=== PATIENT | female | born 1980 | race American Indian/Alaskan Native ===

== ENCOUNTER 2017-11-07 12:14 | Inpatient (IN) | payer MEDICARE ==
[2017-11-07] MEDS ORDERED: NACL 0.9% 1000 ML 1,000 ML IV ONE ×3 (12:25→14:44)
[2017-11-07] MEDS ORDERED: D50W (25GM) Syringe IV PRN ×2 (12:28→15:58)
--- NOTE | 2017-11-07 12:34 | Emergency Department Report ---
ED Altered Mental Status HPI - General Stated Complaint: UNRESPONSIVE Time Seen by Provider: 11/07/17 12:25 Source: family, EMS - History of Present Illness Initial Comments: Patient is 37 years old female history of insulin-dependent diabetes and previous CVAs, presented via EMS after patient was found unresponsive. Per family report, patient was last time seen normal yesterday afternoon. Unable to obtain more history due to patient condition. On arrival to the ER patient is breathing 20 breath/minutes and her oxygen saturation is 98% on 2 L. Strong smell of acetone in the room. MD Complaint: altered mental status, decreased responsiveness -: unknown Severity: moderate Consistency of Symptoms: constant - Related Data Home Medications Medication Instructions Recorded Confirmed Last Taken Aspirin [Aspirin EC] 81 mg PO DAILY 11/07/17 11/07/17 Unknown AtorvaSTATin [Lipitor] 80 mg PO QHS 11/07/17 11/07/17 Unknown Citalopram [celeXA] 10 mg PO QDAY 11/07/17 11/07/17 Unknown Clopidogrel [Plavix] 75 mg PO QDAY 11/07/17 11/07/17 Unknown Cyclobenzaprine [Flexeril] 10 mg PO TID PRN 11/07/17 11/07/17 Unknown Insulin Aspart Protam & Aspart 0 unit SQ TID 11/07/17 11/07/17 Unknown [NovoLOG Mix 70-30 Flexpen] Insulin Glargine,Hum.rec.anlog 20 units SQ QAM 11/07/17 11/07/17 Unknown [Lantus] Insulin Glargine,Hum.rec.anlog 50 units SQ QPM 11/07/17 11/07/17 Unknown [Lantus] NIFEdipine [Nifedipine ER] 30 mg PO DAILY 11/07/17 11/07/17 Unknown Allergies Allergy/AdvReac Type Severity Reaction Status Date / Time No Known Allergies Allergy Unverified 11/20/14 03:04 ED Review of Systems ROS: Stated complaint: UNRESPONSIVE Other details as noted in HPI Comment: Unobtainable due to pts medical conditions ED Past Medical Hx - Past Medical History Hx Hypertension: Yes Hx CVA: Yes Hx Diabetes: Yes Hx Seizures: Yes - Surgical History Additional Surgical History: Spinal surgery, neck/artery surgery - Social History Smoking Status: Never Smoker Substance Use Type: None - Medications Home Medications: Home Medications Medication Instructions Recorded Confirmed Last Taken Type Aspirin [Aspirin EC] 81 mg PO DAILY 11/07/17 11/07/17 Unknown History AtorvaSTATin [Lipitor] 80 mg PO QHS 11/07/17 11/07/17 Unknown History Citalopram [celeXA] 10 mg PO QDAY 11/07/17 11/07/17 Unknown History Clopidogrel [Plavix] 75 mg PO QDAY 11/07/17 11/07/17 Unknown History Cyclobenzaprine [Flexeril] 10 mg PO TID PRN 11/07/17 11/07/17 Unknown History Insulin Aspart Protam & Aspart 0 unit SQ TID 11/07/17 11/07/17 Unknown History [NovoLOG Mix 70-30 Flexpen] Insulin Glargine,Hum.rec.anlog 20 units SQ QAM 11/07/17 11/07/17 Unknown History [Lantus] Insulin Glargine,Hum.rec.anlog 50 units SQ QPM 11/07/17 11/07/17 Unknown History [Lantus] NIFEdipine [Nifedipine ER] 30 mg PO DAILY 11/07/17 11/07/17 Unknown History ED Physical Exam - General Limitations: Altered Mental Status General appearance: in no apparent distress, obtunded - Head Head exam: Present: atraumatic, normocephalic, normal inspection - Eye Eye exam: Present: normal appearance Pupils: Present: irregular, unequal - ENT ENT exam: Present: normal exam, mucous membranes dry - Neck Neck exam: Present: normal inspection, full ROM. Absent: tenderness, meningismus, lymphadenopathy, thyromegaly - Respiratory Respiratory exam: Present: normal lung sounds bilaterally - Cardiovascular Cardiovascular Exam: Present: regular rate, normal rhythm, normal heart sounds - GI/Abdominal GI/Abdominal exam: Present: soft, normal bowel sounds. Absent: distended, tenderness, guarding, rebound, rigid, organomegaly, mass, bruit, pulsatile mass - Extremities Exam Extremities exam: Present: normal inspection, full ROM, normal capillary refill - Back Exam Back exam: Present: normal inspection, full ROM. Absent: tenderness, CVA tenderness (R), CVA tenderness (L), muscle spasm, paraspinal tenderness, vertebral tenderness - Neurological Exam Neurological exam: Present: altered - Skin Skin exam: Present: warm, dry, intact ED Course Vital Signs 11/07/17 11/07/17 11/07/17 12:18 12:30 12:45 Pulse Rate 94 H 89 Respiratory 19 18 Rate Blood Pressure 115/67 111/67 107/62 O2 Sat by Pulse 100 100 Oximetry 11/07/17 11/07/17 11/07/17 12:49 13:00 13:30 Pulse Rate 91 H 92 H 99 H Respiratory 14 20 19 Rate Blood Pressure 107/62 113/59 100/53 O2 Sat by Pulse 99 100 96 Oximetry 11/07/17 11/07/17 11/07/17 14:00 14:30 15:34 Pulse Rate 90 92 H 92 H Respiratory 22 21 21 Rate Blood Pressure 108/54 108/54 109/62 O2 Sat by Pulse 100 100 100 Oximetry 11/07/17 11/07/17 11/07/17 16:00 16:30 16:41 Pulse Rate 94 H 94 H Respiratory 21 20 Rate Blood Pressure 117/69 104/62 O2 Sat by Pulse 100 100 100 Oximetry 11/07/17 11/07/17 11/07/17 17:00 17:05 17:30 Pulse Rate 92 H 92 H 94 H Respiratory 21 20 22 Rate Blood Pressure 108/60 110/60 104/62 O2 Sat by Pulse 100 100 100 Oximetry 11/07/17 18:00 Pulse Rate 97 H Respiratory 22 Rate Blood Pressure 104/62 O2 Sat by Pulse 96 Oximetry - Reevaluation(s) Reevaluation #1: 11/07/17 13:10 patient still obtunded but started to respond to painful and voice stimuli. She is still maintaining an oxygen saturation of 100% with a respiratory rate between 18-22 breaths/minutes. 11/07/17 14:32 patient's clinically looks better. We'll continue IV fluids and insulin drip and plan to admit to the ICU. 11/07/17 18:56 - Lab Data Result diagrams: 11/07/17 12:26 11/07/17 16:57 Lab Results 11/07/17 11/07/17 11/07/17 Range/Units 12:26 12:26 12:39 WBC 20.1 H (4.5-11.0) K/mm3 RBC 4.10 (3.65-5.03) M/mm3 Hgb 12.4 (10.1-14.3) gm/dl Hct 41.3 (30.3-42.9) % MCV 101 H (79-97) fl MCH 30 (28-32) pg MCHC 30 (30-34) % RDW 13.7 (13.2-15.2) % Plt Count 197 (140-440) K/mm3 Add Manual Diff Complete Total Counted 100 Seg Neutrophils % [employer] Seg Neuts % (Manual) 90.0 H (40.0-70.0) % Band Neutrophils % 4.0 % Lymphocytes % (Manual) 2.0 L (13.4-35.0) % Reactive Lymphs % (Man) 0 % Monocytes % (Manual) 4.0 (0.0-7.3) % Eosinophils % (Manual) 0 (0.0-4.3) % Basophils % (Manual) 0 (0.0-1.8) % Metamyelocytes % 0 % Myelocytes % 0 % Promyelocytes % 0 % Blast Cells % 0 % Nucleated RBC % Not Reportable Seg Neutrophils # Man 18.1 H (1.8-7.7) K/mm3 Band Neutrophils # 0.8 K/mm3 Lymphocytes # (Manual) 0.4 L (1.2-5.4) K/mm3 Abs React Lymphs (Man) 0.0 K/mm3 Monocytes # (Manual) 0.8 (0.0-0.8) K/mm3 Eosinophils # (Manual) 0.0 (0.0-0.4) K/mm3 Basophils # (Manual) 0.0 (0.0-0.1) K/mm3 Metamyelocytes # 0.0 K/mm3 Myelocytes # 0.0 K/mm3 Promyelocytes # 0.0 K/mm3 Blast Cells # 0.0 K/mm3 WBC Morphology Not Reportable Hypersegmented Neuts Not Reportable Hyposegmented Neuts Not Reportable Hypogranular Neuts Not Reportable Smudge Cells Not Reportable Toxic Granulation Not Reportable Toxic Vacuolation Not Reportable Dohle Bodies Not Reportable Pelger-Huet Anomaly Not Reportable Xiomy Rods Not Reportable Platelet Estimate Not Reportable Clumped Platelets Not Reportable Plt Clumps, EDTA Not Reportable Large Platelets Not Reportable Giant Platelets Not Reportable Platelet Satelliting Not Reportable Plt Morphology Comment Not Reportable RBC Morphology Normal Dimorphic RBCs Not Reportable Polychromasia Not Reportable Hypochromasia Not Reportable Poikilocytosis Not Reportable Anisocytosis Not Reportable Microcytosis Not Reportable Macrocytosis Not Reportable Spherocytes Not Reportable Pappenheimer Bodies Not Reportable Sickle Cells Not Reportable Target Cells Not Reportable Tear Drop Cells Not Reportable Ovalocytes Not Reportable Helmet Cells Not Reportable [place] Bodies Not Reportable [place] Rings Not Reportable Danna Cells Not Reportable Bite Cells Not Reportable Crenated Cell Not Reportable Elliptocytes Not Reportable Acanthocytes (Spur) Not Reportable Rouleaux Not Reportable Hemoglobin C Crystals Not Reportable Schistocytes Not Reportable Malaria parasites Not Reportable Mundo Bodies Not Reportable Hem Pathologist Commnt No PT 16.4 H (12.2-14.9) Sec. INR 1.25 H (0.87-1.13) POC ABG pH 6.856 L (7.35-7.45) POC ABG pCO2 12.4 L (35-45) POC ABG pO2 288 H (80-105) POC ABG HCO3 2.2 POC ABG Total CO2 < 5 POC ABG O2 Sat 100 POC ABG Base Excess < -30 FiO2 98 % Sodium Potassium Chloride Carbon Dioxide Anion Gap BUN Creatinine Estimated GFR BUN/Creatinine Ratio Glucose POC Glucose (70-105) Lactic Acid (0.7-2.0) mmol/L Calcium Phosphorus (2.5-4.5) mg/dL Magnesium (1.7-2.3) mg/dL Total Bilirubin (0.1-1.2) mg/dL Direct Bilirubin (0-0.2) mg/dL Indirect Bilirubin mg/dL AST (5-40) units/L ALT (7-56) units/L Alkaline Phosphatase (35-129) units/L Total Protein (6.3-8.2) g/dL Albumin (3.9-5) g/dL Albumin/Globulin Ratio % HCG, Qual (Negative) Urine Color (Yellow) Urine Turbidity (Clear) Urine pH (5.0-7.0) Ur Specific [place] (1.003-1.030) Urine Protein (Negative) mg/dL Urine Glucose (UA) (Negative) mg/dL Urine Ketones (Negative) mg/dL Urine Blood (Negative) Urine Nitrite (Negative) Urine Bilirubin (Negative) Urine Urobilinogen (<2.0) mg/dL Ur Leukocyte Esterase (Negative) Urine WBC (Auto) (0.0-6.0) /HPF Urine RBC (Auto) (0.0-6.0) /HPF U Epithel Cells (Auto) (0-13.0) /HPF Urine Bacteria (Auto) (Negative) /HPF Urine Opiates Screen Urine Methadone Screen Ur Barbiturates Screen Ur Phencyclidine Scrn Ur Amphetamines Screen U Benzodiazepines Scrn Urine Cocaine Screen U Marijuana (THC) Screen Drugs of Abuse Note 11/07/17 11/07/17 11/07/17 Range/Units 13:44 13:44 13:44 WBC (4.5-11.0) K/mm3 RBC (3.65-5.03) M/mm3 Hgb (10.1-14.3) gm/dl Hct (30.3-42.9) % MCV (79-97) fl MCH (28-32) pg MCHC (30-34) % RDW (13.2-15.2) % Plt Count (140-440) K/mm3 Add Manual Diff Total Counted Seg Neutrophils % Seg Neuts % (Manual) (40.0-70.0) % Band Neutrophils % % Lymphocytes % (Manual) (13.4-35.0) % Reactive Lymphs % (Man) % Monocytes % (Manual) (0.0-7.3) % Eosinophils % (Manual) (0.0-4.3) % Basophils % (Manual) (0.0-1.8) % Metamyelocytes % % Myelocytes % % Promyelocytes % % Blast Cells % % Nucleated RBC % Seg Neutrophils # Man (1.8-7.7) K/mm3 Band Neutrophils # K/mm3 Lymphocytes # (Manual) (1.2-5.4) K/mm3 Abs React Lymphs (Man) K/mm3 Monocytes # (Manual) (0.0-0.8) K/mm3 Eosinophils # (Manual) (0.0-0.4) K/mm3 Basophils # (Manual) (0.0-0.1) K/mm3 Metamyelocytes # K/mm3 Myelocytes # K/mm3 Promyelocytes # K/mm3 Blast Cells # K/mm3 WBC Morphology Hypersegmented Neuts Hyposegmented Neuts Hypogranular Neuts Smudge Cells Toxic Granulation Toxic Vacuolation Dohle Bodies Pelger-Huet Anomaly Xiomy Rods Platelet Estimate Clumped Platelets Plt Clumps, EDTA Large Platelets Giant Platelets Platelet Satelliting Plt Morphology Comment RBC Morphology Dimorphic RBCs Polychromasia Hypochromasia Poikilocytosis Anisocytosis Microcytosis Macrocytosis Spherocytes Pappenheimer Bodies Sickle Cells Target Cells Tear Drop Cells Ovalocytes Helmet Cells [place] Bodies [place] Rings [place] Cells Bite Cells Crenated Cell Elliptocytes Acanthocytes (Spur) Rouleaux Hemoglobin C Crystals Schistocytes Malaria parasites Mundo Bodies Hem Pathologist Commnt PT (12.2-14.9) Sec. INR (0.87-1.13) POC ABG pH (7.35-7.45) POC ABG pCO2 (35-45) POC ABG pO2 (80-105) POC ABG HCO3 POC ABG Total CO2 POC ABG O2 Sat POC ABG Base Excess FiO2 % Sodium TNR Potassium TNR Chloride TNR Carbon Dioxide TNR Anion Gap TNR BUN TNR Creatinine TNR Estimated GFR TNR BUN/Creatinine Ratio TNR Glucose TNR POC Glucose (70-105) Lactic Acid (0.7-2.0) mmol/L Calcium TNR Phosphorus 8.10 H (2.5-4.5) mg/dL Magnesium 2.60 H (1.7-2.3) mg/dL Total Bilirubin 0.30 (0.1-1.2) mg/dL Direct Bilirubin 0.2 (0-0.2) mg/dL Indirect Bilirubin 0.1 mg/dL AST 15 (5-40) units/L ALT 11 (7-56) units/L Alkaline Phosphatase 89 (35-129) units/L Total Protein 5.8 L (6.3-8.2) g/dL Albumin 3.0 L (3.9-5) g/dL Albumin/Globulin Ratio 1.1 % HCG, Qual Negative (Negative) Urine Color (Yellow) Urine Turbidity (Clear) Urine pH (5.0-7.0) Ur Specific [place] (1.003-1.030) Urine Protein (Negative) mg/dL Urine Glucose (UA) (Negative) mg/dL Urine Ketones (Negative) mg/dL Urine Blood (Negative) Urine Nitrite (Negative) Urine Bilirubin (Negative) Urine Urobilinogen (<2.0) mg/dL Ur Leukocyte Esterase (Negative) Urine WBC (Auto) (0.0-6.0) /HPF Urine RBC (Auto) (0.0-6.0) /HPF U Epithel Cells (Auto) (0-13.0) /HPF Urine Bacteria (Auto) (Negative) /HPF Urine Opiates Screen Urine Methadone Screen Ur Barbiturates Screen Ur Phencyclidine Scrn Ur Amphetamines Screen U Benzodiazepines Scrn Urine Cocaine Screen U Marijuana (THC) Screen Drugs of Abuse Note 11/07/17 11/07/17 11/07/17 Range/Units 13:44 14:17 14:28 WBC (4.5-11.0) K/mm3 RBC (3.65-5.03) M/mm3 Hgb (10.1-14.3) gm/dl Hct (30.3-42.9) % MCV (79-97) fl MCH (28-32) pg MCHC (30-34) % RDW (13.2-15.2) % Plt Count (140-440) K/mm3 Add Manual Diff Total Counted Seg Neutrophils % Seg Neuts % (Manual) (40.0-70.0) % Band Neutrophils % % Lymphocytes % (Manual) (13.4-35.0) % Reactive Lymphs % (Man) % Monocytes % (Manual) (0.0-7.3) % Eosinophils % (Manual) (0.0-4.3) % Basophils % (Manual) (0.0-1.8) % Metamyelocytes % % Myelocytes % % Promyelocytes % % Blast Cells % % Nucleated RBC % Seg Neutrophils # Man (1.8-7.7) K/mm3 Band Neutrophils # K/mm3 Lymphocytes # (Manual) (1.2-5.4) K/mm3 Abs React Lymphs (Man) K/mm3 Monocytes # (Manual) (0.0-0.8) K/mm3 Eosinophils # (Manual) (0.0-0.4) K/mm3 Basophils # (Manual) (0.0-0.1) K/mm3 Metamyelocytes # K/mm3 Myelocytes # K/mm3 Promyelocytes # K/mm3 Blast Cells # K/mm3 WBC Morphology Hypersegmented Neuts Hyposegmented Neuts Hypogranular Neuts Smudge Cells Toxic Granulation Toxic Vacuolation Dohle Bodies Pelger-Huet Anomaly Xiomy Rods Platelet Estimate Clumped Platelets Plt Clumps, EDTA Large Platelets Giant Platelets Platelet Satelliting Plt Morphology Comment RBC Morphology Dimorphic RBCs Polychromasia Hypochromasia Poikilocytosis Anisocytosis Microcytosis Macrocytosis Spherocytes Pappenheimer Bodies Sickle Cells Target Cells Tear Drop Cells Ovalocytes Helmet Cells [place] Bodies [place] Rings Danna Cells Bite Cells Crenated Cell Elliptocytes Acanthocytes (Spur) Rouleaux Hemoglobin C Crystals Schistocytes Malaria parasites Mundo Bodies Hem Pathologist Commnt PT (12.2-14.9) Sec. INR (0.87-1.13) POC ABG pH (7.35-7.45) POC ABG pCO2 (35-45) POC ABG pO2 (80-105) POC ABG HCO3 POC ABG Total CO2 POC ABG O2 Sat POC ABG Base Excess FiO2 % Sodium 141 141 Potassium 6.5 H* 5.8 H Chloride 94.4 L 99.1 Carbon Dioxide 5 L* 2 L* Anion Gap 48 46 BUN 43 H 38 H Creatinine 1.2 1.3 H Estimated GFR > 60 55 BUN/Creatinine Ratio 36 29 Glucose 629 H* 610 H* POC Glucose (70-105) Lactic Acid (0.7-2.0) mmol/L Calcium 8.3 L 7.7 L Phosphorus (2.5-4.5) mg/dL Magnesium (1.7-2.3) mg/dL Total Bilirubin (0.1-1.2) mg/dL Direct Bilirubin (0-0.2) mg/dL Indirect Bilirubin mg/dL AST (5-40) units/L ALT (7-56) units/L Alkaline Phosphatase (35-129) units/L Total Protein (6.3-8.2) g/dL Albumin (3.9-5) g/dL Albumin/Globulin Ratio % HCG, Qual (Negative) Urine Color Yellow (Yellow) Urine Turbidity Clear (Clear) Urine pH 5.0 (5.0-7.0) Ur Specific [place] 1.016 (1.003-1.030) Urine Protein 100 mg/dl (Negative) mg/dL Urine Glucose (UA) >=500 (Negative) mg/dL Urine Ketones 80 (Negative) mg/dL Urine Blood Mod (Negative) Urine Nitrite Neg (Negative) Urine Bilirubin Neg (Negative) Urine Urobilinogen < 2.0 (<2.0) mg/dL Ur Leukocyte Esterase Neg (Negative) Urine WBC (Auto) 2.0 (0.0-6.0) /HPF Urine RBC (Auto) < 1.0 (0.0-6.0) /HPF U Epithel Cells (Auto) < 1.0 (0-13.0) /HPF Urine Bacteria (Auto) 1+ (Negative) /HPF Urine Opiates Screen Urine Methadone Screen Ur Barbiturates Screen Ur Phencyclidine Scrn Ur Amphetamines Screen U Benzodiazepines Scrn Urine Cocaine Screen U Marijuana (THC) Screen Drugs of Abuse Note 11/07/17 11/07/17 11/07/17 Range/Units 14:28 15:17 15:17 WBC (4.5-11.0) K/mm3 RBC (3.65-5.03) M/mm3 Hgb (10.1-14.3) gm/dl Hct (30.3-42.9) % MCV (79-97) fl MCH (28-32) pg MCHC (30-34) % RDW (13.2-15.2) % Plt Count (140-440) K/mm3 Add Manual Diff Total Counted Seg Neutrophils % Seg Neuts % (Manual) (40.0-70.0) % Band Neutrophils % % Lymphocytes % (Manual) (13.4-35.0) % Reactive Lymphs % (Man) % Monocytes % (Manual) (0.0-7.3) % Eosinophils % (Manual) (0.0-4.3) % Basophils % (Manual) (0.0-1.8) % Metamyelocytes % % Myelocytes % % Promyelocytes % % Blast Cells % % Nucleated RBC % Seg Neutrophils # Man (1.8-7.7) K/mm3 Band Neutrophils # K/mm3 Lymphocytes # (Manual) (1.2-5.4) K/mm3 Abs React Lymphs (Man) K/mm3 Monocytes # (Manual) (0.0-0.8) K/mm3 Eosinophils # (Manual) (0.0-0.4) K/mm3 Basophils # (Manual) (0.0-0.1) K/mm3 Metamyelocytes # K/mm3 Myelocytes # K/mm3 Promyelocytes # K/mm3 Blast Cells # K/mm3 WBC Morphology Hypersegmented Neuts Hyposegmented Neuts Hypogranular Neuts Smudge Cells Toxic Granulation Toxic Vacuolation Dohle Bodies Pelger-Huet Anomaly Xiomy Rods Platelet Estimate Clumped Platelets Plt Clumps, EDTA Large Platelets Giant Platelets Platelet Satelliting Plt Morphology Comment RBC Morphology Dimorphic RBCs Polychromasia Hypochromasia Poikilocytosis Anisocytosis Microcytosis Macrocytosis Spherocytes Pappenheimer Bodies Sickle Cells Target Cells Tear Drop Cells Ovalocytes Helmet Cells [place] Bodies [place] Rings [place] Cells Bite Cells Crenated Cell Elliptocytes Acanthocytes (Spur) Rouleaux Hemoglobin C Crystals Schistocytes Malaria parasites Mundo Bodies Hem Pathologist Commnt PT (12.2-14.9) Sec. INR (0.87-1.13) POC ABG pH (7.35-7.45) POC ABG pCO2 (35-45) POC ABG pO2 (80-105) POC ABG HCO3 POC ABG Total CO2 POC ABG O2 Sat POC ABG Base Excess FiO2 % Sodium 143 Potassium 5.7 H Chloride 100.3 Carbon Dioxide < 2.0 L* Anion Gap 46 BUN 39 H Creatinine 1.3 H Estimated GFR 55 BUN/Creatinine Ratio 30 Glucose 585 H* POC Glucose (70-105) Lactic Acid 2.90 H* (0.7-2.0) mmol/L Calcium 7.9 L Phosphorus (2.5-4.5) mg/dL Magnesium (1.7-2.3) mg/dL Total Bilirubin (0.1-1.2) mg/dL Direct Bilirubin (0-0.2) mg/dL Indirect Bilirubin mg/dL AST (5-40) units/L ALT (7-56) units/L Alkaline Phosphatase (35-129) units/L Total Protein (6.3-8.2) g/dL Albumin (3.9-5) g/dL Albumin/Globulin Ratio % HCG, Qual (Negative) Urine Color (Yellow) Urine Turbidity (Clear) Urine pH (5.0-7.0) Ur Specific [place] (1.003-1.030) Urine Protein (Negative) mg/dL Urine Glucose (UA) (Negative) mg/dL Urine Ketones (Negative) mg/dL Urine Blood (Negative) Urine Nitrite (Negative) Urine Bilirubin (Negative) Urine Urobilinogen (<2.0) mg/dL Ur Leukocyte Esterase (Negative) Urine WBC (Auto) (0.0-6.0) /HPF Urine RBC (Auto) (0.0-6.0) /HPF U Epithel Cells (Auto) (0-13.0) /HPF Urine Bacteria (Auto) (Negative) /HPF Urine Opiates Screen Presumptive negative Urine Methadone Screen Presumptive negative Ur Barbiturates Screen Presumptive negative Ur Phencyclidine Scrn Presumptive negative Ur Amphetamines Screen Presumptive negative U Benzodiazepines Scrn Presumptive negative Urine Cocaine Screen Presumptive negative U Marijuana (THC) Screen Presumptive negative Drugs of Abuse Note Disclamer 11/07/17 Range/Units 15:40 WBC (4.5-11.0) K/mm3 RBC (3.65-5.03) M/mm3 Hgb (10.1-14.3) gm/dl Hct (30.3-42.9) % MCV (79-97) fl MCH (28-32) pg MCHC (30-34) % RDW (13.2-15.2) % Plt Count (140-440) K/mm3 Add Manual Diff Total Counted Seg Neutrophils % Seg Neuts % (Manual) (40.0-70.0) % Band Neutrophils % % Lymphocytes % (Manual) (13.4-35.0) % Reactive Lymphs % (Man) % Monocytes % (Manual) (0.0-7.3) % Eosinophils % (Manual) (0.0-4.3) % Basophils % (Manual) (0.0-1.8) % Metamyelocytes % % Myelocytes % % Promyelocytes % % Blast Cells % % Nucleated RBC % Seg Neutrophils # Man (1.8-7.7) K/mm3 Band Neutrophils # K/mm3 Lymphocytes # (Manual) (1.2-5.4) K/mm3 Abs React Lymphs (Man) K/mm3 Monocytes # (Manual) (0.0-0.8) K/mm3 Eosinophils # (Manual) (0.0-0.4) K/mm3 Basophils # (Manual) (0.0-0.1) K/mm3 Metamyelocytes # K/mm3 Myelocytes # K/mm3 Promyelocytes # K/mm3 Blast Cells # K/mm3 WBC Morphology Hypersegmented Neuts Hyposegmented Neuts Hypogranular Neuts Smudge Cells Toxic Granulation Toxic Vacuolation Dohle Bodies Pelger-Huet Anomaly Xiomy Rods Platelet Estimate Clumped Platelets Plt Clumps, EDTA Large Platelets Giant Platelets Platelet Satelliting Plt Morphology Comment RBC Morphology Dimorphic RBCs Polychromasia Hypochromasia Poikilocytosis Anisocytosis Microcytosis Macrocytosis Spherocytes Pappenheimer Bodies Sickle Cells Target Cells Tear Drop Cells Ovalocytes Helmet Cells [place] Bodies [place] Rings [place] Cells Bite Cells Crenated Cell Elliptocytes Acanthocytes (Spur) Rouleaux Hemoglobin C Crystals Schistocytes Malaria parasites Mundo Bodies Hem Pathologist Commnt PT (12.2-14.9) Sec. INR (0.87-1.13) POC ABG pH (7.35-7.45) POC ABG pCO2 (35-45) POC ABG pO2 (80-105) POC ABG HCO3 POC ABG Total CO2 POC ABG O2 Sat POC ABG Base Excess FiO2 % Sodium Potassium Chloride Carbon Dioxide Anion Gap BUN Creatinine Estimated GFR BUN/Creatinine Ratio Glucose POC Glucose > 500 H (70-105) Lactic Acid (0.7-2.0) mmol/L Calcium Phosphorus (2.5-4.5) mg/dL Magnesium (1.7-2.3) mg/dL Total Bilirubin (0.1-1.2) mg/dL Direct Bilirubin (0-0.2) mg/dL Indirect Bilirubin mg/dL AST (5-40) units/L ALT (7-56) units/L Alkaline Phosphatase (35-129) units/L Total Protein (6.3-8.2) g/dL Albumin (3.9-5) g/dL Albumin/Globulin Ratio % HCG, Qual (Negative) Urine Color (Yellow) Urine Turbidity (Clear) Urine pH (5.0-7.0) Ur Specific [place] (1.003-1.030) Urine Protein (Negative) mg/dL Urine Glucose (UA) (Negative) mg/dL Urine Ketones (Negative) mg/dL Urine Blood (Negative) Urine Nitrite (Negative) Urine Bilirubin (Negative) Urine Urobilinogen (<2.0) mg/dL Ur Leukocyte Esterase (Negative) Urine WBC (Auto) (0.0-6.0) /HPF Urine RBC (Auto) (0.0-6.0) /HPF U Epithel Cells (Auto) (0-13.0) /HPF Urine Bacteria (Auto) (Negative) /HPF Urine Opiates Screen Urine Methadone Screen Ur Barbiturates Screen Ur Phencyclidine Scrn Ur Amphetamines Screen U Benzodiazepines Scrn Urine Cocaine Screen U Marijuana (THC) Screen Drugs of Abuse Note - EKG Data -: EKG Interpreted by Me EKG shows normal: sinus rhythm Rate: normal Interpretation: no acute changes - Radiology Data Radiology results: report reviewed Chest x-ray showed no acute abnormalities. - Medical Decision Making Discussed with Dr. Todd, I presented the patient to him, he agreed to admit the patient to his service. Critical Care Time: Yes Critical care time in (mins) excluding proc time.: 45 Critical care attestation.: If time is entered above; I have spent that time in minutes in the direct care of this critically ill patient, excluding procedure time. ED Disposition Clinical Impression: DKA (diabetic ketoacidoses), Altered mental status Disposition: [id number] OP ADMIT IP TO THIS HOSP Is pt being admited?: Yes Condition: Stable
[2017-11-07] MEDS ORDERED: SODIUM BICARBONATE IV ONE ×2 (12:44→13:00)
--- NOTE | 2017-11-07 13:17 | XRay Report ---
AP CHEST: HISTORY: Diabetic ketoacidosis No comparison. AP view of the chest demonstrates a normal mediastinal and cardiac contour with clear lungs and normal bony and soft tissue structures. IMPRESSION: Unremarkable AP chest.
[2017-11-07 14:06] LABS: BUN/Creatinine Ratio 36; Blood Urea Nitrogen 43 mg/dL (7-17); Calcium 8.3 mg/dL (8.4-10.2); Hemolysis Index 101
[2017-11-07 14:29] LABS: Mean Corpuscular HGB Conc 30 % (30-34); Mean Corpuscular Hemoglobin 30 pg (28-32); Mean Corpuscular Volume 101 fl (79-97); Platelet Count 197 K/mm3 (140-440); Red Cell Distribution Width 13.7 % (13.2-15.2)
[2017-11-07 14:33] LABS: Magnesium 2.6 mg/dL (1.7-2.3)
[2017-11-07 14:35] LABS: Hematocrit 41.3 % (30.3-42.9); Hemoglobin 12.4 gm/dl (10.1-14.3)
[2017-11-07 14:38] LABS: INR 1.25 (0.87-1.13)
[2017-11-07 14:43] LABS: Calcium 7.7 mg/dL (8.4-10.2)
[2017-11-07] MEDS: NovoLIN R 100 UNITS in NACL 0.9% 99 ML IV SCH (14:43)
[2017-11-07 14:50] LABS: Hemolysis Index 102
[2017-11-07 14:52] LABS: Amphetamine Screen,Urine PRESUMPTIVE NEGATIVE; Benzodiazepines Screen,Urine PRESUMPTIVE NEGATIVE; Cannabinoid Screen,Urine PRESUMPTIVE NEGATIVE; Cocaine Screen,Urine PRESUMPTIVE NEGATIVE; Methadone Screen,Urine PRESUMPTIVE NEGATIVE; Opiate Screen,Urine PRESUMPTIVE NEGATIVE
[2017-11-07 14:53] LABS: Bacteria,Urine 1+ /HPF (Negative); Bilirubin,Urine NEG (Negative); Blood,Urine MOD (Negative); Color,Urine Yellow (Yellow); Nitrite,Urine NEG (Negative); RBC,Urine < 1.0 /HPF (0.0-6.0); Urobilinogen,Urine < 2.0 mg/dL (<2.0)
[2017-11-07] MEDS ORDERED: ZOSYN/NS 3.375GM/50ML 3.375 GM/50 ML BAG IV SCH (15:00)
[2017-11-07 15:04] LABS: BUN/Creatinine Ratio TNR; Bilirubin,Direct 0.2 mg/dL (0-0.2); Blood Urea Nitrogen TNR mg/dL (7-17); Calcium TNR mg/dL (8.4-10.2)
[2017-11-07 15:05] LABS: Alanine Aminotransferase 11 units/L (7-56)
--- NOTE | 2017-11-07 15:14 | Cat Scan Report ---
CT HEAD WITHOUT CONTRAST: HISTORY: Altered mental status. TECHNIQUE: Sequential CT images without contrast. FINDINGS: No comparison. Slightly limited examination with motion and poor patient positioning by the technologist. The lateral ventricles appear prominent, right greater than left. Mild ventriculomegaly could be considered. The fourth ventricle is within normal limits. The brain parenchyma demonstrates normal attenuation. There is no evidence for hemorrhage, mass or large or acute ischemia. No extra axial fluid collection. The basal cisterns are clear. The posterior fossa and contents are within normal limits. The calvarium is intact. The visualized sinuses and mastoid air cells are aerated. IMPRESSION: Mild dilatation of the lateral ventricles is suspected. Is there concern for hydrocephalus? Consider further evaluation with MRI. The brain parenchyma is within normal limits.
[2017-11-07 15:32] LABS: Band Neutrophils # (Manual) 0.8 K/mm3; Basophils % (Manual) 0 % (0.0-1.8); Eosinophils % (Manual) 0 % (0.0-4.3); Total Cells Counted 100
[2017-11-07 15:33] LABS: RBC Morphology Normal
[2017-11-07 15:53] LABS: BUN/Creatinine Ratio 30; Blood Urea Nitrogen 39 mg/dL (7-17); Calcium 7.9 mg/dL (8.4-10.2); Hemolysis Index 39
[2017-11-07] MEDS ORDERED: TYLENOL PO PRN (15:53)
[2017-11-07] MEDS ORDERED: ZOFRAN IV PRN (15:53)
[2017-11-07] MEDS ORDERED: DULCOLAX PR PRN (15:53)
[2017-11-07] MEDS ORDERED: MILK OF MAGNESIA PO PRN (15:53)
--- NOTE | 2017-11-07 15:53 | History and Physical Report ---
History of Present Illness Date of examination: 11/07/17 Date of admission: 11/07/17 Chief complaint: CC Unresponsive History of present illness: History of Present Illness Patient is 37 years old female with history of insulin-dependent diabetes and previous CVAs, presented via EMS after patient was found unresponsive. Per family report, patient was last time seen normal yesterday afternoon. Unable to obtain more history due to patient condition. On arrival to the ER patient is breathing 20 breath/minutes and her oxygen saturation is 98% on 2 L. Strong smell of acetone in the room. MD Complaint: altered mental status, decreased responsiveness -: unknown Severity: moderate Consistency of Symptoms: constant Past Medical History Hx Hypertension: Yes Hx CVA: Yes Hx Diabetes: Yes Hx Seizures: Yes Surgical History Additional Surgical History: Spinal surgery, neck/artery surgery -Social History Smoking Status: Never Smoker Substance Use Type: None Medications Home Medications: Home Medications Medication Instructions Recorded Confirmed Last Taken Type Aspirin [Aspirin EC] 81 mg PO DAILY 11/07/17 11/07/17 Unknown History AtorvaSTATin [Lipitor] 80 mg PO QHS 11/07/17 11/07/17 Unknown History Citalopram [celeXA] 10 mg PO QDAY 11/07/17 11/07/17 Unknown History Clopidogrel [Plavix] 75 mg PO QDAY 11/07/17 11/07/17 Unknown History Cyclobenzaprine [Flexeril] 10 mg PO TID PRN 11/07/17 11/07/17 Unknown History Insulin Aspart Protam & Aspart 0 unit SQ TID 11/07/17 11/07/17 Unknown History [NovoLOG Mix 70-30 Flexpen] Insulin Glargine,Hum.rec.anlog 20 units SQ QAM 11/07/17 11/07/17 Unknown History [Lantus] Insulin Glargine,Hum.rec.anlog 50 units SQ QPM 11/07/17 11/07/17 Unknown History [Lantus] NIFEdipine [Nifedipine ER] 30 mg PO DAILY 11/07/17 11/07/17 Unknown History Review of Systems ROS: Stated complaint: UNRESPONSIVE Other details as noted in HPI Comment: Unobtainable due to pts medical conditions Medications and Allergies Allergies Allergy/AdvReac Type Severity Reaction Status Date / Time No Known Allergies Allergy Unverified 11/20/14 03:04 Home Medications Medication Instructions Recorded Confirmed Last Taken Type Aspirin [Aspirin EC] 81 mg PO DAILY 11/07/17 11/07/17 Unknown History AtorvaSTATin [Lipitor] 80 mg PO QHS 11/07/17 11/07/17 Unknown History Citalopram [celeXA] 10 mg PO QDAY 11/07/17 11/07/17 Unknown History Clopidogrel [Plavix] 75 mg PO QDAY 11/07/17 11/07/17 Unknown History Cyclobenzaprine [Flexeril] 10 mg PO TID PRN 11/07/17 11/07/17 Unknown History Insulin Aspart Protam & Aspart 0 unit SQ TID 11/07/17 11/07/17 Unknown History [NovoLOG Mix 70-30 Flexpen] Insulin Glargine,Hum.rec.anlog 20 units SQ QAM 11/07/17 11/07/17 Unknown History [Lantus] Insulin Glargine,Hum.rec.anlog 50 units SQ QPM 11/07/17 11/07/17 Unknown History [Lantus] NIFEdipine [Nifedipine ER] 30 mg PO DAILY 11/07/17 11/07/17 Unknown History Active Meds: Active Medications Dextrose (D50w (25gm) Syringe) 0 ml IV ONCE PRN PRN Reason: Hypoglycemia Insulin Human Regular 100 (units/ Sodium Chloride) 100 mls @ 1 mls/hr IV TITR KYE; 1 UNITS/HR PRN Reason: Protocol Last Admin: 11/07/17 14:43 Dose: 4 units/hr, 4 mls/hr Piperacillin Sod/Tazobactam Sod (Zosyn/Ns 3.375gm/50ml) 3.375 gm in 50 mls @ 100 mls/hr IV Q6HR KYE Sodium Chloride (Nacl 0.9% 1000 Ml) 1,000 mls @ 250 mls/hr IV ONCE ONE Stop: 11/07/17 18:43 Exam - Constitutional Vitals: Temp Pulse Resp BP Pulse Ox 92 H 20 113/59 100 11/07/17 13:00 11/07/17 13:00 11/07/17 13:00 11/07/17 13:00 General appearance: Present: mild distress, well-nourished - EENT Eyes: Present: PERRL ENT: hearing intact, clear oral mucosa - Neck Neck: Present: supple, normal ROM - Respiratory Respiratory effort: normal Respiratory: bilateral: CTA - Cardiovascular Heart rate: 80 Rhythm: regular Heart Sounds: Present: S1 & S2. Absent: rub, click - Extremities Extremities: no ischemia, pulses intact, pulses symmetrical, No edema Peripheral Pulses: within normal limits - Abdominal General gastrointestinal: Present: soft, non-tender, non-distended, normal bowel sounds Female genitourinary: Present: normal - Rectal Rectal Exam: deferred - Integumentary Integumentary: Present: clear, warm, dry - Musculoskeletal Musculoskeletal: generalized weakness - Psychiatric Psychiatric: appropriate mood/affect, intact judgment & insight - Neurologic Neurologic: CNII-XII intact, moves all extremities, other (Decreased responsiveness) - Allied Health Allied health notes reviewed: nursing, case management Results - Labs CBC & Chem 7: 11/07/17 12:26 11/08/17 04:20 Labs: Laboratory Last Values WBC 20.1 K/mm3 (4.5-11.0) H 11/07/17 12: RBC 4.10 M/mm3 (3.65-5.03) 11/07/17 12:26 Hgb 12.4 gm/dl (10.1-14.3) 11/07/17 12:26 Hct 41.3 % (30.3-42.9) 11/07/17 12: MCV 101 fl (79-97) H 11/07/17 12:26 MCH 30 pg (28-32) 11/07/17 12:26 MCHC 30 % (30-34) 11/07/17 12: RDW 13.7 % (13.2-15.2) 11/07/17 12:26 Plt Count 197 K/mm3 (140-440) 11/07/17 12:26 Add Manual Diff Complete 11/07/17 12:26 Total Counted 100 11/07/17 12:26 Seg Neutrophils % Medical Technologist Microbiology 11/07/17 12:26 Seg Neuts % (Manual) 90.0 % (40.0-70.0) H 11/07/17 12:26 Band Neutrophils % 4.0 % 11/07/17 12:26 Lymphocytes % (Manual) 2.0 % (13.4-35.0) L 11/07/17 12:26 Reactive Lymphs % (Man) 0 % 11/07/17 12:26 Monocytes % (Manual) 4.0 % (0.0-7.3) 11/07/17 12:26 Eosinophils % (Manual) 0 % (0.0-4.3) 11/07/17 12:26 Basophils % (Manual) 0 % (0.0-1.8) 11/07/17 12:26 Metamyelocytes % 0 % 11/07/17 12:26 Myelocytes % 0 % 11/07/17 12:26 Promyelocytes % 0 % 11/07/17 12:26 Blast Cells % 0 % 11/07/17 12:26 Nucleated RBC % Not Reportable 11/07/17 12:26 Seg Neutrophils # Man 18.1 K/mm3 (1.8-7.7) H 11/07/17 12:26 Band Neutrophils # 0.8 K/mm3 11/07/17 12:26 Lymphocytes # (Manual) 0.4 K/mm3 (1.2-5.4) L 11/07/17 12:26 Abs React Lymphs (Man) 0.0 K/mm3 11/07/17 12:26 Monocytes # (Manual) 0.8 K/mm3 (0.0-0.8) 11/07/17 12:26 Eosinophils # (Manual) 0.0 K/mm3 (0.0-0.4) 11/07/17 12:26 Basophils # (Manual) 0.0 K/mm3 (0.0-0.1) 11/07/17 12:26 Metamyelocytes # 0.0 K/mm3 11/07/17 12:26 Myelocytes # 0.0 K/mm3 11/07/17 12:26 Promyelocytes # 0.0 K/mm3 11/07/17 12:26 Blast Cells # 0.0 K/mm3 11/07/17 12:26 WBC Morphology Not Reportable 11/07/17 12:26 Hypersegmented Neuts Not Reportable 11/07/17 12:26 Hyposegmented Neuts Not Reportable 11/07/17 12:26 Hypogranular Neuts Not Reportable 11/07/17 12:26 Smudge Cells Not Reportable 11/07/17 12:26 Toxic Granulation Not Reportable 11/07/17 12:26 Toxic Vacuolation Not Reportable 11/07/17 12:26 Dohle Bodies Not Reportable 11/07/17 12:26 Pelger-Huet Anomaly Not Reportable 11/07/17 12:26 Xiomy Rods Not Reportable 11/07/17 12:26 Platelet Estimate Not Reportable 11/07/17 12:26 Clumped Platelets Not Reportable 11/07/17 12:26 Plt Clumps, EDTA Not Reportable 11/07/17 12:26 Large Platelets Not Reportable 11/07/17 12:26 Giant Platelets Not Reportable 11/07/17 12:26 Platelet Satelliting Not Reportable 11/07/17 12:26 Plt Morphology Comment Not Reportable 11/07/17 12:26 RBC Morphology Normal 11/07/17 12:26 Dimorphic RBCs Not Reportable 11/07/17 12:26 Polychromasia Not Reportable 11/07/17 12:26 Hypochromasia Not Reportable 11/07/17 12:26 Poikilocytosis Not Reportable 11/07/17 12:26 Anisocytosis Not Reportable 11/07/17 12:26 Microcytosis Not Reportable 11/07/17 12:26 Macrocytosis Not Reportable 11/07/17 12:26 Spherocytes Not Reportable 11/07/17 12:26 Pappenheimer Bodies Not Reportable 11/07/17 12:26 Sickle Cells Not Reportable 11/07/17 12:26 Target Cells Not Reportable 11/07/17 12:26 Tear Drop Cells Not Reportable 11/07/17 12:26 Ovalocytes Not Reportable 11/07/17 12:26 Helmet Cells Not Reportable 11/07/17 12:26 [place] Bodies Not Reportable 11/07/17 12:[address] Rings Not Reportable 11/07/17 12:26 Danna Cells Not Reportable 11/07/17 12:26 Bite Cells Not Reportable 11/07/17 12:26 Crenated Cell Not Reportable 11/07/17 12:26 Elliptocytes Not Reportable 11/07/17 12:26 Acanthocytes (Spur) Not Reportable 11/07/17 12:26 Rouleaux Not Reportable 11/07/17 12:26 Hemoglobin C Crystals Not Reportable 11/07/17 12:26 Schistocytes Not Reportable 11/07/17 12:26 Malaria parasites Not Reportable 11/07/17 12:26 Mundo Bodies Not Reportable 11/07/17 12:26 Hem Pathologist Commnt No 11/07/17 12:26 PT 16.4 Sec. (12.2-14.9) H 11/07/17 12:26 INR 1.25 (0.87-1.13) H 11/07/17 12:26 POC ABG pH 6.856 (7.35-7.45) L 11/07/17 12:39 POC ABG pCO2 12.4 (35-45) L 11/07/17 12:39 POC ABG pO2 288 (80-105) H 11/07/17 12:39 POC ABG HCO3 2.2 11/07/17 12:39 POC ABG Total CO2 < 5 11/07/17 12:39 POC ABG O2 Sat 100 11/07/17 12:39 POC ABG Base Excess < -30 11/07/17 12:39 FiO2 98 % 11/07/17 12:39 Sodium 141 mmol/L (137-145) 11/07/17 14:17 Potassium 5.8 mmol/L (3.6-5.0) H 11/07/17 14:17 Chloride 99.1 mmol/L (98-107) 11/07/17 14:17 Carbon Dioxide 2 mmol/L (22-30) L* 11/07/17 14:17 Anion Gap 46 mmol/L 11/07/17 14:17 BUN 38 mg/dL (7-17) H 11/07/17 14:17 Creatinine 1.3 mg/dL (0.7-1.2) H 11/07/17 14:17 Estimated GFR 55 ml/min 11/07/17 14:17 BUN/Creatinine Ratio 29 % 11/07/17 14:17 Glucose 610 mg/dL (65-100) H* 11/07/17 14:17 POC Glucose > 500 (70-105) H 11/07/17 15:40 Lactic Acid 2.90 mmol/L (0.7-2.0) H* 11/07/17 15:17 Calcium 7.7 mg/dL (8.4-10.2) L 11/07/17 14:17 Phosphorus 8.10 mg/dL (2.5-4.5) H 11/07/17 13:44 Magnesium 2.60 mg/dL (1.7-2.3) H 11/07/17 13:44 Total Bilirubin 0.30 mg/dL (0.1-1.2) 11/07/17 13:44 Direct Bilirubin 0.2 mg/dL (0-0.2) 11/07/17 13:44 Indirect Bilirubin 0.1 mg/dL 11/07/17 13:44 AST 15 units/L (5-40) 11/07/17 13:44 ALT 11 units/L (7-56) 11/07/17 13:44 Alkaline Phosphatase 89 units/L (35-129) 11/07/17 13:44 Total Protein 5.8 g/dL (6.3-8.2) L 11/07/17 13:44 Albumin 3.0 g/dL (3.9-5) L 11/07/17 13:44 Albumin/Globulin Ratio 1.1 % 11/07/17 13:44 HCG, Qual Negative (Negative) 11/07/17 13:44 Urine Color Yellow (Yellow) 11/07/17 14:28 Urine Turbidity Clear (Clear) 11/07/17 14:28 Urine pH 5.0 (5.0-7.0) 11/07/17 14:28 Ur Specific [place] 1.016 (1.003-1.030) 11/07/17 14:28 Urine Protein 100 mg/dl mg/dL (Negative) 11/07/17 14:28 Urine Glucose (UA) >=500 mg/dL (Negative) 11/07/17 14:28 Urine Ketones 80 mg/dL (Negative) 11/07/17 14:28 Urine Blood Mod (Negative) 11/07/17 14:28 Urine Nitrite Neg (Negative) 11/07/17 14:28 Urine Bilirubin Neg (Negative) 11/07/17 14:28 Urine Urobilinogen < 2.0 mg/dL (<2.0) 11/07/17 14:28 Ur Leukocyte Esterase Neg (Negative) 11/07/17 14:28 Urine WBC (Auto) 2.0 /HPF (0.0-6.0) 11/07/17 14:28 Urine RBC (Auto) < 1.0 /HPF (0.0-6.0) 11/07/17 14:28 U Epithel Cells (Auto) < 1.0 /HPF (0-13.0) 11/07/17 14:28 Urine Bacteria (Auto) 1+ /HPF (Negative) 11/07/17 14:28 Urine Opiates Screen Presumptive negative 11/07/17 14:28 Urine Methadone Screen Presumptive negative 11/07/17 14:28 Ur Barbiturates Screen Presumptive negative 11/07/17 14:28 Ur Phencyclidine Scrn Presumptive negative 11/07/17 14:28 Ur Amphetamines Screen Presumptive negative 11/07/17 14:28 U Benzodiazepines Scrn Presumptive negative 11/07/17 14:28 Urine Cocaine Screen Presumptive negative 11/07/17 14:28 U Marijuana (THC) Screen Presumptive negative 11/07/17 14:28 Drugs of Abuse Note Disclamer 11/07/17 14:28 Short CBC 11/07/17 Range/Units 12: WBC 20.1 H (4.5-11.0) K/mm3 Hgb 12.4 (10.1-14.3) gm/dl Hct 41.3 (30.3-42.9) % Plt Count 197 (140-440) K/mm3 BMP 11/07/17 11/07/17 11/07/17 13:44 13:44 14:17 Sodium TNR 141 141 Potassium TNR 6.5 H* 5.8 H Chloride TNR 94.4 L 99.1 Carbon Dioxide TNR 5 L* 2 L* BUN TNR 43 H 38 H Creatinine TNR 1.2 1.3 H Glucose TNR 629 H* 610 H* Calcium TNR 8.3 L 7.7 L 11/07/17 11/07/17 11/07/17 15:17 16:57 18:52 Sodium 143 145 148 H Potassium 5.7 H 4.9 4.3 Chloride 100.3 101.0 106.3 Carbon Dioxide < 2.0 L* 3 L* < 2.0 L* BUN 39 H 42 H 41 H Creatinine 1.3 H 1.3 H 1.4 H Glucose 585 H* 557 H* 473 H Calcium 7.9 L 8.1 L 7.8 L 11/07/17 11/08/17 11/08/17 23:01 04:20 04:20 Sodium 148 H 151 H 150 H Potassium 4.2 4.2 4.4 Chloride 111.6 H 114.3 H 115.4 H Carbon Dioxide 4 L* 10 L 10 L BUN 43 H 48 H 48 H Creatinine 1.3 H 1.2 1.3 H Glucose 177 H 121 H 118 H Calcium 7.7 L 7.8 L 7.8 L Liver Function 11/07/17 Range/Units 13:44 Total Bilirubin 0.30 (0.1-1.2) mg/dL Direct Bilirubin 0.2 (0-0.2) mg/dL AST 15 (5-40) units/L ALT 11 (7-56) units/L Alkaline Phosphatase 89 (35-129) units/L Albumin 3.0 L (3.9-5) g/dL Urine 11/07/17 Range/Units 14:28 Urine Color Yellow (Yellow) Urine pH 5.0 (5.0-7.0) Ur Specific [place] 1.016 (1.003-1.030) Urine Protein 100 mg/dl (Negative) mg/dL Urine Glucose (UA) >=500 (Negative) mg/dL - Imaging and Cardiology EKG: report reviewed Chest x-ray: report reviewed (NAF) CT Scan - head: report reviewed (NAF) Assessment and Plan Assessment and plan: The high probability of a clinically significant, sudden or life threatening deterioration of the [Pulmonary, cadiac, renal] system(s) required my full and direct attention, intervention and personal management. The aggregate critical care time was [40] minutes. This time is in addition to time spent performing reported procedures but includes the following: [x] Data Review and interpretation [x] Patient assessment and monitoring of vital signs [x] Documentation [x] Medication orders and management Advance Directives: Yes (FC) VTE prophylaxis?: Chemical Plan of care discussed with patient/family: Yes - Patient Problems (1) DKA (diabetic ketoacidoses) Current Visit: Yes Status: Acute Qualifiers: Diabetes mellitus type: type 2 Plan to address problem: DKA protocol initiated Insulin drip initiated (2) Encephalopathy acute Current Visit: Yes Status: Acute Plan to address problem: Sec to DKA.IV Insulin and IV fluids for now (3) Sepsis Current Visit: Yes Status: Acute Qualifiers: Sepsis type: sepsis due to unspecified organism Qualified Code(s): A41.9 - Sepsis, unspecified organism Plan to address problem: High Lactic acid and Leukocytosis IV abx (4) Hyperkalemia Current Visit: Yes Status: Acute Plan to address problem: NaHCO3 given Should correct with IV insulin (5) HTN (hypertension) Current Visit: Yes Status: Chronic Qualifiers: Hypertension type: essential hypertension Qualified Code(s): I10 - Essential (primary) hypertension Plan to address problem: Cont Nifedipine (6) History of CVA with residual deficit Current Visit: Yes Status: Chronic Plan to address problem: Cont Plavix (7) DVT prophylaxis Current Visit: Yes Status: Acute Plan to address problem: on Lovenox
[2017-11-07] MEDS ORDERED: KCL 10MEQ/100ML 10 MEQ/100 ML BAG IV SCH ×2 (16:00)
[2017-11-07] MEDS ORDERED: NovoLIN R 100 UNITS in NACL 0.9% 99 ML IV SCH (17:00)
[2017-11-07 17:52] LABS: Calcium 8.1 mg/dL (8.4-10.2)
[2017-11-07 18:11] LABS: Magnesium 2.7 mg/dL (1.7-2.3)
[2017-11-07] MEDS: HALFPRIN EC PO SCH (18:43)
[2017-11-07] MEDS: celeXA PO SCH (18:43)
[2017-11-07] MEDS: PROCARDIA XL PO SCH (18:44)
[2017-11-07] MEDS: PLAVIX PO SCH (18:44)
[2017-11-07 19:17] LABS: BUN/Creatinine Ratio 29; Blood Urea Nitrogen 41 mg/dL (7-17); Calcium 7.8 mg/dL (8.4-10.2); Hemolysis Index 48
[2017-11-07] MEDS ORDERED: INSULIN ASPART PROTAMINE SQ SCH (22:00)
[2017-11-07] MEDS ORDERED: [UNRECOGNIZED DRUG - OTHER] SQ SCH (22:00)
[2017-11-07] MEDS: ZOSYN/NS 3.375GM/50ML 3.375 GM/50 ML BAG IV SCH (22:32)
[2017-11-07 23:31] LABS: Calcium 7.7 mg/dL (8.4-10.2)
[2017-11-07] MEDS ORDERED: D5W/0.45% NACL/KCL 20 MEQ 20 MEQ/1,000 ML BAG IV SCH (23:45)
[2017-11-08] MEDS: ZOSYN/NS 3.375GM/50ML 3.375 GM/50 ML BAG IV SCH ×4 (00:01→17:47)
[2017-11-08] MEDS ORDERED: D5/0.45NS 1,000 ML IV SCH (01:00)
[2017-11-08 04:52] LABS: Calcium 7.8 mg/dL (8.4-10.2)
[2017-11-08 04:53] LABS: BUN/Creatinine Ratio 40; Blood Urea Nitrogen 48 mg/dL (7-17); Calcium 7.8 mg/dL (8.4-10.2); Hemolysis Index 10
[2017-11-08] MEDS: NovoLIN R 100 UNITS in NACL 0.9% 99 ML IV SCH (08:25)
[2017-11-08 08:53] LABS: Calcium 7.9 mg/dL (8.4-10.2)
--- NOTE | 2017-11-08 09:23 | Progress Note ---
Assessment and Plan Assessment and plan: Patient is 37-year-old woman with a history of insulin-dependent diabetes mellitus, CVA on aspirin and Plavix, hypertension, dyslipidemia and depression who presented with altered mental status and was admitted for DKA. Do not know her baseline mental status, so I called person to notify in the chart, who happens to be her sister, eJssica Kincaid: She was discharged from [facility] about 1.5 months ago and went to [facility]. Then, she went to her home. She lives with daughter Leslye and brother, Sean, who moved in with her for more support. Her baseline mental function: she walks with a walker, she feeds herself, needs help with clothes, left arm weaker than right and speech is usually slurred. "I wanna say she wasn't talking her insulin, because this 3rd stoke did alittle mentally and she more forgettable, that is what I am thinking, for example, she will say, I need to take my insulin but she had just took her insulin." They went to [place], on the way back Saturday night 11pm, she was sleeping off and on, BG was 516 and she took her insulin. Her daughter, Leslye, said next morning she got up morning to go to the bathroom and she fell and then was unresponsive, she was found on the floor in urine by daughter, Leslye. -DKA with acute metabolic acidosis, high anion gap: Treat with IV fluids, insulin drip, serial BMP -Acute metabolic encephalopathy/semiconscious state: treat the above -Recurrent ischemic strokes. ?hydrocephalus on Ct head: consulted Neurology -Leukocytosis with SIRs, non infectious, cxr no acute finding, more likely reactive -Hypernatremia: needs more free water The high probability of a clinically significant, sudden or life threatening deterioration of the [neurologic,cardiac] system(s) required my full and direct attention, intervention and personal management. The aggregate critical care time was [35 ] minutes. This time is in addition to time spent performing reported procedures but includes the following: [x] Data Review and interpretation [x] Patient assessment and monitoring of vital signs [x] Documentation [x] Medication orders and management History Interval history: Patient was seen and examined. Follow-up on current diagnosis/altered mental status. Overnight uneventful. Patient not given any history; therefore, Imaging, nursing note, chart, labs and old chart reviewed. Do not know her baseline mental status Hospitalist Physical - Physical exam Narrative exam: GEN: Thin frail woman chronic a bit debilitating appearing, lethargic, nonverbal HEENT: NCAT, EOMI, PERRL, OP Clear NECK: supple, no adenopathy, no thyromegaly, no JVD CVS/HEART: regular tachycardia NORMAL S1S2, NO JVD, pulses present bilaterally CHEST/LUNGS: CTA B, Symmetrical chest expansion, good air entry bilaterally GI/Abdomen: soft, NTND, good bowel sounds, no guarding or rebound /Bladder: no suprapubic tenderness, no CVA or paraspinal tenderness EXT/Skin: no c/c/e, no obvious rash MSK: Moving both arms with contractures Neuro: CN 2-12 grossly intact except nonverbal, hemiparesis, facial asymmetry, no new focal deficits Psych: calm but confused - Constitutional Vitals: Temp Pulse Resp BP Pulse Ox 111 H 13 118/77 100 11/08/17 07:00 11/08/17 07:00 11/08/17 07:00 11/08/17 07:00 Results - Labs CBC & Chem 7: 11/07/17 12:26 11/08/17 07:49 Labs: Laboratory Last Values WBC 20.1 K/mm3 (4.5-11.0) H 11/07/17 12:26 RBC 4.10 M/mm3 (3.65-5.03) 11/07/17 12:26 Hgb 12.4 gm/dl (10.1-14.3) 11/07/17 12:26 Hct 41.3 % (30.3-42.9) 11/07/17 12:26 MCV 101 fl (79-97) H 11/07/17 12:26 MCH 30 pg (28-32) 11/07/17 12:26 MCHC 30 % (30-34) 11/07/17 12:26 RDW 13.7 % (13.2-15.2) 11/07/17 12:26 Plt Count 197 K/mm3 (140-440) 11/07/17 12:26 Add Manual Diff Complete 11/07/17 12:26 Total Counted 100 11/07/17 12:26 Seg Neutrophils % [employer] Control Systems Integrator 11/07/17 12:26 Seg Neuts % (Manual) 90.0 % (40.0-70.0) H 11/07/17 12:26 Band Neutrophils % 4.0 % 11/07/17 12:26 Lymphocytes % (Manual) 2.0 % (13.4-35.0) L 11/07/17 12:26 Reactive Lymphs % (Man) 0 % 11/07/17 12:26 Monocytes % (Manual) 4.0 % (0.0-7.3) 11/07/17 12:26 Eosinophils % (Manual) 0 % (0.0-4.3) 11/07/17 12:26 Basophils % (Manual) 0 % (0.0-1.8) 11/07/17 12: Metamyelocytes % 0 % 11/07/17 12:26 Myelocytes % 0 % 11/07/17 12: Promyelocytes % 0 % 11/07/17 12: Blast Cells % 0 % 11/07/17 12: Nucleated RBC % Not Reportable 11/07/17 12:26 Seg Neutrophils # Man 18.1 K/mm3 (1.8-7.7) H 11/07/17 12:26 Band Neutrophils # 0.8 K/mm3 11/07/17 12:26 Lymphocytes # (Manual) 0.4 K/mm3 (1.2-5.4) L 11/07/17 12:26 Abs React Lymphs (Man) 0.0 K/mm3 11/07/17 12: Monocytes # (Manual) 0.8 K/mm3 (0.0-0.8) 11/07/17 12:26 Eosinophils # (Manual) 0.0 K/mm3 (0.0-0.4) 11/07/17 12:26 Basophils # (Manual) 0.0 K/mm3 (0.0-0.1) 11/07/17 12:26 Metamyelocytes # 0.0 K/mm3 11/07/17 12:26 Myelocytes # 0.0 K/mm3 11/07/17 12: Promyelocytes # 0.0 K/mm3 11/07/17 12: Blast Cells # 0.0 K/mm3 11/07/17 12:26 WBC Morphology Not Reportable 11/07/17 12:26 Hypersegmented Neuts Not Reportable 11/07/17 12:26 Hyposegmented Neuts Not Reportable 11/07/17 12:26 Hypogranular Neuts Not Reportable 11/07/17 12:26 Smudge Cells Not Reportable 11/07/17 12:26 Toxic Granulation Not Reportable 11/07/17 12:26 Toxic Vacuolation Not Reportable 11/07/17 12:26 Dohle Bodies Not Reportable 11/07/17 12:26 Pelger-Huet Anomaly Not Reportable 11/07/17 12:26 Xiomy Rods Not Reportable 11/07/17 12:26 Platelet Estimate Not Reportable 11/07/17 12:26 Clumped Platelets Not Reportable 11/07/17 12:26 Plt Clumps, EDTA Not Reportable 11/07/17 12:26 Large Platelets Not Reportable 11/07/17 12:26 Giant Platelets Not Reportable 11/07/17 12:26 Platelet Satelliting Not Reportable 11/07/17 12:26 Plt Morphology Comment Not Reportable 11/07/17 12:26 RBC Morphology Normal 11/07/17 12:26 Dimorphic RBCs Not Reportable 11/07/17 12:26 Polychromasia Not Reportable 11/07/17 12:26 Hypochromasia Not Reportable 11/07/17 12:26 Poikilocytosis Not Reportable 11/07/17 12:26 Anisocytosis Not Reportable 11/07/17 12:26 Microcytosis Not Reportable 11/07/17 12:26 Macrocytosis Not Reportable 11/07/17 12:26 Spherocytes Not Reportable 11/07/17 12:26 Pappenheimer Bodies Not Reportable 11/07/17 12:26 Sickle Cells Not Reportable 11/07/17 12:26 Target Cells Not Reportable 11/07/17 12:26 Tear Drop Cells Not Reportable 11/07/17 12:26 Ovalocytes Not Reportable 11/07/17 12:26 Helmet Cells Not Reportable 11/07/17 12:26 French-Edmund Bodies Not Reportable 11/07/17 12:26 [place] Rings Not Reportable 11/07/17 12:26 Danna Cells Not Reportable 11/07/17 12:26 Bite Cells Not Reportable 11/07/17 12:26 Crenated Cell Not Reportable 11/07/17 12:26 Elliptocytes Not Reportable 11/07/17 12:26 Acanthocytes (Spur) Not Reportable 11/07/17 12:26 Rouleaux Not Reportable 11/07/17 12:26 Hemoglobin C Crystals Not Reportable 11/07/17 12:26 Schistocytes Not Reportable 11/07/17 12:26 Malaria parasites Not Reportable 11/07/17 12:26 Mundo Bodies Not Reportable 11/07/17 12:26 Hem Pathologist Commnt No 11/07/17 12:26 PT 16.4 Sec. (12.2-14.9) H 11/07/17 12:26 INR 1.25 (0.87-1.13) H 11/07/17 12:26 POC ABG pH 6.856 (7.35-7.45) L 11/07/17 12:39 POC ABG pCO2 12.4 (35-45) L 11/07/17 12:39 POC ABG pO2 288 (80-105) H 11/07/17 12:39 POC ABG HCO3 2.2 11/07/17 12:39 POC ABG Total CO2 < 5 11/07/17 12:39 POC ABG O2 Sat 100 11/07/17 12:39 POC ABG Base Excess < -30 11/07/17 12:39 FiO2 98 % 11/07/17 12:39 Sodium 151 mmol/L (137-145) H 11/08/17 07:49 Potassium 3.8 mmol/L (3.6-5.0) 11/08/17 07:49 Chloride 116.5 mmol/L (98-107) H 11/08/17 07:49 Carbon Dioxide 13 mmol/L (22-30) L 11/08/17 07:49 Anion Gap 25 mmol/L 11/08/17 07:49 BUN 52 mg/dL (7-17) H 11/08/17 07:49 Creatinine 1.3 mg/dL (0.7-1.2) H 11/08/17 07:49 Estimated GFR 55 ml/min 11/08/17 07:49 BUN/Creatinine Ratio 40 % 11/08/17 07:49 Glucose 213 mg/dL (65-100) H 11/08/17 07:49 POC Glucose 140 (70-105) H 11/08/17 08:22 Hemoglobin A1c 10.0 % (4-6) H 11/07/17 17:02 Lactic Acid 2.90 mmol/L (0.7-2.0) H* 11/07/17 15:17 Calcium 7.9 mg/dL (8.4-10.2) L 11/08/17 07:49 Phosphorus 6.60 mg/dL (2.5-4.5) H 11/07/17 17:02 Magnesium 2.70 mg/dL (1.7-2.3) H 11/07/17 17:02 Total Bilirubin 0.30 mg/dL (0.1-1.2) 11/07/17 13:44 Direct Bilirubin 0.2 mg/dL (0-0.2) 11/07/17 13:44 Indirect Bilirubin 0.1 mg/dL 11/07/17 13:44 AST 15 units/L (5-40) 11/07/17 13:44 ALT 11 units/L (7-56) 11/07/17 13:44 Alkaline Phosphatase 89 units/L (35-129) 11/07/17 13:44 Total Protein 5.8 g/dL (6.3-8.2) L 11/07/17 13:44 Albumin 3.0 g/dL (3.9-5) L 11/07/17 13:44 Albumin/Globulin Ratio 1.1 % 11/07/17 13:44 HCG, Qual Negative (Negative) 11/07/17 13:44 Urine Color Yellow (Yellow) 11/07/17 14:28 Urine Turbidity Clear (Clear) 11/07/17 14:28 Urine pH 5.0 (5.0-7.0) 11/07/17 14:28 Ur Specific [place] 1.016 (1.003-1.030) 11/07/17 14:28 Urine Protein 100 mg/dl mg/dL (Negative) 11/07/17 14:28 Urine Glucose (UA) >=500 mg/dL (Negative) 11/07/17 14:28 Urine Ketones 80 mg/dL (Negative) 11/07/17 14:28 Urine Blood Mod (Negative) 11/07/17 14:28 Urine Nitrite Neg (Negative) 11/07/17 14:28 Urine Bilirubin Neg (Negative) 11/07/17 14:28 Urine Urobilinogen < 2.0 mg/dL (<2.0) 11/07/17 14:28 Ur Leukocyte Esterase Neg (Negative) 11/07/17 14:28 Urine WBC (Auto) 2.0 /HPF (0.0-6.0) 11/07/17 14:28 Urine RBC (Auto) < 1.0 /HPF (0.0-6.0) 11/07/17 14:28 U Epithel Cells (Auto) < 1.0 /HPF (0-13.0) 11/07/17 14:28 Urine Bacteria (Auto) 1+ /HPF (Negative) 11/07/17 14:28 Urine Opiates Screen Presumptive negative 11/07/17 14:28 Urine Methadone Screen Presumptive negative 11/07/17 14:28 Ur Barbiturates Screen Presumptive negative 11/07/17 14:28 Ur Phencyclidine Scrn Presumptive negative 11/07/17 14:28 Ur Amphetamines Screen Presumptive negative 11/07/17 14:28 U Benzodiazepines Scrn Presumptive negative 11/07/17 14:28 Urine Cocaine Screen Presumptive negative 11/07/17 14:28 U Marijuana (THC) Screen Presumptive negative 11/07/17 14:28 Drugs of Abuse Note Disclamer 11/07/17 14:28
[2017-11-08] MEDS: celeXA PO SCH (10:30)
[2017-11-08] MEDS: HALFPRIN EC PO SCH (10:30)
--- NOTE | 2017-11-08 12:56 | Consultation ---
History of Present Illness Consult date: 11/08/17 Requesting physician: VIRGIE OCAMPO Reason for consult: other (DKA; Acute Encephalopathy) History of present illness: PULMONARY/CCM CONSULT NOTE (Full dictation # [id number]) Please see dictated notes for full details Medications and Allergies Allergies Allergy/AdvReac Type Severity Reaction Status Date / Time No Known Allergies Allergy Unverified 11/20/14 03:04 Home Medications Medication Instructions Recorded Confirmed Last Taken Type Aspirin [Aspirin EC] 81 mg PO DAILY 11/07/17 11/07/17 Unknown History AtorvaSTATin [Lipitor] 80 mg PO QHS 11/07/17 11/07/17 Unknown History Citalopram [celeXA] 10 mg PO QDAY 11/07/17 11/07/17 Unknown History Clopidogrel [Plavix] 75 mg PO QDAY 11/07/17 11/07/17 Unknown History Cyclobenzaprine [Flexeril] 10 mg PO TID PRN 11/07/17 11/07/17 Unknown History Insulin Aspart Protam & Aspart 0 unit SQ TID 11/07/17 11/07/17 Unknown History [NovoLOG Mix 70-30 Flexpen] Insulin Glargine,Hum.rec.anlog 20 units SQ QAM 11/07/17 11/07/17 Unknown History [Lantus] Insulin Glargine,Hum.rec.anlog 50 units SQ QPM 11/07/17 11/07/17 Unknown History [Lantus] NIFEdipine [Nifedipine ER] 30 mg PO DAILY 11/07/17 11/07/17 Unknown History Active Meds: Active Medications Acetaminophen (Tylenol) 650 mg PO Q4H PRN PRN Reason: Pain MILD(1-3)/Fever >100.5/MUNOZ Aspirin (Halfprin Ec) 81 mg PO DAILY [facility] Last Admin: 11/07/17 18:43 Dose: Not Given Atorvastatin Calcium (Lipitor) 80 mg PO QHS [facility] Last Admin: 11/07/17 22:01 Dose: Not Given Bisacodyl (Dulcolax) 10 mg [place] QDAY PRN PRN Reason: Constipation unrelieved by MOM Citalopram Hydrobromide (Celexa) 10 mg PO QDAY [facility] Last Admin: 11/07/17 18:43 Dose: Not Given Clopidogrel Bisulfate (Plavix) 75 mg PO QDAY [facility] Last Admin: 11/07/17 18:44 Dose: Not Given Cyclobenzaprine HCl (Flexeril) 10 mg PO TID PRN PRN Reason: Muscle Spasm Dextrose (D50w (25gm) Syringe) 0 ml IV ONCE PRN PRN Reason: Hypoglycemia Last Admin: 11/08/17 03:30 Dose: 20 ml Dextrose (D50w (25gm) Syringe) 0 ml IV PRN PRN PRN Reason: Hypoglycemia Potassium Chloride (Kcl 10meq/100ml) 10 meq in 100 mls @ 100 mls/hr IV Q1H KYE Stop: 11/07/17 19:59 Potassium Chloride (Kcl 10meq/100ml) 10 meq in 100 mls @ 100 mls/hr IV Q1H KYE Stop: 11/07/17 21:59 Insulin Human Regular 100 (units/ Sodium Chloride) 100 mls @ 1 mls/hr IV TITR KYE; 1 UNITS/HR PRN Reason: Protocol Last Titration: 11/08/17 06:39 Dose: 3 units/hr, 3 mls/hr Piperacillin Sod/Tazobactam Sod (Zosyn/Ns 3.375gm/50ml) 3.375 gm in 50 mls @ 100 mls/hr IV Q6HR KYE Last Admin: 11/08/17 06:39 Dose: 100 mls/hr Dextrose/Sodium Chloride (D5/0.45ns) 1,000 mls @ 125 mls/hr IV DIRECT KYE Last Admin: 11/08/17 00:44 Dose: 125 mls/hr Insulin Human Isoph/Insulin Regular (Novolin 70/30) 45 unit SUB-Q BIDDIAB [facility] Last Admin: 11/07/17 18:17 Dose: 45 unit Magnesium Hydroxide (Milk Of Magnesia) 30 ml PO Q4H PRN PRN Reason: Constipation Nifedipine (Procardia Xl) 30 mg PO DAILY [facility] Last Admin: 11/07/17 18:44 Dose: Not Given Ondansetron HCl (Zofran) 4 mg IV Q8H PRN PRN Reason: N/V unrelieved by Reglan Physical Examination Vital signs: Vital Signs BP 115/67 11/07/17 12:18 Results - Laboratory Findings CBC and BMP: 11/07/17 12:26 11/09/17 07:07 ABG POC ABG pH 6.856 (7.35-7.45) L 11/07/17 12:39 POC ABG pCO2 12.4 (35-45) L 11/07/17 12:39 POC ABG pO2 288 (80-105) H 11/07/17 12:39 POC ABG HCO3 2.2 11/07/17 12:39 POC ABG Total CO2 < 5 11/07/17 12:39 POC ABG O2 Sat 100 11/07/17 12:39 PT/INR, D-dimer PT 16.4 Sec. (12.2-14.9) H 11/07/17 12:26 INR 1.25 (0.87-1.13) H 11/07/17 12:26 Abnormal lab findings: Abnormal Labs 11/07/17 11/07/17 11/07/17 12:26 12:26 12:26 WBC 20.1 H MCV 101 H Seg Neuts % (Manual) 90.0 H Lymphocytes % (Manual) 2.0 L Seg Neutrophils # Man 18.1 H Lymphocytes # (Manual) 0.4 L PT 16.4 H INR 1.25 H POC ABG pH POC ABG pCO2 POC ABG pO2 Sodium Potassium Chloride Carbon Dioxide BUN Creatinine Glucose POC Glucose 445 H Hemoglobin A1c Lactic Acid Calcium Phosphorus Magnesium Total Protein Albumin 11/07/17 11/07/17 11/07/17 12:39 13:44 13:44 WBC MCV Seg Neuts % (Manual) Lymphocytes % (Manual) Seg Neutrophils # Man Lymphocytes # (Manual) PT INR POC ABG pH 6.856 L POC ABG pCO2 12.4 L POC ABG pO2 288 H Sodium Potassium Chloride Carbon Dioxide BUN Creatinine Glucose POC Glucose Hemoglobin A1c Lactic Acid Calcium Phosphorus 8.10 H Magnesium 2.60 H Total Protein 5.8 L Albumin 3.0 L 11/07/17 11/07/17 11/07/17 13:44 14:17 15:17 WBC MCV Seg Neuts % (Manual) Lymphocytes % (Manual) Seg Neutrophils # Man Lymphocytes # (Manual) PT INR POC ABG pH POC ABG pCO2 POC ABG pO2 Sodium Potassium 6.5 H* 5.8 H 5.7 H Chloride 94.4 L Carbon Dioxide 5 L* 2 L* < 2.0 L* BUN 43 H 38 H 39 H Creatinine 1.3 H 1.3 H Glucose 629 H* 610 H* 585 H* POC Glucose Hemoglobin A1c Lactic Acid Calcium 8.3 L 7.7 L 7.9 L Phosphorus Magnesium Total Protein Albumin 11/07/17 11/07/17 11/07/17 15:17 15:40 16:57 WBC MCV Seg Neuts % (Manual) Lymphocytes % (Manual) Seg Neutrophils # Man Lymphocytes # (Manual) PT INR POC ABG pH POC ABG pCO2 POC ABG pO2 Sodium Potassium Chloride Carbon Dioxide 3 L* BUN 42 H Creatinine 1.3 H Glucose 557 H* POC Glucose > 500 H Hemoglobin A1c Lactic Acid 2.90 H* Calcium 8.1 L Phosphorus Magnesium Total Protein Albumin 11/07/17 11/07/17 11/07/17 17:02 17:02 18:05 WBC MCV Seg Neuts % (Manual) Lymphocytes % (Manual) Seg Neutrophils # Man Lymphocytes # (Manual) PT INR POC ABG pH POC ABG pCO2 POC ABG pO2 Sodium Potassium Chloride Carbon Dioxide BUN Creatinine Glucose POC Glucose 485 H Hemoglobin A1c 10.0 H Lactic Acid Calcium Phosphorus 6.60 H Magnesium 2.70 H Total Protein Albumin 11/07/17 11/07/17 11/07/17 18:52 20:20 21:23 WBC MCV Seg Neuts % (Manual) Lymphocytes % (Manual) Seg Neutrophils # Man Lymphocytes # (Manual) PT INR POC ABG pH POC ABG pCO2 POC ABG pO2 Sodium 148 H Potassium Chloride Carbon Dioxide < 2.0 L* BUN 41 H Creatinine 1.4 H Glucose 473 H POC Glucose 356 H 322 H Hemoglobin A1c Lactic Acid Calcium 7.8 L Phosphorus Magnesium Total Protein Albumin 11/07/17 11/07/17 11/07/17 22:28 23:01 23:31 WBC MCV Seg Neuts % (Manual) Lymphocytes % (Manual) Seg Neutrophils # Man Lymphocytes # (Manual) PT INR POC ABG pH POC ABG pCO2 POC ABG pO2 Sodium 148 H Potassium Chloride 111.6 H Carbon Dioxide 4 L* BUN 43 H Creatinine 1.3 H Glucose 177 H POC Glucose 242 H 204 H Hemoglobin A1c Lactic Acid Calcium 7.7 L Phosphorus Magnesium Total Protein Albumin 11/08/17 11/08/17 11/08/17 01:20 03:30 04:01 WBC MCV Seg Neuts % (Manual) Lymphocytes % (Manual) Seg Neutrophils # Man Lymphocytes # (Manual) PT INR POC ABG pH POC ABG pCO2 POC ABG pO2 Sodium Potassium Chloride Carbon Dioxide BUN Creatinine Glucose POC Glucose 120 H 59 L 132 H Hemoglobin A1c Lactic Acid Calcium Phosphorus Magnesium Total Protein Albumin 11/08/17 11/08/17 11/08/17 04:20 04:20 05:15 WBC MCV Seg Neuts % (Manual) Lymphocytes % (Manual) Seg Neutrophils # Man Lymphocytes # (Manual) PT INR POC ABG pH POC ABG pCO2 POC ABG pO2 Sodium 151 H 150 H Potassium Chloride 114.3 H 115.4 H Carbon Dioxide 10 L 10 L BUN 48 H 48 H Creatinine 1.3 H Glucose 121 H 118 H POC Glucose 134 H Hemoglobin A1c Lactic Acid Calcium 7.8 L 7.8 L Phosphorus Magnesium Total Protein Albumin 11/08/17 11/08/17 11/08/17 06:41 07:49 08:12 WBC MCV Seg Neuts % (Manual) Lymphocytes % (Manual) Seg Neutrophils # Man Lymphocytes # (Manual) PT INR POC ABG pH POC ABG pCO2 POC ABG pO2 Sodium 151 H Potassium Chloride 116.5 H Carbon Dioxide 13 L BUN 52 H Creatinine 1.3 H Glucose 213 H POC Glucose 172 H 228 H Hemoglobin A1c Lactic Acid Calcium 7.9 L Phosphorus Magnesium Total Protein Albumin 11/08/17 11/08/17 11/08/17 08:22 09:31 11:04 WBC MCV Seg Neuts % (Manual) Lymphocytes % (Manual) Seg Neutrophils # Man Lymphocytes # (Manual) PT INR POC ABG pH POC ABG pCO2 POC ABG pO2 Sodium Potassium Chloride Carbon Dioxide BUN Creatinine Glucose POC Glucose 140 H 140 H 136 H Hemoglobin A1c Lactic Acid Calcium Phosphorus Magnesium Total Protein Albumin 11/08/17 12:11 WBC MCV Seg Neuts % (Manual) Lymphocytes % (Manual) Seg Neutrophils # Man Lymphocytes # (Manual) PT INR POC ABG pH POC ABG pCO2 POC ABG pO2 Sodium Potassium Chloride Carbon Dioxide BUN Creatinine Glucose POC Glucose 111 H Hemoglobin A1c Lactic Acid Calcium Phosphorus Magnesium Total Protein Albumin
[2017-11-08 14:14] LABS: Calcium 8.4 mg/dL (8.4-10.2)
[2017-11-08] MEDS: PLAVIX PO SCH (15:37)
[2017-11-08] MEDS ORDERED: D5W 1,000 ML with KCL 20 MEQ IV SCH (18:00)
[2017-11-08 18:08] LABS: Calcium 8.1 mg/dL (8.4-10.2)
[2017-11-08] MEDS: PROCARDIA XL PO SCH (19:15)
[2017-11-08] MEDS ORDERED: KCL 20 MEQ in D5W 1,000 ML IV SCH (20:00)
[2017-11-09] MEDS: ZOSYN/NS 3.375GM/50ML 3.375 GM/50 ML BAG IV SCH ×5 (00:38→23:20)
[2017-11-09] MEDS ORDERED: NACL 0.9% 1000 ML 1,000 ML IV ONE (00:46)
[2017-11-09] MEDS ORDERED: NORMODYNE IV PRN ×2 (00:56→17:43)
[2017-11-09] MEDS ORDERED: NACL 0.9% 1000 ML 1,000 ML IV SCH (01:00)
[2017-11-09] MEDS: MORPHINE IV PRN (01:50)
[2017-11-09] MEDS ORDERED: D50W (25GM) Syringe IV PRN ×3 (06:56→09:13)
[2017-11-09] MEDS ORDERED: KCL 20MEQ/100ML 20 MEQ/100 ML BAG IV SCH (07:00)
[2017-11-09] MEDS ORDERED: D5W/0.45% NACL/KCL 20 MEQ 20 MEQ/1,000 ML BAG IV SCH ×2 (07:00)
[2017-11-09] MEDS ORDERED: NovoLIN R 100 UNITS in NACL 0.9% 99 ML IV SCH (07:00)
[2017-11-09] MEDS ORDERED: D5/0.45NS 1,000 ML with KCL 20 MEQ IV SCH (07:00)
[2017-11-09] MEDS ORDERED: KCL 10MEQ/100ML 10 MEQ/100 ML BAG IV SCH (07:00)
--- NOTE | 2017-11-09 07:13 | Event Note ---
Date: 11/09/17 Event note: Patient downgraded to medsurg, but Anion gap was 24, corrected 20. I ordered stat bmp. Re-start insulin drip, back to ICU, clean up current orders. D/W ED nursing, D/w Dr. Romero, Director Traffic And Planning who says she did not downgrade patient, D/W 3rd floor nursing, D/W ICU charge nurse.
[2017-11-09 07:49] LABS: BUN/Creatinine Ratio 44; Blood Urea Nitrogen 44 mg/dL (7-17); Calcium 8.4 mg/dL (8.4-10.2); Hemolysis Index 26
[2017-11-09] MEDS ORDERED: K-DUR PO ONE (08:16)
--- NOTE | 2017-11-09 09:20 | Progress Note ---
Assessment and Plan Assessment and plan: Patient is 37-year-old woman with a history of insulin-dependent diabetes mellitus, CVA on aspirin and Plavix, hypertension, dyslipidemia and depression who presented with altered mental status and was admitted for DKA. Do not know her baseline mental status, so I called person to notify in the chart, who happens to be her sister, Jessica Kincaid who reports that patient was discharged from [facility] about 1.5 months ago and went to [facility]. Then, she went to her home. She lives with daughter Leslye and brother, Sean, who moved in with her for more support. Her baseline mental function: she walks with a walker, she feeds herself, needs help with clothes, left arm weaker than right and speech is usually slurred. "I wanna say she wasn' t talking her insulin, because this 3rd stoke did alittle mentally and she more forgettable, that is what I am thinking, for example, she will say, I need to take my insulin but she had just took her insulin." They went to [place], on the way back Saturday night 11pm, she was sleeping off and on, BG was 516 and she took her insulin. Her daughter, Leslye, said next morning she got up morning to go to the bathroom and she fell and then was unresponsive, she was found on the floor in urine by daughter, Leslye. -DKA with acute metabolic acidosis, high anion gap: Treat with IV fluids, insulin drip, serial BMP -Acute metabolic encephalopathy/semiconscious state: treat the above -Recurrent ischemic strokes. ?hydrocephalus on Ct head: consulted Neurology -Leukocytosis with SIRs, non infectious, cxr no acute finding, more likely reactive -Hypernatremia: needs more free water 11/09/17: Insulin drip was stopped because of hypoglycemia and patient was sent from ED to medical/surg floor. Anion gap was still high so I sent ICU to start insulin drip. I also ordered bmp stat. By the time the stat bmp was resulted, patient was in the icu. Anion gap has closed, so i will downgrade back to medical surg floor. Replace her potassium, start diet, if she unable to eat continue D5W due to hypernatremia and not eating. Await neurology assessment because she is not at her mental baseline of slurred speech and ambulation with a walker. Order PT/OT The high probability of a clinically significant, sudden or life threatening deterioration of the [neurologic,cardiac] system(s) required my full and direct attention, intervention and personal management. The aggregate critical care time was [38] minutes. This time is in addition to time spent performing reported procedures but includes the following: [x] Data Review and interpretation [x] Patient assessment and monitoring of vital signs [x] Documentation [x] Medication orders and management History Interval history: Patient was seen and examined. Follow-up on current diagnosis/altered mental status. Overnight uneventful. Patient not given any history; therefore, Imaging, nursing note, chart, labs and old chart reviewed. Responding more. Hospitalist Physical - Physical exam Narrative exam: GEN: Thin frail woman chronic a bit debilitating appearing, lethargic, nonverbal HEENT: NCAT, EOMI, PERRL, OP Clear NECK: supple, no adenopathy, no thyromegaly, no JVD CVS/HEART: regular tachycardia NORMAL S1S2, NO JVD, pulses present bilaterally CHEST/LUNGS: CTA B, Symmetrical chest expansion, good air entry bilaterally GI/Abdomen: soft, NTND, good bowel sounds, no guarding or rebound /Bladder: no suprapubic tenderness, no CVA or paraspinal tenderness EXT/Skin: no c/c/e, no obvious rash MSK: Moving both arms with contractures Neuro: CN 2-12 grossly intact except nonverbal, hemiparesis, facial asymmetry, no new focal deficits Psych: calm but confused - Constitutional Vitals: Temp Pulse Resp BP Pulse Ox 99.3 F 96 H 16 125/78 96 11/09/17 07:32 11/09/17 07:32 11/09/17 07:32 11/09/17 07:32 11/09/17 07:32 General appearance: Present: well-nourished. Absent: mild distress Results - Labs CBC & Chem 7: 11/07/17 12:26 11/09/17 07:07 Labs: Laboratory Last Values WBC 20.1 K/mm3 (4.5-11.0) H 11/07/17 12:26 RBC 4.10 M/mm3 (3.65-5.03) 11/07/17 12:26 Hgb 12.4 gm/dl (10.1-14.3) 11/07/17 12: Hct 41.3 % (30.3-42.9) 11/07/17 12: MCV 101 fl (79-97) H 11/07/17 12: MCH 30 pg (28-32) 11/07/17 12: MCHC 30 % (30-34) 11/07/17 12: RDW 13.7 % (13.2-15.2) 11/07/17 12: Plt Count 197 K/mm3 (140-440) 11/07/17 12:26 Add Manual Diff Complete 11/07/17 12: Total Counted 100 11/07/17 12: Seg Neutrophils % Structural [employer] Worker Helper 11/07/17 12: Seg Neuts % (Manual) 90.0 % (40.0-70.0) H 11/07/17 12: Band Neutrophils % 4.0 % 11/07/17 12: Lymphocytes % (Manual) 2.0 % (13.4-35.0) L 11/07/17 12:26 Reactive Lymphs % (Man) 0 % 11/07/17 12: Monocytes % (Manual) 4.0 % (0.0-7.3) 11/07/17 12:26 Eosinophils % (Manual) 0 % (0.0-4.3) 11/07/17 12: Basophils % (Manual) 0 % (0.0-1.8) 11/07/17 12: Metamyelocytes % 0 % 11/07/17 12: Myelocytes % 0 % 11/07/17 12:26 Promyelocytes % 0 % 11/07/17 12:26 Blast Cells % 0 % 11/07/17 12:26 Nucleated RBC % Not Reportable 11/07/17 12:26 Seg Neutrophils # Man 18.1 K/mm3 (1.8-7.7) H 11/07/17 12:26 Band Neutrophils # 0.8 K/mm3 11/07/17 12:26 Lymphocytes # (Manual) 0.4 K/mm3 (1.2-5.4) L 11/07/17 12:26 Abs React Lymphs (Man) 0.0 K/mm3 11/07/17 12:26 Monocytes # (Manual) 0.8 K/mm3 (0.0-0.8) 11/07/17 12:26 Eosinophils # (Manual) 0.0 K/mm3 (0.0-0.4) 11/07/17 12:26 Basophils # (Manual) 0.0 K/mm3 (0.0-0.1) 11/07/17 12:26 Metamyelocytes # 0.0 K/mm3 11/07/17 12:26 Myelocytes # 0.0 K/mm3 11/07/17 12:26 Promyelocytes # 0.0 K/mm3 11/07/17 12:26 Blast Cells # 0.0 K/mm3 11/07/17 12:26 WBC Morphology Not Reportable 11/07/17 12:26 Hypersegmented Neuts Not Reportable 11/07/17 12:26 Hyposegmented Neuts Not Reportable 11/07/17 12:26 Hypogranular Neuts Not Reportable 11/07/17 12:26 Smudge Cells Not Reportable 11/07/17 12:26 Toxic Granulation Not Reportable 11/07/17 12:26 Toxic Vacuolation Not Reportable 11/07/17 12:26 Dohle Bodies Not Reportable 11/07/17 12:26 Pelger-Huet Anomaly Not Reportable 11/07/17 12:26 Xiomy Rods Not Reportable 11/07/17 12:26 Platelet Estimate Not Reportable 11/07/17 12:26 Clumped Platelets Not Reportable 11/07/17 12:26 Plt Clumps, EDTA Not Reportable 11/07/17 12:26 Large Platelets Not Reportable 11/07/17 12:26 Giant Platelets Not Reportable 11/07/17 12:26 Platelet Satelliting Not Reportable 11/07/17 12:26 Plt Morphology Comment Not Reportable 11/07/17 12:26 RBC Morphology Normal 11/07/17 12:26 Dimorphic RBCs Not Reportable 11/07/17 12:26 Polychromasia Not Reportable 11/07/17 12:26 Hypochromasia Not Reportable 11/07/17 12:26 Poikilocytosis Not Reportable 11/07/17 12:26 Anisocytosis Not Reportable 11/07/17 12:26 Microcytosis Not Reportable 11/07/17 12:26 Macrocytosis Not Reportable 11/07/17 12:26 Spherocytes Not Reportable 11/07/17 12:26 Pappenheimer Bodies Not Reportable 11/07/17 12:26 Sickle Cells Not Reportable 11/07/17 12:26 Target Cells Not Reportable 11/07/17 12:26 Tear Drop Cells Not Reportable 11/07/17 12:26 Ovalocytes Not Reportable 11/07/17 12:26 Helmet Cells Not Reportable 11/07/17 12:26 [place] Bodies Not Reportable 11/07/17 12:26 [place] Rings Not Reportable 11/07/17 12:26 [place] Cells Not Reportable 11/07/17 12:26 Bite Cells Not Reportable 11/07/17 12:26 Crenated Cell Not Reportable 11/07/17 12:26 Elliptocytes Not Reportable 11/07/17 12:26 Acanthocytes (Spur) Not Reportable 11/07/17 12:26 Rouleaux Not Reportable 11/07/17 12:26 Hemoglobin C Crystals Not Reportable 11/07/17 12:26 Schistocytes Not Reportable 11/07/17 12:26 Malaria parasites Not Reportable 11/07/17 12:26 [place]undo Bodies Not Reportable 11/07/17 12:26 Hem Pathologist Commnt No 11/07/17 12:26 PT 16.4 Sec. (12.2-14.9) H 11/07/17 12:26 INR 1.25 (0.87-1.13) H 11/07/17 12:26 POC ABG pH 6.856 (7.35-7.45) L 11/07/17 12:39 POC ABG pCO2 12.4 (35-45) L 11/07/17 12:39 POC ABG pO2 288 (80-105) H 11/07/17 12:39 POC ABG HCO3 2.2 11/07/17 12:39 POC ABG Total CO2 < 5 11/07/17 12:39 POC ABG O2 Sat 100 11/07/17 12:39 POC ABG Base Excess < -30 11/07/17 12:39 FiO2 98 % 11/07/17 12:39 Sodium 152 mmol/L (137-145) H 11/09/17 07:07 Potassium 3.0 mmol/L (3.6-5.0) L D 11/09/17 07:07 Chloride 121.9 mmol/L (98-107) H 11/09/17 07:07 Carbon Dioxide 18 mmol/L (22-30) L 11/09/17 07:07 Anion Gap 15 mmol/L 11/09/17 07:07 BUN 44 mg/dL (7-17) H 11/09/17 07:07 Creatinine 1.0 mg/dL (0.7-1.2) 11/09/17 07:07 Estimated GFR > 60 ml/min 11/09/17 07:07 BUN/Creatinine Ratio 44 % 11/09/17 07:07 Glucose 94 mg/dL (65-100) 11/09/17 07:07 POC Glucose 82 (70-105) 11/09/17 08:35 Hemoglobin A1c 10.0 % (4-6) H 11/07/17 17:02 Lactic Acid 2.90 mmol/L (0.7-2.0) H* 11/07/17 15:17 Calcium 8.4 mg/dL (8.4-10.2) 11/09/17 07:07 Phosphorus 1.50 mg/dL (2.5-4.5) L 11/09/17 07:07 Magnesium 2.00 mg/dL (1.7-2.3) 11/09/17 07:07 Total Bilirubin 0.30 mg/dL (0.1-1.2) 11/07/17 13:44 Direct Bilirubin 0.2 mg/dL (0-0.2) 11/07/17 13:44 Indirect Bilirubin 0.1 mg/dL 11/07/17 13:44 AST 15 units/L (5-40) 11/07/17 13:44 ALT 11 units/L (7-56) 11/07/17 13:44 Alkaline Phosphatase 89 units/L (35-129) 11/07/17 13:44 Total Protein 5.8 g/dL (6.3-8.2) L 11/07/17 13:44 Albumin 3.0 g/dL (3.9-5) L 11/07/17 13:44 Albumin/Globulin Ratio 1.1 % 11/07/17 13:44 HCG, Qual Negative (Negative) 11/07/17 13:44 Urine Color Yellow (Yellow) 11/07/17 14:28 Urine Turbidity Clear (Clear) 11/07/17 14:28 Urine pH 5.0 (5.0-7.0) 11/07/17 14:28 Ur Specific [place] 1.016 (1.003-1.030) 11/07/17 14:28 Urine Protein 100 mg/dl mg/dL (Negative) 11/07/17 14:28 Urine Glucose (UA) >=500 mg/dL (Negative) 11/07/17 14:28 Urine Ketones 80 mg/dL (Negative) 11/07/17 14:28 Urine Blood Mod (Negative) 11/07/17 14:28 Urine Nitrite Neg (Negative) 11/07/17 14:28 Urine Bilirubin Neg (Negative) 11/07/17 14:28 Urine Urobilinogen < 2.0 mg/dL (<2.0) 11/07/17 14:28 Ur Leukocyte Esterase Neg (Negative) 11/07/17 14:28 Urine WBC (Auto) 2.0 /HPF (0.0-6.0) 11/07/17 14:28 Urine RBC (Auto) < 1.0 /HPF (0.0-6.0) 11/07/17 14:28 U Epithel Cells (Auto) < 1.0 /HPF (0-13.0) 11/07/17 14:28 Urine Bacteria (Auto) 1+ /HPF (Negative) 11/07/17 14:28 Urine Opiates Screen Presumptive negative 11/07/17 14:28 Urine Methadone Screen Presumptive negative 11/07/17 14:28 Ur Barbiturates Screen Presumptive negative 11/07/17 14:28 Ur Phencyclidine Scrn Presumptive negative 11/07/17 14:28 Ur Amphetamines Screen Presumptive negative 11/07/17 14:28 U Benzodiazepines Scrn Presumptive negative 11/07/17 14:28 Urine Cocaine Screen Presumptive negative 11/07/17 14:28 U Marijuana (THC) Screen Presumptive negative 11/07/17 14:28 Drugs of Abuse Note Disclamer 11/07/17 14:28
[2017-11-09] MEDS ORDERED: D5W 1,000 ML with KCL 20 MEQ IV SCH (10:00)
[2017-11-09] MEDS: NOVOLOG SUB-Q SCH ×4 (10:04→23:13)
[2017-11-09] MEDS: HALFPRIN EC PO SCH (10:08)
[2017-11-09] MEDS: celeXA PO SCH (10:09)
[2017-11-09] MEDS: PLAVIX PO SCH (10:09)
[2017-11-09] MEDS: PROCARDIA XL PO SCH (10:10)
[2017-11-09] MEDS: LEVEMIR SUB-Q SCH (10:55)
[2017-11-09] MEDS ORDERED: NOVOLOG SUB-Q SCH (11:30)
--- NOTE | 2017-11-09 13:26 | Consultation ---
History of Present Illness Consult date: 11/09/17 History of present illness: I have spoken with the sisters of the patient... she has enlargement of the ventricular system on the CT this does look chronic/ old and in stable pattern but await the MRI plan further w/u for the AMS disorder sisters tend to confirm hx of poor diabetic control I believe she is post hypoglycemia w/u ordered and full note is dictated Medications and Allergies Allergies Allergy/AdvReac Type Severity Reaction Status Date / Time No Known Allergies Allergy Unverified 11/20/14 03:04 Home Medications Medication Instructions Recorded Confirmed Last Taken Type Aspirin [Aspirin EC] 81 mg PO DAILY 11/07/17 11/07/17 Unknown History AtorvaSTATin [Lipitor] 80 mg PO QHS 11/07/17 11/07/17 Unknown History Citalopram [celeXA] 10 mg PO QDAY 11/07/17 11/07/17 Unknown History Clopidogrel [Plavix] 75 mg PO QDAY 11/07/17 11/07/17 Unknown History Cyclobenzaprine [Flexeril] 10 mg PO TID PRN 11/07/17 11/07/17 Unknown History Insulin Aspart Protam & Aspart 0 unit SQ TID 11/07/17 11/07/17 Unknown History [NovoLOG Mix 70-30 Flexpen] Insulin Glargine,Hum.rec.anlog 20 units SQ QAM 11/07/17 11/07/17 Unknown History [Lantus] Insulin Glargine,Hum.rec.anlog 50 units SQ QPM 11/07/17 11/07/17 Unknown History [Lantus] NIFEdipine [Nifedipine ER] 30 mg PO DAILY 11/07/17 11/07/17 Unknown History Active Meds: Active Medications Acetaminophen (Tylenol) 650 mg PO Q4H PRN PRN Reason: Pain MILD(1-3)/Fever >100.5/MUNOZ Aspirin (Halfprin Ec) 81 mg PO DAILY [facility] Last Admin: 11/09/17 10:08 Dose: Not Given Atorvastatin Calcium (Lipitor) 80 mg PO QHS [facility] Last Admin: 11/08/17 22:21 Dose: Not Given Bisacodyl (Dulcolax) 10 mg NC QDAY PRN PRN Reason: Constipation unrelieved by MOM Citalopram Hydrobromide (Celexa) 10 mg PO QDAY [facility] Last Admin: 11/09/17 10:09 Dose: Not Given Clopidogrel Bisulfate (Plavix) 75 mg PO QDAY [facility] Last Admin: 11/09/17 10:09 Dose: Not Given Cyclobenzaprine HCl (Flexeril) 10 mg PO TID PRN PRN Reason: Muscle Spasm Dextrose (D50w (25gm) Syringe) 50 ml IV PRN PRN PRN Reason: Hypoglycemia Piperacillin Sod/Tazobactam Sod (Zosyn/Ns 3.375gm/50ml) 3.375 gm in 50 mls @ 100 mls/hr IV Q6HR [facility] Last Admin: 11/09/17 00:38 Dose: 100 mls/hr Potassium Chloride 20 meq/ (Dextrose) 1,010 mls @ 100 mls/hr IV DIRECT [facility] Last Admin: 11/09/17 10:41 Dose: 100 mls/hr Insulin Aspart (Novolog) 0 units SUB-Q Q4H KYE PRN Reason: Protocol Last Admin: 11/09/17 10:04 Dose: Not Given Insulin Detemir (Levemir) 10 units SUB-Q QAMDIAB [facility] Last Admin: 11/09/17 10:55 Dose: Not Given Magnesium Hydroxide (Milk Of Magnesia) 30 ml PO Q4H PRN PRN Reason: Constipation Morphine Sulfate (Morphine) 2 mg IV Q4H PRN PRN Reason: Pain , Severe (7-10) Last Admin: 11/09/17 01:50 Dose: 2 mg Nifedipine (Procardia Xl) 30 mg PO DAILY [facility] Last Admin: 11/09/17 10:10 Dose: Not Given Ondansetron HCl (Zofran) 4 mg IV Q8H PRN PRN Reason: N/V unrelieved by [facility] Physical Examination - Vital Signs Vital Signs: Vital Signs BP 115/67 11/07/17 12:18 Results - Laboratory Findings CBC and BMP: 11/07/17 12:26 11/09/17 07:07 Abnormal Lab Findings: Abnormal Labs 11/07/17 11/07/17 11/07/17 12:26 12:26 12:26 WBC 20.1 H MCV 101 H Seg Neuts % (Manual) 90.0 H Lymphocytes % (Manual) 2.0 L Seg Neutrophils # Man 18.1 H Lymphocytes # (Manual) 0.4 L PT 16.4 H INR 1.25 H POC ABG pH POC ABG pCO2 POC ABG pO2 Sodium Potassium Chloride Carbon Dioxide BUN Creatinine Glucose POC Glucose 445 H Hemoglobin A1c Lactic Acid Calcium Phosphorus Magnesium Total Protein Albumin 11/07/17 11/07/17 11/07/17 12:39 13:44 13:44 WBC MCV Seg Neuts % (Manual) Lymphocytes % (Manual) Seg Neutrophils # Man Lymphocytes # (Manual) PT INR POC ABG pH 6.856 L POC ABG pCO2 12.4 L POC ABG pO2 288 H Sodium Potassium Chloride Carbon Dioxide BUN Creatinine Glucose POC Glucose Hemoglobin A1c Lactic Acid Calcium Phosphorus 8.10 H Magnesium 2.60 H Total Protein 5.8 L Albumin 3.0 L 11/07/17 11/07/17 11/07/17 13:44 14:17 15:17 WBC MCV Seg Neuts % (Manual) Lymphocytes % (Manual) Seg Neutrophils # Man Lymphocytes # (Manual) PT INR POC ABG pH POC ABG pCO2 POC ABG pO2 Sodium Potassium 6.5 H* 5.8 H 5.7 H Chloride 94.4 L Carbon Dioxide 5 L* 2 L* < 2.0 L* BUN 43 H 38 H 39 H Creatinine 1.3 H 1.3 H Glucose 629 H* 610 H* 585 H* POC Glucose Hemoglobin A1c Lactic Acid Calcium 8.3 L 7.7 L 7.9 L Phosphorus Magnesium Total Protein Albumin 11/07/17 11/07/17 11/07/17 15:17 15:40 16:57 WBC MCV Seg Neuts % (Manual) Lymphocytes % (Manual) Seg Neutrophils # Man Lymphocytes # (Manual) PT INR POC ABG pH POC ABG pCO2 POC ABG pO2 Sodium Potassium Chloride Carbon Dioxide 3 L* BUN 42 H Creatinine 1.3 H Glucose 557 H* POC Glucose > 500 H Hemoglobin A1c Lactic Acid 2.90 H* Calcium 8.1 L Phosphorus Magnesium Total Protein Albumin 11/07/17 11/07/17 11/07/17 17:02 17:02 18:05 WBC MCV Seg Neuts % (Manual) Lymphocytes % (Manual) Seg Neutrophils # Man Lymphocytes # (Manual) PT INR POC ABG pH POC ABG pCO2 POC ABG pO2 Sodium Potassium Chloride Carbon Dioxide BUN Creatinine Glucose POC Glucose 485 H Hemoglobin A1c 10.0 H Lactic Acid Calcium Phosphorus 6.60 H Magnesium 2.70 H Total Protein Albumin 11/07/17 11/07/17 11/07/17 18:52 20:20 21:23 WBC MCV Seg Neuts % (Manual) Lymphocytes % (Manual) Seg Neutrophils # Man Lymphocytes # (Manual) PT INR POC ABG pH POC ABG pCO2 POC ABG pO2 Sodium 148 H Potassium Chloride Carbon Dioxide < 2.0 L* BUN 41 H Creatinine 1.4 H Glucose 473 H POC Glucose 356 H 322 H Hemoglobin A1c Lactic Acid Calcium 7.8 L Phosphorus Magnesium Total Protein Albumin 11/07/17 11/07/17 11/07/17 22:28 23:01 23:31 WBC MCV Seg Neuts % (Manual) Lymphocytes % (Manual) Seg Neutrophils # Man Lymphocytes # (Manual) PT INR POC ABG pH POC ABG pCO2 POC ABG pO2 Sodium 148 H Potassium Chloride 111.6 H Carbon Dioxide 4 L* BUN 43 H Creatinine 1.3 H Glucose 177 H POC Glucose 242 H 204 H Hemoglobin A1c Lactic Acid Calcium 7.7 L Phosphorus Magnesium Total Protein Albumin 11/08/17 11/08/17 11/08/17 01:20 03:30 04:01 WBC MCV Seg Neuts % (Manual) Lymphocytes % (Manual) Seg Neutrophils # Man Lymphocytes # (Manual) PT INR POC ABG pH POC ABG pCO2 POC ABG pO2 Sodium Potassium Chloride Carbon Dioxide BUN Creatinine Glucose POC Glucose 120 H 59 L 132 H Hemoglobin A1c Lactic Acid Calcium Phosphorus Magnesium Total Protein Albumin 11/08/17 11/08/17 11/08/17 04:20 04:20 05:15 WBC MCV Seg Neuts % (Manual) Lymphocytes % (Manual) Seg Neutrophils # Man Lymphocytes # (Manual) PT INR POC ABG pH POC ABG pCO2 POC ABG pO2 Sodium 151 H 150 H Potassium Chloride 114.3 H 115.4 H Carbon Dioxide 10 L 10 L BUN 48 H 48 H Creatinine 1.3 H Glucose 121 H 118 H POC Glucose 134 H Hemoglobin A1c Lactic Acid Calcium 7.8 L 7.8 L Phosphorus Magnesium Total Protein Albumin 11/08/17 11/08/17 11/08/17 06:41 07:49 08:12 WBC MCV Seg Neuts % (Manual) Lymphocytes % (Manual) Seg Neutrophils # Man Lymphocytes # (Manual) PT INR POC ABG pH POC ABG pCO2 POC ABG pO2 Sodium 151 H Potassium Chloride 116.5 H Carbon Dioxide 13 L BUN 52 H Creatinine 1.3 H Glucose 213 H POC Glucose 172 H 228 H Hemoglobin A1c Lactic Acid Calcium 7.9 L Phosphorus Magnesium Total Protein Albumin 11/08/17 11/08/17 11/08/17 08:22 09:31 11:04 WBC MCV Seg Neuts % (Manual) Lymphocytes % (Manual) Seg Neutrophils # Man Lymphocytes # (Manual) PT INR POC ABG pH POC ABG pCO2 POC ABG pO2 Sodium Potassium Chloride Carbon Dioxide BUN Creatinine Glucose POC Glucose 140 H 140 H 136 H Hemoglobin A1c Lactic Acid Calcium Phosphorus Magnesium Total Protein Albumin 11/08/17 11/08/17 11/08/17 12:11 13:40 17:21 WBC MCV Seg Neuts % (Manual) Lymphocytes % (Manual) Seg Neutrophils # Man Lymphocytes # (Manual) PT INR POC ABG pH POC ABG pCO2 POC ABG pO2 Sodium 152 H Potassium Chloride 117.6 H Carbon Dioxide 15 L BUN 50 H Creatinine 1.3 H Glucose 144 H POC Glucose 111 H 182 H Hemoglobin A1c Lactic Acid Calcium Phosphorus Magnesium Total Protein Albumin 11/08/17 11/08/17 11/09/17 17:45 23:06 00:39 WBC MCV Seg Neuts % (Manual) Lymphocytes % (Manual) Seg Neutrophils # Man Lymphocytes # (Manual) PT INR POC ABG pH POC ABG pCO2 POC ABG pO2 Sodium 149 H Potassium Chloride 116.2 H Carbon Dioxide 13 L BUN 48 H Creatinine 1.3 H Glucose 171 H POC Glucose < 40 L 123 H Hemoglobin A1c Lactic Acid Calcium 8.1 L Phosphorus Magnesium Total Protein Albumin 11/09/17 11/09/17 11/09/17 07:07 07:07 11:35 WBC MCV Seg Neuts % (Manual) Lymphocytes % (Manual) Seg Neutrophils # Man Lymphocytes # (Manual) PT INR POC ABG pH POC ABG pCO2 POC ABG pO2 Sodium 152 H Potassium 3.0 L D Chloride 121.9 H Carbon Dioxide 18 L BUN 44 H Creatinine Glucose POC Glucose 118 H Hemoglobin A1c Lactic Acid Calcium Phosphorus 1.50 L Magnesium Total Protein Albumin
[2017-11-09] MEDS ORDERED: VASELINE LIP THERAPY TP PRN (14:20)
--- NOTE | 2017-11-09 20:33 | Progress Note ---
Assessment and Plan Patient sleeping on room air. No acute respiratory distress. O2 saturation 99% on room air. - Patient Problems (1) Sepsis Current Visit: Yes Status: Acute Qualifiers: Sepsis type: sepsis due to unspecified organism Qualified Code(s): A41.9 - Sepsis, unspecified organism Plan to address problem: Patient yvette obregon (2) Altered mental status Current Visit: Yes Status: Acute Plan to address problem: Managment as per primary care. (3) DKA (diabetic ketoacidoses) Current Visit: Yes Status: Acute Qualifiers: Diabetes mellitus type: type 2 Plan to address problem: Improving. Management as per primary care. (4) Encephalopathy acute Current Visit: Yes Status: Acute Plan to address problem: Management as per primary care. (5) HTN (hypertension) Current Visit: Yes Status: Chronic Qualifiers: Hypertension type: essential hypertension Qualified Code(s): I10 - Essential (primary) hypertension Plan to address problem: Management as per primary care. (6) History of CVA with residual deficit Current Visit: Yes Status: Chronic Plan to address problem: Management as per primary care and neurology. Subjective Date of service: 11/09/17 Interval history: Patient sleeping on room air. No acute respiratory distress. O2 saturation 99% on room air. Objective Vital Signs - 12hr 11/09/17 11/09/17 11/09/17 08:41 08:51 09:00 Temperature Pulse Rate 95 H 111 H Respiratory 13 12 Rate Blood Pressure Blood Pressure [Left] O2 Sat by Pulse 100 99 97 Oximetry 11/09/17 11/09/17 11/09/17 09:01 09:11 09:21 Temperature Pulse Rate 90 100 H 97 H Respiratory 13 12 12 Rate Blood Pressure Blood Pressure [Left] O2 Sat by Pulse 100 100 100 Oximetry 11/09/17 11/09/17 11/09/17 09:31 09:41 09:51 Temperature Pulse Rate 92 H 95 H 113 H Respiratory 13 12 13 Rate Blood Pressure 152/66 152/66 Blood Pressure [Left] O2 Sat by Pulse 100 100 99 Oximetry 11/09/17 11/09/17 11/09/17 10:00 11:01 15:26 Temperature 98 F 99.0 F Pulse Rate 110 H 100 H 105 H Respiratory 15 16 Rate Blood Pressure 164/101 175/105 Blood Pressure 140/80 [Left] O2 Sat by Pulse 98 Oximetry 11/09/17 19:59 Temperature 99.1 F Pulse Rate 103 H Respiratory 20 Rate Blood Pressure 174/105 Blood Pressure [Left] O2 Sat by Pulse 80 L Oximetry Constitutional: no acute distress, asleep Eyes: non-icteric Neck: supple, no lymphadenopathy Ascultation: Bilateral: clear Cardiovascular: regular rate and rhythm Gastrointestinal: normoactive bowel sounds, soft, non-tender Integumentary: normal Extremities: no cyanosis, no edema Neurologic: other (Patient sleeping at this time.) Psychiatric: other (Patient sleeping at this time.) CBC and BMP: 11/07/17 12:26 11/09/17 07:07 ABG, PT/INR, D-dimer: ABG POC ABG pH 7.389 (7.35-7.45) 11/09/17 19:49 POC ABG pCO2 28.9 (35-45) L 11/09/17 19:49 POC ABG pO2 98 (80-105) 11/09/17 19:49 POC ABG HCO3 17.4 11/09/17 19:49 POC ABG Total CO2 18 11/09/17 19:49 POC ABG O2 Sat 98 11/09/17 19:49 PT/INR, D-dimer PT 16.4 Sec. (12.2-14.9) H 11/07/17 12:26 INR 1.25 (0.87-1.13) H 11/07/17 12:26 Abnormal lab findings: Abnormal Labs 11/07/17 11/07/17 11/07/17 12:26 12:26 12:26 WBC 20.1 H MCV 101 H Seg Neuts % (Manual) 90.0 H Lymphocytes % (Manual) 2.0 L Seg Neutrophils # Man 18.1 H Lymphocytes # (Manual) 0.4 L PT 16.4 H INR 1.25 H POC ABG pH POC ABG pCO2 POC ABG pO2 Sodium Potassium Chloride Carbon Dioxide BUN Creatinine Glucose POC Glucose 445 H Hemoglobin A1c Lactic Acid Calcium Phosphorus Magnesium Total Protein Albumin 11/07/17 11/07/17 11/07/17 12:39 13:44 13:44 WBC MCV Seg Neuts % (Manual) Lymphocytes % (Manual) Seg Neutrophils # Man Lymphocytes # (Manual) PT INR POC ABG pH 6.856 L POC ABG pCO2 12.4 L POC ABG pO2 288 H Sodium Potassium Chloride Carbon Dioxide BUN Creatinine Glucose POC Glucose Hemoglobin A1c Lactic Acid Calcium Phosphorus 8.10 H Magnesium 2.60 H Total Protein 5.8 L Albumin 3.0 L 11/07/17 11/07/17 11/07/17 13:44 14:17 15:17 WBC MCV Seg Neuts % (Manual) Lymphocytes % (Manual) Seg Neutrophils # Man Lymphocytes # (Manual) PT INR POC ABG pH POC ABG pCO2 POC ABG pO2 Sodium Potassium 6.5 H* 5.8 H 5.7 H Chloride 94.4 L Carbon Dioxide 5 L* 2 L* < 2.0 L* BUN 43 H 38 H 39 H Creatinine 1.3 H 1.3 H Glucose 629 H* 610 H* 585 H* POC Glucose Hemoglobin A1c Lactic Acid Calcium 8.3 L 7.7 L 7.9 L Phosphorus Magnesium Total Protein Albumin 11/07/17 11/07/17 11/07/17 15:17 15:40 16:57 WBC MCV Seg Neuts % (Manual) Lymphocytes % (Manual) Seg Neutrophils # Man Lymphocytes # (Manual) PT INR POC ABG pH POC ABG pCO2 POC ABG pO2 Sodium Potassium Chloride Carbon Dioxide 3 L* BUN 42 H Creatinine 1.3 H Glucose 557 H* POC Glucose > 500 H Hemoglobin A1c Lactic Acid 2.90 H* Calcium 8.1 L Phosphorus Magnesium Total Protein Albumin 11/07/17 11/07/17 11/07/17 17:02 17:02 18:05 WBC MCV Seg Neuts % (Manual) Lymphocytes % (Manual) Seg Neutrophils # Man Lymphocytes # (Manual) PT INR POC ABG pH POC ABG pCO2 POC ABG pO2 Sodium Potassium Chloride Carbon Dioxide BUN Creatinine Glucose POC Glucose 485 H Hemoglobin A1c 10.0 H Lactic Acid Calcium Phosphorus 6.60 H Magnesium 2.70 H Total Protein Albumin 11/07/17 11/07/17 11/07/17 18:52 20:20 21:23 WBC MCV Seg Neuts % (Manual) Lymphocytes % (Manual) Seg Neutrophils # Man Lymphocytes # (Manual) PT INR POC ABG pH POC ABG pCO2 POC ABG pO2 Sodium 148 H Potassium Chloride Carbon Dioxide < 2.0 L* BUN 41 H Creatinine 1.4 H Glucose 473 H POC Glucose 356 H 322 H Hemoglobin A1c Lactic Acid Calcium 7.8 L Phosphorus Magnesium Total Protein Albumin 11/07/17 11/07/17 11/07/17 22:28 23:01 23:31 WBC MCV Seg Neuts % (Manual) Lymphocytes % (Manual) Seg Neutrophils # Man Lymphocytes # (Manual) PT INR POC ABG pH POC ABG pCO2 POC ABG pO2 Sodium 148 H Potassium Chloride 111.6 H Carbon Dioxide 4 L* BUN 43 H Creatinine 1.3 H Glucose 177 H POC Glucose 242 H 204 H Hemoglobin A1c Lactic Acid Calcium 7.7 L Phosphorus Magnesium Total Protein Albumin 11/08/17 11/08/17 11/08/17 01:20 03:30 04:01 WBC MCV Seg Neuts % (Manual) Lymphocytes % (Manual) Seg Neutrophils # Man Lymphocytes # (Manual) PT INR POC ABG pH POC ABG pCO2 POC ABG pO2 Sodium Potassium Chloride Carbon Dioxide BUN Creatinine Glucose POC Glucose 120 H 59 L 132 H Hemoglobin A1c Lactic Acid Calcium Phosphorus Magnesium Total Protein Albumin 11/08/17 11/08/17 11/08/17 04:20 04:20 05:15 WBC MCV Seg Neuts % (Manual) Lymphocytes % (Manual) Seg Neutrophils # Man Lymphocytes # (Manual) PT INR POC ABG pH POC ABG pCO2 POC ABG pO2 Sodium 151 H 150 H Potassium Chloride 114.3 H 115.4 H Carbon Dioxide 10 L 10 L BUN 48 H 48 H Creatinine 1.3 H Glucose 121 H 118 H POC Glucose 134 H Hemoglobin A1c Lactic Acid Calcium 7.8 L 7.8 L Phosphorus Magnesium Total Protein Albumin 11/08/17 11/08/17 11/08/17 06:41 07:49 08:12 WBC MCV Seg Neuts % (Manual) Lymphocytes % (Manual) Seg Neutrophils # Man Lymphocytes # (Manual) PT INR POC ABG pH POC ABG pCO2 POC ABG pO2 Sodium 151 H Potassium Chloride 116.5 H Carbon Dioxide 13 L BUN 52 H Creatinine 1.3 H Glucose 213 H POC Glucose 172 H 228 H Hemoglobin A1c Lactic Acid Calcium 7.9 L Phosphorus Magnesium Total Protein Albumin 11/08/17 11/08/17 11/08/17 08:22 09:31 11:04 WBC MCV Seg Neuts % (Manual) Lymphocytes % (Manual) Seg Neutrophils # Man Lymphocytes # (Manual) PT INR POC ABG pH POC ABG pCO2 POC ABG pO2 Sodium Potassium Chloride Carbon Dioxide BUN Creatinine Glucose POC Glucose 140 H 140 H 136 H Hemoglobin A1c Lactic Acid Calcium Phosphorus Magnesium Total Protein Albumin 11/08/17 11/08/17 11/08/17 12:11 13:40 17:21 WBC MCV Seg Neuts % (Manual) Lymphocytes % (Manual) Seg Neutrophils # Man Lymphocytes # (Manual) PT INR POC ABG pH POC ABG pCO2 POC ABG pO2 Sodium 152 H Potassium Chloride 117.6 H Carbon Dioxide 15 L BUN 50 H Creatinine 1.3 H Glucose 144 H POC Glucose 111 H 182 H Hemoglobin A1c Lactic Acid Calcium Phosphorus Magnesium Total Protein Albumin 11/08/17 11/08/17 11/09/17 17:45 23:06 00:39 WBC MCV Seg Neuts % (Manual) Lymphocytes % (Manual) Seg Neutrophils # Man Lymphocytes # (Manual) PT INR POC ABG pH POC ABG pCO2 POC ABG pO2 Sodium 149 H Potassium Chloride 116.2 H Carbon Dioxide 13 L BUN 48 H Creatinine 1.3 H Glucose 171 H POC Glucose < 40 L 123 H Hemoglobin A1c Lactic Acid Calcium 8.1 L Phosphorus Magnesium Total Protein Albumin 11/09/17 11/09/17 11/09/17 07:07 07:07 11:35 WBC MCV Seg Neuts % (Manual) Lymphocytes % (Manual) Seg Neutrophils # Man Lymphocytes # (Manual) PT INR POC ABG pH POC ABG pCO2 POC ABG pO2 Sodium 152 H Potassium 3.0 L D Chloride 121.9 H Carbon Dioxide 18 L BUN 44 H Creatinine Glucose POC Glucose 118 H Hemoglobin A1c Lactic Acid Calcium Phosphorus 1.50 L Magnesium Total Protein Albumin 11/09/17 11/09/17 16:54 19:49 WBC MCV Seg Neuts % (Manual) Lymphocytes % (Manual) Seg Neutrophils # Man Lymphocytes # (Manual) PT INR POC ABG pH POC ABG pCO2 28.9 L POC ABG pO2 Sodium Potassium Chloride Carbon Dioxide BUN Creatinine Glucose POC Glucose 231 H Hemoglobin A1c Lactic Acid Calcium Phosphorus Magnesium Total Protein Albumin Chest x-ray: report reviewed (Unremarkable AP chest.Appears skin fold on left side.), image reviewed
[2017-11-09] MEDS: KCL 20 MEQ in D5W 1,000 ML IV SCH (23:35)
[2017-11-10] MEDS: NOVOLOG SUB-Q SCH ×6 (03:11→22:42)
[2017-11-10] MEDS: ZOSYN/NS 3.375GM/50ML 3.375 GM/50 ML BAG IV SCH ×3 (08:01→17:48)
[2017-11-10] MEDS: LEVEMIR SUB-Q SCH (10:42)
[2017-11-10] MEDS ORDERED: ATIVAN IV ONE ×2 (11:00)
[2017-11-10] MEDS: PROCARDIA XL PO SCH (11:20)
[2017-11-10] MEDS: PLAVIX PO SCH (11:21)
[2017-11-10] MEDS: celeXA PO SCH (11:21)
[2017-11-10] MEDS: HALFPRIN EC PO SCH (11:21)
--- NOTE | 2017-11-10 11:45 | Consultation ---
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 this my intrep. 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 Medications and Allergies Allergies Allergy/AdvReac Type Severity Reaction Status Date / Time No Known Allergies Allergy Unverified 11/20/14 03:04 Home Medications Medication Instructions Recorded Confirmed Last Taken Type Aspirin [Aspirin EC] 81 mg PO DAILY 11/07/17 11/07/17 Unknown History AtorvaSTATin [Lipitor] 80 mg PO QHS 11/07/17 11/07/17 Unknown History Citalopram [celeXA] 10 mg PO QDAY 11/07/17 11/07/17 Unknown History Clopidogrel [Plavix] 75 mg PO QDAY 11/07/17 11/07/17 Unknown History Cyclobenzaprine [Flexeril] 10 mg PO TID PRN 11/07/17 11/07/17 Unknown History Insulin Aspart Protam & Aspart 0 unit SQ TID 11/07/17 11/07/17 Unknown History [NovoLOG Mix 70-30 Flexpen] Insulin Glargine,Hum.rec.anlog 20 units SQ QAM 11/07/17 11/07/17 Unknown History [Lantus] Insulin Glargine,Hum.rec.anlog 50 units SQ QPM 11/07/17 11/07/17 Unknown History [Lantus] NIFEdipine [Nifedipine ER] 30 mg PO DAILY 11/07/17 11/07/17 Unknown History Active Meds: Active Medications Acetaminophen (Tylenol) 650 mg PO Q4H PRN PRN Reason: Pain MILD(1-3)/Fever >100.5/MUNOZ Aspirin (Halfprin Ec) 81 mg PO DAILY [facility] Last Admin: 11/10/17 11:21 Dose: Not Given Atorvastatin Calcium (Lipitor) 80 mg PO QHS [facility] Last Admin: 11/09/17 23:05 Dose: Not Given Bisacodyl (Dulcolax) 10 mg ME QDAY PRN PRN Reason: Constipation unrelieved by MOM Citalopram Hydrobromide (Celexa) 10 mg PO QDAY [facility] Last Admin: 11/10/17 11:21 Dose: Not Given Clopidogrel Bisulfate (Plavix) 75 mg PO QDAY [facility] Last Admin: 11/10/17 11:21 Dose: Not Given Cyclobenzaprine HCl (Flexeril) 10 mg PO TID PRN PRN Reason: Muscle Spasm Dextrose (D50w (25gm) Syringe) 50 ml IV PRN PRN PRN Reason: Hypoglycemia Famotidine (Pepcid) 20 mg IV QDAY [facility] Hydrophilic Ointment (Vaseline Lip Therapy) 1 applic TP DIRECT PRN PRN Reason: Dry Lips Piperacillin Sod/Tazobactam Sod (Zosyn/Ns 3.375gm/50ml) 3.375 gm in 50 mls @ 100 mls/hr IV Q6HR [facility] Last Admin: 11/10/17 08:01 Dose: 100 mls/hr Potassium Chloride 20 meq/ (Dextrose) 1,010 mls @ 100 mls/hr IV DIRECT [facility] Last Admin: 11/09/17 23:35 Dose: 100 mls/hr Insulin Aspart (Novolog) 0 units SUB-Q Q4H [facility] PRN Reason: Protocol Last Admin: 11/10/17 08:01 Dose: 4 units Insulin Detemir (Levemir) 10 units SUB-Q QAMDIAB [facility] Last Admin: 11/10/17 10:42 Dose: Not Given Labetalol HCl (Normodyne) 10 mg IV Q4H PRN PRN Reason: Blood Pressure Last Admin: 11/10/17 08:29 Dose: 10 mg Magnesium Hydroxide (Milk Of Magnesia) 30 ml PO Q4H PRN PRN Reason: Constipation Morphine Sulfate (Morphine) 2 mg IV Q4H PRN PRN Reason: Pain , Severe (7-10) Last Admin: 11/09/17 01:50 Dose: 2 mg Nifedipine (Procardia Xl) 30 mg PO DAILY [facility] Last Admin: 11/10/17 11:20 Dose: Not Given Ondansetron HCl (Zofran) 4 mg IV Q8H PRN PRN Reason: N/V unrelieved by Reglan Physical Examination - Vital Signs Vital Signs: Vital Signs BP 115/67 11/07/17 12:18 Results - Laboratory Findings CBC and BMP: 11/07/17 12:26 11/09/17 07:07 Abnormal Lab Findings: Abnormal Labs 11/07/17 11/07/17 11/07/17 12:26 12:26 12:26 WBC 20.1 H MCV 101 H Seg Neuts % (Manual) 90.0 H Lymphocytes % (Manual) 2.0 L Seg Neutrophils # Man 18.1 H Lymphocytes # (Manual) 0.4 L PT 16.4 H INR 1.25 H POC ABG pH POC ABG pCO2 POC ABG pO2 Sodium Potassium Chloride Carbon Dioxide BUN Creatinine Glucose POC Glucose 445 H Hemoglobin A1c Lactic Acid Calcium Phosphorus Magnesium C-Reactive Protein Total Protein Albumin 11/07/17 11/07/17 11/07/17 12:39 13:44 13:44 WBC MCV Seg Neuts % (Manual) Lymphocytes % (Manual) Seg Neutrophils # Man Lymphocytes # (Manual) PT INR POC ABG pH 6.856 L POC ABG pCO2 12.4 L POC ABG pO2 288 H Sodium Potassium Chloride Carbon Dioxide BUN Creatinine Glucose POC Glucose Hemoglobin A1c Lactic Acid Calcium Phosphorus 8.10 H Magnesium 2.60 H C-Reactive Protein Total Protein 5.8 L Albumin 3.0 L 11/07/17 11/07/17 11/07/17 13:44 14:17 15:17 WBC MCV Seg Neuts % (Manual) Lymphocytes % (Manual) Seg Neutrophils # Man Lymphocytes # (Manual) PT INR POC ABG pH POC ABG pCO2 POC ABG pO2 Sodium Potassium 6.5 H* 5.8 H 5.7 H Chloride 94.4 L Carbon Dioxide 5 L* 2 L* < 2.0 L* BUN 43 H 38 H 39 H Creatinine 1.3 H 1.3 H Glucose 629 H* 610 H* 585 H* POC Glucose Hemoglobin A1c Lactic Acid Calcium 8.3 L 7.7 L 7.9 L Phosphorus Magnesium C-Reactive Protein Total Protein Albumin 11/07/17 11/07/17 11/07/17 15:17 15:40 16:57 WBC MCV Seg Neuts % (Manual) Lymphocytes % (Manual) Seg Neutrophils # Man Lymphocytes # (Manual) PT INR POC ABG pH POC ABG pCO2 POC ABG pO2 Sodium Potassium Chloride Carbon Dioxide 3 L* BUN 42 H Creatinine 1.3 H Glucose 557 H* POC Glucose > 500 H Hemoglobin A1c Lactic Acid 2.90 H* Calcium 8.1 L Phosphorus Magnesium C-Reactive Protein Total Protein Albumin 11/07/17 11/07/17 11/07/17 17:02 17:02 18:05 WBC MCV Seg Neuts % (Manual) Lymphocytes % (Manual) Seg Neutrophils # Man Lymphocytes # (Manual) PT INR POC ABG pH POC ABG pCO2 POC ABG pO2 Sodium Potassium Chloride Carbon Dioxide BUN Creatinine Glucose POC Glucose 485 H Hemoglobin A1c 10.0 H Lactic Acid Calcium Phosphorus 6.60 H Magnesium 2.70 H C-Reactive Protein Total Protein Albumin 11/07/17 11/07/17 11/07/17 18:52 20:20 21:23 WBC MCV Seg Neuts % (Manual) Lymphocytes % (Manual) Seg Neutrophils # Man Lymphocytes # (Manual) PT INR POC ABG pH POC ABG pCO2 POC ABG pO2 Sodium 148 H Potassium Chloride Carbon Dioxide < 2.0 L* BUN 41 H Creatinine 1.4 H Glucose 473 H POC Glucose 356 H 322 H Hemoglobin A1c Lactic Acid Calcium 7.8 L Phosphorus Magnesium C-Reactive Protein Total Protein Albumin 11/07/17 11/07/17 11/07/17 22:28 23:01 23:31 WBC MCV Seg Neuts % (Manual) Lymphocytes % (Manual) Seg Neutrophils # Man Lymphocytes # (Manual) PT INR POC ABG pH POC ABG pCO2 POC ABG pO2 Sodium 148 H Potassium Chloride 111.6 H Carbon Dioxide 4 L* BUN 43 H Creatinine 1.3 H Glucose 177 H POC Glucose 242 H 204 H Hemoglobin A1c Lactic Acid Calcium 7.7 L Phosphorus Magnesium C-Reactive Protein Total Protein Albumin 11/08/17 11/08/17 11/08/17 01:20 03:30 04:01 WBC MCV Seg Neuts % (Manual) Lymphocytes % (Manual) Seg Neutrophils # Man Lymphocytes # (Manual) PT INR POC ABG pH POC ABG pCO2 POC ABG pO2 Sodium Potassium Chloride Carbon Dioxide BUN Creatinine Glucose POC Glucose 120 H 59 L 132 H Hemoglobin A1c Lactic Acid Calcium Phosphorus Magnesium C-Reactive Protein Total Protein Albumin 11/08/17 11/08/17 11/08/17 04:20 04:20 05:15 WBC MCV Seg Neuts % (Manual) Lymphocytes % (Manual) Seg Neutrophils # Man Lymphocytes # (Manual) PT INR POC ABG pH POC ABG pCO2 POC ABG pO2 Sodium 151 H 150 H Potassium Chloride 114.3 H 115.4 H Carbon Dioxide 10 L 10 L BUN 48 H 48 H Creatinine 1.3 H Glucose 121 H 118 H POC Glucose 134 H Hemoglobin A1c Lactic Acid Calcium 7.8 L 7.8 L Phosphorus Magnesium C-Reactive Protein Total Protein Albumin 11/08/17 11/08/17 11/08/17 06:41 07:49 08:12 WBC MCV Seg Neuts % (Manual) Lymphocytes % (Manual) Seg Neutrophils # Man Lymphocytes # (Manual) PT INR POC ABG pH POC ABG pCO2 POC ABG pO2 Sodium 151 H Potassium Chloride 116.5 H Carbon Dioxide 13 L BUN 52 H Creatinine 1.3 H Glucose 213 H POC Glucose 172 H 228 H Hemoglobin A1c Lactic Acid Calcium 7.9 L Phosphorus Magnesium C-Reactive Protein Total Protein Albumin 11/08/17 11/08/17 11/08/17 08:22 09:31 11:04 WBC MCV Seg Neuts % (Manual) Lymphocytes % (Manual) Seg Neutrophils # Man Lymphocytes # (Manual) PT INR POC ABG pH POC ABG pCO2 POC ABG pO2 Sodium Potassium Chloride Carbon Dioxide BUN Creatinine Glucose POC Glucose 140 H 140 H 136 H Hemoglobin A1c Lactic Acid Calcium Phosphorus Magnesium C-Reactive Protein Total Protein Albumin 11/08/17 11/08/17 11/08/17 12:11 13:40 17:21 WBC MCV Seg Neuts % (Manual) Lymphocytes % (Manual) Seg Neutrophils # Man Lymphocytes # (Manual) PT INR POC ABG pH POC ABG pCO2 POC ABG pO2 Sodium 152 H Potassium Chloride 117.6 H Carbon Dioxide 15 L BUN 50 H Creatinine 1.3 H Glucose 144 H POC Glucose 111 H 182 H Hemoglobin A1c Lactic Acid Calcium Phosphorus Magnesium C-Reactive Protein Total Protein Albumin 11/08/17 11/08/17 11/09/17 17:45 23:06 00:39 WBC MCV Seg Neuts % (Manual) Lymphocytes % (Manual) Seg Neutrophils # Man Lymphocytes # (Manual) PT INR POC ABG pH POC ABG pCO2 POC ABG pO2 Sodium 149 H Potassium Chloride 116.2 H Carbon Dioxide 13 L BUN 48 H Creatinine 1.3 H Glucose 171 H POC Glucose < 40 L 123 H Hemoglobin A1c Lactic Acid Calcium 8.1 L Phosphorus Magnesium C-Reactive Protein Total Protein Albumin 11/09/17 11/09/17 11/09/17 07:07 07:07 11:35 WBC MCV Seg Neuts % (Manual) Lymphocytes % (Manual) Seg Neutrophils # Man Lymphocytes # (Manual) PT INR POC ABG pH POC ABG pCO2 POC ABG pO2 Sodium 152 H Potassium 3.0 L D Chloride 121.9 H Carbon Dioxide 18 L BUN 44 H Creatinine Glucose POC Glucose 118 H Hemoglobin A1c Lactic Acid Calcium Phosphorus 1.50 L Magnesium C-Reactive Protein Total Protein Albumin 11/09/17 11/09/17 11/09/17 16:54 19:44 19:49 WBC MCV Seg Neuts % (Manual) Lymphocytes % (Manual) Seg Neutrophils # Man Lymphocytes # (Manual) PT INR POC ABG pH POC ABG pCO2 28.9 L POC ABG pO2 Sodium Potassium Chloride Carbon Dioxide BUN Creatinine Glucose POC Glucose 231 H Hemoglobin A1c Lactic Acid Calcium Phosphorus Magnesium C-Reactive Protein 4.70 H Total Protein Albumin 11/09/17 11/10/17 21:48 06:25 WBC MCV Seg Neuts % (Manual) Lymphocytes % (Manual) Seg Neutrophils # Man Lymphocytes # (Manual) PT INR POC ABG pH POC ABG pCO2 POC ABG pO2 Sodium Potassium Chloride Carbon Dioxide BUN Creatinine Glucose POC Glucose 176 H 299 H Hemoglobin A1c Lactic Acid Calcium Phosphorus Magnesium C-Reactive Protein Total Protein Albumin
--- NOTE | 2017-11-10 12:21 | Magnetic Resonance Report ---
MRI scan of brain: History: Seizures. Technique: Multisequence images were obtained without contrast injection. Findings: Multiple focal areas of restricted diffusion is identified in the right basal ganglia and in right temporoparietal region. There is dilated adjacent right lateral ventricle body however the anterior horn appears normal. The occipital horn appears dilated. The 3rd ventricle appears normal. No midline shift. Corresponding to areas of restricted diffusion flair imaging reveals areas of increased signal intensity. Additionally periventricular areas of increased signal intensity are noted. No abnormalities are identified on T1-weighted images. No evidence of hemorrhage on gradient images. Brainstem and cerebellum and sinuses and sinuses are normal. Increased signal intensity at right mastoid air cells suggestive of mastoiditis. Impression: Multiple focal areas of restricted diffusion right cerebral hemisphere suggestive acute ischemia. No evidence of hemorrhage. Dilated right lateral ventricle without definite evidence of obstruction. Acute right mastoiditis.
[2017-11-10] MEDS: PEPCID IV SCH (13:17)
--- NOTE | 2017-11-10 17:15 | Progress Note ---
Assessment and Plan Assessment and plan: Patient is 37-year-old woman with a history of insulin-dependent diabetes mellitus, CVA on aspirin and Plavix, hypertension, dyslipidemia and depression who presented with altered mental status and was admitted for DKA. Do not know her baseline mental status, so I called person to notify in the chart, who happens to be her sister, Jessica Kincaid who reports that patient was discharged from [facility] about 1.5 months ago and went to [facility]. Then, she went to her home. She lives with daughter Leslye and brother, Sean, who moved in with her for more support. Her baseline mental function: she walks with a walker, she feeds herself, needs help with clothes, left arm weaker than right and speech is usually slurred. "I wanna say she wasn' t talking her insulin, because this 3rd stoke did alittle mentally and she more forgettable, that is what I am thinking, for example, she will say, I need to take my insulin but she had just took her insulin." They went to [place], on the way back Saturday night 11pm, she was sleeping off and on, BG was 516 and she took her insulin. Her daughter, Leslye, said next morning she got up morning to go to the bathroom and she fell and then was unresponsive, she was found on the floor in urine by daughter, Leslye. -DKA with acute metabolic acidosis, high anion gap: Treat with IV fluids, insulin drip, serial BMP -Acute metabolic encephalopathy/semiconscious state: treat the above -Recurrent ischemic strokes. ?hydrocephalus on Ct head: consulted Neurology -Leukocytosis with SIRs, non infectious, cxr no acute finding, more likely reactive-->Sepsis due to acute right mastoiditis, poa, start iv abx -Hypernatremia: needs more free water, bmp -Moderate malnutrition: cra officer -Acute ischemic stroke, poa: get ECHO, used stroke protocol 11/09/17: Insulin drip was stopped because of hypoglycemia and patient was sent from ED to medical/surg floor. Anion gap was still high so I sent ICU to start insulin drip. I also ordered bmp stat. By the time the stat bmp was resulted, patient was in the icu. Anion gap has closed, so i will downgrade back to medical surg floor. Replace her potassium, start diet, if she unable to eat continue D5W due to hypernatremia and not eating. Await neurology assessment because she is not at her mental baseline of slurred speech and ambulation with a walker. Order PT/OT 11/10/17: I gave pt 0.5mg iv ativan x 1 to complete mri brain that Neurology ordered, MRI brain reported as multiple focal areas of restricted diffusion right cerebral hemisphere suggestive excuse ischemia, no evidence of hemorrhage , dilated right lateral ventricle without definite evidence of obstruction, acute right mastoiditis. I started abx, iv rocephin, used stroke protocol The high probability of a clinically significant, sudden or life threatening deterioration of the [neurologic,cardiac] system(s) required my full and direct attention, intervention and personal management. The aggregate critical care time was [40] minutes. This time is in addition to time spent performing reported procedures but includes the following: [x] Data Review and interpretation [x] Patient assessment and monitoring of vital signs [x] Documentation [x] Medication orders and management History Interval history: Patient was seen and examined. Follow-up on current diagnosis/altered mental status. Overnight uneventful. Patient not given any history; therefore, Imaging, nursing note, chart, labs and old chart reviewed. Responding more. Hospitalist Physical - Physical exam Narrative exam: GEN: Thin frail woman chronic a bit debilitating appearing, lethargic, nonverbal HEENT: NCAT, EOMI, PERRL, OP Clear NECK: supple, no adenopathy, no thyromegaly, no JVD CVS/HEART: regular tachycardia NORMAL S1S2, NO JVD, pulses present bilaterally CHEST/LUNGS: CTA B, Symmetrical chest expansion, good air entry bilaterally GI/Abdomen: soft, NTND, good bowel sounds, no guarding or rebound /Bladder: no suprapubic tenderness, no CVA or paraspinal tenderness EXT/Skin: no c/c/e, no obvious rash MSK: Moving both arms with contractures Neuro: CN 2-12 grossly intact except nonverbal, hemiparesis, facial asymmetry, no new focal deficits Psych: calm but confused - Constitutional Vitals: Temp Pulse Resp BP Pulse Ox 99.9 F H 114 H 18 154/99 98 11/10/17 15:22 11/10/17 15:22 11/10/17 15:22 11/10/17 15:22 11/10/17 15:22 General appearance: Present: well-nourished. Absent: mild distress Results - Labs CBC & Chem 7: 11/07/17 12:26 11/09/17 07:07 Labs: Laboratory Last Values WBC 20.1 K/mm3 (4.5-11.0) H 11/07/17 12:26 RBC 4.10 M/mm3 (3.65-5.03) 11/07/17 12:26 Hgb 12.4 gm/dl (10.1-14.3) 11/07/17 12:26 Hct 41.3 % (30.3-42.9) 11/07/17 12:26 MCV 101 fl (79-97) H 11/07/17 12:26 MCH 30 pg (28-32) 11/07/17 12: MCHC 30 % (30-34) 11/07/17 12: RDW 13.7 % (13.2-15.2) 11/07/17 12: Plt Count 197 K/mm3 (140-440) 11/07/17 12:26 Add Manual Diff Complete 11/07/17 12:26 Total Counted 100 11/07/17 12: Seg Neutrophils % Pharmaceutical Botanist 11/07/17 12:26 Seg Neuts % (Manual) 90.0 % (40.0-70.0) H 11/07/17 12: Band Neutrophils % 4.0 % 11/07/17 12:26 Lymphocytes % (Manual) 2.0 % (13.4-35.0) L 11/07/17 12:26 Reactive Lymphs % (Man) 0 % 11/07/17 12:26 Monocytes % (Manual) 4.0 % (0.0-7.3) 11/07/17 12:26 Eosinophils % (Manual) 0 % (0.0-4.3) 11/07/17 12:26 Basophils % (Manual) 0 % (0.0-1.8) 11/07/17 12:26 Metamyelocytes % 0 % 11/07/17 12:26 Myelocytes % 0 % 11/07/17 12: Promyelocytes % 0 % 11/07/17 12:26 Blast Cells % 0 % 11/07/17 12:26 Nucleated RBC % Not Reportable 11/07/17 12:26 Seg Neutrophils # Man 18.1 K/mm3 (1.8-7.7) H 11/07/17 12:26 Band Neutrophils # 0.8 K/mm3 11/07/17 12:26 Lymphocytes # (Manual) 0.4 K/mm3 (1.2-5.4) L 11/07/17 12:26 Abs React Lymphs (Man) 0.0 K/mm3 11/07/17 12:26 Monocytes # (Manual) 0.8 K/mm3 (0.0-0.8) 11/07/17 12:26 Eosinophils # (Manual) 0.0 K/mm3 (0.0-0.4) 11/07/17 12:26 Basophils # (Manual) 0.0 K/mm3 (0.0-0.1) 11/07/17 12:26 Metamyelocytes # 0.0 K/mm3 11/07/17 12:26 Myelocytes # 0.0 K/mm3 11/07/17 12:26 Promyelocytes # 0.0 K/mm3 11/07/17 12:26 Blast Cells # 0.0 K/mm3 11/07/17 12:26 WBC Morphology Not Reportable 11/07/17 12:26 Hypersegmented Neuts Not Reportable 11/07/17 12:26 Hyposegmented Neuts Not Reportable 11/07/17 12:26 Hypogranular Neuts Not Reportable 11/07/17 12:26 Smudge Cells Not Reportable 11/07/17 12:26 Toxic Granulation Not Reportable 11/07/17 12:26 Toxic Vacuolation Not Reportable 11/07/17 12:26 Dohle Bodies Not Reportable 11/07/17 12:26 Pelger-Huet Anomaly Not Reportable 11/07/17 12:26 Xiomy Rods Not Reportable 11/07/17 12:26 Platelet Estimate Not Reportable 11/07/17 12:26 Clumped Platelets Not Reportable 11/07/17 12:26 Plt Clumps, EDTA Not Reportable 11/07/17 12:26 Large Platelets Not Reportable 11/07/17 12:26 Giant Platelets Not Reportable 11/07/17 12:26 Platelet Satelliting Not Reportable 11/07/17 12:26 Plt Morphology Comment Not Reportable 11/07/17 12:26 RBC Morphology Normal 11/07/17 12:26 Dimorphic RBCs Not Reportable 11/07/17 12:26 Polychromasia Not Reportable 11/07/17 12:26 Hypochromasia Not Reportable 11/07/17 12:26 Poikilocytosis Not Reportable 11/07/17 12:26 Anisocytosis Not Reportable 11/07/17 12:26 Microcytosis Not Reportable 11/07/17 12:26 Macrocytosis Not Reportable 11/07/17 12:26 Spherocytes Not Reportable 11/07/17 12:26 Pappenheimer Bodies Not Reportable 11/07/17 12:26 Sickle Cells Not Reportable 11/07/17 12:26 Target Cells Not Reportable 11/07/17 12:26 Tear Drop Cells Not Reportable 11/07/17 12:26 Ovalocytes Not Reportable 11/07/17 12:26 Helmet Cells Not Reportable 11/07/17 12:26 [place] Bodies Not Reportable 11/07/17 12:26 [place] Rings Not Reportable 11/07/17 12:26 Danna Cells Not Reportable 11/07/17 12:26 Bite Cells Not Reportable 11/07/17 12:26 Crenated Cell Not Reportable 11/07/17 12:26 Elliptocytes Not Reportable 11/07/17 12:26 Acanthocytes (Spur) Not Reportable 11/07/17 12:26 Rouleaux Not Reportable 11/07/17 12:26 Hemoglobin C Crystals Not Reportable 11/07/17 12:26 Schistocytes Not Reportable 11/07/17 12:26 Malaria parasites Not Reportable 11/07/17 12:26 Mundo Bodies Not Reportable 11/07/17 12:26 Hem Pathologist Commnt No 11/07/17 12:26 PT 16.4 Sec. (12.2-14.9) H 11/07/17 12:26 INR 1.25 (0.87-1.13) H 11/07/17 12:26 POC ABG pH 7.389 (7.35-7.45) 11/09/17 19:49 POC ABG pCO2 28.9 (35-45) L 11/09/17 19:49 POC ABG pO2 98 (80-105) 11/09/17 19:49 POC ABG HCO3 17.4 11/09/17 19:49 POC ABG Total CO2 18 11/09/17 19:49 POC ABG O2 Sat 98 11/09/17 19:49 POC ABG Base Excess -8 11/09/17 19:49 FiO2 21 % 11/09/17 19:49 Sodium 152 mmol/L (137-145) H 11/09/17 07:07 Potassium 3.0 mmol/L (3.6-5.0) L D 11/09/17 07:07 Chloride 121.9 mmol/L (98-107) H 11/09/17 07:07 Carbon Dioxide 18 mmol/L (22-30) L 11/09/17 07:07 Anion Gap 15 mmol/L 11/09/17 07:07 BUN 44 mg/dL (7-17) H 11/09/17 07:07 Creatinine 1.0 mg/dL (0.7-1.2) 11/09/17 07:07 Estimated GFR > 60 ml/min 11/09/17 07:07 BUN/Creatinine Ratio 44 % 11/09/17 07:07 Glucose 94 mg/dL (65-100) 11/09/17 07:07 POC Glucose 252 (70-105) H 11/10/17 16:43 Hemoglobin A1c 10.0 % (4-6) H 11/07/17 17:02 Lactic Acid 1.80 mmol/L (0.7-2.0) 11/09/17 19:44 Calcium 8.4 mg/dL (8.4-10.2) 11/09/17 07:07 Phosphorus 1.50 mg/dL (2.5-4.5) L 11/09/17 07:07 Magnesium 2.00 mg/dL (1.7-2.3) 11/09/17 07:07 Total Bilirubin 0.30 mg/dL (0.1-1.2) 11/07/17 13:44 Direct Bilirubin 0.2 mg/dL (0-0.2) 11/07/17 13:44 Indirect Bilirubin 0.1 mg/dL 11/07/17 13:44 AST 15 units/L (5-40) 11/07/17 13:44 ALT 11 units/L (7-56) 11/07/17 13:44 Alkaline Phosphatase 89 units/L (35-129) 11/07/17 13:44 C-Reactive Protein 4.70 mg/dL (0.00-1.30) H 11/09/17 19:44 Total Protein 5.8 g/dL (6.3-8.2) L 11/07/17 13:44 Albumin 3.0 g/dL (3.9-5) L 11/07/17 13:44 Albumin/Globulin Ratio 1.1 % 11/07/17 13:44 HCG, Qual Negative (Negative) 11/09/17 15:05 Urine Color Yellow (Yellow) 11/07/17 14:28 Urine Turbidity Clear (Clear) 11/07/17 14:28 Urine pH 5.0 (5.0-7.0) 11/07/17 14:28 Ur Specific [place] 1.016 (1.003-1.030) 11/07/17 14:28 Urine Protein 100 mg/dl mg/dL (Negative) 11/07/17 14:28 Urine Glucose (UA) >=500 mg/dL (Negative) 11/07/17 14:28 Urine Ketones 80 mg/dL (Negative) 11/07/17 14:28 Urine Blood Mod (Negative) 11/07/17 14:28 Urine Nitrite Neg (Negative) 11/07/17 14:28 Urine Bilirubin Neg (Negative) 11/07/17 14:28 Urine Urobilinogen < 2.0 mg/dL (<2.0) 11/07/17 14:28 Ur Leukocyte Esterase Neg (Negative) 11/07/17 14:28 Urine WBC (Auto) 2.0 /HPF (0.0-6.0) 11/07/17 14:28 Urine RBC (Auto) < 1.0 /HPF (0.0-6.0) 11/07/17 14:28 U Epithel Cells (Auto) < 1.0 /HPF (0-13.0) 11/07/17 14:28 Urine Bacteria (Auto) 1+ /HPF (Negative) 11/07/17 14:28 Urine Opiates Screen Presumptive negative 11/07/17 14:28 Urine Methadone Screen Presumptive negative 11/07/17 14:28 Ur Barbiturates Screen Presumptive negative 11/07/17 14:28 Ur Phencyclidine Scrn Presumptive negative 11/07/17 14:28 Ur Amphetamines Screen Presumptive negative 11/07/17 14:28 U Benzodiazepines Scrn Presumptive negative 11/07/17 14:28 Urine Cocaine Screen Presumptive negative 11/07/17 14:28 U Marijuana (THC) Screen Presumptive negative 11/07/17 14:28 Drugs of Abuse Note Disclamer 11/07/17 14:28
[2017-11-10] MEDS: ASPIRIN PR SCH (17:49)
--- NOTE | 2017-11-10 18:44 | Consultation ---
PULMONARY CRITICAL CARE CONSULT CONSULTING PHYSICIAN: Dr. Carballo. REASON FOR CONSULTATION: Altered mental status, DKA. HISTORY OF PRESENT ILLNESS: The patient is a 37-year-old -[place] female with past medical history, I think significant in this context both for a diagnosis of cerebrovascular accident and seizure disorder, but then on top of diabetes, insulin-dependent, brought into the Emergency Room after being found unresponsive. She had last been seen the day before. The patient was unable to give more history. She was saturating well, not in severe respiratory extremis. Further evaluation and testing revealed that she, I believe, was diagnosed with diabetic ketoacidosis. The ICU consult was for IV insulin therapy, but also for altered mental status. When I stopped by to see her, she was resting in bed, unclear how far she was from her baseline. She will appear to answer some questions well by nodding, like for example question about chest pain and then another time, she is staring into space, certainly with residual encephalopathy. I do not have any history of emesis or overt aspiration. It is unclear if she had been taking her medications at home. This is unfortunately as much of the history of presentation as I have. She is a never smoker. PAST MEDICAL HISTORY: Significant for hypertension, cerebrovascular accident, diabetes, seizure disorder. PAST SURGICAL HISTORY: She has had spinal surgery. She has had neck surgery, nature of this surgery is unknown. MEDICATIONS: She was on at the time I stopped by to see her were reviewed. Pertinent medications included aspirin 81 mg p.o. daily, Lipitor 80 mg p.o. at bedtime, Celexa 10 mg p.o. daily, Plavix 75 mg p.o. daily, p.r.n. Flexeril. She had an insulin drip, I believe it was going at 4 units an hour, nifedipine 30 mg p.o. daily and Zosyn 3.375 g IV q.6 h. ALLERGIES: No known drug allergies. DIET: Well-built lady on the thin side, acute weight loss or gain history is unknown. FAMILY AND SOCIAL HISTORY: Apparently lives in the community, described as a never smoker. Alcohol, illicit drug use or abuse history is unknown. REVIEW OF SYSTEMS: Unobtainable secondary to patient's medical and mental condition. Since she has been in the hospital, no gross hematochezia or melena, no gross hematuria, no hematemesis, no hemoptysis, no witnessed seizures. PHYSICAL EXAMINATION: VITAL SIGNS: At presentation in the Emergency Room, the first vital sign I see is a low-grade fever. Actually, she was afebrile at the time, 98.9. At presentation, her pulse was 94, respiratory rate was 19, blood pressure 115/67, oxygen sats were 100%. Inspired oxygen concentration was not recorded. She was on room air at the time I saw her. GENERAL: She is a well-built, young -[place] female, looks her stated age, normocephalic, atraumatic without overt respiratory distress. HEAD, EYES, EARS, NOSE AND THROAT: She is anicteric. No conjunctival erythema. No gross jugular venous distention, no thyromegaly. Oropharynx appears to be moist. It is difficult to get her to open it up. Grossly, no palpable lymph nodes in the supraclavicular or submandibular lymph node chains. LUNGS: Auscultation of both lung [place] are unremarkable. Lungs are clear bilaterally with good bilateral air movement. HEART: Heart sounds 1 and 2 are heard. They were regular in rate and rhythm at the time of my evaluation. ABDOMEN: Soft, flat. Bowel sounds are positive, nontender. No palpable hepatosplenomegaly. EXTREMITIES: Without overt digital clubbing, cyanosis, or pedal edema. Dorsalis pedis pulses are palpable bilaterally. SKIN: Normal turgor. No cellulitis, no rash. NEUROLOGIC:. The right eye appears to have a cataract. There is some slight corneal emulsification. The left pupil is about 4 mm, reactive to light. Extraocular muscle movements could not be assessed. She has a left-sided hemiparesis as far as I can tell, as she is moving only the right side. LABORATORY DATA: From my review are as follows: Admission white count 20,100 with a hemoglobin of 12.4, hematocrit of 41.3 and a platelet count of 197. INR is 1.25, ABG showed a pH of 6.86 at presentation with a pCO2 of 12, pO2 of 288 and that was on a nonrebreather, it seems like. Serum sodium was 143, potassium 5.7, chloride 100, bicarbonate was less than 2, BUN 39, creatinine 1.3, glucose 585. Lactic acid level 2.9, mag and phos were elevated. Liver function test essentially within normal limits; otherwise, albumin was 3.0. Urinalysis, moderate blood, negative nitrites and leukocyte esterase. Urine drug screen negative. Radiographic studies have been reviewed. A chest x-ray was done. It is an unremarkable chest x-ray except for some mild element of scoliosis. A CT scan of the head was done. I have reviewed the radiologist's report. It mentions mild dilatation of the lateral ventricles, possible hydrocephalus, brain parenchyma itself was within normal limits. Microbiology studies, no growth to date. ASSESSMENT AND PLAN: 1. Acute encephalopathy, likely on chronic. 2. Diabetic ketoacidosis with severe metabolic acidosis and lactic acidosis. 3. Systemic inflammatory response syndrome. 4. History of cerebrovascular accident. 5. Hypertension. 6. History of seizures. PLAN: She is already responding to IV insulin therapy. We will continue the DKA protocol. Mental status is getting closer to baseline. I did run into a patient in the hospital who says that she is her sister and it seems like this patient's mental status is getting close to the baseline. Continue empiric antibiotic therapy, deescalate based on results of microbiologic and clinical data. Continue volume resuscitation. Follow electrolytes, correct as necessary. Neurology evaluation is ongoing. Aspiration precautions should be maintained. I will repeat the arterial blood gas just to ensure that we are indeed headed in the right direction. She will be placed on GI prophylaxis as well as DVT prophylaxis. Flu and pneumonia vaccination will be per protocol. Thank you very much for the consult. If she does get off the IV insulin therapy, she will be transferred to the telemetry floor. If not, we will be glad to accept her into the intensive care unit. We will follow along and make further recommendations as picture progresses/becomes clearer. I should mention she has been started on IV bicarbonate replacement therapy in the short term and we will quickly transition to regular DKA protocol electrolytes. JOB# [id number] SHAUNA/DIEGO
[2017-11-10] MEDS: cefTRIAXone 1 GM in NACL 0.9% 20 ML IV SCH (19:06)
--- NOTE | 2017-11-10 21:33 | Progress Note ---
Assessment and Plan Patient sleeping on room air. No acute respiratory distress. O2 saturation 98% on room air. - Patient Problems (1) Sepsis Current Visit: Yes Status: Acute Qualifiers: Sepsis type: sepsis due to unspecified organism Qualified Code(s): A41.9 - Sepsis, unspecified organism Plan to address problem: Patient is on zosyn (2) Altered mental status Current Visit: Yes Status: Acute Plan to address problem: Managment as per primary care. (3) DKA (diabetic ketoacidoses) Current Visit: Yes Status: Acute Qualifiers: Diabetes mellitus type: type 2 Plan to address problem: Improving. Management as per primary care. (4) Encephalopathy acute Current Visit: Yes Status: Acute Plan to address problem: Management as per primary care. (5) HTN (hypertension) Current Visit: Yes Status: Chronic Qualifiers: Hypertension type: essential hypertension Qualified Code(s): I10 - Essential (primary) hypertension Plan to address problem: Management as per primary care. (6) History of CVA with residual deficit Current Visit: Yes Status: Chronic Plan to address problem: Management as per primary care and neurology. Subjective Date of service: 11/10/17 Interval history: Patient sleeping on room air. No acute respiratory distress. O2 saturation 98% on room air. Objective Vital Signs - 12hr 11/10/17 11/10/17 12:26 15:22 Temperature 99.7 F H 99.9 F H Pulse Rate 94 H 114 H Respiratory 18 18 Rate Blood Pressure 143/84 154/99 O2 Sat by Pulse 99 98 Oximetry Constitutional: no acute distress, asleep Eyes: non-icteric Neck: supple, no lymphadenopathy Ascultation: Bilateral: clear Cardiovascular: regular rate and rhythm Gastrointestinal: normoactive bowel sounds, soft, non-tender Integumentary: normal Extremities: no cyanosis, no edema Neurologic: other (Patient sleeping at this time.) Psychiatric: other (Patient sleeping at this time.) CBC and BMP: 11/11/17 07:27 11/11/17 07:27 ABG, PT/INR, D-dimer: ABG POC ABG pH 7.389 (7.35-7.45) 11/09/17 19:49 POC ABG pCO2 28.9 (35-45) L 11/09/17 19:49 POC ABG pO2 98 (80-105) 11/09/17 19:49 POC ABG HCO3 17.4 11/09/17 19:49 POC ABG Total CO2 18 11/09/17 19:49 POC ABG O2 Sat 98 11/09/17 19:49 PT/INR, D-dimer PT 16.4 Sec. (12.2-14.9) H 11/07/17 12:26 INR 1.25 (0.87-1.13) H 11/07/17 12:26 Abnormal lab findings: Abnormal Labs 11/07/17 11/07/17 11/07/17 12:26 12:26 12:26 WBC 20.1 H MCV 101 H Seg Neuts % (Manual) 90.0 H Lymphocytes % (Manual) 2.0 L Seg Neutrophils # Man 18.1 H Lymphocytes # (Manual) 0.4 L PT 16.4 H INR 1.25 H POC ABG pH POC ABG pCO2 POC ABG pO2 Sodium Potassium Chloride Carbon Dioxide BUN Creatinine Glucose POC Glucose 445 H Hemoglobin A1c Lactic Acid Calcium Phosphorus Magnesium C-Reactive Protein Total Protein Albumin 11/07/17 11/07/17 11/07/17 12:39 13:44 13:44 WBC MCV Seg Neuts % (Manual) Lymphocytes % (Manual) Seg Neutrophils # Man Lymphocytes # (Manual) PT INR POC ABG pH 6.856 L POC ABG pCO2 12.4 L POC ABG pO2 288 H Sodium Potassium Chloride Carbon Dioxide BUN Creatinine Glucose POC Glucose Hemoglobin A1c Lactic Acid Calcium Phosphorus 8.10 H Magnesium 2.60 H C-Reactive Protein Total Protein 5.8 L Albumin 3.0 L 11/07/17 11/07/17 11/07/17 13:44 14:17 15:17 WBC MCV Seg Neuts % (Manual) Lymphocytes % (Manual) Seg Neutrophils # Man Lymphocytes # (Manual) PT INR POC ABG pH POC ABG pCO2 POC ABG pO2 Sodium Potassium 6.5 H* 5.8 H 5.7 H Chloride 94.4 L Carbon Dioxide 5 L* 2 L* < 2.0 L* BUN 43 H 38 H 39 H Creatinine 1.3 H 1.3 H Glucose 629 H* 610 H* 585 H* POC Glucose Hemoglobin A1c Lactic Acid Calcium 8.3 L 7.7 L 7.9 L Phosphorus Magnesium C-Reactive Protein Total Protein Albumin 11/07/17 11/07/17 11/07/17 15:17 15:40 16:57 WBC MCV Seg Neuts % (Manual) Lymphocytes % (Manual) Seg Neutrophils # Man Lymphocytes # (Manual) PT INR POC ABG pH POC ABG pCO2 POC ABG pO2 Sodium Potassium Chloride Carbon Dioxide 3 L* BUN 42 H Creatinine 1.3 H Glucose 557 H* POC Glucose > 500 H Hemoglobin A1c Lactic Acid 2.90 H* Calcium 8.1 L Phosphorus Magnesium C-Reactive Protein Total Protein Albumin 11/07/17 11/07/17 11/07/17 17:02 17:02 18:05 WBC MCV Seg Neuts % (Manual) Lymphocytes % (Manual) Seg Neutrophils # Man Lymphocytes # (Manual) PT INR POC ABG pH POC ABG pCO2 POC ABG pO2 Sodium Potassium Chloride Carbon Dioxide BUN Creatinine Glucose POC Glucose 485 H Hemoglobin A1c 10.0 H Lactic Acid Calcium Phosphorus 6.60 H Magnesium 2.70 H C-Reactive Protein Total Protein Albumin 11/07/17 11/07/17 11/07/17 18:52 20:20 21:23 WBC MCV Seg Neuts % (Manual) Lymphocytes % (Manual) Seg Neutrophils # Man Lymphocytes # (Manual) PT INR POC ABG pH POC ABG pCO2 POC ABG pO2 Sodium 148 H Potassium Chloride Carbon Dioxide < 2.0 L* BUN 41 H Creatinine 1.4 H Glucose 473 H POC Glucose 356 H 322 H Hemoglobin A1c Lactic Acid Calcium 7.8 L Phosphorus Magnesium C-Reactive Protein Total Protein Albumin 11/07/17 11/07/17 11/07/17 22:28 23:01 23:31 WBC MCV Seg Neuts % (Manual) Lymphocytes % (Manual) Seg Neutrophils # Man Lymphocytes # (Manual) PT INR POC ABG pH POC ABG pCO2 POC ABG pO2 Sodium 148 H Potassium Chloride 111.6 H Carbon Dioxide 4 L* BUN 43 H Creatinine 1.3 H Glucose 177 H POC Glucose 242 H 204 H Hemoglobin A1c Lactic Acid Calcium 7.7 L Phosphorus Magnesium C-Reactive Protein Total Protein Albumin 11/08/17 11/08/17 11/08/17 01:20 03:30 04:01 WBC MCV Seg Neuts % (Manual) Lymphocytes % (Manual) Seg Neutrophils # Man Lymphocytes # (Manual) PT INR POC ABG pH POC ABG pCO2 POC ABG pO2 Sodium Potassium Chloride Carbon Dioxide BUN Creatinine Glucose POC Glucose 120 H 59 L 132 H Hemoglobin A1c Lactic Acid Calcium Phosphorus Magnesium C-Reactive Protein Total Protein Albumin 11/08/17 11/08/17 11/08/17 04:20 04:20 05:15 WBC MCV Seg Neuts % (Manual) Lymphocytes % (Manual) Seg Neutrophils # Man Lymphocytes # (Manual) PT INR POC ABG pH POC ABG pCO2 POC ABG pO2 Sodium 151 H 150 H Potassium Chloride 114.3 H 115.4 H Carbon Dioxide 10 L 10 L BUN 48 H 48 H Creatinine 1.3 H Glucose 121 H 118 H POC Glucose 134 H Hemoglobin A1c Lactic Acid Calcium 7.8 L 7.8 L Phosphorus Magnesium C-Reactive Protein Total Protein Albumin 11/08/17 11/08/17 11/08/17 06:41 07:49 08:12 WBC MCV Seg Neuts % (Manual) Lymphocytes % (Manual) Seg Neutrophils # Man Lymphocytes # (Manual) PT INR POC ABG pH POC ABG pCO2 POC ABG pO2 Sodium 151 H Potassium Chloride 116.5 H Carbon Dioxide 13 L BUN 52 H Creatinine 1.3 H Glucose 213 H POC Glucose 172 H 228 H Hemoglobin A1c Lactic Acid Calcium 7.9 L Phosphorus Magnesium C-Reactive Protein Total Protein Albumin 11/08/17 11/08/17 11/08/17 08:22 09:31 11:04 WBC MCV Seg Neuts % (Manual) Lymphocytes % (Manual) Seg Neutrophils # Man Lymphocytes # (Manual) PT INR POC ABG pH POC ABG pCO2 POC ABG pO2 Sodium Potassium Chloride Carbon Dioxide BUN Creatinine Glucose POC Glucose 140 H 140 H 136 H Hemoglobin A1c Lactic Acid Calcium Phosphorus Magnesium C-Reactive Protein Total Protein Albumin 11/08/17 11/08/17 11/08/17 12:11 13:40 17:21 WBC MCV Seg Neuts % (Manual) Lymphocytes % (Manual) Seg Neutrophils # Man Lymphocytes # (Manual) PT INR POC ABG pH POC ABG pCO2 POC ABG pO2 Sodium 152 H Potassium Chloride 117.6 H Carbon Dioxide 15 L BUN 50 H Creatinine 1.3 H Glucose 144 H POC Glucose 111 H 182 H Hemoglobin A1c Lactic Acid Calcium Phosphorus Magnesium C-Reactive Protein Total Protein Albumin 11/08/17 11/08/17 11/09/17 17:45 23:06 00:39 WBC MCV Seg Neuts % (Manual) Lymphocytes % (Manual) Seg Neutrophils # Man Lymphocytes # (Manual) PT INR POC ABG pH POC ABG pCO2 POC ABG pO2 Sodium 149 H Potassium Chloride 116.2 H Carbon Dioxide 13 L BUN 48 H Creatinine 1.3 H Glucose 171 H POC Glucose < 40 L 123 H Hemoglobin A1c Lactic Acid Calcium 8.1 L Phosphorus Magnesium C-Reactive Protein Total Protein Albumin 11/09/17 11/09/17 11/09/17 07:07 07:07 11:35 WBC MCV Seg Neuts % (Manual) Lymphocytes % (Manual) Seg Neutrophils # Man Lymphocytes # (Manual) PT INR POC ABG pH POC ABG pCO2 POC ABG pO2 Sodium 152 H Potassium 3.0 L D Chloride 121.9 H Carbon Dioxide 18 L BUN 44 H Creatinine Glucose POC Glucose 118 H Hemoglobin A1c Lactic Acid Calcium Phosphorus 1.50 L Magnesium C-Reactive Protein Total Protein Albumin 11/09/17 11/09/17 11/09/17 16:54 19:44 19:49 WBC MCV Seg Neuts % (Manual) Lymphocytes % (Manual) Seg Neutrophils # Man Lymphocytes # (Manual) PT INR POC ABG pH POC ABG pCO2 28.9 L POC ABG pO2 Sodium Potassium Chloride Carbon Dioxide BUN Creatinine Glucose POC Glucose 231 H Hemoglobin A1c Lactic Acid Calcium Phosphorus Magnesium C-Reactive Protein 4.70 H Total Protein Albumin 11/09/17 11/10/17 11/10/17 21:48 06:25 12:35 WBC MCV Seg Neuts % (Manual) Lymphocytes % (Manual) Seg Neutrophils # Man Lymphocytes # (Manual) PT INR POC ABG pH POC ABG pCO2 POC ABG pO2 Sodium Potassium Chloride Carbon Dioxide BUN Creatinine Glucose POC Glucose 176 H 299 H 258 H Hemoglobin A1c Lactic Acid Calcium Phosphorus Magnesium C-Reactive Protein Total Protein Albumin 11/10/17 16:43 WBC MCV Seg Neuts % (Manual) Lymphocytes % (Manual) Seg Neutrophils # Man Lymphocytes # (Manual) PT INR POC ABG pH POC ABG pCO2 POC ABG pO2 Sodium Potassium Chloride Carbon Dioxide BUN Creatinine Glucose POC Glucose 252 H Hemoglobin A1c Lactic Acid Calcium Phosphorus Magnesium C-Reactive Protein Total Protein Albumin
[2017-11-11] MEDS: ZOSYN/NS 3.375GM/50ML 3.375 GM/50 ML BAG IV SCH ×4 (01:42→18:30)
[2017-11-11] MEDS: KCL 20 MEQ in D5W 1,000 ML IV SCH (02:39)
[2017-11-11] MEDS: NOVOLOG SUB-Q SCH ×5 (03:01→18:35)
[2017-11-11 08:00] LABS: Mean Corpuscular HGB Conc 34 % (30-34); Mean Corpuscular Hemoglobin 31 pg (28-32); Mean Corpuscular Volume 93 fl (79-97); Platelet Count 225 K/mm3 (140-440); Red Cell Distribution Width 13.2 % (13.2-15.2)
[2017-11-11 08:04] LABS: BUN/Creatinine Ratio 34; Blood Urea Nitrogen 24 mg/dL (7-17); Calcium 8.3 mg/dL (8.4-10.2); Chol/HDL Ratio 1.68 %; HDL Cholesterol 88 mg/dL (40-59); Hemolysis Index 4; LDL Cholesterol,Direct 42 mg/dL (50-130)
[2017-11-11] MEDS: ASPIRIN PR SCH (10:31)
[2017-11-11] MEDS: PLAVIX PO SCH (10:35)
[2017-11-11] MEDS: celeXA PO SCH (11:31)
[2017-11-11] MEDS: PROCARDIA XL PO SCH (11:35)
--- NOTE | 2017-11-11 13:41 | Consultation ---
HISTORY OF PRESENT ILLNESS: This is a 37-year-old female that presents to [facility] and she presents with altered mental status. She is a longstanding diabetic type 1, onset of disorder at age 8. By history from the family, she about a year ago had developed rather sudden onset of blindness. She underwent a workup at that point. She for the last several days has not been acting like herself, not speaking, not organizing her words. There has been no history of fever. Her diabetes is managed by herself, although was clear from her sisters that she is not under really a direct aided observation by a qualified caregiver because the children are young ages 9 and 7. We do not exactly know when she initially stop being less talkative. From my review of the records, she was not responding. She was last normal, the day before. She was breathing about 20 times a minute. Her oxygen saturations were 98%. She had diminished responsiveness and altered mental status on exam. She had been taking a number of medications on admission, although I do not notice that she was taking anything that was a strict sedative or antidepressant. Her dose of Celexa was 10 mg. Her dose of Flexeril was 10 mg 2 or 3 times a day, which would in and of themselves not be expected to produce this disorder. PHYSICAL EXAMINATION: VITAL SIGNS: On my examination, present exam reveals the blood pressure to be 152/66, pulse rate is 113, respirations are 18, O2 saturations are 99%. NEUROLOGIC: The patient's cranial nerves were intact. She has equally reactive pupils. She moves her left side less than the right. She does not open her eyes to voice command. Her sisters are at the bedside and she has not opened her eyes to their verbal stimulation either, but she does have occasionally reposition her right arm only. The patient has a supple neck. No jerking or tremors are present. IMPRESSION: 1. Altered mental state. What is curious is her level of ventricular enlargement. This to me appears to be quite chronic. I do not think there is any acute nature of this in and of itself. I would not expect this to produce this level of diminished responsivity. I would for the time being hold her Celexa and hold her Flexeril. I have reviewed her labs and her creatinine is 1.3. We can exclude that as being a causation of the problem. Her most recent glucoses are 171, but I cannot rule out absolutely that she had hypoglycemia because of noticing on a record that 1 blood sugar check was less than 40 and so what we may be dealing with here is low blood sugar. Her hematocrit is 43. Her white blood count is slightly elevated at 20,000, which may be indicative of underlying infection. I will get an MRI scan of the brain to be certain she does not have any evidence of a more acuteness to this ventricular system enlargement. Getting old records would be helpful. She did at least have some workup done about a year ago when she went blind from the effect of diabetes. I suspect what we are dealing here with is a complication of the diabetes, but if it needs further workup as to the etiology of enlargement of the ventricular system. JOB# [id number] MICHELLE/DIEGO
--- NOTE | 2017-11-11 14:30 | Progress Note ---
Assessment and Plan Assessment and plan: Patient is 37-year-old woman with a history of insulin-dependent diabetes mellitus, CVA on aspirin and Plavix, hypertension, dyslipidemia and depression who presented with altered mental status and was admitted for DKA. Her baseline mental function per sister Jessica: she walks with a walker, she feeds herself, needs help with clothes, left arm weaker than right and speech is usually slurred. Jessica reports that patient was discharged from [facility] about 1.5 months ago and went to [facility]. Then, she went to her home from there. She lives with daughter Leslye and brother, Sean, who moved in with her for more support. per Jessica: "I wanna say she wasn't talking her insulin, because this 3rd stoke did alittle mentally and she more forgettable, that is what I am thinking , for example, she will say, I need to take my insulin but she had just took her insulin." They went to [place], on the way back Saturday night 11pm, she was sleeping off and on, BG was 516 and she took her insulin. Her daughter, Leslye, said next morning she got up morning to go to the bathroom and she fell and then was unresponsive, she was found on the floor in urine by daughter, Leslye. -DKA with acute metabolic acidosis, high anion gap: Treated with IV fluids, insulin drip now resolved -Acute metabolic encephalopathy/semiconscious state: treat the above -Recurrent Acute ischemic strokes. ?hydrocephalus on Ct head: consulted Neurology --->Sepsis due to acute right mastoiditis, poa, start iv abx -Hypernatremia: needs more free water, bmp -Moderate malnutrition: can maker -Acute ischemic stroke, poa: get ECHO, used stroke protocol 11/09/17: Insulin drip was stopped because of hypoglycemia and patient was sent from ED to medical/surg floor. Anion gap was still high so I sent ICU to start insulin drip. I also ordered bmp stat. By the time the stat bmp was resulted, patient was in the icu. Anion gap has closed, so i will downgrade back to medical surg floor. Replace her potassium, start diet, if she unable to eat continue D5W due to hypernatremia and not eating. Await neurology assessment because she is not at her mental baseline of slurred speech and ambulation with a walker. Order PT/OT 11/10/17: I gave pt 0.5mg iv ativan x 1 to complete mri brain that Neurology ordered, MRI brain reported as multiple focal areas of restricted diffusion right cerebral hemisphere suggestive excuse ischemia, no evidence of hemorrhage , dilated right lateral ventricle without definite evidence of obstruction, acute right mastoiditis. I started abx, iv rocephin, used stroke protocol 11/11/2017: WBC went down, Still hypernatremic, more free water, repeat labs in am. ECHO pending. I called Jessica at [phone], no answer ?phone broken message. History Interval history: Patient was seen and examined. Follow-up on current diagnosis/altered mental status. Overnight uneventful. Patient not given any history; therefore, Imaging, nursing note, chart, labs and old chart reviewed. Responding more. Hospitalist Physical - Physical exam Narrative exam: GEN: Thin frail woman chronic a bit debilitating appearing, lethargic, nonverbal HEENT: NCAT, EOMI, PERRL, OP Clear NECK: supple, no adenopathy, no thyromegaly, no JVD CVS/HEART: regular tachycardia NORMAL S1S2, NO JVD, pulses present bilaterally CHEST/LUNGS: CTA B, Symmetrical chest expansion, good air entry bilaterally GI/Abdomen: soft, NTND, good bowel sounds, no guarding or rebound /Bladder: no suprapubic tenderness, no CVA or paraspinal tenderness EXT/Skin: no c/c/e, no obvious rash MSK: Moving both arms with contractures Neuro: CN 2-12 grossly intact except nonverbal, hemiparesis, facial asymmetry, no new focal deficits Psych: calm but confused - Constitutional Vitals: Temp Pulse Resp BP Pulse Ox 97.7 F 98 H 20 169/95 100 11/11/17 11:52 11/11/17 11:52 11/11/17 11:52 11/11/17 11:52 11/11/17 11:52 General appearance: Present: well-nourished. Absent: mild distress Results - Labs CBC & Chem 7: 11/11/17 07:27 11/11/17 07:27 Labs: Laboratory Last Values WBC 18.6 K/mm3 (4.5-11.0) H 11/11/17 07:27 RBC 2.90 M/mm3 (3.65-5.03) L 11/11/17 07:27 Hgb 9.0 gm/dl (10.1-14.3) L 11/11/17 07:27 Hct 27.0 % (30.3-42.9) L 11/11/17 07:27 MCV 93 fl (79-97) 11/11/17 07:27 MCH 31 pg (28-32) 11/11/17 07:27 MCHC 34 % (30-34) 11/11/17 07:27 RDW 13.2 % (13.2-15.2) 11/11/17 07:27 Plt Count 225 K/mm3 (140-440) 11/11/17 07:27 Add Manual Diff Complete 11/07/17 12:26 Total Counted 100 11/07/17 12:26 Seg Neutrophils % Hand Ornament Maker 11/07/17 12:26 Seg Neuts % (Manual) 90.0 % (40.0-70.0) H 11/07/17 12:26 Band Neutrophils % 4.0 % 11/07/17 12:26 Lymphocytes % (Manual) 2.0 % (13.4-35.0) L 11/07/17 12:26 Reactive Lymphs % (Man) 0 % 11/07/17 12:26 Monocytes % (Manual) 4.0 % (0.0-7.3) 11/07/17 12:26 Eosinophils % (Manual) 0 % (0.0-4.3) 11/07/17 12:26 Basophils % (Manual) 0 % (0.0-1.8) 11/07/17 12:26 Metamyelocytes % 0 % 11/07/17 12:26 Myelocytes % 0 % 11/07/17 12:26 Promyelocytes % 0 % 11/07/17 12:26 Blast Cells % 0 % 11/07/17 12:26 Nucleated RBC % Not Reportable 11/07/17 12:26 Seg Neutrophils # Man 18.1 K/mm3 (1.8-7.7) H 11/07/17 12:26 Band Neutrophils # 0.8 K/mm3 11/07/17 12:26 Lymphocytes # (Manual) 0.4 K/mm3 (1.2-5.4) L 11/07/17 12:26 Abs React Lymphs (Man) 0.0 K/mm3 11/07/17 12:26 Monocytes # (Manual) 0.8 K/mm3 (0.0-0.8) 11/07/17 12:26 Eosinophils # (Manual) 0.0 K/mm3 (0.0-0.4) 11/07/17 12:26 Basophils # (Manual) 0.0 K/mm3 (0.0-0.1) 11/07/17 12:26 Metamyelocytes # 0.0 K/mm3 11/07/17 12:26 Myelocytes # 0.0 K/mm3 11/07/17 12:26 Promyelocytes # 0.0 K/mm3 11/07/17 12:26 Blast Cells # 0.0 K/mm3 11/07/17 12:26 WBC Morphology Not Reportable 11/07/17 12:26 Hypersegmented Neuts Not Reportable 11/07/17 12:26 Hyposegmented Neuts Not Reportable 11/07/17 12:26 Hypogranular Neuts Not Reportable 11/07/17 12:26 Smudge Cells Not Reportable 11/07/17 12:26 Toxic Granulation Not Reportable 11/07/17 12:26 Toxic Vacuolation Not Reportable 11/07/17 12:26 Dohle Bodies Not Reportable 11/07/17 12:26 Pelger-Huet Anomaly Not Reportable 11/07/17 12:26 Xiomy Rods Not Reportable 11/07/17 12:26 Platelet Estimate Not Reportable 11/07/17 12:26 Clumped Platelets Not Reportable 11/07/17 12:26 Plt Clumps, EDTA Not Reportable 11/07/17 12:26 Large Platelets Not Reportable 11/07/17 12:26 Giant Platelets Not Reportable 11/07/17 12:26 Platelet Satelliting Not Reportable 11/07/17 12:26 Plt Morphology Comment Not Reportable 11/07/17 12:26 RBC Morphology Normal 11/07/17 12:26 Dimorphic RBCs Not Reportable 11/07/17 12:26 Polychromasia Not Reportable 11/07/17 12:26 Hypochromasia Not Reportable 11/07/17 12:26 Poikilocytosis Not Reportable 11/07/17 12:26 Anisocytosis Not Reportable 11/07/17 12:26 Microcytosis Not Reportable 11/07/17 12:26 Macrocytosis Not Reportable 11/07/17 12:26 Spherocytes Not Reportable 11/07/17 12:26 Pappenheimer Bodies Not Reportable 11/07/17 12:26 Sickle Cells Not Reportable 11/07/17 12:26 Target Cells Not Reportable 11/07/17 12:26 Tear Drop Cells Not Reportable 11/07/17 12:26 Ovalocytes Not Reportable 11/07/17 12:26 Helmet Cells Not Reportable 11/07/17 12:26 [place] Bodies Not Reportable 11/07/17 12:26 Hilliard Rings Not Reportable 11/07/17 12:26 [place] Cells Not Reportable 11/07/17 12:26 Bite Cells Not Reportable 11/07/17 12:26 Crenated Cell Not Reportable 11/07/17 12:26 Elliptocytes Not Reportable 11/07/17 12:26 Acanthocytes (Spur) Not Reportable 11/07/17 12:26 Rouleaux Not Reportable 11/07/17 12:26 Hemoglobin C Crystals Not Reportable 11/07/17 12:26 Schistocytes Not Reportable 11/07/17 12:26 Malaria parasites Not Reportable 11/07/17 12:26 [place]undo Bodies Not Reportable 11/07/17 12:26 Hem Pathologist Commnt No 11/07/17 12:26 PT 16.4 Sec. (12.2-14.9) H 11/07/17 12:26 INR 1.25 (0.87-1.13) H 11/07/17 12:26 POC ABG pH 7.389 (7.35-7.45) 11/09/17 19:49 POC ABG pCO2 28.9 (35-45) L 11/09/17 19:49 POC ABG pO2 98 (80-105) 11/09/17 19:49 POC ABG HCO3 17.4 11/09/17 19:49 POC ABG Total CO2 18 11/09/17 19:49 POC ABG O2 Sat 98 11/09/17 19:49 POC ABG Base Excess -8 11/09/17 19:49 FiO2 21 % 11/09/17 19:49 Sodium 152 mmol/L (137-145) H 11/11/17 07:27 Potassium 3.6 mmol/L (3.6-5.0) 11/11/17 07:27 Chloride 116.2 mmol/L (98-107) H 11/11/17 07:27 Carbon Dioxide 19 mmol/L (22-30) L 11/11/17 07:27 Anion Gap 20 mmol/L 11/11/17 07:27 BUN 24 mg/dL (7-17) H 11/11/17 07:27 Creatinine 0.7 mg/dL (0.7-1.2) 11/11/17 07:27 Estimated GFR > 60 ml/min 11/11/17 07:27 BUN/Creatinine Ratio 34 % 11/11/17 07:27 Glucose 288 mg/dL (65-100) H 11/11/17 07:27 POC Glucose 328 (70-105) H 11/11/17 11:09 Hemoglobin A1c 10.0 % (4-6) H 11/07/17 17:02 Lactic Acid 1.80 mmol/L (0.7-2.0) 11/09/17 19:44 Calcium 8.3 mg/dL (8.4-10.2) L 11/11/17 07:27 Phosphorus 1.50 mg/dL (2.5-4.5) L 11/09/17 07:07 Magnesium 2.00 mg/dL (1.7-2.3) 11/09/17 07:07 Total Bilirubin 0.30 mg/dL (0.1-1.2) 11/07/17 13:44 Direct Bilirubin 0.2 mg/dL (0-0.2) 11/07/17 13:44 Indirect Bilirubin 0.1 mg/dL 11/07/17 13:44 AST 15 units/L (5-40) 11/07/17 13:44 ALT 11 units/L (7-56) 11/07/17 13:44 Alkaline Phosphatase 89 units/L (35-129) 11/07/17 13:44 C-Reactive Protein 4.70 mg/dL (0.00-1.30) H 11/09/17 19:44 Total Protein 5.8 g/dL (6.3-8.2) L 11/07/17 13:44 Albumin 3.0 g/dL (3.9-5) L 11/07/17 13:44 Albumin/Globulin Ratio 1.1 % 11/07/17 13:44 Triglycerides 94 mg/dL (2-149) 11/11/17 07:27 Cholesterol 148 mg/dL (50-199) 11/11/17 07:27 LDL Cholesterol Direct 42 mg/dL (50-130) L 11/11/17 07:27 HDL Cholesterol 88 mg/dL (40-59) H 11/11/17 07:27 Cholesterol/HDL Ratio 1.68 % 11/11/17 07:27 HCG, Qual Negative (Negative) 11/09/17 15:05 Urine Color Yellow (Yellow) 11/07/17 14:28 Urine Turbidity Clear (Clear) 11/07/17 14:28 Urine pH 5.0 (5.0-7.0) 11/07/17 14:28 Ur Specific [place] 1.016 (1.003-1.030) 11/07/17 14:28 Urine Protein 100 mg/dl mg/dL (Negative) 11/07/17 14:28 Urine Glucose (UA) >=500 mg/dL (Negative) 11/07/17 14:28 Urine Ketones 80 mg/dL (Negative) 11/07/17 14:28 Urine Blood Mod (Negative) 11/07/17 14:28 Urine Nitrite Neg (Negative) 11/07/17 14:28 Urine Bilirubin Neg (Negative) 11/07/17 14:28 Urine Urobilinogen < 2.0 mg/dL (<2.0) 11/07/17 14:28 Ur Leukocyte Esterase Neg (Negative) 11/07/17 14:28 Urine WBC (Auto) 2.0 /HPF (0.0-6.0) 11/07/17 14:28 Urine RBC (Auto) < 1.0 /HPF (0.0-6.0) 11/07/17 14:28 U Epithel Cells (Auto) < 1.0 /HPF (0-13.0) 11/07/17 14:28 Urine Bacteria (Auto) 1+ /HPF (Negative) 11/07/17 14:28 Urine Opiates Screen Presumptive negative 11/07/17 14:28 Urine Methadone Screen Presumptive negative 11/07/17 14:28 Ur Barbiturates Screen Presumptive negative 11/07/17 14:28 Ur Phencyclidine Scrn Presumptive negative 11/07/17 14:28 Ur Amphetamines Screen Presumptive negative 11/07/17 14:28 U Benzodiazepines Scrn Presumptive negative 11/07/17 14:28 Urine Cocaine Screen Presumptive negative 11/07/17 14:28 U Marijuana (THC) Screen Presumptive negative 11/07/17 14:28 Drugs of Abuse Note Disclamer 11/07/17 14:28
[2017-11-11] MEDS: PEPCID IV SCH (16:58)
[2017-11-11] MEDS: FLEXERIL PO PRN ×2 (17:36→22:22)
[2017-11-11] MEDS: cefTRIAXone 1 GM in NACL 0.9% 20 ML IV SCH (18:30)
[2017-11-12] MEDS: ZOSYN/NS 3.375GM/50ML 3.375 GM/50 ML BAG IV SCH ×4 (00:58→18:27)
[2017-11-12] MEDS: NOVOLOG SUB-Q SCH ×6 (01:54→18:06)
[2017-11-12 05:28] LABS: Hematocrit 26.2 % (30.3-42.9); Mean Corpuscular HGB Conc 35 % (30-34); Mean Corpuscular Hemoglobin 31 pg (28-32); Mean Corpuscular Volume 91 fl (79-97); Platelet Count 267 K/mm3 (140-440); Red Blood Count 2.88 M/mm3 (3.65-5.03); Red Cell Distribution Width 12.6 % (13.2-15.2)
[2017-11-12 06:07] LABS: BUN/Creatinine Ratio 23; Blood Urea Nitrogen 18 mg/dL (7-17); Calcium 8.3 mg/dL (8.4-10.2); Hemolysis Index 0
[2017-11-12] MEDS: MORPHINE IV PRN ×2 (06:51→15:09)
[2017-11-12] MEDS: celeXA PO SCH (09:39)
[2017-11-12] MEDS: ASPIRIN PR SCH (09:39)
[2017-11-12] MEDS: PEPCID IV SCH (09:40)
[2017-11-12] MEDS: PLAVIX PO SCH (09:40)
[2017-11-12] MEDS: PROCARDIA XL PO SCH (09:40)
--- NOTE | 2017-11-12 11:49 | Progress Note ---
Assessment and Plan Assessment and plan: Patient is 37-year-old woman with a history of insulin-dependent diabetes mellitus, CVA on aspirin and Plavix, hypertension, dyslipidemia and depression who presented with altered mental status and was admitted for DKA. Her baseline mental function per sister Jessica: she walks with a walker, she feeds herself, needs help with clothes, left arm weaker than right and speech is usually slurred. Jessica reports that patient was discharged from [facility] about 1.5 months ago and went to [facility]. Then, she went to her home from there. She lives with daughter Leslye and brother, Sean, who moved in with her for more support. per Jessica: "I wanna say she wasn't talking her insulin, because this 3rd stoke did alittle mentally and she more forgettable, that is what I am thinking , for example, she will say, I need to take my insulin but she had just took her insulin." They went to [place], on the way back Saturday night 11pm, she was sleeping off and on, BG was 516 and she took her insulin. Her daughter, Leslye, said next morning she got up morning to go to the bathroom and she fell and then was unresponsive, she was found on the floor in urine by daughter, Leslye. -DKA with acute metabolic acidosis, high anion gap: Treated with IV fluids, insulin drip now resolved -Acute metabolic encephalopathy/semiconscious state: treat the above -Recurrent Acute ischemic strokes. 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 Anion gap was still high so I sent ICU to start insulin drip. I also ordered bmp stat. By the time the stat bmp was resulted, patient was in the icu. Anion gap has closed, so i will downgrade back to medical surg floor. Replace her potassium, start diet, if she unable to eat continue D5W due to hypernatremia and not eating. Await neurology assessment because she is not at her mental baseline of slurred speech and ambulation with a walker. Order PT/OT 11/10/17: I gave pt 0.5mg iv ativan x 1 to complete mri brain that Neurology ordered, MRI brain reported as multiple focal areas of restricted diffusion right cerebral hemisphere suggestive excuse ischemia, no evidence of hemorrhage , dilated right lateral ventricle without definite evidence of obstruction, acute right mastoiditis. I started abx, iv rocephin, used stroke protocol 11/11/2017: WBC went down, Still hypernatremic, more free water, repeat labs in am. ECHO pending. I called Jessica at [phone], no answer ?phone broken message. 11/12/17: echo pending, replace potassium, hyperglycemia on D5W for the hypernatremia, continue ssi, if she tolerates a diet today, then d/c ivf, change ssi to achs instead of q4hr, urine culture still pending. Hopefully SNF placement in 1-2 days History Interval history: Patient was seen and examined. Follow-up on current diagnosis/altered mental status. Overnight uneventful. Patient not given any history; therefore, Imaging, nursing note, chart, labs and old chart reviewed. Responding more. Hospitalist Physical - Physical exam Narrative exam: GEN: Thin frail woman chronic a bit debilitating appearing, lethargic, nonverbal HEENT: NCAT, EOMI, PERRL, OP Clear NECK: supple, no adenopathy, no thyromegaly, no JVD CVS/HEART: regular tachycardia NORMAL S1S2, NO JVD, pulses present bilaterally CHEST/LUNGS: CTA B, Symmetrical chest expansion, good air entry bilaterally GI/Abdomen: soft, NTND, good bowel sounds, no guarding or rebound /Bladder: no suprapubic tenderness, no CVA or paraspinal tenderness EXT/Skin: no c/c/e, no obvious rash MSK: Moving both arms with contractures Neuro: CN 2-12 grossly intact except nonverbal, hemiparesis, facial asymmetry, no new focal deficits Psych: calm but confused - Constitutional Vitals: Temp Pulse Resp BP Pulse Ox 98.1 F 95 H 18 133/86 100 11/12/17 08:18 11/12/17 08:18 11/12/17 08:18 11/12/17 08:18 11/12/17 08:18 General appearance: Present: well-nourished. Absent: mild distress Results - Labs CBC & Chem 7: 11/12/17 04:40 11/12/17 04:40 Labs: Laboratory Last Values WBC 13.0 K/mm3 (4.5-11.0) H 11/12/17 04:40 RBC 2.88 M/mm3 (3.65-5.03) L 11/12/17 04:40 Hgb 9.0 gm/dl (10.1-14.3) L 11/12/17 04:40 Hct 26.2 % (30.3-42.9) L 11/12/17 04:40 MCV 91 fl (79-97) 11/12/17 04:40 MCH 31 pg (28-32) 11/12/17 04:40 MCHC 35 % (30-34) H 11/12/17 04:40 RDW 12.6 % (13.2-15.2) L 11/12/17 04:40 Plt Count 267 K/mm3 (140-440) 11/12/17 04:40 Add Manual Diff Complete 11/07/17 12:26 Total Counted 100 11/07/17 12:26 Seg Neutrophils % After School Coordinator 11/07/17 12:26 Seg Neuts % (Manual) 90.0 % (40.0-70.0) H 11/07/17 12:26 Band Neutrophils % 4.0 % 11/07/17 12:26 Lymphocytes % (Manual) 2.0 % (13.4-35.0) L 11/07/17 12:26 Reactive Lymphs % (Man) 0 % 11/07/17 12:26 Monocytes % (Manual) 4.0 % (0.0-7.3) 11/07/17 12:26 Eosinophils % (Manual) 0 % (0.0-4.3) 11/07/17 12:26 Basophils % (Manual) 0 % (0.0-1.8) 11/07/17 12:26 Metamyelocytes % 0 % 11/07/17 12:26 Myelocytes % 0 % 11/07/17 12:26 Promyelocytes % 0 % 11/07/17 12:26 Blast Cells % 0 % 11/07/17 12:26 Nucleated RBC % Not Reportable 11/07/17 12:26 Seg Neutrophils # Man 18.1 K/mm3 (1.8-7.7) H 11/07/17 12:26 Band Neutrophils # 0.8 K/mm3 11/07/17 12:26 Lymphocytes # (Manual) 0.4 K/mm3 (1.2-5.4) L 11/07/17 12:26 Abs React Lymphs (Man) 0.0 K/mm3 11/07/17 12:26 Monocytes # (Manual) 0.8 K/mm3 (0.0-0.8) 11/07/17 12:26 Eosinophils # (Manual) 0.0 K/mm3 (0.0-0.4) 11/07/17 12:26 Basophils # (Manual) 0.0 K/mm3 (0.0-0.1) 11/07/17 12:26 Metamyelocytes # 0.0 K/mm3 11/07/17 12:26 Myelocytes # 0.0 K/mm3 11/07/17 12:26 Promyelocytes # 0.0 K/mm3 11/07/17 12:26 Blast Cells # 0.0 K/mm3 11/07/17 12:26 WBC Morphology Not Reportable 11/07/17 12:26 Hypersegmented Neuts Not Reportable 11/07/17 12:26 Hyposegmented Neuts Not Reportable 11/07/17 12:26 Hypogranular Neuts Not Reportable 11/07/17 12:26 Smudge Cells Not Reportable 11/07/17 12:26 Toxic Granulation Not Reportable 11/07/17 12:26 Toxic Vacuolation Not Reportable 11/07/17 12:26 Dohle Bodies Not Reportable 11/07/17 12:26 Pelger-Huet Anomaly Not Reportable 11/07/17 12:26 Xiomy Rods Not Reportable 11/07/17 12:26 Platelet Estimate Not Reportable 11/07/17 12:26 Clumped Platelets Not Reportable 11/07/17 12:26 Plt Clumps, EDTA Not Reportable 11/07/17 12:26 Large Platelets Not Reportable 11/07/17 12:26 Giant Platelets Not Reportable 11/07/17 12:26 Platelet Satelliting Not Reportable 11/07/17 12:26 Plt Morphology Comment Not Reportable 11/07/17 12:26 RBC Morphology Normal 11/07/17 12:26 Dimorphic RBCs Not Reportable 11/07/17 12:26 Polychromasia Not Reportable 11/07/17 12:26 Hypochromasia Not Reportable 11/07/17 12:26 Poikilocytosis Not Reportable 11/07/17 12:26 Anisocytosis Not Reportable 11/07/17 12:26 Microcytosis Not Reportable 11/07/17 12:26 Macrocytosis Not Reportable 11/07/17 12:26 Spherocytes Not Reportable 11/07/17 12:26 Pappenheimer Bodies Not Reportable 11/07/17 12:26 Sickle Cells Not Reportable 11/07/17 12:26 Target Cells Not Reportable 11/07/17 12:26 Tear Drop Cells Not Reportable 11/07/17 12:26 Ovalocytes Not Reportable 11/07/17 12:26 Helmet Cells Not Reportable 11/07/17 12:26 French-Gibbon Bodies Not Reportable 11/07/17 12:26 [place] Rings Not Reportable 11/07/17 12:26 Danna Cells Not Reportable 11/07/17 12:26 Bite Cells Not Reportable 11/07/17 12:26 Crenated Cell Not Reportable 11/07/17 12:26 Elliptocytes Not Reportable 11/07/17 12:26 Acanthocytes (Spur) Not Reportable 11/07/17 12:26 Rouleaux Not Reportable 11/07/17 12:26 Hemoglobin C Crystals Not Reportable 11/07/17 12:26 Schistocytes Not Reportable 11/07/17 12:26 Malaria parasites Not Reportable 11/07/17 12:26 Mundo Bodies Not Reportable 11/07/17 12:26 Hem Pathologist Commnt No 11/07/17 12:26 PT 16.4 Sec. (12.2-14.9) H 11/07/17 12:26 INR 1.25 (0.87-1.13) H 11/07/17 12:26 POC ABG pH 7.389 (7.35-7.45) 11/09/17 19:49 POC ABG pCO2 28.9 (35-45) L 11/09/17 19:49 POC ABG pO2 98 (80-105) 11/09/17 19:49 POC ABG HCO3 17.4 11/09/17 19:49 POC ABG Total CO2 18 11/09/17 19:49 POC ABG O2 Sat 98 11/09/17 19:49 POC ABG Base Excess -8 11/09/17 19:49 FiO2 21 % 11/09/17 19:49 Sodium 148 mmol/L (137-145) H 11/12/17 04:40 Potassium 3.3 mmol/L (3.6-5.0) L 11/12/17 04:40 Chloride 111.8 mmol/L (98-107) H 11/12/17 04:40 Carbon Dioxide 22 mmol/L (22-30) 11/12/17 04:40 Anion Gap 18 mmol/L 11/12/17 04:40 BUN 18 mg/dL (7-17) H 11/12/17 04:40 Creatinine 0.8 mg/dL (0.7-1.2) 11/12/17 04:40 Estimated GFR > 60 ml/min 11/12/17 04:40 BUN/Creatinine Ratio 23 % 11/12/17 04:40 Glucose 212 mg/dL (65-100) H 11/12/17 04:40 POC Glucose 285 (70-105) H 11/12/17 06:30 Hemoglobin A1c 10.0 % (4-6) H 11/07/17 17:02 Lactic Acid 1.80 mmol/L (0.7-2.0) 11/09/17 19:44 Calcium 8.3 mg/dL (8.4-10.2) L 11/12/17 04:40 Phosphorus 1.50 mg/dL (2.5-4.5) L 11/09/17 07:07 Magnesium 1.80 mg/dL (1.7-2.3) 11/12/17 04:40 Total Bilirubin 0.30 mg/dL (0.1-1.2) 11/07/17 13:44 Direct Bilirubin 0.2 mg/dL (0-0.2) 11/07/17 13:44 Indirect Bilirubin 0.1 mg/dL 11/07/17 13:44 AST 15 units/L (5-40) 11/07/17 13:44 ALT 11 units/L (7-56) 11/07/17 13:44 Alkaline Phosphatase 89 units/L (35-129) 11/07/17 13:44 C-Reactive Protein 4.70 mg/dL (0.00-1.30) H 11/09/17 19:44 Total Protein 5.8 g/dL (6.3-8.2) L 11/07/17 13:44 Albumin 3.0 g/dL (3.9-5) L 11/07/17 13:44 Albumin/Globulin Ratio 1.1 % 11/07/17 13:44 Triglycerides 94 mg/dL (2-149) 11/11/17 07:27 Cholesterol 148 mg/dL (50-199) 11/11/17 07:27 LDL Cholesterol Direct 42 mg/dL (50-130) L 11/11/17 07:27 HDL Cholesterol 88 mg/dL (40-59) H 11/11/17 07:27 Cholesterol/HDL Ratio 1.68 % 11/11/17 07:27 HCG, Qual Negative (Negative) 11/09/17 15:05 Urine Color Yellow (Yellow) 11/07/17 14:28 Urine Turbidity Clear (Clear) 11/07/17 14:28 Urine pH 5.0 (5.0-7.0) 11/07/17 14:28 Ur Specific [place] 1.016 (1.003-1.030) 11/07/17 14:28 Urine Protein 100 mg/dl mg/dL (Negative) 11/07/17 14:28 Urine Glucose (UA) >=500 mg/dL (Negative) 11/07/17 14:28 Urine Ketones 80 mg/dL (Negative) 11/07/17 14:28 Urine Blood Mod (Negative) 11/07/17 14:28 Urine Nitrite Neg (Negative) 11/07/17 14:28 Urine Bilirubin Neg (Negative) 11/07/17 14:28 Urine Urobilinogen < 2.0 mg/dL (<2.0) 11/07/17 14:28 Ur Leukocyte Esterase Neg (Negative) 11/07/17 14:28 Urine WBC (Auto) 2.0 /HPF (0.0-6.0) 11/07/17 14:28 Urine RBC (Auto) < 1.0 /HPF (0.0-6.0) 11/07/17 14:28 U Epithel Cells (Auto) < 1.0 /HPF (0-13.0) 11/07/17 14:28 Urine Bacteria (Auto) 1+ /HPF (Negative) 11/07/17 14:28 Urine Opiates Screen Presumptive negative 11/07/17 14:28 Urine Methadone Screen Presumptive negative 11/07/17 14:28 Ur Barbiturates Screen Presumptive negative 11/07/17 14:28 Ur Phencyclidine Scrn Presumptive negative 11/07/17 14:28 Ur Amphetamines Screen Presumptive negative 11/07/17 14:28 U Benzodiazepines Scrn Presumptive negative 11/07/17 14:28 Urine Cocaine Screen Presumptive negative 11/07/17 14:28 U Marijuana (THC) Screen Presumptive negative 11/07/17 14:28 Drugs of Abuse Note Disclamer 11/07/17 14:28
[2017-11-12] MEDS: KCL 10MEQ/100ML 10 MEQ/100 ML BAG IV SCH ×2 (14:54→16:04)
[2017-11-12] MEDS: FLEXERIL PO PRN (18:06)
[2017-11-12] MEDS: cefTRIAXone 1 GM in NACL 0.9% 20 ML IV SCH (18:29)
--- NOTE | 2017-11-12 19:33 | Progress Note ---
Assessment and Plan Patient resting on room air. No acute respiratory distress. O2 saturation 99% on room air. - Patient Problems (1) Sepsis Current Visit: Yes Status: Acute Qualifiers: Sepsis type: sepsis due to unspecified organism Qualified Code(s): A41.9 - Sepsis, unspecified organism Plan to address problem: Patient is on zosyn (2) Altered mental status Current Visit: Yes Status: Acute Plan to address problem: Managment as per primary care. (3) DKA (diabetic ketoacidoses) Current Visit: Yes Status: Acute Qualifiers: Diabetes mellitus type: type 2 Plan to address problem: Improving. Management as per primary care. (4) Encephalopathy acute Current Visit: Yes Status: Acute Plan to address problem: Management as per primary care. (5) HTN (hypertension) Current Visit: Yes Status: Chronic Qualifiers: Hypertension type: essential hypertension Qualified Code(s): I10 - Essential (primary) hypertension Plan to address problem: Management as per primary care. (6) History of CVA with residual deficit Current Visit: Yes Status: Chronic Plan to address problem: Management as per primary care and neurology. Subjective Date of service: 11/12/17 Interval history: Patient resting on room air. No acute respiratory distress. O2 saturation 99% on room air. Objective Vital Signs - 12hr 11/12/17 11/12/17 11/12/17 08:18 15:09 16:10 Temperature 98.1 F 98.3 F Pulse Rate 95 H 91 H Respiratory 18 20 20 Rate Blood Pressure 133/86 147/97 O2 Sat by Pulse 100 99 Oximetry Constitutional: no acute distress, asleep Eyes: non-icteric Neck: supple, no lymphadenopathy Ascultation: Bilateral: clear Cardiovascular: regular rate and rhythm Gastrointestinal: normoactive bowel sounds, soft, non-tender Integumentary: normal Extremities: no cyanosis, no edema Neurologic: other (Patient sleeping at this time.) Psychiatric: other (Patient sleeping at this time.) CBC and BMP: 11/12/17 04:40 11/12/17 04:40 ABG, PT/INR, D-dimer: ABG POC ABG pH 7.389 (7.35-7.45) 11/09/17 19:49 POC ABG pCO2 28.9 (35-45) L 11/09/17 19:49 POC ABG pO2 98 (80-105) 11/09/17 19:49 POC ABG HCO3 17.4 11/09/17 19:49 POC ABG Total CO2 18 11/09/17 19:49 POC ABG O2 Sat 98 11/09/17 19:49 PT/INR, D-dimer PT 16.4 Sec. (12.2-14.9) H 11/07/17 12:26 INR 1.25 (0.87-1.13) H 11/07/17 12:26 Abnormal lab findings: Abnormal Labs 11/07/17 11/07/17 11/07/17 12:26 12:26 12:26 WBC 20.1 H RBC Hgb Hct MCV 101 H MCHC RDW Seg Neuts % (Manual) 90.0 H Lymphocytes % (Manual) 2.0 L Seg Neutrophils # Man 18.1 H Lymphocytes # (Manual) 0.4 L PT 16.4 H INR 1.25 H POC ABG pH POC ABG pCO2 POC ABG pO2 Sodium Potassium Chloride Carbon Dioxide BUN Creatinine Glucose POC Glucose 445 H Hemoglobin A1c Lactic Acid Calcium Phosphorus Magnesium C-Reactive Protein Total Protein Albumin LDL Cholesterol Direct HDL Cholesterol 11/07/17 11/07/17 11/07/17 12:39 13:44 13:44 WBC RBC Hgb Hct MCV MCHC RDW Seg Neuts % (Manual) Lymphocytes % (Manual) Seg Neutrophils # Man Lymphocytes # (Manual) PT INR POC ABG pH 6.856 L POC ABG pCO2 12.4 L POC ABG pO2 288 H Sodium Potassium Chloride Carbon Dioxide BUN Creatinine Glucose POC Glucose Hemoglobin A1c Lactic Acid Calcium Phosphorus 8.10 H Magnesium 2.60 H C-Reactive Protein Total Protein 5.8 L Albumin 3.0 L LDL Cholesterol Direct HDL Cholesterol 11/07/17 11/07/17 11/07/17 13:44 14:17 15:17 WBC RBC Hgb Hct MCV MCHC RDW Seg Neuts % (Manual) Lymphocytes % (Manual) Seg Neutrophils # Man Lymphocytes # (Manual) PT INR POC ABG pH POC ABG pCO2 POC ABG pO2 Sodium Potassium 6.5 H* 5.8 H 5.7 H Chloride 94.4 L Carbon Dioxide 5 L* 2 L* < 2.0 L* BUN 43 H 38 H 39 H Creatinine 1.3 H 1.3 H Glucose 629 H* 610 H* 585 H* POC Glucose Hemoglobin A1c Lactic Acid Calcium 8.3 L 7.7 L 7.9 L Phosphorus Magnesium C-Reactive Protein Total Protein Albumin LDL Cholesterol Direct HDL Cholesterol 11/07/17 11/07/17 11/07/17 15:17 15:40 16:57 WBC RBC Hgb Hct MCV MCHC RDW Seg Neuts % (Manual) Lymphocytes % (Manual) Seg Neutrophils # Man Lymphocytes # (Manual) PT INR POC ABG pH POC ABG pCO2 POC ABG pO2 Sodium Potassium Chloride Carbon Dioxide 3 L* BUN 42 H Creatinine 1.3 H Glucose 557 H* POC Glucose > 500 H Hemoglobin A1c Lactic Acid 2.90 H* Calcium 8.1 L Phosphorus Magnesium C-Reactive Protein Total Protein Albumin LDL Cholesterol Direct HDL Cholesterol 11/07/17 11/07/17 11/07/17 17:02 17:02 18:05 WBC RBC Hgb Hct MCV MCHC RDW Seg Neuts % (Manual) Lymphocytes % (Manual) Seg Neutrophils # Man Lymphocytes # (Manual) PT INR POC ABG pH POC ABG pCO2 POC ABG pO2 Sodium Potassium Chloride Carbon Dioxide BUN Creatinine Glucose POC Glucose 485 H Hemoglobin A1c 10.0 H Lactic Acid Calcium Phosphorus 6.60 H Magnesium 2.70 H C-Reactive Protein Total Protein Albumin LDL Cholesterol Direct HDL Cholesterol 11/07/17 11/07/17 11/07/17 18:52 20:20 21:23 WBC RBC Hgb Hct MCV MCHC RDW Seg Neuts % (Manual) Lymphocytes % (Manual) Seg Neutrophils # Man Lymphocytes # (Manual) PT INR POC ABG pH POC ABG pCO2 POC ABG pO2 Sodium 148 H Potassium Chloride Carbon Dioxide < 2.0 L* BUN 41 H Creatinine 1.4 H Glucose 473 H POC Glucose 356 H 322 H Hemoglobin A1c Lactic Acid Calcium 7.8 L Phosphorus Magnesium C-Reactive Protein Total Protein Albumin LDL Cholesterol Direct HDL Cholesterol 11/07/17 11/07/17 11/07/17 22:28 23:01 23:31 WBC RBC Hgb Hct MCV MCHC RDW Seg Neuts % (Manual) Lymphocytes % (Manual) Seg Neutrophils # Man Lymphocytes # (Manual) PT INR POC ABG pH POC ABG pCO2 POC ABG pO2 Sodium 148 H Potassium Chloride 111.6 H Carbon Dioxide 4 L* BUN 43 H Creatinine 1.3 H Glucose 177 H POC Glucose 242 H 204 H Hemoglobin A1c Lactic Acid Calcium 7.7 L Phosphorus Magnesium C-Reactive Protein Total Protein Albumin LDL Cholesterol Direct HDL Cholesterol 11/08/17 11/08/17 11/08/17 01:20 03:30 04:01 WBC RBC Hgb Hct MCV MCHC RDW Seg Neuts % (Manual) Lymphocytes % (Manual) Seg Neutrophils # Man Lymphocytes # (Manual) PT INR POC ABG pH POC ABG pCO2 POC ABG pO2 Sodium Potassium Chloride Carbon Dioxide BUN Creatinine Glucose POC Glucose 120 H 59 L 132 H Hemoglobin A1c Lactic Acid Calcium Phosphorus Magnesium C-Reactive Protein Total Protein Albumin LDL Cholesterol Direct HDL Cholesterol 11/08/17 11/08/17 11/08/17 04:20 04:20 05:15 WBC RBC Hgb Hct MCV MCHC RDW Seg Neuts % (Manual) Lymphocytes % (Manual) Seg Neutrophils # Man Lymphocytes # (Manual) PT INR POC ABG pH POC ABG pCO2 POC ABG pO2 Sodium 151 H 150 H Potassium Chloride 114.3 H 115.4 H Carbon Dioxide 10 L 10 L BUN 48 H 48 H Creatinine 1.3 H Glucose 121 H 118 H POC Glucose 134 H Hemoglobin A1c Lactic Acid Calcium 7.8 L 7.8 L Phosphorus Magnesium C-Reactive Protein Total Protein Albumin LDL Cholesterol Direct HDL Cholesterol 11/08/17 11/08/17 11/08/17 06:41 07:49 08:12 WBC RBC Hgb Hct MCV MCHC RDW Seg Neuts % (Manual) Lymphocytes % (Manual) Seg Neutrophils # Man Lymphocytes # (Manual) PT INR POC ABG pH POC ABG pCO2 POC ABG pO2 Sodium 151 H Potassium Chloride 116.5 H Carbon Dioxide 13 L BUN 52 H Creatinine 1.3 H Glucose 213 H POC Glucose 172 H 228 H Hemoglobin A1c Lactic Acid Calcium 7.9 L Phosphorus Magnesium C-Reactive Protein Total Protein Albumin LDL Cholesterol Direct HDL Cholesterol 11/08/17 11/08/17 11/08/17 08:22 09:31 11:04 WBC RBC Hgb Hct MCV MCHC RDW Seg Neuts % (Manual) Lymphocytes % (Manual) Seg Neutrophils # Man Lymphocytes # (Manual) PT INR POC ABG pH POC ABG pCO2 POC ABG pO2 Sodium Potassium Chloride Carbon Dioxide BUN Creatinine Glucose POC Glucose 140 H 140 H 136 H Hemoglobin A1c Lactic Acid Calcium Phosphorus Magnesium C-Reactive Protein Total Protein Albumin LDL Cholesterol Direct HDL Cholesterol 11/08/17 11/08/17 11/08/17 12:11 13:40 17:21 WBC RBC Hgb Hct MCV MCHC RDW Seg Neuts % (Manual) Lymphocytes % (Manual) Seg Neutrophils # Man Lymphocytes # (Manual) PT INR POC ABG pH POC ABG pCO2 POC ABG pO2 Sodium 152 H Potassium Chloride 117.6 H Carbon Dioxide 15 L BUN 50 H Creatinine 1.3 H Glucose 144 H POC Glucose 111 H 182 H Hemoglobin A1c Lactic Acid Calcium Phosphorus Magnesium C-Reactive Protein Total Protein Albumin LDL Cholesterol Direct HDL Cholesterol 11/08/17 11/08/17 11/09/17 17:45 23:06 00:39 WBC RBC Hgb Hct MCV MCHC RDW Seg Neuts % (Manual) Lymphocytes % (Manual) Seg Neutrophils # Man Lymphocytes # (Manual) PT INR POC ABG pH POC ABG pCO2 POC ABG pO2 Sodium 149 H Potassium Chloride 116.2 H Carbon Dioxide 13 L BUN 48 H Creatinine 1.3 H Glucose 171 H POC Glucose < 40 L 123 H Hemoglobin A1c Lactic Acid Calcium 8.1 L Phosphorus Magnesium C-Reactive Protein Total Protein Albumin LDL Cholesterol Direct HDL Cholesterol 11/09/17 11/09/17 11/09/17 07:07 07:07 11:35 WBC RBC Hgb Hct MCV MCHC RDW Seg Neuts % (Manual) Lymphocytes % (Manual) Seg Neutrophils # Man Lymphocytes # (Manual) PT INR POC ABG pH POC ABG pCO2 POC ABG pO2 Sodium 152 H Potassium 3.0 L D Chloride 121.9 H Carbon Dioxide 18 L BUN 44 H Creatinine Glucose POC Glucose 118 H Hemoglobin A1c Lactic Acid Calcium Phosphorus 1.50 L Magnesium C-Reactive Protein Total Protein Albumin LDL Cholesterol Direct HDL Cholesterol 11/09/17 11/09/17 11/09/17 16:54 19:44 19:49 WBC RBC Hgb Hct MCV MCHC RDW Seg Neuts % (Manual) Lymphocytes % (Manual) Seg Neutrophils # Man Lymphocytes # (Manual) PT INR POC ABG pH POC ABG pCO2 28.9 L POC ABG pO2 Sodium Potassium Chloride Carbon Dioxide BUN Creatinine Glucose POC Glucose 231 H Hemoglobin A1c Lactic Acid Calcium Phosphorus Magnesium C-Reactive Protein 4.70 H Total Protein Albumin LDL Cholesterol Direct HDL Cholesterol 11/09/17 11/10/17 11/10/17 21:48 06:25 12:35 WBC RBC Hgb Hct MCV MCHC RDW Seg Neuts % (Manual) Lymphocytes % (Manual) Seg Neutrophils # Man Lymphocytes # (Manual) PT INR POC ABG pH POC ABG pCO2 POC ABG pO2 Sodium Potassium Chloride Carbon Dioxide BUN Creatinine Glucose POC Glucose 176 H 299 H 258 H Hemoglobin A1c Lactic Acid Calcium Phosphorus Magnesium C-Reactive Protein Total Protein Albumin LDL Cholesterol Direct HDL Cholesterol 11/10/17 11/10/17 11/11/17 16:43 22:07 02:59 WBC RBC Hgb Hct MCV MCHC RDW Seg Neuts % (Manual) Lymphocytes % (Manual) Seg Neutrophils # Man Lymphocytes # (Manual) PT INR POC ABG pH POC ABG pCO2 POC ABG pO2 Sodium Potassium Chloride Carbon Dioxide BUN Creatinine Glucose POC Glucose 252 H 248 H 193 H Hemoglobin A1c Lactic Acid Calcium Phosphorus Magnesium C-Reactive Protein Total Protein Albumin LDL Cholesterol Direct HDL Cholesterol 11/11/17 11/11/17 11/11/17 06:20 07:27 07:27 WBC 18.6 H RBC 2.90 L Hgb 9.0 L Hct 27.0 L MCV MCHC RDW Seg Neuts % (Manual) Lymphocytes % (Manual) Seg Neutrophils # Man Lymphocytes # (Manual) PT INR POC ABG pH POC ABG pCO2 POC ABG pO2 Sodium 152 H Potassium Chloride 116.2 H Carbon Dioxide 19 L BUN 24 H Creatinine Glucose 288 H POC Glucose 280 H Hemoglobin A1c Lactic Acid Calcium 8.3 L Phosphorus Magnesium C-Reactive Protein Total Protein Albumin LDL Cholesterol Direct 42 L HDL Cholesterol 88 H 11/11/17 11/11/17 11/11/17 11:09 17:12 20:59 WBC RBC Hgb Hct MCV MCHC RDW Seg Neuts % (Manual) Lymphocytes % (Manual) Seg Neutrophils # Man Lymphocytes # (Manual) PT INR POC ABG pH POC ABG pCO2 POC ABG pO2 Sodium Potassium Chloride Carbon Dioxide BUN Creatinine Glucose POC Glucose 328 H 306 H 318 H Hemoglobin A1c Lactic Acid Calcium Phosphorus Magnesium C-Reactive Protein Total Protein Albumin LDL Cholesterol Direct HDL Cholesterol 11/12/17 11/12/17 11/12/17 01:55 04:40 04:40 WBC 13.0 H RBC 2.88 L Hgb 9.0 L Hct 26.2 L MCV MCHC 35 H RDW 12.6 L Seg Neuts % (Manual) Lymphocytes % (Manual) Seg Neutrophils # Man Lymphocytes # (Manual) PT INR POC ABG pH POC ABG pCO2 POC ABG pO2 Sodium 148 H Potassium 3.3 L Chloride 111.8 H Carbon Dioxide BUN 18 H Creatinine Glucose 212 H POC Glucose 274 H Hemoglobin A1c Lactic Acid Calcium 8.3 L Phosphorus Magnesium C-Reactive Protein Total Protein Albumin LDL Cholesterol Direct HDL Cholesterol 11/12/17 11/12/17 11/12/17 06:30 12:14 16:50 WBC RBC Hgb Hct MCV MCHC RDW Seg Neuts % (Manual) Lymphocytes % (Manual) Seg Neutrophils # Man Lymphocytes # (Manual) PT INR POC ABG pH POC ABG pCO2 POC ABG pO2 Sodium Potassium Chloride Carbon Dioxide BUN Creatinine Glucose POC Glucose 285 H 166 H 178 H Hemoglobin A1c Lactic Acid Calcium Phosphorus Magnesium C-Reactive Protein Total Protein Albumin LDL Cholesterol Direct HDL Cholesterol
[2017-11-13] MEDS: ZOSYN/NS 3.375GM/50ML 3.375 GM/50 ML BAG IV SCH ×4 (00:35→17:30)
[2017-11-13] MEDS: NOVOLOG SUB-Q SCH ×6 (05:53→17:14)
[2017-11-13 06:28] LABS: Hematocrit 26.1 % (30.3-42.9); Hemoglobin 8.8 gm/dl (10.1-14.3); Mean Corpuscular HGB Conc 34 % (30-34); Mean Corpuscular Hemoglobin 30 pg (28-32); Mean Corpuscular Volume 89 fl (79-97); Red Blood Count 2.92 M/mm3 (3.65-5.03); Red Cell Distribution Width 12.6 % (13.2-15.2)
[2017-11-13 06:29] LABS: Platelet Count 249 K/mm3 (140-440)
[2017-11-13 06:42] LABS: BUN/Creatinine Ratio 17; Blood Urea Nitrogen 12 mg/dL (7-17); Calcium 8.1 mg/dL (8.4-10.2); Hemolysis Index 38
[2017-11-13] MEDS: PLAVIX PO SCH ×2 (08:46→20:02)
[2017-11-13] MEDS: PEPCID IV SCH (08:46)
[2017-11-13] MEDS: celeXA PO SCH ×2 (08:46→20:01)
[2017-11-13] MEDS: PROCARDIA XL PO SCH ×2 (08:46→20:02)
[2017-11-13] MEDS: ASPIRIN PR SCH (11:49)
--- NOTE | 2017-11-13 12:16 | Progress Note ---
Assessment and Plan Assessment and plan: Patient is 37-year-old woman with a history of insulin-dependent diabetes mellitus, CVA on aspirin and Plavix, hypertension, dyslipidemia and depression who presented with altered mental status and was admitted for DKA. Her baseline mental function per sister Jessica: she walks with a walker, she feeds herself, needs help with clothes, left arm weaker than right and speech is usually slurred. Jessica reports that patient was discharged from [facility] about 1.5 months ago and went to [facility]. Then, she went to her home from there. She lives with daughter Leslye and brother, Sean, who moved in with her for more support. per Jessica: "I wanna say she wasn't talking her insulin, because this 3rd stoke did alittle mentally and she more forgettable, that is what I am thinking , for example, she will say, I need to take my insulin but she had just took her insulin." They went to [place], on the way back Saturday night 11pm, she was sleeping off and on, BG was 516 and she took her insulin. Her daughter, Leslye, said next morning she got up morning to go to the bathroom and she fell and then was unresponsive, she was found on the floor in urine by daughter, Leslye. -DKA with acute metabolic acidosis, high anion gap: Treated with IV fluids, insulin drip now resolved -Acute metabolic encephalopathy/semiconscious state: treat the above -Recurrent Acute ischemic strokes. 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 Anion gap was still high so I sent ICU to start insulin drip. I also ordered bmp stat. By the time the stat bmp was resulted, patient was in the icu. Anion gap has closed, so i will downgrade back to medical surg floor. Replace her potassium, start diet, if she unable to eat continue D5W due to hypernatremia and not eating. Await neurology assessment because she is not at her mental baseline of slurred speech and ambulation with a walker. Order PT/OT 11/10/17: I gave pt 0.5mg iv ativan x 1 to complete mri brain that Neurology ordered, MRI brain reported as multiple focal areas of restricted diffusion right cerebral hemisphere suggestive excuse ischemia, no evidence of hemorrhage , dilated right lateral ventricle without definite evidence of obstruction, acute right mastoiditis. I started abx, iv rocephin, used stroke protocol 11/11/2017: WBC went down, Still hypernatremic, more free water, repeat labs in am. ECHO pending. I called Jessica at [phone], no answer ?phone broken message. 11/12/17: echo pending, replace potassium, hyperglycemia on D5W for the hypernatremia, continue ssi, if she tolerates a diet today, then d/c ivf, change ssi to achs instead of q4hr, urine culture still pending. Hopefully SNF placement in 1-2 days 11/13/17: Echo reviewed, hypernatremia/hypokalemia resolved, stop ivf. Waiting on placement History Interval history: Patient was seen and examined. Follow-up on current diagnosis/altered mental status. Overnight uneventful. Patient not given any history; therefore, Imaging, nursing note, chart, labs and old chart reviewed. Responding more. Hospitalist Physical - Physical exam Narrative exam: GEN: Thin frail woman chronic a bit debilitating appearing, lethargic, nonverbal HEENT: NCAT, EOMI, PERRL, OP Clear NECK: supple, no adenopathy, no thyromegaly, no JVD CVS/HEART: regular tachycardia NORMAL S1S2, NO JVD, pulses present bilaterally CHEST/LUNGS: CTA B, Symmetrical chest expansion, good air entry bilaterally GI/Abdomen: soft, NTND, good bowel sounds, no guarding or rebound /Bladder: no suprapubic tenderness, no CVA or paraspinal tenderness EXT/Skin: no c/c/e, no obvious rash MSK: Moving both arms with contractures Neuro: CN 2-12 grossly intact except nonverbal, hemiparesis, facial asymmetry, no new focal deficits Psych: calm but confused - Constitutional Vitals: Temp Pulse Resp BP Pulse Ox 98.7 F 102 H 18 131/87 99 11/13/17 07:29 11/13/17 07:29 11/13/17 07:29 11/13/17 07:29 11/13/17 07:29 General appearance: Present: well-nourished. Absent: mild distress Results - Labs CBC & Chem 7: 11/13/17 05:55 11/13/17 05:55 Labs: Laboratory Last Values WBC 12.4 K/mm3 (4.5-11.0) H 11/13/17 05:55 RBC 2.92 M/mm3 (3.65-5.03) L 11/13/17 05:55 Hgb 8.8 gm/dl (10.1-14.3) L 11/13/17 05:55 Hct 26.1 % (30.3-42.9) L 11/13/17 05:55 MCV 89 fl (79-97) 11/13/17 05:55 MCH 30 pg (28-32) 11/13/17 05:55 MCHC 34 % (30-34) 11/13/17 05:55 RDW 12.6 % (13.2-15.2) L 11/13/17 05:55 Plt Count 249 K/mm3 (140-440) 11/13/17 05:55 Add Manual Diff Complete 11/07/17 12:26 Total Counted 100 11/07/17 12:26 Seg Neutrophils % Bleaching Machine Operator 11/07/17 12:26 Seg Neuts % (Manual) 90.0 % (40.0-70.0) H 11/07/17 12:26 Band Neutrophils % 4.0 % 11/07/17 12:26 Lymphocytes % (Manual) 2.0 % (13.4-35.0) L 11/07/17 12:26 Reactive Lymphs % (Man) 0 % 11/07/17 12:26 Monocytes % (Manual) 4.0 % (0.0-7.3) 11/07/17 12:26 Eosinophils % (Manual) 0 % (0.0-4.3) 11/07/17 12:26 Basophils % (Manual) 0 % (0.0-1.8) 11/07/17 12:26 Metamyelocytes % 0 % 11/07/17 12:26 Myelocytes % 0 % 11/07/17 12:26 Promyelocytes % 0 % 11/07/17 12:26 Blast Cells % 0 % 11/07/17 12:26 Nucleated RBC % Not Reportable 11/07/17 12:26 Seg Neutrophils # Man 18.1 K/mm3 (1.8-7.7) H 11/07/17 12:26 Band Neutrophils # 0.8 K/mm3 11/07/17 12:26 Lymphocytes # (Manual) 0.4 K/mm3 (1.2-5.4) L 11/07/17 12:26 Abs React Lymphs (Man) 0.0 K/mm3 11/07/17 12:26 Monocytes # (Manual) 0.8 K/mm3 (0.0-0.8) 11/07/17 12:26 Eosinophils # (Manual) 0.0 K/mm3 (0.0-0.4) 11/07/17 12:26 Basophils # (Manual) 0.0 K/mm3 (0.0-0.1) 11/07/17 12:26 Metamyelocytes # 0.0 K/mm3 11/07/17 12:26 Myelocytes # 0.0 K/mm3 11/07/17 12:26 Promyelocytes # 0.0 K/mm3 11/07/17 12:26 Blast Cells # 0.0 K/mm3 11/07/17 12:26 WBC Morphology Not Reportable 11/07/17 12:26 Hypersegmented Neuts Not Reportable 11/07/17 12:26 Hyposegmented Neuts Not Reportable 11/07/17 12:26 Hypogranular Neuts Not Reportable 11/07/17 12:26 Smudge Cells Not Reportable 11/07/17 12:26 Toxic Granulation Not Reportable 11/07/17 12:26 Toxic Vacuolation Not Reportable 11/07/17 12:26 Dohle Bodies Not Reportable 11/07/17 12:26 Pelger-Huet Anomaly Not Reportable 11/07/17 12:26 Xiomy Rods Not Reportable 11/07/17 12:26 Platelet Estimate Not Reportable 11/07/17 12:26 Clumped Platelets Not Reportable 11/07/17 12:26 Plt Clumps, EDTA Not Reportable 11/07/17 12:26 Large Platelets Not Reportable 11/07/17 12:26 Giant Platelets Not Reportable 11/07/17 12:26 Platelet Satelliting Not Reportable 11/07/17 12:26 Plt Morphology Comment Not Reportable 11/07/17 12:26 RBC Morphology Normal 11/07/17 12:26 Dimorphic RBCs Not Reportable 11/07/17 12:26 Polychromasia Not Reportable 11/07/17 12:26 Hypochromasia Not Reportable 11/07/17 12:26 Poikilocytosis Not Reportable 11/07/17 12:26 Anisocytosis Not Reportable 11/07/17 12:26 Microcytosis Not Reportable 11/07/17 12:26 Macrocytosis Not Reportable 11/07/17 12:26 Spherocytes Not Reportable 11/07/17 12:26 Pappenheimer Bodies Not Reportable 11/07/17 12:26 Sickle Cells Not Reportable 11/07/17 12:26 Target Cells Not Reportable 11/07/17 12:26 Tear Drop Cells Not Reportable 11/07/17 12:26 Ovalocytes Not Reportable 11/07/17 12:26 Helmet Cells Not Reportable 11/07/17 12:26 [place] Bodies Not Reportable 11/07/17 12:26 [place] Rings Not Reportable 11/07/17 12:26 Danna Cells Not Reportable 11/07/17 12:26 Bite Cells Not Reportable 11/07/17 12:26 Crenated Cell Not Reportable 11/07/17 12:26 Elliptocytes Not Reportable 11/07/17 12:26 Acanthocytes (Spur) Not Reportable 11/07/17 12:26 Rouleaux Not Reportable 11/07/17 12:26 Hemoglobin C Crystals Not Reportable 11/07/17 12:26 Schistocytes Not Reportable 11/07/17 12:26 Malaria parasites Not Reportable 11/07/17 12:26 Mundo Bodies Not Reportable 11/07/17 12:26 Hem Pathologist Commnt No 11/07/17 12:26 PT 16.4 Sec. (12.2-14.9) H 11/07/17 12:26 INR 1.25 (0.87-1.13) H 11/07/17 12:26 POC ABG pH 7.389 (7.35-7.45) 11/09/17 19:49 POC ABG pCO2 28.9 (35-45) L 11/09/17 19:49 POC ABG pO2 98 (80-105) 11/09/17 19:49 POC ABG HCO3 17.4 11/09/17 19:49 POC ABG Total CO2 18 11/09/17 19:49 POC ABG O2 Sat 98 11/09/17 19:49 POC ABG Base Excess -8 11/09/17 19:49 FiO2 21 % 11/09/17 19:49 Sodium 144 mmol/L (137-145) 11/13/17 05:55 Potassium 4.1 mmol/L (3.6-5.0) D 11/13/17 05:55 Chloride 108.2 mmol/L (98-107) H 11/13/17 05:55 Carbon Dioxide 21 mmol/L (22-30) L 11/13/17 05:55 Anion Gap 19 mmol/L 11/13/17 05:55 BUN 12 mg/dL (7-17) 11/13/17 05:55 Creatinine 0.7 mg/dL (0.7-1.2) 11/13/17 05:55 Estimated GFR > 60 ml/min 11/13/17 05:55 BUN/Creatinine Ratio 17 % 11/13/17 05:55 Glucose 228 mg/dL (65-100) H 11/13/17 05:55 POC Glucose 291 (70-105) H 11/13/17 05:47 Hemoglobin A1c 10.0 % (4-6) H 11/07/17 17:02 Lactic Acid 1.80 mmol/L (0.7-2.0) 11/09/17 19:44 Calcium 8.1 mg/dL (8.4-10.2) L 11/13/17 05:55 Phosphorus 1.50 mg/dL (2.5-4.5) L 11/09/17 07:07 Magnesium 1.80 mg/dL (1.7-2.3) 11/12/17 04:40 Total Bilirubin 0.30 mg/dL (0.1-1.2) 11/07/17 13:44 Direct Bilirubin 0.2 mg/dL (0-0.2) 11/07/17 13:44 Indirect Bilirubin 0.1 mg/dL 11/07/17 13:44 AST 15 units/L (5-40) 11/07/17 13:44 ALT 11 units/L (7-56) 11/07/17 13:44 Alkaline Phosphatase 89 units/L (35-129) 11/07/17 13:44 C-Reactive Protein 4.70 mg/dL (0.00-1.30) H 11/09/17 19:44 Total Protein 5.8 g/dL (6.3-8.2) L 11/07/17 13:44 Albumin 3.0 g/dL (3.9-5) L 11/07/17 13:44 Albumin/Globulin Ratio 1.1 % 11/07/17 13:44 Triglycerides 94 mg/dL (2-149) 11/11/17 07:27 Cholesterol 148 mg/dL (50-199) 11/11/17 07:27 LDL Cholesterol Direct 42 mg/dL (50-130) L 11/11/17 07:27 HDL Cholesterol 88 mg/dL (40-59) H 11/11/17 07:27 Cholesterol/HDL Ratio 1.68 % 11/11/17 07:27 HCG, Qual Negative (Negative) 11/09/17 15:05 Urine Color Yellow (Yellow) 11/07/17 14:28 Urine Turbidity Clear (Clear) 11/07/17 14:28 Urine pH 5.0 (5.0-7.0) 11/07/17 14:28 Ur Specific [place] 1.016 (1.003-1.030) 11/07/17 14:28 Urine Protein 100 mg/dl mg/dL (Negative) 11/07/17 14:28 Urine Glucose (UA) >=500 mg/dL (Negative) 11/07/17 14:28 Urine Ketones 80 mg/dL (Negative) 11/07/17 14:28 Urine Blood Mod (Negative) 11/07/17 14:28 Urine Nitrite Neg (Negative) 11/07/17 14:28 Urine Bilirubin Neg (Negative) 11/07/17 14:28 Urine Urobilinogen < 2.0 mg/dL (<2.0) 11/07/17 14:28 Ur Leukocyte Esterase Neg (Negative) 11/07/17 14:28 Urine WBC (Auto) 2.0 /HPF (0.0-6.0) 11/07/17 14:28 Urine RBC (Auto) < 1.0 /HPF (0.0-6.0) 11/07/17 14:28 U Epithel Cells (Auto) < 1.0 /HPF (0-13.0) 11/07/17 14:28 Urine Bacteria (Auto) 1+ /HPF (Negative) 11/07/17 14:28 Urine Opiates Screen Presumptive negative 11/07/17 14:28 Urine Methadone Screen Presumptive negative 11/07/17 14:28 Ur Barbiturates Screen Presumptive negative 11/07/17 14:28 Ur Phencyclidine Scrn Presumptive negative 11/07/17 14:28 Ur Amphetamines Screen Presumptive negative 11/07/17 14:28 U Benzodiazepines Scrn Presumptive negative 11/07/17 14:28 Urine Cocaine Screen Presumptive negative 11/07/17 14:28 U Marijuana (THC) Screen Presumptive negative 11/07/17 14:28 Drugs of Abuse Note Disclamer 11/07/17 14:28
--- NOTE | 2017-11-13 14:04 | Progress Note ---
Assessment and Plan Acute ischemic stroke Sepsis secondary to acute mastoiditis DKA with acute metabolic acidosis, high anion gap-improving Acute metabolic encephalopathy (improved) Recurrent Acute ischemic strokes Expressive aphasia Hypernatremia Moderate malnutrition Oropharyngeal dysphagia - continue to monitor hemodynamics - Complete antibiotics per ID - Continue with supplemental oxygen for O2 sats >92% - continue aspiration precautions - Speech language pathologist to continue to treat- swallow and speech - Enteric nutrition - Free water flushes - PT/OT/mobility - Secondary stroke prophylaxis - Evaluate for other secondary causes of stroke. - Accuchecks with glycemic control Subjective Date of service: 11/13/17 Principal diagnosis: Acute on Chronic Encephalopathy; SIRS; DKA; Seizures Interval history: Patient is seen today for: Acute on Chronic Encephalopathy; SIRS; DKA; Seizures Seen and examined at bedside; 24hour events reviewed; nursing and respiratory care staff consulted; no adverse overnight events reported to me; resting in bed ; aphasic; No emesis or overt aspiration; on 2L NC Objective Vital Signs - 12hr 11/13/17 07:29 Temperature 98.7 F Pulse Rate 102 H Respiratory 18 Rate Blood Pressure 131/87 O2 Sat by Pulse 99 Oximetry Constitutional: no acute distress, asleep Eyes: non-icteric ENT: oropharynx moist, other (No goiter) Neck: supple, no lymphadenopathy, no JVD Effort: mildly labored Ascultation: Bilateral: diminished breath sounds, rhonchi Percussion: Bilateral: not dull Cardiovascular: regular rate and rhythm, other (No rubs or murmurs) Gastrointestinal: normoactive bowel sounds, soft, non-tender Integumentary: normal Extremities: no cyanosis, no edema, pulses normal, no ischemia or petechiae Neurologic: unable to assess Psychiatric: other (unable to asses) CBC and BMP: 11/13/17 05:55 11/13/17 05:55 ABG, PT/INR, D-dimer: ABG POC ABG pH 7.389 (7.35-7.45) 11/09/17 19:49 POC ABG pCO2 28.9 (35-45) L 11/09/17 19:49 POC ABG pO2 98 (80-105) 11/09/17 19:49 POC ABG HCO3 17.4 11/09/17 19:49 POC ABG Total CO2 18 11/09/17 19:49 POC ABG O2 Sat 98 11/09/17 19:49 PT/INR, D-dimer PT 16.4 Sec. (12.2-14.9) H 11/07/17 12:26 INR 1.25 (0.87-1.13) H 11/07/17 12:26 Abnormal lab findings: Abnormal Labs 11/07/17 11/07/17 11/07/17 12:26 12:26 12:26 WBC 20.1 H RBC Hgb Hct MCV 101 H MCHC RDW Seg Neuts % (Manual) 90.0 H Lymphocytes % (Manual) 2.0 L Seg Neutrophils # Man 18.1 H Lymphocytes # (Manual) 0.4 L PT 16.4 H INR 1.25 H POC ABG pH POC ABG pCO2 POC ABG pO2 Sodium Potassium Chloride Carbon Dioxide BUN Creatinine Glucose POC Glucose 445 H Hemoglobin A1c Lactic Acid Calcium Phosphorus Magnesium C-Reactive Protein Total Protein Albumin LDL Cholesterol Direct HDL Cholesterol 11/07/17 11/07/17 11/07/17 12:39 13:44 13:44 WBC RBC Hgb Hct MCV MCHC RDW Seg Neuts % (Manual) Lymphocytes % (Manual) Seg Neutrophils # Man Lymphocytes # (Manual) PT INR POC ABG pH 6.856 L POC ABG pCO2 12.4 L POC ABG pO2 288 H Sodium Potassium Chloride Carbon Dioxide BUN Creatinine Glucose POC Glucose Hemoglobin A1c Lactic Acid Calcium Phosphorus 8.10 H Magnesium 2.60 H C-Reactive Protein Total Protein 5.8 L Albumin 3.0 L LDL Cholesterol Direct HDL Cholesterol 11/07/17 11/07/17 11/07/17 13:44 14:17 15:17 WBC RBC Hgb Hct MCV MCHC RDW Seg Neuts % (Manual) Lymphocytes % (Manual) Seg Neutrophils # Man Lymphocytes # (Manual) PT INR POC ABG pH POC ABG pCO2 POC ABG pO2 Sodium Potassium 6.5 H* 5.8 H 5.7 H Chloride 94.4 L Carbon Dioxide 5 L* 2 L* < 2.0 L* BUN 43 H 38 H 39 H Creatinine 1.3 H 1.3 H Glucose 629 H* 610 H* 585 H* POC Glucose Hemoglobin A1c Lactic Acid Calcium 8.3 L 7.7 L 7.9 L Phosphorus Magnesium C-Reactive Protein Total Protein Albumin LDL Cholesterol Direct HDL Cholesterol 11/07/17 11/07/17 11/07/17 15:17 15:40 16:57 WBC RBC Hgb Hct MCV MCHC RDW Seg Neuts % (Manual) Lymphocytes % (Manual) Seg Neutrophils # Man Lymphocytes # (Manual) PT INR POC ABG pH POC ABG pCO2 POC ABG pO2 Sodium Potassium Chloride Carbon Dioxide 3 L* BUN 42 H Creatinine 1.3 H Glucose 557 H* POC Glucose > 500 H Hemoglobin A1c Lactic Acid 2.90 H* Calcium 8.1 L Phosphorus Magnesium C-Reactive Protein Total Protein Albumin LDL Cholesterol Direct HDL Cholesterol 11/07/17 11/07/17 11/07/17 17:02 17:02 18:05 WBC RBC Hgb Hct MCV MCHC RDW Seg Neuts % (Manual) Lymphocytes % (Manual) Seg Neutrophils # Man Lymphocytes # (Manual) PT INR POC ABG pH POC ABG pCO2 POC ABG pO2 Sodium Potassium Chloride Carbon Dioxide BUN Creatinine Glucose POC Glucose 485 H Hemoglobin A1c 10.0 H Lactic Acid Calcium Phosphorus 6.60 H Magnesium 2.70 H C-Reactive Protein Total Protein Albumin LDL Cholesterol Direct HDL Cholesterol 11/07/17 11/07/17 11/07/17 18:52 20:20 21:23 WBC RBC Hgb Hct MCV MCHC RDW Seg Neuts % (Manual) Lymphocytes % (Manual) Seg Neutrophils # Man Lymphocytes # (Manual) PT INR POC ABG pH POC ABG pCO2 POC ABG pO2 Sodium 148 H Potassium Chloride Carbon Dioxide < 2.0 L* BUN 41 H Creatinine 1.4 H Glucose 473 H POC Glucose 356 H 322 H Hemoglobin A1c Lactic Acid Calcium 7.8 L Phosphorus Magnesium C-Reactive Protein Total Protein Albumin LDL Cholesterol Direct HDL Cholesterol 11/07/17 11/07/17 11/07/17 22:28 23:01 23:31 WBC RBC Hgb Hct MCV MCHC RDW Seg Neuts % (Manual) Lymphocytes % (Manual) Seg Neutrophils # Man Lymphocytes # (Manual) PT INR POC ABG pH POC ABG pCO2 POC ABG pO2 Sodium 148 H Potassium Chloride 111.6 H Carbon Dioxide 4 L* BUN 43 H Creatinine 1.3 H Glucose 177 H POC Glucose 242 H 204 H Hemoglobin A1c Lactic Acid Calcium 7.7 L Phosphorus Magnesium C-Reactive Protein Total Protein Albumin LDL Cholesterol Direct HDL Cholesterol 11/08/17 11/08/17 11/08/17 01:20 03:30 04:01 WBC RBC Hgb Hct MCV MCHC RDW Seg Neuts % (Manual) Lymphocytes % (Manual) Seg Neutrophils # Man Lymphocytes # (Manual) PT INR POC ABG pH POC ABG pCO2 POC ABG pO2 Sodium Potassium Chloride Carbon Dioxide BUN Creatinine Glucose POC Glucose 120 H 59 L 132 H Hemoglobin A1c Lactic Acid Calcium Phosphorus Magnesium C-Reactive Protein Total Protein Albumin LDL Cholesterol Direct HDL Cholesterol 11/08/17 11/08/17 11/08/17 04:20 04:20 05:15 WBC RBC Hgb Hct MCV MCHC RDW Seg Neuts % (Manual) Lymphocytes % (Manual) Seg Neutrophils # Man Lymphocytes # (Manual) PT INR POC ABG pH POC ABG pCO2 POC ABG pO2 Sodium 151 H 150 H Potassium Chloride 114.3 H 115.4 H Carbon Dioxide 10 L 10 L BUN 48 H 48 H Creatinine 1.3 H Glucose 121 H 118 H POC Glucose 134 H Hemoglobin A1c Lactic Acid Calcium 7.8 L 7.8 L Phosphorus Magnesium C-Reactive Protein Total Protein Albumin LDL Cholesterol Direct HDL Cholesterol 11/08/17 11/08/17 11/08/17 06:41 07:49 08:12 WBC RBC Hgb Hct MCV MCHC RDW Seg Neuts % (Manual) Lymphocytes % (Manual) Seg Neutrophils # Man Lymphocytes # (Manual) PT INR POC ABG pH POC ABG pCO2 POC ABG pO2 Sodium 151 H Potassium Chloride 116.5 H Carbon Dioxide 13 L BUN 52 H Creatinine 1.3 H Glucose 213 H POC Glucose 172 H 228 H Hemoglobin A1c Lactic Acid Calcium 7.9 L Phosphorus Magnesium C-Reactive Protein Total Protein Albumin LDL Cholesterol Direct HDL Cholesterol 11/08/17 11/08/17 11/08/17 08:22 09:31 11:04 WBC RBC Hgb Hct MCV MCHC RDW Seg Neuts % (Manual) Lymphocytes % (Manual) Seg Neutrophils # Man Lymphocytes # (Manual) PT INR POC ABG pH POC ABG pCO2 POC ABG pO2 Sodium Potassium Chloride Carbon Dioxide BUN Creatinine Glucose POC Glucose 140 H 140 H 136 H Hemoglobin A1c Lactic Acid Calcium Phosphorus Magnesium C-Reactive Protein Total Protein Albumin LDL Cholesterol Direct HDL Cholesterol 11/08/17 11/08/17 11/08/17 12:11 13:40 17:21 WBC RBC Hgb Hct MCV MCHC RDW Seg Neuts % (Manual) Lymphocytes % (Manual) Seg Neutrophils # Man Lymphocytes # (Manual) PT INR POC ABG pH POC ABG pCO2 POC ABG pO2 Sodium 152 H Potassium Chloride 117.6 H Carbon Dioxide 15 L BUN 50 H Creatinine 1.3 H Glucose 144 H POC Glucose 111 H 182 H Hemoglobin A1c Lactic Acid Calcium Phosphorus Magnesium C-Reactive Protein Total Protein Albumin LDL Cholesterol Direct HDL Cholesterol 11/08/17 11/08/17 11/09/17 17:45 23:06 00:39 WBC RBC Hgb Hct MCV MCHC RDW Seg Neuts % (Manual) Lymphocytes % (Manual) Seg Neutrophils # Man Lymphocytes # (Manual) PT INR POC ABG pH POC ABG pCO2 POC ABG pO2 Sodium 149 H Potassium Chloride 116.2 H Carbon Dioxide 13 L BUN 48 H Creatinine 1.3 H Glucose 171 H POC Glucose < 40 L 123 H Hemoglobin A1c Lactic Acid Calcium 8.1 L Phosphorus Magnesium C-Reactive Protein Total Protein Albumin LDL Cholesterol Direct HDL Cholesterol 11/09/17 11/09/17 11/09/17 07:07 07:07 11:35 WBC RBC Hgb Hct MCV MCHC RDW Seg Neuts % (Manual) Lymphocytes % (Manual) Seg Neutrophils # Man Lymphocytes # (Manual) PT INR POC ABG pH POC ABG pCO2 POC ABG pO2 Sodium 152 H Potassium 3.0 L D Chloride 121.9 H Carbon Dioxide 18 L BUN 44 H Creatinine Glucose POC Glucose 118 H Hemoglobin A1c Lactic Acid Calcium Phosphorus 1.50 L Magnesium C-Reactive Protein Total Protein Albumin LDL Cholesterol Direct HDL Cholesterol 11/09/17 11/09/17 11/09/17 16:54 19:44 19:49 WBC RBC Hgb Hct MCV MCHC RDW Seg Neuts % (Manual) Lymphocytes % (Manual) Seg Neutrophils # Man Lymphocytes # (Manual) PT INR POC ABG pH POC ABG pCO2 28.9 L POC ABG pO2 Sodium Potassium Chloride Carbon Dioxide BUN Creatinine Glucose POC Glucose 231 H Hemoglobin A1c Lactic Acid Calcium Phosphorus Magnesium C-Reactive Protein 4.70 H Total Protein Albumin LDL Cholesterol Direct HDL Cholesterol 11/09/17 11/10/17 11/10/17 21:48 06:25 12:35 WBC RBC Hgb Hct MCV MCHC RDW Seg Neuts % (Manual) Lymphocytes % (Manual) Seg Neutrophils # Man Lymphocytes # (Manual) PT INR POC ABG pH POC ABG pCO2 POC ABG pO2 Sodium Potassium Chloride Carbon Dioxide BUN Creatinine Glucose POC Glucose 176 H 299 H 258 H Hemoglobin A1c Lactic Acid Calcium Phosphorus Magnesium C-Reactive Protein Total Protein Albumin LDL Cholesterol Direct HDL Cholesterol 11/10/17 11/10/17 11/11/17 16:43 22:07 02:59 WBC RBC Hgb Hct MCV MCHC RDW Seg Neuts % (Manual) Lymphocytes % (Manual) Seg Neutrophils # Man Lymphocytes # (Manual) PT INR POC ABG pH POC ABG pCO2 POC ABG pO2 Sodium Potassium Chloride Carbon Dioxide BUN Creatinine Glucose POC Glucose 252 H 248 H 193 H Hemoglobin A1c Lactic Acid Calcium Phosphorus Magnesium C-Reactive Protein Total Protein Albumin LDL Cholesterol Direct HDL Cholesterol 11/11/17 11/11/17 11/11/17 06:20 07:27 07:27 WBC 18.6 H RBC 2.90 L Hgb 9.0 L Hct 27.0 L MCV MCHC RDW Seg Neuts % (Manual) Lymphocytes % (Manual) Seg Neutrophils # Man Lymphocytes # (Manual) PT INR POC ABG pH POC ABG pCO2 POC ABG pO2 Sodium 152 H Potassium Chloride 116.2 H Carbon Dioxide 19 L BUN 24 H Creatinine Glucose 288 H POC Glucose 280 H Hemoglobin A1c Lactic Acid Calcium 8.3 L Phosphorus Magnesium C-Reactive Protein Total Protein Albumin LDL Cholesterol Direct 42 L HDL Cholesterol 88 H 11/11/17 11/11/17 11/11/17 11:09 17:12 20:59 WBC RBC Hgb Hct MCV MCHC RDW Seg Neuts % (Manual) Lymphocytes % (Manual) Seg Neutrophils # Man Lymphocytes # (Manual) PT INR POC ABG pH POC ABG pCO2 POC ABG pO2 Sodium Potassium Chloride Carbon Dioxide BUN Creatinine Glucose POC Glucose 328 H 306 H 318 H Hemoglobin A1c Lactic Acid Calcium Phosphorus Magnesium C-Reactive Protein Total Protein Albumin LDL Cholesterol Direct HDL Cholesterol 11/12/17 11/12/17 11/12/17 01:55 04:40 04:40 WBC 13.0 H RBC 2.88 L Hgb 9.0 L Hct 26.2 L MCV MCHC 35 H RDW 12.6 L Seg Neuts % (Manual) Lymphocytes % (Manual) Seg Neutrophils # Man Lymphocytes # (Manual) PT INR POC ABG pH POC ABG pCO2 POC ABG pO2 Sodium 148 H Potassium 3.3 L Chloride 111.8 H Carbon Dioxide BUN 18 H Creatinine Glucose 212 H POC Glucose 274 H Hemoglobin A1c Lactic Acid Calcium 8.3 L Phosphorus Magnesium C-Reactive Protein Total Protein Albumin LDL Cholesterol Direct HDL Cholesterol 11/12/17 11/12/1718 06:30 12:14 16:50 WBC RBC Hgb Hct MCV MCHC RDW Seg Neuts % (Manual) Lymphocytes % (Manual) Seg Neutrophils # Man Lymphocytes # (Manual) PT INR POC ABG pH POC ABG pCO2 POC ABG pO2 Sodium Potassium Chloride Carbon Dioxide BUN Creatinine Glucose POC Glucose 285 H 166 H 178 H Hemoglobin A1c Lactic Acid Calcium Phosphorus Magnesium C-Reactive Protein Total Protein Albumin LDL Cholesterol Direct HDL Cholesterol 11/12/17 11/13/17 11/13/17 21:24 05:47 05:55 WBC 12.4 H RBC 2.92 L Hgb 8.8 L Hct 26.1 L MCV MCHC RDW 12.6 L Seg Neuts % (Manual) Lymphocytes % (Manual) Seg Neutrophils # Man Lymphocytes # (Manual) PT INR POC ABG pH POC ABG pCO2 POC ABG pO2 Sodium Potassium Chloride Carbon Dioxide BUN Creatinine Glucose POC Glucose 197 H 291 H Hemoglobin A1c Lactic Acid Calcium Phosphorus Magnesium C-Reactive Protein Total Protein Albumin LDL Cholesterol Direct HDL Cholesterol 11/13/17 11/13/17 05:55 12:24 WBC RBC Hgb Hct MCV MCHC RDW Seg Neuts % (Manual) Lymphocytes % (Manual) Seg Neutrophils # Man Lymphocytes # (Manual) PT INR POC ABG pH POC ABG pCO2 POC ABG pO2 Sodium Potassium Chloride 108.2 H Carbon Dioxide 21 L BUN Creatinine Glucose 228 H POC Glucose 215 H Hemoglobin A1c Lactic Acid Calcium 8.1 L Phosphorus Magnesium C-Reactive Protein Total Protein Albumin LDL Cholesterol Direct HDL Cholesterol
[2017-11-13] MEDS: cefTRIAXone 1 GM in NACL 0.9% 20 ML IV SCH (17:30)
[2017-11-13] MEDS: FLEXERIL PO PRN (22:01)
[2017-11-14] MEDS: NOVOLOG SUB-Q SCH ×8 (00:04→17:56)
[2017-11-14] MEDS: ZOSYN/NS 3.375GM/50ML 3.375 GM/50 ML BAG IV SCH ×4 (00:04→18:00)
[2017-11-14] MEDS: PEPCID PO SCH (11:41)
[2017-11-14] MEDS: celeXA PO SCH (11:41)
[2017-11-14] MEDS: PROCARDIA XL PO SCH (11:42)
[2017-11-14] MEDS: ASPIRIN PR SCH (11:42)
[2017-11-14] MEDS: PLAVIX PO SCH (11:42)
--- NOTE | 2017-11-14 15:46 | Progress Note ---
Assessment and Plan -Sepsis secondary to acute mastoiditis -DKA with acute metabolic acidosis, high anion gap(resolved) -Acute metabolic encephalopathy( improved) -Recurrent Acute ischemic strokes -Expressive aphasia -Hypernatremia -Moderate malnutrition -Oropharyngeal dysphagia Monitor hemodynamics Complete antibiotics per ID Continue with supplemental oxygen for O2 sats >92% Aspiration precautions Speech language pathologist to evaluate and treat- swallow and speech Enteric nutrition Free water flushes PT/OT/mobility Secondary stroke prophylaxis Evaluate for other secondary causes of stroke. Get ELEANOR with reflex Accuchecks with glycemic control Subjective Date of service: 11/14/17 Principal diagnosis: Acute on Chronic Encephalopathy; SIRS; DKA; Seizures Interval history: Patient is seen today for: Acute on Chronic Encephalopathy; SIRS; DKA; Seizures Seen and examined at bedside; 24hour events reviewed; nursing and respiratory care staff consulted; no adverse overnight events reported to me; Objective - Exam Narrative Exam: GEN: Thin frail woman chronic a bit debilitating appearing, lethargic, nonverbal HEENT: NCAT, EOMI, PERRL, OP Clear NECK: supple, no adenopathy, no thyromegaly, no JVD CVS/HEART: regular tachycardia , S1S2, NO JVD, pulses present bilaterally CHEST/LUNGS: CTA B, Symmetrical chest expansion, good air entry bilaterally GI/Abdomen: soft, NTND, good bowel sounds, no guarding or rebound /Bladder: no suprapubic tenderness, no CVA or paraspinal tenderness EXT/Skin: no c/c/e, no obvious rash MSK: Moving right arm, left hand/forearm in a splint/immobilizer Neuro:Expressive aphasia, but mouths words Psych: calm, good affect Vital Signs - 12hr 11/14/17 07:38 Temperature 98.3 F Pulse Rate 93 H Respiratory 18 Rate Blood Pressure 135/85 O2 Sat by Pulse 99 Oximetry Constitutional: no acute distress, asleep Eyes: non-icteric Neck: supple, no lymphadenopathy Ascultation: Bilateral: clear Cardiovascular: regular rate and rhythm Gastrointestinal: normoactive bowel sounds, soft, non-tender Integumentary: normal Extremities: no cyanosis, no edema Neurologic: other (Patient sleeping at this time.) Psychiatric: other (Patient sleeping at this time.) CBC and BMP: 11/13/17 05:55 11/13/17 05:55 ABG, PT/INR, D-dimer: ABG POC ABG pH 7.389 (7.35-7.45) 11/09/17 19:49 POC ABG pCO2 28.9 (35-45) L 11/09/17 19:49 POC ABG pO2 98 (80-105) 11/09/17 19:49 POC ABG HCO3 17.4 11/09/17 19:49 POC ABG Total CO2 18 11/09/17 19:49 POC ABG O2 Sat 98 11/09/17 19:49 PT/INR, D-dimer PT 16.4 Sec. (12.2-14.9) H 11/07/17 12:26 INR 1.25 (0.87-1.13) H 11/07/17 12:26 Abnormal lab findings: Abnormal Labs 11/07/17 11/07/17 11/07/17 12:26 12:26 12:26 WBC 20.1 H RBC Hgb Hct MCV 101 H MCHC RDW Seg Neuts % (Manual) 90.0 H Lymphocytes % (Manual) 2.0 L Seg Neutrophils # Man 18.1 H Lymphocytes # (Manual) 0.4 L PT 16.4 H INR 1.25 H POC ABG pH POC ABG pCO2 POC ABG pO2 Sodium Potassium Chloride Carbon Dioxide BUN Creatinine Glucose POC Glucose 445 H Hemoglobin A1c Lactic Acid Calcium Phosphorus Magnesium C-Reactive Protein Total Protein Albumin LDL Cholesterol Direct HDL Cholesterol 11/07/17 11/07/17 11/07/17 12:39 13:44 13:44 WBC RBC Hgb Hct MCV MCHC RDW Seg Neuts % (Manual) Lymphocytes % (Manual) Seg Neutrophils # Man Lymphocytes # (Manual) PT INR POC ABG pH 6.856 L POC ABG pCO2 12.4 L POC ABG pO2 288 H Sodium Potassium Chloride Carbon Dioxide BUN Creatinine Glucose POC Glucose Hemoglobin A1c Lactic Acid Calcium Phosphorus 8.10 H Magnesium 2.60 H C-Reactive Protein Total Protein 5.8 L Albumin 3.0 L LDL Cholesterol Direct HDL Cholesterol 11/07/17 11/07/17 11/07/17 13:44 14:17 15:17 WBC RBC Hgb Hct MCV MCHC RDW Seg Neuts % (Manual) Lymphocytes % (Manual) Seg Neutrophils # Man Lymphocytes # (Manual) PT INR POC ABG pH POC ABG pCO2 POC ABG pO2 Sodium Potassium 6.5 H* 5.8 H 5.7 H Chloride 94.4 L Carbon Dioxide 5 L* 2 L* < 2.0 L* BUN 43 H 38 H 39 H Creatinine 1.3 H 1.3 H Glucose 629 H* 610 H* 585 H* POC Glucose Hemoglobin A1c Lactic Acid Calcium 8.3 L 7.7 L 7.9 L Phosphorus Magnesium C-Reactive Protein Total Protein Albumin LDL Cholesterol Direct HDL Cholesterol 11/07/17 11/07/17 11/07/17 15:17 15:40 16:57 WBC RBC Hgb Hct MCV MCHC RDW Seg Neuts % (Manual) Lymphocytes % (Manual) Seg Neutrophils # Man Lymphocytes # (Manual) PT INR POC ABG pH POC ABG pCO2 POC ABG pO2 Sodium Potassium Chloride Carbon Dioxide 3 L* BUN 42 H Creatinine 1.3 H Glucose 557 H* POC Glucose > 500 H Hemoglobin A1c Lactic Acid 2.90 H* Calcium 8.1 L Phosphorus Magnesium C-Reactive Protein Total Protein Albumin LDL Cholesterol Direct HDL Cholesterol 11/07/17 11/07/17 11/07/17 17:02 17:02 18:05 WBC RBC Hgb Hct MCV MCHC RDW Seg Neuts % (Manual) Lymphocytes % (Manual) Seg Neutrophils # Man Lymphocytes # (Manual) PT INR POC ABG pH POC ABG pCO2 POC ABG pO2 Sodium Potassium Chloride Carbon Dioxide BUN Creatinine Glucose POC Glucose 485 H Hemoglobin A1c 10.0 H Lactic Acid Calcium Phosphorus 6.60 H Magnesium 2.70 H C-Reactive Protein Total Protein Albumin LDL Cholesterol Direct HDL Cholesterol 11/07/17 11/07/17 11/07/17 18:52 20:20 21:23 WBC RBC Hgb Hct MCV MCHC RDW Seg Neuts % (Manual) Lymphocytes % (Manual) Seg Neutrophils # Man Lymphocytes # (Manual) PT INR POC ABG pH POC ABG pCO2 POC ABG pO2 Sodium 148 H Potassium Chloride Carbon Dioxide < 2.0 L* BUN 41 H Creatinine 1.4 H Glucose 473 H POC Glucose 356 H 322 H Hemoglobin A1c Lactic Acid Calcium 7.8 L Phosphorus Magnesium C-Reactive Protein Total Protein Albumin LDL Cholesterol Direct HDL Cholesterol 11/07/17 11/07/17 11/07/17 22:28 23:01 23:31 WBC RBC Hgb Hct MCV MCHC RDW Seg Neuts % (Manual) Lymphocytes % (Manual) Seg Neutrophils # Man Lymphocytes # (Manual) PT INR POC ABG pH POC ABG pCO2 POC ABG pO2 Sodium 148 H Potassium Chloride 111.6 H Carbon Dioxide 4 L* BUN 43 H Creatinine 1.3 H Glucose 177 H POC Glucose 242 H 204 H Hemoglobin A1c Lactic Acid Calcium 7.7 L Phosphorus Magnesium C-Reactive Protein Total Protein Albumin LDL Cholesterol Direct HDL Cholesterol 11/08/17 11/08/17 11/08/17 01:20 03:30 04:01 WBC RBC Hgb Hct MCV MCHC RDW Seg Neuts % (Manual) Lymphocytes % (Manual) Seg Neutrophils # Man Lymphocytes # (Manual) PT INR POC ABG pH POC ABG pCO2 POC ABG pO2 Sodium Potassium Chloride Carbon Dioxide BUN Creatinine Glucose POC Glucose 120 H 59 L 132 H Hemoglobin A1c Lactic Acid Calcium Phosphorus Magnesium C-Reactive Protein Total Protein Albumin LDL Cholesterol Direct HDL Cholesterol 11/08/17 11/08/17 11/08/17 04:20 04:20 05:15 WBC RBC Hgb Hct MCV MCHC RDW Seg Neuts % (Manual) Lymphocytes % (Manual) Seg Neutrophils # Man Lymphocytes # (Manual) PT INR POC ABG pH POC ABG pCO2 POC ABG pO2 Sodium 151 H 150 H Potassium Chloride 114.3 H 115.4 H Carbon Dioxide 10 L 10 L BUN 48 H 48 H Creatinine 1.3 H Glucose 121 H 118 H POC Glucose 134 H Hemoglobin A1c Lactic Acid Calcium 7.8 L 7.8 L Phosphorus Magnesium C-Reactive Protein Total Protein Albumin LDL Cholesterol Direct HDL Cholesterol 11/08/17 11/08/17 11/08/17 06:41 07:49 08:12 WBC RBC Hgb Hct MCV MCHC RDW Seg Neuts % (Manual) Lymphocytes % (Manual) Seg Neutrophils # Man Lymphocytes # (Manual) PT INR POC ABG pH POC ABG pCO2 POC ABG pO2 Sodium 151 H Potassium Chloride 116.5 H Carbon Dioxide 13 L BUN 52 H Creatinine 1.3 H Glucose 213 H POC Glucose 172 H 228 H Hemoglobin A1c Lactic Acid Calcium 7.9 L Phosphorus Magnesium C-Reactive Protein Total Protein Albumin LDL Cholesterol Direct HDL Cholesterol 11/08/17 11/08/17 11/08/17 08:22 09:31 11:04 WBC RBC Hgb Hct MCV MCHC RDW Seg Neuts % (Manual) Lymphocytes % (Manual) Seg Neutrophils # Man Lymphocytes # (Manual) PT INR POC ABG pH POC ABG pCO2 POC ABG pO2 Sodium Potassium Chloride Carbon Dioxide BUN Creatinine Glucose POC Glucose 140 H 140 H 136 H Hemoglobin A1c Lactic Acid Calcium Phosphorus Magnesium C-Reactive Protein Total Protein Albumin LDL Cholesterol Direct HDL Cholesterol 11/08/17 11/08/17 11/08/17 12:11 13:40 17:21 WBC RBC Hgb Hct MCV MCHC RDW Seg Neuts % (Manual) Lymphocytes % (Manual) Seg Neutrophils # Man Lymphocytes # (Manual) PT INR POC ABG pH POC ABG pCO2 POC ABG pO2 Sodium 152 H Potassium Chloride 117.6 H Carbon Dioxide 15 L BUN 50 H Creatinine 1.3 H Glucose 144 H POC Glucose 111 H 182 H Hemoglobin A1c Lactic Acid Calcium Phosphorus Magnesium C-Reactive Protein Total Protein Albumin LDL Cholesterol Direct HDL Cholesterol 11/08/17 11/08/17 11/09/17 17:45 23:06 00:39 WBC RBC Hgb Hct MCV MCHC RDW Seg Neuts % (Manual) Lymphocytes % (Manual) Seg Neutrophils # Man Lymphocytes # (Manual) PT INR POC ABG pH POC ABG pCO2 POC ABG pO2 Sodium 149 H Potassium Chloride 116.2 H Carbon Dioxide 13 L BUN 48 H Creatinine 1.3 H Glucose 171 H POC Glucose < 40 L 123 H Hemoglobin A1c Lactic Acid Calcium 8.1 L Phosphorus Magnesium C-Reactive Protein Total Protein Albumin LDL Cholesterol Direct HDL Cholesterol 11/09/17 11/09/17 11/09/17 07:07 07:07 11:35 WBC RBC Hgb Hct MCV MCHC RDW Seg Neuts % (Manual) Lymphocytes % (Manual) Seg Neutrophils # Man Lymphocytes # (Manual) PT INR POC ABG pH POC ABG pCO2 POC ABG pO2 Sodium 152 H Potassium 3.0 L D Chloride 121.9 H Carbon Dioxide 18 L BUN 44 H Creatinine Glucose POC Glucose 118 H Hemoglobin A1c Lactic Acid Calcium Phosphorus 1.50 L Magnesium C-Reactive Protein Total Protein Albumin LDL Cholesterol Direct HDL Cholesterol 11/09/17 11/09/17 11/09/17 16:54 19:44 19:49 WBC RBC Hgb Hct MCV MCHC RDW Seg Neuts % (Manual) Lymphocytes % (Manual) Seg Neutrophils # Man Lymphocytes # (Manual) PT INR POC ABG pH POC ABG pCO2 28.9 L POC ABG pO2 Sodium Potassium Chloride Carbon Dioxide BUN Creatinine Glucose POC Glucose 231 H Hemoglobin A1c Lactic Acid Calcium Phosphorus Magnesium C-Reactive Protein 4.70 H Total Protein Albumin LDL Cholesterol Direct HDL Cholesterol 11/09/17 11/10/17 11/10/17 21:48 06:25 12:35 WBC RBC Hgb Hct MCV MCHC RDW Seg Neuts % (Manual) Lymphocytes % (Manual) Seg Neutrophils # Man Lymphocytes # (Manual) PT INR POC ABG pH POC ABG pCO2 POC ABG pO2 Sodium Potassium Chloride Carbon Dioxide BUN Creatinine Glucose POC Glucose 176 H 299 H 258 H Hemoglobin A1c Lactic Acid Calcium Phosphorus Magnesium C-Reactive Protein Total Protein Albumin LDL Cholesterol Direct HDL Cholesterol 11/10/17 11/10/17 11/11/17 16:43 22:07 02:59 WBC RBC Hgb Hct MCV MCHC RDW Seg Neuts % (Manual) Lymphocytes % (Manual) Seg Neutrophils # Man Lymphocytes # (Manual) PT INR POC ABG pH POC ABG pCO2 POC ABG pO2 Sodium Potassium Chloride Carbon Dioxide BUN Creatinine Glucose POC Glucose 252 H 248 H 193 H Hemoglobin A1c Lactic Acid Calcium Phosphorus Magnesium C-Reactive Protein Total Protein Albumin LDL Cholesterol Direct HDL Cholesterol 11/11/17 11/11/17 11/11/17 06:20 07:27 07:27 WBC 18.6 H RBC 2.90 L Hgb 9.0 L Hct 27.0 L MCV MCHC RDW Seg Neuts % (Manual) Lymphocytes % (Manual) Seg Neutrophils # Man Lymphocytes # (Manual) PT INR POC ABG pH POC ABG pCO2 POC ABG pO2 Sodium 152 H Potassium Chloride 116.2 H Carbon Dioxide 19 L BUN 24 H Creatinine Glucose 288 H POC Glucose 280 H Hemoglobin A1c Lactic Acid Calcium 8.3 L Phosphorus Magnesium C-Reactive Protein Total Protein Albumin LDL Cholesterol Direct 42 L HDL Cholesterol 88 H 11/11/17 11/11/17 11/11/17 11:09 17:12 20:59 WBC RBC Hgb Hct MCV MCHC RDW Seg Neuts % (Manual) Lymphocytes % (Manual) Seg Neutrophils # Man Lymphocytes # (Manual) PT INR POC ABG pH POC ABG pCO2 POC ABG pO2 Sodium Potassium Chloride Carbon Dioxide BUN Creatinine Glucose POC Glucose 328 H 306 H 318 H Hemoglobin A1c Lactic Acid Calcium Phosphorus Magnesium C-Reactive Protein Total Protein Albumin LDL Cholesterol Direct HDL Cholesterol 11/12/17 11/12/17 11/12/17 01:55 04:40 04:40 WBC 13.0 H RBC 2.88 L Hgb 9.0 L Hct 26.2 L MCV MCHC 35 H RDW 12.6 L Seg Neuts % (Manual) Lymphocytes % (Manual) Seg Neutrophils # Man Lymphocytes # (Manual) PT INR POC ABG pH POC ABG pCO2 POC ABG pO2 Sodium 148 H Potassium 3.3 L Chloride 111.8 H Carbon Dioxide BUN 18 H Creatinine Glucose 212 H POC Glucose 274 H Hemoglobin A1c Lactic Acid Calcium 8.3 L Phosphorus Magnesium C-Reactive Protein Total Protein Albumin LDL Cholesterol Direct HDL Cholesterol 11/12/17 11/12/17 11/12/17 06:30 12:14 16:50 WBC RBC Hgb Hct MCV MCHC RDW Seg Neuts % (Manual) Lymphocytes % (Manual) Seg Neutrophils # Man Lymphocytes # (Manual) PT INR POC ABG pH POC ABG pCO2 POC ABG pO2 Sodium Potassium Chloride Carbon Dioxide BUN Creatinine Glucose POC Glucose 285 H 166 H 178 H Hemoglobin A1c Lactic Acid Calcium Phosphorus Magnesium C-Reactive Protein Total Protein Albumin LDL Cholesterol Direct HDL Cholesterol 11/12/17 11/13/17 11/13/17 21:24 05:47 05:55 WBC 12.4 H RBC 2.92 L Hgb 8.8 L Hct 26.1 L MCV MCHC RDW 12.6 L Seg Neuts % (Manual) Lymphocytes % (Manual) Seg Neutrophils # Man Lymphocytes # (Manual) PT INR POC ABG pH POC ABG pCO2 POC ABG pO2 Sodium Potassium Chloride Carbon Dioxide BUN Creatinine Glucose POC Glucose 197 H 291 H Hemoglobin A1c Lactic Acid Calcium Phosphorus Magnesium C-Reactive Protein Total Protein Albumin LDL Cholesterol Direct HDL Cholesterol 11/13/17 11/13/17 11/13/17 05:55 12:24 16:33 WBC RBC Hgb Hct MCV MCHC RDW Seg Neuts % (Manual) Lymphocytes % (Manual) Seg Neutrophils # Man Lymphocytes # (Manual) PT INR POC ABG pH POC ABG pCO2 POC ABG pO2 Sodium Potassium Chloride 108.2 H Carbon Dioxide 21 L BUN Creatinine Glucose 228 H POC Glucose 215 H 280 H Hemoglobin A1c Lactic Acid Calcium 8.1 L Phosphorus Magnesium C-Reactive Protein Total Protein Albumin LDL Cholesterol Direct HDL Cholesterol 11/13/17 11/14/17 11/14/17 22:12 05:27 12:47 WBC RBC Hgb Hct MCV MCHC RDW Seg Neuts % (Manual) Lymphocytes % (Manual) Seg Neutrophils # Man Lymphocytes # (Manual) PT INR POC ABG pH POC ABG pCO2 POC ABG pO2 Sodium Potassium Chloride Carbon Dioxide BUN Creatinine Glucose POC Glucose 236 H 186 H 206 H Hemoglobin A1c Lactic Acid Calcium Phosphorus Magnesium C-Reactive Protein Total Protein Albumin LDL Cholesterol Direct HDL Cholesterol
--- NOTE | 2017-11-14 16:04 | Fluoroscopy Report ---
Modified barium swallow: Dysphasia. Examination performed in conjunction with speech therapy. The patient was given several consistencies of opaque material. There was aspiration with high volume thin liquid. Markedly compromised oral transit with thicker materials. Generally had difficulty swallowing all thicknesses. Of note is a cervical plate bridging C3 and C4.
--- NOTE | 2017-11-14 17:15 | Progress Note ---
Assessment and Plan Assessment and plan: Patient is 37-year-old woman with a history of insulin-dependent diabetes mellitus, CVA on aspirin and Plavix, hypertension, dyslipidemia and depression who presented with altered mental status and was admitted for DKA. Her baseline mental function per sister Jessica: she walks with a walker, she feeds herself, needs help with clothes, left arm weaker than right and speech is usually slurred. Jessica reports that patient was discharged from [facility] about 1.5 months ago and went to [facility]. Then, she went to her home from there. She lives with daughter Leslye and brother, Sean, who moved in with her for more support. per Jessica: "I wanna say she wasn't talking her insulin, because this 3rd stoke did alittle mentally and she more forgettable, that is what I am thinking , for example, she will say, I need to take my insulin but she had just took her insulin." They went to [place], on the way back Saturday night 11pm, she was sleeping off and on, BG was 516 and she took her insulin. Her daughter, Leslye, said next morning she got up morning to go to the bathroom and she fell and then was unresponsive, she was found on the floor in urine by daughter, Leslye. -DKA with acute metabolic acidosis, high anion gap: Treated with IV fluids, insulin drip now resolved -Acute metabolic encephalopathy/semiconscious state: treat the above -Recurrent Acute ischemic strokes. 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 Anion gap was still high so I sent ICU to start insulin drip. I also ordered bmp stat. By the time the stat bmp was resulted, patient was in the icu. Anion gap has closed, so i will downgrade back to medical surg floor. Replace her potassium, start diet, if she unable to eat continue D5W due to hypernatremia and not eating. Await neurology assessment because she is not at her mental baseline of slurred speech and ambulation with a walker. Order PT/OT 11/10/17: I gave pt 0.5mg iv ativan x 1 to complete mri brain that Neurology ordered, MRI brain reported as multiple focal areas of restricted diffusion right cerebral hemisphere suggestive excuse ischemia, no evidence of hemorrhage , dilated right lateral ventricle without definite evidence of obstruction, acute right mastoiditis. I started abx, iv rocephin, used stroke protocol 11/11/2017: WBC went down, Still hypernatremic, more free water, repeat labs in am. ECHO pending. I called Jessica at [phone], no answer ?phone broken message. 11/12/17: echo pending, replace potassium, hyperglycemia on D5W for the hypernatremia, continue ssi, if she tolerates a diet today, then d/c ivf, change ssi to achs instead of q4hr, urine culture still pending. Hopefully SNF placement in 1-2 days 11/13/17: Echo reviewed, hypernatremia/hypokalemia resolved, stop ivf. Waiting on placement 11/14/17: [facility] in [place], [place], waiting on insurance pre-auth History Interval history: Patient was seen and examined. Follow-up on current diagnosis/altered mental status. Overnight uneventful. Patient not given any history; therefore, Imaging, nursing note, chart, labs and old chart reviewed. Responding more. Hospitalist Physical - Physical exam Narrative exam: GEN: Thin frail woman chronic a bit debilitating appearing, lethargic, nonverbal HEENT: NCAT, EOMI, PERRL, OP Clear NECK: supple, no adenopathy, no thyromegaly, no JVD CVS/HEART: regular tachycardia NORMAL S1S2, NO JVD, pulses present bilaterally CHEST/LUNGS: CTA B, Symmetrical chest expansion, good air entry bilaterally GI/Abdomen: soft, NTND, good bowel sounds, no guarding or rebound /Bladder: no suprapubic tenderness, no CVA or paraspinal tenderness EXT/Skin: no c/c/e, no obvious rash MSK: Moving both arms with contractures Neuro: CN 2-12 grossly intact except nonverbal, hemiparesis, facial asymmetry, no new focal deficits Psych: calm but confused - Constitutional Vitals: Temp Pulse Resp BP Pulse Ox 98.3 F 93 H 18 135/85 99 11/14/17 07:38 11/14/17 07:38 11/14/17 07:38 11/14/17 07:38 11/14/17 07:38 General appearance: Present: well-nourished. Absent: mild distress Results - Labs CBC & Chem 7: 11/13/17 05:55 11/13/17 05:55 Labs: Laboratory Last Values WBC 12.4 K/mm3 (4.5-11.0) H 11/13/17 05:55 RBC 2.92 M/mm3 (3.65-5.03) L 11/13/17 05:55 Hgb 8.8 gm/dl (10.1-14.3) L 11/13/17 05:55 Hct 26.1 % (30.3-42.9) L 11/13/17 05:55 MCV 89 fl (79-97) 11/13/17 05:55 MCH 30 pg (28-32) 11/13/17 05:55 MCHC 34 % (30-34) 11/13/17 05:55 RDW 12.6 % (13.2-15.2) L 11/13/17 05:55 Plt Count 249 K/mm3 (140-440) 11/13/17 05:55 Add Manual Diff Complete 11/07/17 12:26 Total Counted 100 11/07/17 12:26 Seg Neutrophils % Emergency Services Professional 11/07/17 12:26 Seg Neuts % (Manual) 90.0 % (40.0-70.0) H 11/07/17 12:26 Band Neutrophils % 4.0 % 11/07/17 12:26 Lymphocytes % (Manual) 2.0 % (13.4-35.0) L 11/07/17 12:26 Reactive Lymphs % (Man) 0 % 11/07/17 12:26 Monocytes % (Manual) 4.0 % (0.0-7.3) 11/07/17 12:26 Eosinophils % (Manual) 0 % (0.0-4.3) 11/07/17 12:26 Basophils % (Manual) 0 % (0.0-1.8) 11/07/17 12:26 Metamyelocytes % 0 % 11/07/17 12:26 Myelocytes % 0 % 11/07/17 12:26 Promyelocytes % 0 % 11/07/17 12:26 Blast Cells % 0 % 11/07/17 12:26 Nucleated RBC % Not Reportable 11/07/17 12:26 Seg Neutrophils # Man 18.1 K/mm3 (1.8-7.7) H 11/07/17 12:26 Band Neutrophils # 0.8 K/mm3 11/07/17 12:26 Lymphocytes # (Manual) 0.4 K/mm3 (1.2-5.4) L 11/07/17 12:26 Abs React Lymphs (Man) 0.0 K/mm3 11/07/17 12:26 Monocytes # (Manual) 0.8 K/mm3 (0.0-0.8) 11/07/17 12:26 Eosinophils # (Manual) 0.0 K/mm3 (0.0-0.4) 11/07/17 12:26 Basophils # (Manual) 0.0 K/mm3 (0.0-0.1) 11/07/17 12:26 Metamyelocytes # 0.0 K/mm3 11/07/17 12:26 Myelocytes # 0.0 K/mm3 11/07/17 12:26 Promyelocytes # 0.0 K/mm3 11/07/17 12:26 Blast Cells # 0.0 K/mm3 11/07/17 12:26 WBC Morphology Not Reportable 11/07/17 12:26 Hypersegmented Neuts Not Reportable 11/07/17 12:26 Hyposegmented Neuts Not Reportable 11/07/17 12:26 Hypogranular Neuts Not Reportable 11/07/17 12:26 Smudge Cells Not Reportable 11/07/17 12:26 Toxic Granulation Not Reportable 11/07/17 12:26 Toxic Vacuolation Not Reportable 11/07/17 12:26 Dohle Bodies Not Reportable 11/07/17 12:26 Pelger-Huet Anomaly Not Reportable 11/07/17 12:26 Xiomy Rods Not Reportable 11/07/17 12:26 Platelet Estimate Not Reportable 11/07/17 12:26 Clumped Platelets Not Reportable 11/07/17 12:26 Plt Clumps, EDTA Not Reportable 11/07/17 12:26 Large Platelets Not Reportable 11/07/17 12:26 Giant Platelets Not Reportable 11/07/17 12:26 Platelet Satelliting Not Reportable 11/07/17 12:26 Plt Morphology Comment Not Reportable 11/07/17 12:26 RBC Morphology Normal 11/07/17 12:26 Dimorphic RBCs Not Reportable 11/07/17 12:26 Polychromasia Not Reportable 11/07/17 12:26 Hypochromasia Not Reportable 11/07/17 12:26 Poikilocytosis Not Reportable 11/07/17 12:26 Anisocytosis Not Reportable 11/07/17 12:26 Microcytosis Not Reportable 11/07/17 12:26 Macrocytosis Not Reportable 11/07/17 12:26 Spherocytes Not Reportable 11/07/17 12:26 Pappenheimer Bodies Not Reportable 11/07/17 12:26 Sickle Cells Not Reportable 11/07/17 12:26 Target Cells Not Reportable 11/07/17 12:26 Tear Drop Cells Not Reportable 11/07/17 12:26 Ovalocytes Not Reportable 11/07/17 12:26 Helmet Cells Not Reportable 11/07/17 12:26 [place] Bodies Not Reportable 11/07/17 12:26 [place] Rings Not Reportable 11/07/17 12:26 [place] Cells Not Reportable 11/07/17 12:26 Bite Cells Not Reportable 11/07/17 12:26 Crenated Cell Not Reportable 11/07/17 12:26 Elliptocytes Not Reportable 11/07/17 12:26 Acanthocytes (Spur) Not Reportable 11/07/17 12:26 Rouleaux Not Reportable 11/07/17 12:26 Hemoglobin C Crystals Not Reportable 11/07/17 12:26 Schistocytes Not Reportable 11/07/17 12:26 Malaria parasites Not Reportable 11/07/17 12:26 Mundo Bodies Not Reportable 11/07/17 12:26 Hem Pathologist Commnt No 11/07/17 12:26 PT 16.4 Sec. (12.2-14.9) H 11/07/17 12:26 INR 1.25 (0.87-1.13) H 11/07/17 12:26 POC ABG pH 7.389 (7.35-7.45) 11/09/17 19:49 POC ABG pCO2 28.9 (35-45) L 11/09/17 19:49 POC ABG pO2 98 (80-105) 11/09/17 19:49 POC ABG HCO3 17.4 11/09/17 19:49 POC ABG Total CO2 18 11/09/17 19:49 POC ABG O2 Sat 98 11/09/17 19:49 POC ABG Base Excess -8 11/09/17 19:49 FiO2 21 % 11/09/17 19:49 Sodium 144 mmol/L (137-145) 11/13/17 05:55 Potassium 4.1 mmol/L (3.6-5.0) D 11/13/17 05:55 Chloride 108.2 mmol/L (98-107) H 11/13/17 05:55 Carbon Dioxide 21 mmol/L (22-30) L 11/13/17 05:55 Anion Gap 19 mmol/L 11/13/17 05:55 BUN 12 mg/dL (7-17) 11/13/17 05:55 Creatinine 0.7 mg/dL (0.7-1.2) 11/13/17 05:55 Estimated GFR > 60 ml/min 11/13/17 05:55 BUN/Creatinine Ratio 17 % 11/13/17 05:55 Glucose 228 mg/dL (65-100) H 11/13/17 05:55 POC Glucose 206 (70-105) H 11/14/17 12:47 Hemoglobin A1c 10.0 % (4-6) H 11/07/17 17:02 Lactic Acid 1.80 mmol/L (0.7-2.0) 11/09/17 19:44 Calcium 8.1 mg/dL (8.4-10.2) L 11/13/17 05:55 Phosphorus 1.50 mg/dL (2.5-4.5) L 11/09/17 07:07 Magnesium 1.80 mg/dL (1.7-2.3) 11/12/17 04:40 Total Bilirubin 0.30 mg/dL (0.1-1.2) 11/07/17 13:44 Direct Bilirubin 0.2 mg/dL (0-0.2) 11/07/17 13:44 Indirect Bilirubin 0.1 mg/dL 11/07/17 13:44 AST 15 units/L (5-40) 11/07/17 13:44 ALT 11 units/L (7-56) 11/07/17 13:44 Alkaline Phosphatase 89 units/L (35-129) 11/07/17 13:44 C-Reactive Protein 4.70 mg/dL (0.00-1.30) H 11/09/17 19:44 Total Protein 5.8 g/dL (6.3-8.2) L 11/07/17 13:44 Albumin 3.0 g/dL (3.9-5) L 11/07/17 13:44 Albumin/Globulin Ratio 1.1 % 11/07/17 13:44 Triglycerides 94 mg/dL (2-149) 11/11/17 07:27 Cholesterol 148 mg/dL (50-199) 11/11/17 07:27 LDL Cholesterol Direct 42 mg/dL (50-130) L 11/11/17 07:27 HDL Cholesterol 88 mg/dL (40-59) H 11/11/17 07:27 Cholesterol/HDL Ratio 1.68 % 11/11/17 07:27 HCG, Qual Negative (Negative) 11/09/17 15:05 Urine Color Yellow (Yellow) 11/07/17 14:28 Urine Turbidity Clear (Clear) 11/07/17 14:28 Urine pH 5.0 (5.0-7.0) 11/07/17 14:28 Ur Specific [place] 1.016 (1.003-1.030) 11/07/17 14:28 Urine Protein 100 mg/dl mg/dL (Negative) 11/07/17 14:28 Urine Glucose (UA) >=500 mg/dL (Negative) 11/07/17 14:28 Urine Ketones 80 mg/dL (Negative) 11/07/17 14:28 Urine Blood Mod (Negative) 11/07/17 14:28 Urine Nitrite Neg (Negative) 11/07/17 14:28 Urine Bilirubin Neg (Negative) 11/07/17 14:28 Urine Urobilinogen < 2.0 mg/dL (<2.0) 11/07/17 14:28 Ur Leukocyte Esterase Neg (Negative) 11/07/17 14:28 Urine WBC (Auto) 2.0 /HPF (0.0-6.0) 11/07/17 14:28 Urine RBC (Auto) < 1.0 /HPF (0.0-6.0) 11/07/17 14:28 U Epithel Cells (Auto) < 1.0 /HPF (0-13.0) 11/07/17 14:28 Urine Bacteria (Auto) 1+ /HPF (Negative) 11/07/17 14:28 Urine Opiates Screen Presumptive negative 11/07/17 14:28 Urine Methadone Screen Presumptive negative 11/07/17 14:28 Ur Barbiturates Screen Presumptive negative 11/07/17 14:28 Ur Phencyclidine Scrn Presumptive negative 11/07/17 14:28 Ur Amphetamines Screen Presumptive negative 11/07/17 14:28 U Benzodiazepines Scrn Presumptive negative 11/07/17 14:28 Urine Cocaine Screen Presumptive negative 11/07/17 14:28 U Marijuana (THC) Screen Presumptive negative 11/07/17 14:28 Drugs of Abuse Note Disclamer 11/07/17 14:28
[2017-11-14] MEDS: cefTRIAXone 1 GM in NACL 0.9% 20 ML IV SCH (18:43)
[2017-11-14] MEDS: COMBIGAN 0.2-0.5% OU SCH (21:16)
[2017-11-15] MEDS: ZOSYN/NS 3.375GM/50ML 3.375 GM/50 ML BAG IV SCH ×5 (00:21→23:10)
[2017-11-15] MEDS: NOVOLOG SUB-Q SCH ×4 (00:30→17:21)
[2017-11-15] MEDS: MORPHINE IV PRN ×3 (01:02→23:10)
[2017-11-15 09:14] LABS: INR 0.95 (0.87-1.13)
--- NOTE | 2017-11-15 10:52 | Gastroenterology Consultation ---
<LARON VILLEDA - Last Filed: 11/15/17 11:11> History of Present Illness - Reason for Consult Consult date: 11/15/17 PEG placement Requesting physician: BROOKLYN DAVILA - History of Present Illness Patient is a 37 y/o female with PMH of DM, CVA (on ASA and Plavix), HTN, HLD, and depression who presented to ED with AMS and was admitted for DKA, acute metabolic encephalopathy, and acute ischemic stroke. Patient failed a speech eval with modified barium swallow yesterday. GI has been consulted for a PEG placement. This morning pt was resting in bed w/o acute distress and family at bedside. She is alert but with noted aphasia. History obtained via chart review. No means of nutrition currently. Past History Past Medical History: diabetes, hypertension, hyperlipidemia, stroke, other ( depression) Past Surgical History: Other (spinal surgery, neck/artery surgery) Social history: denies: smoking Medications and Allergies Allergies Allergy/AdvReac Type Severity Reaction Status Date / Time No Known Allergies Allergy Unverified 11/20/14 03:04 Home Medications Medication Instructions Recorded Confirmed Last Taken Type Aspirin [Aspirin EC] 81 mg PO DAILY 11/07/17 11/07/17 Unknown History AtorvaSTATin [Lipitor] 80 mg PO QHS 11/07/17 11/07/17 Unknown History Citalopram [celeXA] 10 mg PO QDAY 11/07/17 11/07/17 Unknown History Clopidogrel [Plavix] 75 mg PO QDAY 11/07/17 11/07/17 Unknown History Cyclobenzaprine [Flexeril] 10 mg PO TID PRN 11/07/17 11/07/17 Unknown History Insulin Aspart Protam & Aspart 0 unit SQ TID 11/07/17 11/07/17 Unknown History [NovoLOG Mix 70-30 Flexpen] Insulin Glargine,Hum.rec.anlog 20 units SQ QAM 11/07/17 11/07/17 Unknown History [Lantus] Insulin Glargine,Hum.rec.anlog 50 units SQ QPM 11/07/17 11/07/17 Unknown History [Lantus] NIFEdipine [Nifedipine ER] 30 mg PO DAILY 11/07/17 11/07/17 Unknown History Active Meds: Active Medications Acetaminophen (Tylenol) 650 mg PO Q4H PRN PRN Reason: Pain MILD(1-3)/Fever >100.5/MUNOZ Aspirin (Aspirin) 300 mg NC QDAY [facility] Last Admin: 11/14/17 11:42 Dose: Not Given Atorvastatin Calcium (Lipitor) 80 mg PO QHS [facility] Last Admin: 11/15/17 04:40 Dose: Not Given Bisacodyl (Dulcolax) 10 mg NC QDAY PRN PRN Reason: Constipation unrelieved by MOM Brimonidine/Timolol (Combigan 0.2-0.5%) 1 drops OU Q12HR [facility] Last Admin: 11/14/17 21:16 Dose: 1 drops Citalopram Hydrobromide (Celexa) 10 mg PO QDAY [facility] Last Admin: 11/14/17 11:41 Dose: 10 mg Clopidogrel Bisulfate (Plavix) 75 mg PO QDAY [facility] Last Admin: 11/14/17 11:42 Dose: 75 mg Cyclobenzaprine HCl (Flexeril) 10 mg PO TID PRN PRN Reason: Muscle Spasm Last Admin: 11/13/17 22:01 Dose: 10 mg Dextrose (D50w (25gm) Syringe) 50 ml IV PRN PRN PRN Reason: Hypoglycemia Famotidine (Pepcid) 20 mg PO DAILY [facility] Last Admin: 11/14/17 11:41 Dose: 20 mg Hydrophilic Ointment (Vaseline Lip Therapy) 1 applic TP DIRECT PRN PRN Reason: Dry Lips Last Admin: 11/12/17 05:35 Dose: 1 applic Piperacillin Sod/Tazobactam Sod (Zosyn/Ns 3.375gm/50ml) 3.375 gm in 50 mls @ 100 mls/hr IV Q6HR [facility] Last Admin: 11/15/17 05:22 Dose: 100 mls/hr Ceftriaxone Sodium 1 gm/ (Sodium Chloride) 20 mls @ 20 mls/10 min IV Q24H [facility] PRN Reason: Protocol Last Admin: 11/14/17 18:43 Dose: 20 mls/10 min Insulin Aspart (Novolog) 0 units SUB-Q ACHS KYE PRN Reason: Protocol Last Admin: 11/15/17 08:51 Dose: Not Given Labetalol HCl (Normodyne) 10 mg IV Q4H PRN PRN Reason: Blood Pressure Last Admin: 11/10/17 08:29 Dose: 10 mg Magnesium Hydroxide (Milk Of Magnesia) 30 ml PO Q4H PRN PRN Reason: Constipation Last Admin: 11/13/17 11:49 Dose: 30 ml Morphine Sulfate (Morphine) 2 mg IV Q4H PRN PRN Reason: Pain , Severe (7-10) Last Admin: 11/15/17 01:02 Dose: 2 mg Nifedipine (Procardia Xl) 30 mg PO DAILY KYE Last Admin: 11/14/17 11:42 Dose: 30 mg Ondansetron HCl (Zofran) 4 mg IV Q8H PRN PRN Reason: N/V unrelieved by Reglan Review of Systems - Review of Systems ROS unobtainable: due to mental status Exam - Constitutional Vital Signs: Temp Pulse Resp BP Pulse Ox 98.4 F 78 19 151/92 99 11/15/17 07:57 11/15/17 07:57 11/15/17 07:57 11/15/17 07:57 11/15/17 07:57 General appearance: no acute distress, other (alert, aphasia) - Respiratory Respiratory: bilateral: CTA - Cardiovascular Rhythm: regular Heart Sounds: Present: S1 & S2 - Gastrointestinal General gastrointestinal: Present: soft, non-distended, normal bowel sounds - Integumentary Integumentary: Present: warm, dry - Labs CBC & Chem 7: 11/13/17 05:55 11/13/17 05:55 Lab Results: Laboratory Results - last 24 hr 11/14/17 11/14/17 11/14/17 12:47 17:27 22:19 PT INR POC Glucose 206 H 213 H 123 H 11/15/17 11/15/17 05:48 08:39 PT 13.2 INR 0.95 POC Glucose 203 H Assessment and Plan 1.PEG placement 2.acute ischemic stroke 3.acute metabolic encephalopathy 4.DKA -failed speech eval with modified barium swallow yesterday -currently no means of nutrition -last dose of Plavix yesterday-hold plavix -will order Dobhoff tube placement and nutrition consult today -will schedule for EGD/PEG placement on Saturday -will follow <PB FUNG - Last Filed: 11/15/17 11:45> Medications and Allergies Active Meds: Active Medications Acetaminophen (Tylenol) 650 mg PO Q4H PRN PRN Reason: Pain MILD(1-3)/Fever >100.5/MUNOZ Lipase/Protease/Amylase ([address] 10,500 Unit) 1 each FEEDTUBE PRN PRN PRN Reason: For Clogged Feeding Tube Lipase/Protease/Amylase ([address] 10,500 Unit) 1 each FEEDTUBE PRN PRN PRN Reason: For Clogged Feeding Tube Aspirin (Aspirin) 300 mg NC QDAY [facility] Last Admin: 11/14/17 11:42 Dose: Not Given Atorvastatin Calcium (Lipitor) 80 mg PO QHS [facility] Last Admin: 11/15/17 04:40 Dose: Not Given Bisacodyl (Dulcolax) 10 mg NC QDAY PRN PRN Reason: Constipation unrelieved by MOM Brimonidine/Timolol (Combigan 0.2-0.5%) 1 drops OU Q12HR [facility] Last Admin: 11/14/17 21:16 Dose: 1 drops Citalopram Hydrobromide (Celexa) 10 mg PO QDAY [facility] Last Admin: 11/14/17 11:41 Dose: 10 mg Cyclobenzaprine HCl (Flexeril) 10 mg PO TID PRN PRN Reason: Muscle Spasm Last Admin: 11/13/17 22:01 Dose: 10 mg Dextrose (D50w (25gm) Syringe) 50 ml IV PRN PRN PRN Reason: Hypoglycemia Famotidine (Pepcid) 20 mg PO DAILY [facility] Last Admin: 11/14/17 11:41 Dose: 20 mg Hydrophilic Ointment (Vaseline Lip Therapy) 1 applic TP DIRECT PRN PRN Reason: Dry Lips Last Admin: 11/12/17 05:35 Dose: 1 applic Piperacillin Sod/Tazobactam Sod (Zosyn/Ns 3.375gm/50ml) 3.375 gm in 50 mls @ 100 mls/hr IV Q6HR [facility] Last Admin: 11/15/17 05:22 Dose: 100 mls/hr Ceftriaxone Sodium 1 gm/ (Sodium Chloride) 20 mls @ 20 mls/10 min IV Q24H [facility] PRN Reason: Protocol Last Admin: 11/14/17 18:43 Dose: 20 mls/10 min Insulin Aspart (Novolog) 0 units SUB-Q ACHS KYE PRN Reason: Protocol Last Admin: 11/15/17 08:51 Dose: Not Given Labetalol HCl (Normodyne) 10 mg IV Q4H PRN PRN Reason: Blood Pressure Last Admin: 11/10/17 08:29 Dose: 10 mg Magnesium Hydroxide (Milk Of Magnesia) 30 ml PO Q4H PRN PRN Reason: Constipation Last Admin: 11/13/17 11:49 Dose: 30 ml Morphine Sulfate (Morphine) 2 mg IV Q4H PRN PRN Reason: Pain , Severe (7-10) Last Admin: 11/15/17 11:12 Dose: 2 mg Nifedipine (Procardia Xl) 30 mg PO DAILY KYE Last Admin: 11/14/17 11:42 Dose: 30 mg Ondansetron HCl (Zofran) 4 mg IV Q8H PRN PRN Reason: N/V unrelieved by Reglan Simple Syrup (Simple Syrup) 15 ml FEEDTUBE PRN PRN PRN Reason: Hypoglycemia Simple Syrup (Simple Syrup) 30 ml FEEDTUBE PRN PRN PRN Reason: Hypoglycemia Simple Syrup (Simple Syrup) 15 ml FEEDTUBE PRN PRN PRN Reason: Hypoglycemia Simple Syrup (Simple Syrup) 30 ml FEEDTUBE PRN PRN PRN Reason: Hypoglycemia Sodium Bicarbonate (Sodium Bicarbonate) 325 mg FEEDTUBE PRN PRN PRN Reason: For Clogged Feeding Tube Sodium Bicarbonate (Sodium Bicarbonate) 325 mg FEEDTUBE PRN PRN PRN Reason: For Clogged Feeding Tube Exam - Constitutional Vital Signs: Temp Pulse Resp BP Pulse Ox 98.4 F 78 19 151/92 99 11/15/17 07:57 11/15/17 07:57 11/15/17 07:57 11/15/17 07:57 11/15/17 07:57 - Labs CBC & Chem 7: 11/13/17 05:55 11/13/17 05:55 Lab Results: Laboratory Results - last 24 hr 11/14/17 11/14/17 11/14/17 12:47 17:27 22:19 PT INR POC Glucose 206 H 213 H 123 H 11/15/17 11/15/17 11/15/17 05:48 08:39 11:20 PT 13.2 INR 0.95 POC Glucose 203 H 223 H Assessment and Plan Pt seen and examined. She nods appropriately. Denies discomfort. Discussed with RN. Pt to get Dobhoff tube feeds now, and do EGD/PEG in near future.
[2017-11-15] MEDS ORDERED: PANCREAZE DR 10,500 UNIT FEEDTUBE PRN ×2 (11:36→11:37)
[2017-11-15] MEDS ORDERED: SODIUM BICARBONATE FEEDTUBE PRN ×2 (11:36→11:37)
[2017-11-15] MEDS ORDERED: SIMPLE SYRUP FEEDTUBE PRN ×4 (11:36→11:37)
--- NOTE | 2017-11-15 13:09 | XRay Report ---
Flatplate of abdomen: History: Dobbhoff placement. Findings: Tip of Dobbhoff feeding tube is noted in fundus of the stomach. No bowel distention. Impression: Tip of Dobbhoff feeding tube is noted in fundus of stomach.
--- NOTE | 2017-11-15 13:41 | Progress Note ---
Assessment and Plan Assessment and plan: Patient is 37-year-old woman with a history of insulin-dependent diabetes mellitus, CVA on aspirin and Plavix, hypertension, dyslipidemia and depression who presented with altered mental status and was admitted for DKA. Her baseline mental function per sister Jessica: she walks with a walker, she feeds herself, needs help with clothes, left arm weaker than right and speech is usually slurred. Jessica reports that patient was discharged from [facility] about 1.5 months ago and went to [facility]. Then, she went to her home from there. She lives with daughter Leslye and brother, Sean, who moved in with her for more support. per Jessica: "I wanna say she wasn't talking her insulin, because this 3rd stoke did alittle mentally and she more forgettable, that is what I am thinking , for example, she will say, I need to take my insulin but she had just took her insulin." They went to [place], on the way back Saturday night 11pm, she was sleeping off and on, BG was 516 and she took her insulin. Her daughter, Leslye, said next morning she got up morning to go to the bathroom and she fell and then was unresponsive, she was found on the floor in urine by daughter, Leslye. -DKA with acute metabolic acidosis, high anion gap: Treated with IV fluids, insulin drip now resolved -Acute metabolic encephalopathy/semiconscious state: treat the above -Recurrent Acute ischemic strokes. ?hydrocephalus on Ct head: consulted Neurology --->Sepsis due to acute right mastoiditis, poa, start iv abx -Hypernatremia: needs more free water, bmp -Moderate malnutrition: outpatient admitting clerk -Acute ischemic stroke, poa: get ECHO, used stroke protocol 11/09/17: Insulin drip was stopped because of hypoglycemia and patient was sent from ED to medical/surg floor. Anion gap was still high so I sent ICU to start insulin drip. I also ordered bmp stat. By the time the stat bmp was resulted, patient was in the icu. Anion gap has closed, so i will downgrade back to medical surg floor. Replace her potassium, start diet, if she unable to eat continue D5W due to hypernatremia and not eating. Await neurology assessment because she is not at her mental baseline of slurred speech and ambulation with a walker. Order PT/OT 11/10/17: I gave pt 0.5mg iv ativan x 1 to complete mri brain that Neurology ordered, MRI brain reported as multiple focal areas of restricted diffusion right cerebral hemisphere suggestive excuse ischemia, no evidence of hemorrhage , dilated right lateral ventricle without definite evidence of obstruction, acute right mastoiditis. I started abx, iv rocephin, used stroke protocol 11/11/2017: WBC went down, Still hypernatremic, more free water, repeat labs in am. ECHO pending. I called Jessica at [phone], no answer ?phone broken message. 11/12/17: echo pending, replace potassium, hyperglycemia on D5W for the hypernatremia, continue ssi, if she tolerates a diet today, then d/c ivf, change ssi to achs instead of q4hr, urine culture still pending. Hopefully SNF placement in 1-2 days 11/13/17: Echo reviewed, hypernatremia/hypokalemia resolved, stop ivf. Waiting on placement 11/14/17: [facility] in [place], [place], waiting on insurance pre-auth 11/15/17: failed swallow, going for peg on saturday because she is on Plavix. Nutrition: Patient refusing NGT but she will consider. she is comminunicating via paper and pencil. History Interval history: Patient was seen and examined. Follow-up on current diagnosis/altered mental status. Overnight uneventful. Patient not given any history; therefore, Imaging, nursing note, chart, labs and old chart reviewed. Responding more. Hospitalist Physical - Physical exam Narrative exam: GEN: Thin frail woman chronic a bit debilitating appearing, lethargic, nonverbal HEENT: NCAT, EOMI, PERRL, OP Clear NECK: supple, no adenopathy, no thyromegaly, no JVD CVS/HEART: regular tachycardia NORMAL S1S2, NO JVD, pulses present bilaterally CHEST/LUNGS: CTA B, Symmetrical chest expansion, good air entry bilaterally GI/Abdomen: soft, NTND, good bowel sounds, no guarding or rebound /Bladder: no suprapubic tenderness, no CVA or paraspinal tenderness EXT/Skin: no c/c/e, no obvious rash MSK: Moving both arms with contractures Neuro: CN 2-12 grossly intact except nonverbal, hemiparesis, facial asymmetry, no new focal deficits Psych: calm but confused - Constitutional Vitals: Temp Pulse Resp BP Pulse Ox 98.4 F 78 19 151/92 99 11/15/17 07:57 11/15/17 07:57 11/15/17 07:57 11/15/17 07:57 11/15/17 07:57 General appearance: Present: well-nourished. Absent: mild distress Results - Labs CBC & Chem 7: 11/13/17 05:55 11/13/17 05:55 Labs: Laboratory Last Values WBC 12.4 K/mm3 (4.5-11.0) H 11/13/17 05:55 RBC 2.92 M/mm3 (3.65-5.03) L 11/13/17 05:55 Hgb 8.8 gm/dl (10.1-14.3) L 11/13/17 05:55 Hct 26.1 % (30.3-42.9) L 11/13/17 05:55 MCV 89 fl (79-97) 11/13/17 05:55 MCH 30 pg (28-32) 11/13/17 05:55 MCHC 34 % (30-34) 11/13/17 05:55 RDW 12.6 % (13.2-15.2) L 11/13/17 05:55 Plt Count 249 K/mm3 (140-440) 11/13/17 05:55 Add Manual Diff Complete 11/07/17 12:26 Total Counted 100 11/07/17 12:26 Seg Neutrophils % Countersinker Balance Screw Hole 11/07/17 12:26 Seg Neuts % (Manual) 90.0 % (40.0-70.0) H 11/07/17 12:26 Band Neutrophils % 4.0 % 11/07/17 12:26 Lymphocytes % (Manual) 2.0 % (13.4-35.0) L 11/07/17 12:26 Reactive Lymphs % (Man) 0 % 11/07/17 12:26 Monocytes % (Manual) 4.0 % (0.0-7.3) 11/07/17 12:26 Eosinophils % (Manual) 0 % (0.0-4.3) 11/07/17 12:26 Basophils % (Manual) 0 % (0.0-1.8) 11/07/17 12:26 Metamyelocytes % 0 % 11/07/17 12: Myelocytes % 0 % 11/07/17 12:26 Promyelocytes % 0 % 11/07/17 12: Blast Cells % 0 % 11/07/17 12:26 Nucleated RBC % Not Reportable 11/07/17 12:26 Seg Neutrophils # Man 18.1 K/mm3 (1.8-7.7) H 11/07/17 12:26 Band Neutrophils # 0.8 K/mm3 11/07/17 12:26 Lymphocytes # (Manual) 0.4 K/mm3 (1.2-5.4) L 11/07/17 12:26 Abs React Lymphs (Man) 0.0 K/mm3 11/07/17 12:26 Monocytes # (Manual) 0.8 K/mm3 (0.0-0.8) 11/07/17 12:26 Eosinophils # (Manual) 0.0 K/mm3 (0.0-0.4) 11/07/17 12:26 Basophils # (Manual) 0.0 K/mm3 (0.0-0.1) 11/07/17 12:26 Metamyelocytes # 0.0 K/mm3 11/07/17 12:26 Myelocytes # 0.0 K/mm3 11/07/17 12: Promyelocytes # 0.0 K/mm3 11/07/17 12:26 Blast Cells # 0.0 K/mm3 11/07/17 12:26 WBC Morphology Not Reportable 11/07/17 12:26 Hypersegmented Neuts Not Reportable 11/07/17 12:26 Hyposegmented Neuts Not Reportable 11/07/17 12:26 Hypogranular Neuts Not Reportable 11/07/17 12:26 Smudge Cells Not Reportable 11/07/17 12:26 Toxic Granulation Not Reportable 11/07/17 12:26 Toxic Vacuolation Not Reportable 11/07/17 12:26 Dohle Bodies Not Reportable 11/07/17 12:26 Pelger-Huet Anomaly Not Reportable 11/07/17 12:26 Xiomy Rods Not Reportable 11/07/17 12:26 Platelet Estimate Not Reportable 11/07/17 12:26 Clumped Platelets Not Reportable 11/07/17 12:26 Plt Clumps, EDTA Not Reportable 11/07/17 12:26 Large Platelets Not Reportable 11/07/17 12:26 Giant Platelets Not Reportable 11/07/17 12:26 Platelet Satelliting Not Reportable 11/07/17 12:26 Plt Morphology Comment Not Reportable 11/07/17 12:26 RBC Morphology Normal 11/07/17 12:26 Dimorphic RBCs Not Reportable 11/07/17 12:26 Polychromasia Not Reportable 11/07/17 12:26 Hypochromasia Not Reportable 11/07/17 12:26 Poikilocytosis Not Reportable 11/07/17 12:26 Anisocytosis Not Reportable 11/07/17 12:26 Microcytosis Not Reportable 11/07/17 12:26 Macrocytosis Not Reportable 11/07/17 12:26 Spherocytes Not Reportable 11/07/17 12:26 Pappenheimer Bodies Not Reportable 11/07/17 12:26 Sickle Cells Not Reportable 11/07/17 12:26 Target Cells Not Reportable 11/07/17 12:26 Tear Drop Cells Not Reportable 11/07/17 12:26 Ovalocytes Not Reportable 11/07/17 12:26 Helmet Cells Not Reportable 11/07/17 12:26 [place] Bodies Not Reportable 11/07/17 12:26 [place] Rings Not Reportable 11/07/17 12:26 Danna Cells Not Reportable 11/07/17 12:26 Bite Cells Not Reportable 11/07/17 12:26 Crenated Cell Not Reportable 11/07/17 12:26 Elliptocytes Not Reportable 11/07/17 12:26 Acanthocytes (Spur) Not Reportable 11/07/17 12:26 Rouleaux Not Reportable 11/07/17 12:26 Hemoglobin C Crystals Not Reportable 11/07/17 12:26 Schistocytes Not Reportable 11/07/17 12:26 Malaria parasites Not Reportable 11/07/17 12:26 Mundo Bodies Not Reportable 11/07/17 12:26 Hem Pathologist Commnt No 11/07/17 12:26 PT 13.2 Sec. (12.2-14.9) 11/15/17 08:39 INR 0.95 (0.87-1.13) 11/15/17 08:39 POC ABG pH 7.389 (7.35-7.45) 11/09/17 19:49 POC ABG pCO2 28.9 (35-45) L 11/09/17 19:49 POC ABG pO2 98 (80-105) 11/09/17 19:49 POC ABG HCO3 17.4 11/09/17 19:49 POC ABG Total CO2 18 11/09/17 19:49 POC ABG O2 Sat 98 11/09/17 19:49 POC ABG Base Excess -8 11/09/17 19:49 FiO2 21 % 11/09/17 19:49 Sodium 144 mmol/L (137-145) 11/13/17 05:55 Potassium 4.1 mmol/L (3.6-5.0) D 11/13/17 05:55 Chloride 108.2 mmol/L (98-107) H 11/13/17 05:55 Carbon Dioxide 21 mmol/L (22-30) L 11/13/17 05:55 Anion Gap 19 mmol/L 11/13/17 05:55 BUN 12 mg/dL (7-17) 11/13/17 05:55 Creatinine 0.7 mg/dL (0.7-1.2) 11/13/17 05:55 Estimated GFR > 60 ml/min 11/13/17 05:55 BUN/Creatinine Ratio 17 % 11/13/17 05:55 Glucose 228 mg/dL (65-100) H 11/13/17 05:55 POC Glucose 223 (70-105) H 11/15/17 11:20 Hemoglobin A1c 10.0 % (4-6) H 11/07/17 17:02 Lactic Acid 1.80 mmol/L (0.7-2.0) 11/09/17 19:44 Calcium 8.1 mg/dL (8.4-10.2) L 11/13/17 05:55 Phosphorus 1.50 mg/dL (2.5-4.5) L 11/09/17 07:07 Magnesium 1.80 mg/dL (1.7-2.3) 11/12/17 04:40 Total Bilirubin 0.30 mg/dL (0.1-1.2) 11/07/17 13:44 Direct Bilirubin 0.2 mg/dL (0-0.2) 11/07/17 13:44 Indirect Bilirubin 0.1 mg/dL 11/07/17 13:44 AST 15 units/L (5-40) 11/07/17 13:44 ALT 11 units/L (7-56) 11/07/17 13:44 Alkaline Phosphatase 89 units/L (35-129) 11/07/17 13:44 C-Reactive Protein 4.70 mg/dL (0.00-1.30) H 11/09/17 19:44 Total Protein 5.8 g/dL (6.3-8.2) L 11/07/17 13:44 Albumin 3.0 g/dL (3.9-5) L 11/07/17 13:44 Albumin/Globulin Ratio 1.1 % 11/07/17 13:44 Triglycerides 94 mg/dL (2-149) 11/11/17 07:27 Cholesterol 148 mg/dL (50-199) 11/11/17 07:27 LDL Cholesterol Direct 42 mg/dL (50-130) L 11/11/17 07:27 HDL Cholesterol 88 mg/dL (40-59) H 11/11/17 07:27 Cholesterol/HDL Ratio 1.68 % 11/11/17 07:27 HCG, Qual Negative (Negative) 11/09/17 15:05 Urine Color Yellow (Yellow) 11/07/17 14:28 Urine Turbidity Clear (Clear) 11/07/17 14:28 Urine pH 5.0 (5.0-7.0) 11/07/17 14:28 Ur Specific [place] 1.016 (1.003-1.030) 11/07/17 14:28 Urine Protein 100 mg/dl mg/dL (Negative) 11/07/17 14:28 Urine Glucose (UA) >=500 mg/dL (Negative) 11/07/17 14:28 Urine Ketones 80 mg/dL (Negative) 11/07/17 14:28 Urine Blood Mod (Negative) 11/07/17 14:28 Urine Nitrite Neg (Negative) 11/07/17 14:28 Urine Bilirubin Neg (Negative) 11/07/17 14:28 Urine Urobilinogen < 2.0 mg/dL (<2.0) 11/07/17 14:28 Ur Leukocyte Esterase Neg (Negative) 11/07/17 14:28 Urine WBC (Auto) 2.0 /HPF (0.0-6.0) 11/07/17 14:28 Urine RBC (Auto) < 1.0 /HPF (0.0-6.0) 11/07/17 14:28 U Epithel Cells (Auto) < 1.0 /HPF (0-13.0) 11/07/17 14:28 Urine Bacteria (Auto) 1+ /HPF (Negative) 11/07/17 14:28 Urine Opiates Screen Presumptive negative 11/07/17 14:28 Urine Methadone Screen Presumptive negative 11/07/17 14:28 Ur Barbiturates Screen Presumptive negative 11/07/17 14:28 Ur Phencyclidine Scrn Presumptive negative 11/07/17 14:28 Ur Amphetamines Screen Presumptive negative 11/07/17 14:28 U Benzodiazepines Scrn Presumptive negative 11/07/17 14:28 Urine Cocaine Screen Presumptive negative 11/07/17 14:28 U Marijuana (THC) Screen Presumptive negative 11/07/17 14:28 Drugs of Abuse Note Disclamer 11/07/17 14:28
[2017-11-15] MEDS: celeXA PO SCH (13:55)
[2017-11-15] MEDS: PEPCID PO SCH (13:55)
[2017-11-15] MEDS: COMBIGAN 0.2-0.5% OU SCH ×2 (13:55→23:09)
[2017-11-15] MEDS: PROCARDIA XL PO SCH (13:56)
[2017-11-15] MEDS: FLEXERIL PO PRN (13:56)
[2017-11-15] MEDS: PLAVIX PO SCH (13:57)
[2017-11-15] MEDS: ASPIRIN PR SCH (14:08)
[2017-11-15] MEDS: cefTRIAXone 1 GM in NACL 0.9% 20 ML IV SCH (17:31)
--- NOTE | 2017-11-15 18:08 | Progress Note ---
Assessment and Plan -Acute ischemic stroke-Sepsis secondary to acute mastoiditis -DKA with acute metabolic acidosis, high anion gap-improving -Acute metabolic encephalopathy( improved) -Recurrent Acute ischemic strokes -Expressive aphasia -Hypernatremia -Moderate malnutrition -Oropharyngeal dysphagia Monitor hemodynamics Complete antibiotics per ID Continue with supplemental oxygen for O2 sats >92% Aspiration precautions Speech language pathologist to evaluate and treat- swallow and speech Enteric nutrition Free water flushes PT/OT/mobility Secondary stroke prophylaxis Evaluate for other secondary causes of stroke. Get ELEANOR with reflex Accuchecks with glycemic control Subjective Date of service: 11/15/17 Principal diagnosis: Acute on Chronic Encephalopathy; SIRS; DKA; Seizures Interval history: Patient is seen today for: Acute on Chronic Encephalopathy; SIRS; DKA; Seizures Seen and examined at bedside; 24hour events reviewed; nursing and respiratory care staff consulted; no adverse overnight events reported to me; She wants to eat. Objective - Exam Narrative Exam: GEN: Thin frail woman chronic a bit debilitating appearing, lethargic, nonverbal HEENT: NCAT, EOMI, PERRL, OP Clear NECK: supple, no adenopathy, no thyromegaly, no JVD CVS/HEART: regular tachycardia NORMAL S1S2, NO JVD, pulses present bilaterally CHEST/LUNGS: CTA B, Symmetrical chest expansion, good air entry bilaterally GI/Abdomen: soft, NTND, good bowel sounds, no guarding or rebound /Bladder: no suprapubic tenderness, no CVA or paraspinal tenderness EXT/Skin: no c/c/e, no obvious rash MSK: Moving right upper extremity. Left hand in a splint Neuro: Expressive aphasia Psych: calm, good affect Vital Signs - 12hr 11/15/17 11/15/17 07:57 16:44 Temperature 98.4 F 97.8 F Pulse Rate 78 93 H Respiratory 19 20 Rate Blood Pressure 151/92 124/75 O2 Sat by Pulse 99 97 Oximetry Constitutional: no acute distress, asleep Eyes: non-icteric Neck: supple, no lymphadenopathy Ascultation: Bilateral: clear Cardiovascular: regular rate and rhythm Gastrointestinal: normoactive bowel sounds, soft, non-tender Integumentary: normal Extremities: no cyanosis, no edema Neurologic: other (Patient sleeping at this time.) Psychiatric: other (Patient sleeping at this time.) CBC and BMP: 11/13/17 05:55 11/13/17 05:55 ABG, PT/INR, D-dimer: ABG POC ABG pH 7.389 (7.35-7.45) 11/09/17 19:49 POC ABG pCO2 28.9 (35-45) L 11/09/17 19:49 POC ABG pO2 98 (80-105) 11/09/17 19:49 POC ABG HCO3 17.4 11/09/17 19:49 POC ABG Total CO2 18 11/09/17 19:49 POC ABG O2 Sat 98 11/09/17 19:49 PT/INR, D-dimer PT 13.2 Sec. (12.2-14.9) 11/15/17 08:39 INR 0.95 (0.87-1.13) 11/15/17 08:39 Abnormal lab findings: Abnormal Labs 11/07/17 11/07/17 11/07/17 12:26 12:26 12:26 WBC 20.1 H RBC Hgb Hct MCV 101 H MCHC RDW Seg Neuts % (Manual) 90.0 H Lymphocytes % (Manual) 2.0 L Seg Neutrophils # Man 18.1 H Lymphocytes # (Manual) 0.4 L PT 16.4 H INR 1.25 H POC ABG pH POC ABG pCO2 POC ABG pO2 Sodium Potassium Chloride Carbon Dioxide BUN Creatinine Glucose POC Glucose 445 H Hemoglobin A1c Lactic Acid Calcium Phosphorus Magnesium C-Reactive Protein Total Protein Albumin LDL Cholesterol Direct HDL Cholesterol 11/07/17 11/07/17 11/07/17 12:39 13:44 13:44 WBC RBC Hgb Hct MCV MCHC RDW Seg Neuts % (Manual) Lymphocytes % (Manual) Seg Neutrophils # Man Lymphocytes # (Manual) PT INR POC ABG pH 6.856 L POC ABG pCO2 12.4 L POC ABG pO2 288 H Sodium Potassium Chloride Carbon Dioxide BUN Creatinine Glucose POC Glucose Hemoglobin A1c Lactic Acid Calcium Phosphorus 8.10 H Magnesium 2.60 H C-Reactive Protein Total Protein 5.8 L Albumin 3.0 L LDL Cholesterol Direct HDL Cholesterol 11/07/17 11/07/17 11/07/17 13:44 14:17 15:17 WBC RBC Hgb Hct MCV MCHC RDW Seg Neuts % (Manual) Lymphocytes % (Manual) Seg Neutrophils # Man Lymphocytes # (Manual) PT INR POC ABG pH POC ABG pCO2 POC ABG pO2 Sodium Potassium 6.5 H* 5.8 H 5.7 H Chloride 94.4 L Carbon Dioxide 5 L* 2 L* < 2.0 L* BUN 43 H 38 H 39 H Creatinine 1.3 H 1.3 H Glucose 629 H* 610 H* 585 H* POC Glucose Hemoglobin A1c Lactic Acid Calcium 8.3 L 7.7 L 7.9 L Phosphorus Magnesium C-Reactive Protein Total Protein Albumin LDL Cholesterol Direct HDL Cholesterol 11/07/17 11/07/17 11/07/17 15:17 15:40 16:57 WBC RBC Hgb Hct MCV MCHC RDW Seg Neuts % (Manual) Lymphocytes % (Manual) Seg Neutrophils # Man Lymphocytes # (Manual) PT INR POC ABG pH POC ABG pCO2 POC ABG pO2 Sodium Potassium Chloride Carbon Dioxide 3 L* BUN 42 H Creatinine 1.3 H Glucose 557 H* POC Glucose > 500 H Hemoglobin A1c Lactic Acid 2.90 H* Calcium 8.1 L Phosphorus Magnesium C-Reactive Protein Total Protein Albumin LDL Cholesterol Direct HDL Cholesterol 11/07/17 11/07/17 11/07/17 17:02 17:02 18:05 WBC RBC Hgb Hct MCV MCHC RDW Seg Neuts % (Manual) Lymphocytes % (Manual) Seg Neutrophils # Man Lymphocytes # (Manual) PT INR POC ABG pH POC ABG pCO2 POC ABG pO2 Sodium Potassium Chloride Carbon Dioxide BUN Creatinine Glucose POC Glucose 485 H Hemoglobin A1c 10.0 H Lactic Acid Calcium Phosphorus 6.60 H Magnesium 2.70 H C-Reactive Protein Total Protein Albumin LDL Cholesterol Direct HDL Cholesterol 11/07/17 11/07/17 11/07/17 18:52 20:20 21:23 WBC RBC Hgb Hct MCV MCHC RDW Seg Neuts % (Manual) Lymphocytes % (Manual) Seg Neutrophils # Man Lymphocytes # (Manual) PT INR POC ABG pH POC ABG pCO2 POC ABG pO2 Sodium 148 H Potassium Chloride Carbon Dioxide < 2.0 L* BUN 41 H Creatinine 1.4 H Glucose 473 H POC Glucose 356 H 322 H Hemoglobin A1c Lactic Acid Calcium 7.8 L Phosphorus Magnesium C-Reactive Protein Total Protein Albumin LDL Cholesterol Direct HDL Cholesterol 11/07/17 11/07/17 11/07/17 22:28 23:01 23:31 WBC RBC Hgb Hct MCV MCHC RDW Seg Neuts % (Manual) Lymphocytes % (Manual) Seg Neutrophils # Man Lymphocytes # (Manual) PT INR POC ABG pH POC ABG pCO2 POC ABG pO2 Sodium 148 H Potassium Chloride 111.6 H Carbon Dioxide 4 L* BUN 43 H Creatinine 1.3 H Glucose 177 H POC Glucose 242 H 204 H Hemoglobin A1c Lactic Acid Calcium 7.7 L Phosphorus Magnesium C-Reactive Protein Total Protein Albumin LDL Cholesterol Direct HDL Cholesterol 11/08/17 11/08/17 11/08/17 01:20 03:30 04:01 WBC RBC Hgb Hct MCV MCHC RDW Seg Neuts % (Manual) Lymphocytes % (Manual) Seg Neutrophils # Man Lymphocytes # (Manual) PT INR POC ABG pH POC ABG pCO2 POC ABG pO2 Sodium Potassium Chloride Carbon Dioxide BUN Creatinine Glucose POC Glucose 120 H 59 L 132 H Hemoglobin A1c Lactic Acid Calcium Phosphorus Magnesium C-Reactive Protein Total Protein Albumin LDL Cholesterol Direct HDL Cholesterol 11/08/17 11/08/17 11/08/17 04:20 04:20 05:15 WBC RBC Hgb Hct MCV MCHC RDW Seg Neuts % (Manual) Lymphocytes % (Manual) Seg Neutrophils # Man Lymphocytes # (Manual) PT INR POC ABG pH POC ABG pCO2 POC ABG pO2 Sodium 151 H 150 H Potassium Chloride 114.3 H 115.4 H Carbon Dioxide 10 L 10 L BUN 48 H 48 H Creatinine 1.3 H Glucose 121 H 118 H POC Glucose 134 H Hemoglobin A1c Lactic Acid Calcium 7.8 L 7.8 L Phosphorus Magnesium C-Reactive Protein Total Protein Albumin LDL Cholesterol Direct HDL Cholesterol 11/08/17 11/08/17 11/08/17 06:41 07:49 08:12 WBC RBC Hgb Hct MCV MCHC RDW Seg Neuts % (Manual) Lymphocytes % (Manual) Seg Neutrophils # Man Lymphocytes # (Manual) PT INR POC ABG pH POC ABG pCO2 POC ABG pO2 Sodium 151 H Potassium Chloride 116.5 H Carbon Dioxide 13 L BUN 52 H Creatinine 1.3 H Glucose 213 H POC Glucose 172 H 228 H Hemoglobin A1c Lactic Acid Calcium 7.9 L Phosphorus Magnesium C-Reactive Protein Total Protein Albumin LDL Cholesterol Direct HDL Cholesterol 11/08/17 11/08/17 11/08/17 08:22 09:31 11:04 WBC RBC Hgb Hct MCV MCHC RDW Seg Neuts % (Manual) Lymphocytes % (Manual) Seg Neutrophils # Man Lymphocytes # (Manual) PT INR POC ABG pH POC ABG pCO2 POC ABG pO2 Sodium Potassium Chloride Carbon Dioxide BUN Creatinine Glucose POC Glucose 140 H 140 H 136 H Hemoglobin A1c Lactic Acid Calcium Phosphorus Magnesium C-Reactive Protein Total Protein Albumin LDL Cholesterol Direct HDL Cholesterol 11/08/17 11/08/17 11/08/17 12:11 13:40 17:21 WBC RBC Hgb Hct MCV MCHC RDW Seg Neuts % (Manual) Lymphocytes % (Manual) Seg Neutrophils # Man Lymphocytes # (Manual) PT INR POC ABG pH POC ABG pCO2 POC ABG pO2 Sodium 152 H Potassium Chloride 117.6 H Carbon Dioxide 15 L BUN 50 H Creatinine 1.3 H Glucose 144 H POC Glucose 111 H 182 H Hemoglobin A1c Lactic Acid Calcium Phosphorus Magnesium C-Reactive Protein Total Protein Albumin LDL Cholesterol Direct HDL Cholesterol 11/08/17 11/08/17 11/09/17 17:45 23:06 00:39 WBC RBC Hgb Hct MCV MCHC RDW Seg Neuts % (Manual) Lymphocytes % (Manual) Seg Neutrophils # Man Lymphocytes # (Manual) PT INR POC ABG pH POC ABG pCO2 POC ABG pO2 Sodium 149 H Potassium Chloride 116.2 H Carbon Dioxide 13 L BUN 48 H Creatinine 1.3 H Glucose 171 H POC Glucose < 40 L 123 H Hemoglobin A1c Lactic Acid Calcium 8.1 L Phosphorus Magnesium C-Reactive Protein Total Protein Albumin LDL Cholesterol Direct HDL Cholesterol 11/09/17 11/09/17 11/09/17 07:07 07:07 11:35 WBC RBC Hgb Hct MCV MCHC RDW Seg Neuts % (Manual) Lymphocytes % (Manual) Seg Neutrophils # Man Lymphocytes # (Manual) PT INR POC ABG pH POC ABG pCO2 POC ABG pO2 Sodium 152 H Potassium 3.0 L D Chloride 121.9 H Carbon Dioxide 18 L BUN 44 H Creatinine Glucose POC Glucose 118 H Hemoglobin A1c Lactic Acid Calcium Phosphorus 1.50 L Magnesium C-Reactive Protein Total Protein Albumin LDL Cholesterol Direct HDL Cholesterol 11/09/17 11/09/17 11/09/17 16:54 19:44 19:49 WBC RBC Hgb Hct MCV MCHC RDW Seg Neuts % (Manual) Lymphocytes % (Manual) Seg Neutrophils # Man Lymphocytes # (Manual) PT INR POC ABG pH POC ABG pCO2 28.9 L POC ABG pO2 Sodium Potassium Chloride Carbon Dioxide BUN Creatinine Glucose POC Glucose 231 H Hemoglobin A1c Lactic Acid Calcium Phosphorus Magnesium C-Reactive Protein 4.70 H Total Protein Albumin LDL Cholesterol Direct HDL Cholesterol 11/09/17 11/10/17 11/10/17 21:48 06:25 12:35 WBC RBC Hgb Hct MCV MCHC RDW Seg Neuts % (Manual) Lymphocytes % (Manual) Seg Neutrophils # Man Lymphocytes # (Manual) PT INR POC ABG pH POC ABG pCO2 POC ABG pO2 Sodium Potassium Chloride Carbon Dioxide BUN Creatinine Glucose POC Glucose 176 H 299 H 258 H Hemoglobin A1c Lactic Acid Calcium Phosphorus Magnesium C-Reactive Protein Total Protein Albumin LDL Cholesterol Direct HDL Cholesterol 11/10/17 11/10/17 11/11/17 16:43 22:07 02:59 WBC RBC Hgb Hct MCV MCHC RDW Seg Neuts % (Manual) Lymphocytes % (Manual) Seg Neutrophils # Man Lymphocytes # (Manual) PT INR POC ABG pH POC ABG pCO2 POC ABG pO2 Sodium Potassium Chloride Carbon Dioxide BUN Creatinine Glucose POC Glucose 252 H 248 H 193 H Hemoglobin A1c Lactic Acid Calcium Phosphorus Magnesium C-Reactive Protein Total Protein Albumin LDL Cholesterol Direct HDL Cholesterol 11/11/17 11/11/17 11/11/17 06:20 07:27 07:27 WBC 18.6 H RBC 2.90 L Hgb 9.0 L Hct 27.0 L MCV MCHC RDW Seg Neuts % (Manual) Lymphocytes % (Manual) Seg Neutrophils # Man Lymphocytes # (Manual) PT INR POC ABG pH POC ABG pCO2 POC ABG pO2 Sodium 152 H Potassium Chloride 116.2 H Carbon Dioxide 19 L BUN 24 H Creatinine Glucose 288 H POC Glucose 280 H Hemoglobin A1c Lactic Acid Calcium 8.3 L Phosphorus Magnesium C-Reactive Protein Total Protein Albumin LDL Cholesterol Direct 42 L HDL Cholesterol 88 H 11/11/17 11/11/17 11/11/17 11:09 17:12 20:59 WBC RBC Hgb Hct MCV MCHC RDW Seg Neuts % (Manual) Lymphocytes % (Manual) Seg Neutrophils # Man Lymphocytes # (Manual) PT INR POC ABG pH POC ABG pCO2 POC ABG pO2 Sodium Potassium Chloride Carbon Dioxide BUN Creatinine Glucose POC Glucose 328 H 306 H 318 H Hemoglobin A1c Lactic Acid Calcium Phosphorus Magnesium C-Reactive Protein Total Protein Albumin LDL Cholesterol Direct HDL Cholesterol 11/12/17 11/12/17 11/12/17 01:55 04:40 04:40 WBC 13.0 H RBC 2.88 L Hgb 9.0 L Hct 26.2 L MCV MCHC 35 H RDW 12.6 L Seg Neuts % (Manual) Lymphocytes % (Manual) Seg Neutrophils # Man Lymphocytes # (Manual) PT INR POC ABG pH POC ABG pCO2 POC ABG pO2 Sodium 148 H Potassium 3.3 L Chloride 111.8 H Carbon Dioxide BUN 18 H Creatinine Glucose 212 H POC Glucose 274 H Hemoglobin A1c Lactic Acid Calcium 8.3 L Phosphorus Magnesium C-Reactive Protein Total Protein Albumin LDL Cholesterol Direct HDL Cholesterol 11/12/17 11/12/17 11/12/17 06:30 12:14 16:50 WBC RBC Hgb Hct MCV MCHC RDW Seg Neuts % (Manual) Lymphocytes % (Manual) Seg Neutrophils # Man Lymphocytes # (Manual) PT INR POC ABG pH POC ABG pCO2 POC ABG pO2 Sodium Potassium Chloride Carbon Dioxide BUN Creatinine Glucose POC Glucose 285 H 166 H 178 H Hemoglobin A1c Lactic Acid Calcium Phosphorus Magnesium C-Reactive Protein Total Protein Albumin LDL Cholesterol Direct HDL Cholesterol 11/12/17 11/13/17 11/13/17 21:24 05:47 05:55 WBC 12.4 H RBC 2.92 L Hgb 8.8 L Hct 26.1 L MCV MCHC RDW 12.6 L Seg Neuts % (Manual) Lymphocytes % (Manual) Seg Neutrophils # Man Lymphocytes # (Manual) PT INR POC ABG pH POC ABG pCO2 POC ABG pO2 Sodium Potassium Chloride Carbon Dioxide BUN Creatinine Glucose POC Glucose 197 H 291 H Hemoglobin A1c Lactic Acid Calcium Phosphorus Magnesium C-Reactive Protein Total Protein Albumin LDL Cholesterol Direct HDL Cholesterol 11/13/17 11/13/17 11/13/17 05:55 12:24 16:33 WBC RBC Hgb Hct MCV MCHC RDW Seg Neuts % (Manual) Lymphocytes % (Manual) Seg Neutrophils # Man Lymphocytes # (Manual) PT INR POC ABG pH POC ABG pCO2 POC ABG pO2 Sodium Potassium Chloride 108.2 H Carbon Dioxide 21 L BUN Creatinine Glucose 228 H POC Glucose 215 H 280 H Hemoglobin A1c Lactic Acid Calcium 8.1 L Phosphorus Magnesium C-Reactive Protein Total Protein Albumin LDL Cholesterol Direct HDL Cholesterol 11/13/17 11/14/17 11/14/17 22:12 05:27 12:47 WBC RBC Hgb Hct MCV MCHC RDW Seg Neuts % (Manual) Lymphocytes % (Manual) Seg Neutrophils # Man Lymphocytes # (Manual) PT INR POC ABG pH POC ABG pCO2 POC ABG pO2 Sodium Potassium Chloride Carbon Dioxide BUN Creatinine Glucose POC Glucose 236 H 186 H 206 H Hemoglobin A1c Lactic Acid Calcium Phosphorus Magnesium C-Reactive Protein Total Protein Albumin LDL Cholesterol Direct HDL Cholesterol 11/14/17 11/14/17 11/15/17 17:27 22:19 05:48 WBC RBC Hgb Hct MCV MCHC RDW Seg Neuts % (Manual) Lymphocytes % (Manual) Seg Neutrophils # Man Lymphocytes # (Manual) PT INR POC ABG pH POC ABG pCO2 POC ABG pO2 Sodium Potassium Chloride Carbon Dioxide BUN Creatinine Glucose POC Glucose 213 H 123 H 203 H Hemoglobin A1c Lactic Acid Calcium Phosphorus Magnesium C-Reactive Protein Total Protein Albumin LDL Cholesterol Direct HDL Cholesterol 11/15/17 11/15/17 11:20 16:53 WBC RBC Hgb Hct MCV MCHC RDW Seg Neuts % (Manual) Lymphocytes % (Manual) Seg Neutrophils # Man Lymphocytes # (Manual) PT INR POC ABG pH POC ABG pCO2 POC ABG pO2 Sodium Potassium Chloride Carbon Dioxide BUN Creatinine Glucose POC Glucose 223 H 264 H Hemoglobin A1c Lactic Acid Calcium Phosphorus Magnesium C-Reactive Protein Total Protein Albumin LDL Cholesterol Direct HDL Cholesterol
[2017-11-16] MEDS: ZOSYN/NS 3.375GM/50ML 3.375 GM/50 ML BAG IV SCH ×3 (05:53→17:30)
[2017-11-16] MEDS: NOVOLOG SUB-Q SCH ×4 (07:32→17:30)
[2017-11-16] MEDS: COMBIGAN 0.2-0.5% OU SCH ×2 (10:32→22:03)
[2017-11-16] MEDS: PROCARDIA XL PO SCH (10:33)
[2017-11-16] MEDS: MORPHINE IV PRN (10:33)
[2017-11-16] MEDS: celeXA PO SCH (10:33)
[2017-11-16] MEDS: PEPCID PO SCH (10:33)
[2017-11-16] MEDS: ASPIRIN PR SCH (10:45)
--- NOTE | 2017-11-16 11:51 | Gastroenterology Progress Note ---
Assessment and Plan - Patient Problems (1) Inability to swallow Current Visit: Yes Status: Acute Plan to address problem: The patient's care was discussed with the speech therapist. She has some swallowing abilities but will not likely tolerate enough to meet her needs. Will plan PEG on Saturday. (2) HTN (hypertension) Current Visit: Yes Status: Chronic Qualifiers: Hypertension type: essential hypertension Qualified Code(s): I10 - Essential (primary) hypertension (3) History of CVA with residual deficit Current Visit: Yes Status: Chronic Subjective Date of service: 11/16/17 Principal diagnosis: inability to swallow Interval history: The patient denies and discomfort. Objective - Constitutional Vitals: Temp Pulse Resp BP Pulse Ox 98.2 F 89 20 125/82 97 11/16/17 08:03 11/16/17 08:03 11/16/17 08:03 11/16/17 08:03 11/16/17 08:03 - EENT ENT: hearing intact, clear oral mucosa, dentition normal - Neck Neck: supple, normal ROM - Respiratory Respiratory effort: normal Respiratory: bilateral: CTA - Breasts Breasts: deferred - Cardiovascular Rhythm: regular - Gastrointestinal General gastrointestinal: Present: soft, non-tender, non-distended, normal bowel sounds Rectal Exam: normal exam-external/orifice - Genitourinary Female Genitourinary: deferred - Integumentary Integumentary: Present: clear, warm, dry - Neurologic Neurological: oriented to person, oriented to place - Psychiatric Psychiatric: appropriate mood/affect - Labs CBC & Chem 7: 11/13/17 05:55 11/13/17 05:55 Labs: Laboratory Results - last 24 hr 11/15/17 11/16/17 11/16/17 16:53 01:08 06:31 POC Glucose 264 H 183 H 238 H 11/16/17 11:15 POC Glucose 344 H
--- NOTE | 2017-11-16 13:06 | Progress Note ---
Assessment and Plan Assessment and plan: Patient is 37-year-old woman with a history of insulin-dependent diabetes mellitus, CVA on aspirin and Plavix, hypertension, dyslipidemia and depression who presented with altered mental status and was admitted for DKA. Her baseline mental function per sister Jessica: she walks with a walker, she feeds herself, needs help with clothes, left arm weaker than right and speech is usually slurred. Jessica reports that patient was discharged from [facility] about 1.5 months ago and went to [facility]. Then, she went to her home from there. She lives with daughter Leslye and brother, Sean, who moved in with her for more support. per Jessica: "I wanna say she wasn't talking her insulin, because this 3rd stoke did alittle mentally and she more forgettable, that is what I am thinking , for example, she will say, I need to take my insulin but she had just took her insulin." They went to [place], on the way back Saturday night 11pm, she was sleeping off and on, BG was 516 and she took her insulin. Her daughter, Leslye, said next morning she got up morning to go to the bathroom and she fell and then was unresponsive, she was found on the floor in urine by daughter, Leslye. -DKA with acute metabolic acidosis, high anion gap: Treated with IV fluids, insulin drip now resolved -Acute metabolic encephalopathy/semiconscious state: treat the above -Recurrent Acute ischemic strokes. 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 Anion gap was still high so I sent ICU to start insulin drip. I also ordered bmp stat. By the time the stat bmp was resulted, patient was in the icu. Anion gap has closed, so i will downgrade back to medical surg floor. Replace her potassium, start diet, if she unable to eat continue D5W due to hypernatremia and not eating. Await neurology assessment because she is not at her mental baseline of slurred speech and ambulation with a walker. Order PT/OT 11/10/17: I gave pt 0.5mg iv ativan x 1 to complete mri brain that Neurology ordered, MRI brain reported as multiple focal areas of restricted diffusion right cerebral hemisphere suggestive excuse ischemia, no evidence of hemorrhage , dilated right lateral ventricle without definite evidence of obstruction, acute right mastoiditis. I started abx, iv rocephin, used stroke protocol 11/11/2017: WBC went down, Still hypernatremic, more free water, repeat labs in am. ECHO pending. I called Jessica at [phone], no answer ?phone broken message. 11/12/17: echo pending, replace potassium, hyperglycemia on D5W for the hypernatremia, continue ssi, if she tolerates a diet today, then d/c ivf, change ssi to achs instead of q4hr, urine culture still pending. Hopefully SNF placement in 1-2 days 11/13/17: Echo reviewed, hypernatremia/hypokalemia resolved, stop ivf. Waiting on placement 11/14/17: [facility] in [place], [place], waiting on insurance pre-auth 11/15/17: failed swallow, going for peg on saturday because she is on Plavix. Nutrition: Patient refusing NGT but she will consider. she is comminunicating via paper and pencil. 11/16/17: continue peg tube. History Interval history: Patient was seen and examined. Follow-up on current diagnosis/altered mental status. Overnight uneventful. Patient not given any history; therefore, Imaging, nursing note, chart, labs and old chart reviewed. Responding more. Hospitalist Physical - Physical exam Narrative exam: GEN: Thin frail woman chronic a bit debilitating appearing, lethargic, nonverbal HEENT: NCAT, EOMI, PERRL, OP Clear NECK: supple, no adenopathy, no thyromegaly, no JVD CVS/HEART: regular tachycardia NORMAL S1S2, NO JVD, pulses present bilaterally CHEST/LUNGS: CTA B, Symmetrical chest expansion, good air entry bilaterally GI/Abdomen: soft, NTND, good bowel sounds, no guarding or rebound /Bladder: no suprapubic tenderness, no CVA or paraspinal tenderness EXT/Skin: no c/c/e, no obvious rash MSK: Moving both arms with contractures Neuro: CN 2-12 grossly intact except nonverbal, hemiparesis, facial asymmetry, no new focal deficits Psych: calm but confused - Constitutional Vitals: Temp Pulse Resp BP Pulse Ox 98.2 F 89 20 125/82 97 11/16/17 08:03 11/16/17 08:03 11/16/17 08:03 11/16/17 08:03 11/16/17 08:03 General appearance: Present: well-nourished. Absent: mild distress Results - Labs CBC & Chem 7: 11/13/17 05:55 11/13/17 05:55 Labs: Laboratory Last Values WBC 12.4 K/mm3 (4.5-11.0) H 11/13/17 05:55 RBC 2.92 M/mm3 (3.65-5.03) L 11/13/17 05:55 Hgb 8.8 gm/dl (10.1-14.3) L 11/13/17 05:55 Hct 26.1 % (30.3-42.9) L 11/13/17 05:55 MCV 89 fl (79-97) 11/13/17 05:55 MCH 30 pg (28-32) 11/13/17 05:55 MCHC 34 % (30-34) 11/13/17 05:55 RDW 12.6 % (13.2-15.2) L 11/13/17 05:55 Plt Count 249 K/mm3 (140-440) 11/13/17 05:55 Add Manual Diff Complete 11/07/17 12:26 Total Counted 100 11/07/17 12:26 Seg Neutrophils % [employer] Super[employer] 11/07/17 12:26 Seg Neuts % (Manual) 90.0 % (40.0-70.0) H 11/07/17 12:26 Band Neutrophils % 4.0 % 11/07/17 12:26 Lymphocytes % (Manual) 2.0 % (13.4-35.0) L 11/07/17 12:26 Reactive Lymphs % (Man) 0 % 11/07/17 12:26 Monocytes % (Manual) 4.0 % (0.0-7.3) 11/07/17 12:26 Eosinophils % (Manual) 0 % (0.0-4.3) 11/07/17 12:26 Basophils % (Manual) 0 % (0.0-1.8) 11/07/17 12:26 Metamyelocytes % 0 % 11/07/17 12:26 Myelocytes % 0 % 11/07/17 12: Promyelocytes % 0 % 11/07/17 12:26 Blast Cells % 0 % 11/07/17 12:26 Nucleated RBC % Not Reportable 11/07/17 12:26 Seg Neutrophils # Man 18.1 K/mm3 (1.8-7.7) H 11/07/17 12:26 Band Neutrophils # 0.8 K/mm3 11/07/17 12:26 Lymphocytes # (Manual) 0.4 K/mm3 (1.2-5.4) L 11/07/17 12:26 Abs React Lymphs (Man) 0.0 K/mm3 11/07/17 12:26 Monocytes # (Manual) 0.8 K/mm3 (0.0-0.8) 11/07/17 12:26 Eosinophils # (Manual) 0.0 K/mm3 (0.0-0.4) 11/07/17 12:26 Basophils # (Manual) 0.0 K/mm3 (0.0-0.1) 11/07/17 12:26 Metamyelocytes # 0.0 K/mm3 11/07/17 12:26 Myelocytes # 0.0 K/mm3 11/07/17 12:26 Promyelocytes # 0.0 K/mm3 11/07/17 12:26 Blast Cells # 0.0 K/mm3 11/07/17 12:26 WBC Morphology Not Reportable 11/07/17 12:26 Hypersegmented Neuts Not Reportable 11/07/17 12:26 Hyposegmented Neuts Not Reportable 11/07/17 12:26 Hypogranular Neuts Not Reportable 11/07/17 12:26 Smudge Cells Not Reportable 11/07/17 12:26 Toxic Granulation Not Reportable 11/07/17 12:26 Toxic Vacuolation Not Reportable 11/07/17 12:26 Dohle Bodies Not Reportable 11/07/17 12:26 Pelger-Huet Anomaly Not Reportable 11/07/17 12:26 Xiomy Rods Not Reportable 11/07/17 12:26 Platelet Estimate Not Reportable 11/07/17 12:26 Clumped Platelets Not Reportable 11/07/17 12:26 Plt Clumps, EDTA Not Reportable 11/07/17 12:26 Large Platelets Not Reportable 11/07/17 12:26 Giant Platelets Not Reportable 11/07/17 12:26 Platelet Satelliting Not Reportable 11/07/17 12:26 Plt Morphology Comment Not Reportable 11/07/17 12:26 RBC Morphology Normal 11/07/17 12:26 Dimorphic RBCs Not Reportable 11/07/17 12:26 Polychromasia Not Reportable 11/07/17 12:26 Hypochromasia Not Reportable 11/07/17 12:26 Poikilocytosis Not Reportable 11/07/17 12:26 Anisocytosis Not Reportable 11/07/17 12:26 Microcytosis Not Reportable 11/07/17 12:26 Macrocytosis Not Reportable 11/07/17 12:26 Spherocytes Not Reportable 11/07/17 12:26 Pappenheimer Bodies Not Reportable 11/07/17 12:26 Sickle Cells Not Reportable 11/07/17 12:26 Target Cells Not Reportable 11/07/17 12:26 Tear Drop Cells Not Reportable 11/07/17 12:26 Ovalocytes Not Reportable 11/07/17 12:26 Helmet Cells Not Reportable 11/07/17 12:26 [place] Bodies Not Reportable 11/07/17 12:26 [place] Rings Not Reportable 11/07/17 12:26 [place] Cells Not Reportable 11/07/17 12:26 Bite Cells Not Reportable 11/07/17 12:26 Crenated Cell Not Reportable 11/07/17 12:26 Elliptocytes Not Reportable 11/07/17 12:26 Acanthocytes (Spur) Not Reportable 11/07/17 12:26 Rouleaux Not Reportable 11/07/17 12:26 Hemoglobin C Crystals Not Reportable 11/07/17 12:26 Schistocytes Not Reportable 11/07/17 12:26 Malaria parasites Not Reportable 11/07/17 12:26 Mundo Bodies Not Reportable 11/07/17 12:26 Hem Pathologist Commnt No 11/07/17 12:26 PT 13.2 Sec. (12.2-14.9) 11/15/17 08:39 INR 0.95 (0.87-1.13) 11/15/17 08:39 POC ABG pH 7.389 (7.35-7.45) 11/09/17 19:49 POC ABG pCO2 28.9 (35-45) L 11/09/17 19:49 POC ABG pO2 98 (80-105) 11/09/17 19:49 POC ABG HCO3 17.4 11/09/17 19:49 POC ABG Total CO2 18 11/09/17 19:49 POC ABG O2 Sat 98 11/09/17 19:49 POC ABG Base Excess -8 11/09/17 19:49 FiO2 21 % 11/09/17 19:49 Sodium 144 mmol/L (137-145) 11/13/17 05:55 Potassium 4.1 mmol/L (3.6-5.0) D 11/13/17 05:55 Chloride 108.2 mmol/L (98-107) H 11/13/17 05:55 Carbon Dioxide 21 mmol/L (22-30) L 11/13/17 05:55 Anion Gap 19 mmol/L 11/13/17 05:55 BUN 12 mg/dL (7-17) 11/13/17 05:55 Creatinine 0.7 mg/dL (0.7-1.2) 11/13/17 05:55 Estimated GFR > 60 ml/min 11/13/17 05:55 BUN/Creatinine Ratio 17 % 11/13/17 05:55 Glucose 228 mg/dL (65-100) H 11/13/17 05:55 POC Glucose 344 (70-105) H 11/16/17 11:15 Hemoglobin A1c 10.0 % (4-6) H 11/07/17 17:02 Lactic Acid 1.80 mmol/L (0.7-2.0) 11/09/17 19:44 Calcium 8.1 mg/dL (8.4-10.2) L 11/13/17 05:55 Phosphorus 1.50 mg/dL (2.5-4.5) L 11/09/17 07:07 Magnesium 1.80 mg/dL (1.7-2.3) 11/12/17 04:40 Total Bilirubin 0.30 mg/dL (0.1-1.2) 11/07/17 13:44 Direct Bilirubin 0.2 mg/dL (0-0.2) 11/07/17 13:44 Indirect Bilirubin 0.1 mg/dL 11/07/17 13:44 AST 15 units/L (5-40) 11/07/17 13:44 ALT 11 units/L (7-56) 11/07/17 13:44 Alkaline Phosphatase 89 units/L (35-129) 11/07/17 13:44 C-Reactive Protein 4.70 mg/dL (0.00-1.30) H 11/09/17 19:44 Total Protein 5.8 g/dL (6.3-8.2) L 11/07/17 13:44 Albumin 3.0 g/dL (3.9-5) L 11/07/17 13:44 Albumin/Globulin Ratio 1.1 % 11/07/17 13:44 Triglycerides 94 mg/dL (2-149) 11/11/17 07:27 Cholesterol 148 mg/dL (50-199) 11/11/17 07:27 LDL Cholesterol Direct 42 mg/dL (50-130) L 11/11/17 07:27 HDL Cholesterol 88 mg/dL (40-59) H 11/11/17 07:27 Cholesterol/HDL Ratio 1.68 % 11/11/17 07:27 HCG, Qual Negative (Negative) 11/09/17 15:05 Urine Color Yellow (Yellow) 11/07/17 14:28 Urine Turbidity Clear (Clear) 11/07/17 14:28 Urine pH 5.0 (5.0-7.0) 11/07/17 14:28 Ur Specific [place] 1.016 (1.003-1.030) 11/07/17 14:28 Urine Protein 100 mg/dl mg/dL (Negative) 11/07/17 14:28 Urine Glucose (UA) >=500 mg/dL (Negative) 11/07/17 14:28 Urine Ketones 80 mg/dL (Negative) 11/07/17 14:28 Urine Blood Mod (Negative) 11/07/17 14:28 Urine Nitrite Neg (Negative) 11/07/17 14:28 Urine Bilirubin Neg (Negative) 11/07/17 14:28 Urine Urobilinogen < 2.0 mg/dL (<2.0) 11/07/17 14:28 Ur Leukocyte Esterase Neg (Negative) 11/07/17 14:28 Urine WBC (Auto) 2.0 /HPF (0.0-6.0) 11/07/17 14:28 Urine RBC (Auto) < 1.0 /HPF (0.0-6.0) 11/07/17 14:28 U Epithel Cells (Auto) < 1.0 /HPF (0-13.0) 11/07/17 14:28 Urine Bacteria (Auto) 1+ /HPF (Negative) 11/07/17 14:28 Urine Opiates Screen Presumptive negative 11/07/17 14:28 Urine Methadone Screen Presumptive negative 11/07/17 14:28 Ur Barbiturates Screen Presumptive negative 11/07/17 14:28 Ur Phencyclidine Scrn Presumptive negative 11/07/17 14:28 Ur Amphetamines Screen Presumptive negative 11/07/17 14:28 U Benzodiazepines Scrn Presumptive negative 11/07/17 14:28 Urine Cocaine Screen Presumptive negative 11/07/17 14:28 U Marijuana (THC) Screen Presumptive negative 11/07/17 14:28 Drugs of Abuse Note Disclamer 11/07/17 14:28
--- NOTE | 2017-11-16 15:03 | Progress Note ---
Assessment and Plan -Acute ischemic stroke-Sepsis secondary to acute mastoiditis -DKA with acute metabolic acidosis, high anion gap-improving -Acute metabolic encephalopathy( improved) -Recurrent Acute ischemic strokes -Expressive aphasia -Hypernatremia -Moderate malnutrition -Oropharyngeal dysphagia Monitor hemodynamics Complete antibiotics per ID Continue with supplemental oxygen for O2 sats >92% Aspiration precautions Speech language pathologist to continue to treat- swallow and speech Enteric nutrition Free water flushes PT/OT/mobility Secondary stroke prophylaxis Evaluate for other secondary causes of stroke. Accuchecks with glycemic control Subjective Date of service: 11/16/17 Principal diagnosis: inability to swallow Interval history: Patient is seen today for: Acute on Chronic Encephalopathy; SIRS; DKA; Seizures Seen and examined at bedside; 24hour events reviewed; nursing and respiratory care staff consulted; no adverse overnight events reported to me; She wants to eat. Objective - Exam Narrative Exam: GEN: Thin frail woman chronic a bit debilitating appearing, lethargic, nonverbal HEENT: NCAT, EOMI, PERRL, OP Clear NECK: supple, no adenopathy, no thyromegaly, no JVD CVS/HEART: regular tachycardia NORMAL S1S2, NO JVD, pulses present bilaterally CHEST/LUNGS: CTA B, Symmetrical chest expansion, good air entry bilaterally GI/Abdomen: soft, NTND, good bowel sounds, no guarding or rebound /Bladder: no suprapubic tenderness, no CVA or paraspinal tenderness EXT/Skin: no c/c/e, no obvious rash MSK: Moving right upper extremity. Left hand in a splint Neuro: Expressive aphasia Psych: calm, good affect Vital Signs - 12hr 11/16/17 08:03 Temperature 98.2 F Pulse Rate 89 Respiratory 20 Rate Blood Pressure 125/82 O2 Sat by Pulse 97 Oximetry Constitutional: no acute distress, asleep Eyes: non-icteric Neck: supple, no lymphadenopathy Ascultation: Bilateral: clear Cardiovascular: regular rate and rhythm Gastrointestinal: normoactive bowel sounds, soft, non-tender Integumentary: normal Extremities: no cyanosis, no edema Neurologic: other (Patient sleeping at this time.) Psychiatric: other (Patient sleeping at this time.) CBC and BMP: 11/13/17 05:55 11/13/17 05:55 ABG, PT/INR, D-dimer: ABG POC ABG pH 7.389 (7.35-7.45) 11/09/17 19:49 POC ABG pCO2 28.9 (35-45) L 11/09/17 19:49 POC ABG pO2 98 (80-105) 11/09/17 19:49 POC ABG HCO3 17.4 11/09/17 19:49 POC ABG Total CO2 18 11/09/17 19:49 POC ABG O2 Sat 98 11/09/17 19:49 PT/INR, D-dimer PT 13.2 Sec. (12.2-14.9) 11/15/17 08:39 INR 0.95 (0.87-1.13) 11/15/17 08:39 Abnormal lab findings: Abnormal Labs 11/07/17 11/07/17 11/07/17 12:26 12:26 12:26 WBC 20.1 H RBC Hgb Hct MCV 101 H MCHC RDW Seg Neuts % (Manual) 90.0 H Lymphocytes % (Manual) 2.0 L Seg Neutrophils # Man 18.1 H Lymphocytes # (Manual) 0.4 L PT 16.4 H INR 1.25 H POC ABG pH POC ABG pCO2 POC ABG pO2 Sodium Potassium Chloride Carbon Dioxide BUN Creatinine Glucose POC Glucose 445 H Hemoglobin A1c Lactic Acid Calcium Phosphorus Magnesium C-Reactive Protein Total Protein Albumin LDL Cholesterol Direct HDL Cholesterol 11/07/17 11/07/17 11/07/17 12:39 13:44 13:44 WBC RBC Hgb Hct MCV MCHC RDW Seg Neuts % (Manual) Lymphocytes % (Manual) Seg Neutrophils # Man Lymphocytes # (Manual) PT INR POC ABG pH 6.856 L POC ABG pCO2 12.4 L POC ABG pO2 288 H Sodium Potassium Chloride Carbon Dioxide BUN Creatinine Glucose POC Glucose Hemoglobin A1c Lactic Acid Calcium Phosphorus 8.10 H Magnesium 2.60 H C-Reactive Protein Total Protein 5.8 L Albumin 3.0 L LDL Cholesterol Direct HDL Cholesterol 11/07/17 11/07/17 11/07/17 13:44 14:17 15:17 WBC RBC Hgb Hct MCV MCHC RDW Seg Neuts % (Manual) Lymphocytes % (Manual) Seg Neutrophils # Man Lymphocytes # (Manual) PT INR POC ABG pH POC ABG pCO2 POC ABG pO2 Sodium Potassium 6.5 H* 5.8 H 5.7 H Chloride 94.4 L Carbon Dioxide 5 L* 2 L* < 2.0 L* BUN 43 H 38 H 39 H Creatinine 1.3 H 1.3 H Glucose 629 H* 610 H* 585 H* POC Glucose Hemoglobin A1c Lactic Acid Calcium 8.3 L 7.7 L 7.9 L Phosphorus Magnesium C-Reactive Protein Total Protein Albumin LDL Cholesterol Direct HDL Cholesterol 11/07/17 11/07/17 11/07/17 15:17 15:40 16:57 WBC RBC Hgb Hct MCV MCHC RDW Seg Neuts % (Manual) Lymphocytes % (Manual) Seg Neutrophils # Man Lymphocytes # (Manual) PT INR POC ABG pH POC ABG pCO2 POC ABG pO2 Sodium Potassium Chloride Carbon Dioxide 3 L* BUN 42 H Creatinine 1.3 H Glucose 557 H* POC Glucose > 500 H Hemoglobin A1c Lactic Acid 2.90 H* Calcium 8.1 L Phosphorus Magnesium C-Reactive Protein Total Protein Albumin LDL Cholesterol Direct HDL Cholesterol 11/07/17 11/07/17 11/07/17 17:02 17:02 18:05 WBC RBC Hgb Hct MCV MCHC RDW Seg Neuts % (Manual) Lymphocytes % (Manual) Seg Neutrophils # Man Lymphocytes # (Manual) PT INR POC ABG pH POC ABG pCO2 POC ABG pO2 Sodium Potassium Chloride Carbon Dioxide BUN Creatinine Glucose POC Glucose 485 H Hemoglobin A1c 10.0 H Lactic Acid Calcium Phosphorus 6.60 H Magnesium 2.70 H C-Reactive Protein Total Protein Albumin LDL Cholesterol Direct HDL Cholesterol 11/07/17 11/07/17 11/07/17 18:52 20:20 21:23 WBC RBC Hgb Hct MCV MCHC RDW Seg Neuts % (Manual) Lymphocytes % (Manual) Seg Neutrophils # Man Lymphocytes # (Manual) PT INR POC ABG pH POC ABG pCO2 POC ABG pO2 Sodium 148 H Potassium Chloride Carbon Dioxide < 2.0 L* BUN 41 H Creatinine 1.4 H Glucose 473 H POC Glucose 356 H 322 H Hemoglobin A1c Lactic Acid Calcium 7.8 L Phosphorus Magnesium C-Reactive Protein Total Protein Albumin LDL Cholesterol Direct HDL Cholesterol 11/07/17 11/07/17 11/07/17 22:28 23:01 23:31 WBC RBC Hgb Hct MCV MCHC RDW Seg Neuts % (Manual) Lymphocytes % (Manual) Seg Neutrophils # Man Lymphocytes # (Manual) PT INR POC ABG pH POC ABG pCO2 POC ABG pO2 Sodium 148 H Potassium Chloride 111.6 H Carbon Dioxide 4 L* BUN 43 H Creatinine 1.3 H Glucose 177 H POC Glucose 242 H 204 H Hemoglobin A1c Lactic Acid Calcium 7.7 L Phosphorus Magnesium C-Reactive Protein Total Protein Albumin LDL Cholesterol Direct HDL Cholesterol 11/08/17 11/08/17 11/08/17 01:20 03:30 04:01 WBC RBC Hgb Hct MCV MCHC RDW Seg Neuts % (Manual) Lymphocytes % (Manual) Seg Neutrophils # Man Lymphocytes # (Manual) PT INR POC ABG pH POC ABG pCO2 POC ABG pO2 Sodium Potassium Chloride Carbon Dioxide BUN Creatinine Glucose POC Glucose 120 H 59 L 132 H Hemoglobin A1c Lactic Acid Calcium Phosphorus Magnesium C-Reactive Protein Total Protein Albumin LDL Cholesterol Direct HDL Cholesterol 11/08/17 11/08/17 11/08/17 04:20 04:20 05:15 WBC RBC Hgb Hct MCV MCHC RDW Seg Neuts % (Manual) Lymphocytes % (Manual) Seg Neutrophils # Man Lymphocytes # (Manual) PT INR POC ABG pH POC ABG pCO2 POC ABG pO2 Sodium 151 H 150 H Potassium Chloride 114.3 H 115.4 H Carbon Dioxide 10 L 10 L BUN 48 H 48 H Creatinine 1.3 H Glucose 121 H 118 H POC Glucose 134 H Hemoglobin A1c Lactic Acid Calcium 7.8 L 7.8 L Phosphorus Magnesium C-Reactive Protein Total Protein Albumin LDL Cholesterol Direct HDL Cholesterol 11/08/17 11/08/17 11/08/17 06:41 07:49 08:12 WBC RBC Hgb Hct MCV MCHC RDW Seg Neuts % (Manual) Lymphocytes % (Manual) Seg Neutrophils # Man Lymphocytes # (Manual) PT INR POC ABG pH POC ABG pCO2 POC ABG pO2 Sodium 151 H Potassium Chloride 116.5 H Carbon Dioxide 13 L BUN 52 H Creatinine 1.3 H Glucose 213 H POC Glucose 172 H 228 H Hemoglobin A1c Lactic Acid Calcium 7.9 L Phosphorus Magnesium C-Reactive Protein Total Protein Albumin LDL Cholesterol Direct HDL Cholesterol 11/08/17 11/08/17 11/08/17 08:22 09:31 11:04 WBC RBC Hgb Hct MCV MCHC RDW Seg Neuts % (Manual) Lymphocytes % (Manual) Seg Neutrophils # Man Lymphocytes # (Manual) PT INR POC ABG pH POC ABG pCO2 POC ABG pO2 Sodium Potassium Chloride Carbon Dioxide BUN Creatinine Glucose POC Glucose 140 H 140 H 136 H Hemoglobin A1c Lactic Acid Calcium Phosphorus Magnesium C-Reactive Protein Total Protein Albumin LDL Cholesterol Direct HDL Cholesterol 11/08/17 11/08/17 11/08/17 12:11 13:40 17:21 WBC RBC Hgb Hct MCV MCHC RDW Seg Neuts % (Manual) Lymphocytes % (Manual) Seg Neutrophils # Man Lymphocytes # (Manual) PT INR POC ABG pH POC ABG pCO2 POC ABG pO2 Sodium 152 H Potassium Chloride 117.6 H Carbon Dioxide 15 L BUN 50 H Creatinine 1.3 H Glucose 144 H POC Glucose 111 H 182 H Hemoglobin A1c Lactic Acid Calcium Phosphorus Magnesium C-Reactive Protein Total Protein Albumin LDL Cholesterol Direct HDL Cholesterol 11/08/17 11/08/17 11/09/17 17:45 23:06 00:39 WBC RBC Hgb Hct MCV MCHC RDW Seg Neuts % (Manual) Lymphocytes % (Manual) Seg Neutrophils # Man Lymphocytes # (Manual) PT INR POC ABG pH POC ABG pCO2 POC ABG pO2 Sodium 149 H Potassium Chloride 116.2 H Carbon Dioxide 13 L BUN 48 H Creatinine 1.3 H Glucose 171 H POC Glucose < 40 L 123 H Hemoglobin A1c Lactic Acid Calcium 8.1 L Phosphorus Magnesium C-Reactive Protein Total Protein Albumin LDL Cholesterol Direct HDL Cholesterol 11/09/17 11/09/17 11/09/17 07:07 07:07 11:35 WBC RBC Hgb Hct MCV MCHC RDW Seg Neuts % (Manual) Lymphocytes % (Manual) Seg Neutrophils # Man Lymphocytes # (Manual) PT INR POC ABG pH POC ABG pCO2 POC ABG pO2 Sodium 152 H Potassium 3.0 L D Chloride 121.9 H Carbon Dioxide 18 L BUN 44 H Creatinine Glucose POC Glucose 118 H Hemoglobin A1c Lactic Acid Calcium Phosphorus 1.50 L Magnesium C-Reactive Protein Total Protein Albumin LDL Cholesterol Direct HDL Cholesterol 11/09/17 11/09/17 11/09/17 16:54 19:44 19:49 WBC RBC Hgb Hct MCV MCHC RDW Seg Neuts % (Manual) Lymphocytes % (Manual) Seg Neutrophils # Man Lymphocytes # (Manual) PT INR POC ABG pH POC ABG pCO2 28.9 L POC ABG pO2 Sodium Potassium Chloride Carbon Dioxide BUN Creatinine Glucose POC Glucose 231 H Hemoglobin A1c Lactic Acid Calcium Phosphorus Magnesium C-Reactive Protein 4.70 H Total Protein Albumin LDL Cholesterol Direct HDL Cholesterol 11/09/17 11/10/17 11/10/17 21:48 06:25 12:35 WBC RBC Hgb Hct MCV MCHC RDW Seg Neuts % (Manual) Lymphocytes % (Manual) Seg Neutrophils # Man Lymphocytes # (Manual) PT INR POC ABG pH POC ABG pCO2 POC ABG pO2 Sodium Potassium Chloride Carbon Dioxide BUN Creatinine Glucose POC Glucose 176 H 299 H 258 H Hemoglobin A1c Lactic Acid Calcium Phosphorus Magnesium C-Reactive Protein Total Protein Albumin LDL Cholesterol Direct HDL Cholesterol 11/10/17 11/10/17 11/11/17 16:43 22:07 02:59 WBC RBC Hgb Hct MCV MCHC RDW Seg Neuts % (Manual) Lymphocytes % (Manual) Seg Neutrophils # Man Lymphocytes # (Manual) PT INR POC ABG pH POC ABG pCO2 POC ABG pO2 Sodium Potassium Chloride Carbon Dioxide BUN Creatinine Glucose POC Glucose 252 H 248 H 193 H Hemoglobin A1c Lactic Acid Calcium Phosphorus Magnesium C-Reactive Protein Total Protein Albumin LDL Cholesterol Direct HDL Cholesterol 11/11/17 11/11/17 11/11/17 06:20 07:27 07:27 WBC 18.6 H RBC 2.90 L Hgb 9.0 L Hct 27.0 L MCV MCHC RDW Seg Neuts % (Manual) Lymphocytes % (Manual) Seg Neutrophils # Man Lymphocytes # (Manual) PT INR POC ABG pH POC ABG pCO2 POC ABG pO2 Sodium 152 H Potassium Chloride 116.2 H Carbon Dioxide 19 L BUN 24 H Creatinine Glucose 288 H POC Glucose 280 H Hemoglobin A1c Lactic Acid Calcium 8.3 L Phosphorus Magnesium C-Reactive Protein Total Protein Albumin LDL Cholesterol Direct 42 L HDL Cholesterol 88 H 11/11/17 11/11/17 11/11/17 11:09 17:12 20:59 WBC RBC Hgb Hct MCV MCHC RDW Seg Neuts % (Manual) Lymphocytes % (Manual) Seg Neutrophils # Man Lymphocytes # (Manual) PT INR POC ABG pH POC ABG pCO2 POC ABG pO2 Sodium Potassium Chloride Carbon Dioxide BUN Creatinine Glucose POC Glucose 328 H 306 H 318 H Hemoglobin A1c Lactic Acid Calcium Phosphorus Magnesium C-Reactive Protein Total Protein Albumin LDL Cholesterol Direct HDL Cholesterol 11/12/17 11/12/17 11/12/17 01:55 04:40 04:40 WBC 13.0 H RBC 2.88 L Hgb 9.0 L Hct 26.2 L MCV MCHC 35 H RDW 12.6 L Seg Neuts % (Manual) Lymphocytes % (Manual) Seg Neutrophils # Man Lymphocytes # (Manual) PT INR POC ABG pH POC ABG pCO2 POC ABG pO2 Sodium 148 H Potassium 3.3 L Chloride 111.8 H Carbon Dioxide BUN 18 H Creatinine Glucose 212 H POC Glucose 274 H Hemoglobin A1c Lactic Acid Calcium 8.3 L Phosphorus Magnesium C-Reactive Protein Total Protein Albumin LDL Cholesterol Direct HDL Cholesterol 11/12/17 11/12/17 11/12/17 06:30 12:14 16:50 WBC RBC Hgb Hct MCV MCHC RDW Seg Neuts % (Manual) Lymphocytes % (Manual) Seg Neutrophils # Man Lymphocytes # (Manual) PT INR POC ABG pH POC ABG pCO2 POC ABG pO2 Sodium Potassium Chloride Carbon Dioxide BUN Creatinine Glucose POC Glucose 285 H 166 H 178 H Hemoglobin A1c Lactic Acid Calcium Phosphorus Magnesium C-Reactive Protein Total Protein Albumin LDL Cholesterol Direct HDL Cholesterol 11/12/17 11/13/17 11/13/17 21:24 05:47 05:55 WBC 12.4 H RBC 2.92 L Hgb 8.8 L Hct 26.1 L MCV MCHC RDW 12.6 L Seg Neuts % (Manual) Lymphocytes % (Manual) Seg Neutrophils # Man Lymphocytes # (Manual) PT INR POC ABG pH POC ABG pCO2 POC ABG pO2 Sodium Potassium Chloride Carbon Dioxide BUN Creatinine Glucose POC Glucose 197 H 291 H Hemoglobin A1c Lactic Acid Calcium Phosphorus Magnesium C-Reactive Protein Total Protein Albumin LDL Cholesterol Direct HDL Cholesterol 11/13/17 11/13/17 11/13/17 05:55 12:24 16:33 WBC RBC Hgb Hct MCV MCHC RDW Seg Neuts % (Manual) Lymphocytes % (Manual) Seg Neutrophils # Man Lymphocytes # (Manual) PT INR POC ABG pH POC ABG pCO2 POC ABG pO2 Sodium Potassium Chloride 108.2 H Carbon Dioxide 21 L BUN Creatinine Glucose 228 H POC Glucose 215 H 280 H Hemoglobin A1c Lactic Acid Calcium 8.1 L Phosphorus Magnesium C-Reactive Protein Total Protein Albumin LDL Cholesterol Direct HDL Cholesterol 11/13/17 11/14/17 11/14/17 22:12 05:27 12:47 WBC RBC Hgb Hct MCV MCHC RDW Seg Neuts % (Manual) Lymphocytes % (Manual) Seg Neutrophils # Man Lymphocytes # (Manual) PT INR POC ABG pH POC ABG pCO2 POC ABG pO2 Sodium Potassium Chloride Carbon Dioxide BUN Creatinine Glucose POC Glucose 236 H 186 H 206 H Hemoglobin A1c Lactic Acid Calcium Phosphorus Magnesium C-Reactive Protein Total Protein Albumin LDL Cholesterol Direct HDL Cholesterol 11/14/17 11/14/17 11/15/17 17:27 22:19 05:48 WBC RBC Hgb Hct MCV MCHC RDW Seg Neuts % (Manual) Lymphocytes % (Manual) Seg Neutrophils # Man Lymphocytes # (Manual) PT INR POC ABG pH POC ABG pCO2 POC ABG pO2 Sodium Potassium Chloride Carbon Dioxide BUN Creatinine Glucose POC Glucose 213 H 123 H 203 H Hemoglobin A1c Lactic Acid Calcium Phosphorus Magnesium C-Reactive Protein Total Protein Albumin LDL Cholesterol Direct HDL Cholesterol 11/15/17 11/15/17 11/16/17 11:20 16:53 01:08 WBC RBC Hgb Hct MCV MCHC RDW Seg Neuts % (Manual) Lymphocytes % (Manual) Seg Neutrophils # Man Lymphocytes # (Manual) PT INR POC ABG pH POC ABG pCO2 POC ABG pO2 Sodium Potassium Chloride Carbon Dioxide BUN Creatinine Glucose POC Glucose 223 H 264 H 183 H Hemoglobin A1c Lactic Acid Calcium Phosphorus Magnesium C-Reactive Protein Total Protein Albumin LDL Cholesterol Direct HDL Cholesterol 11/16/17 11/16/17 06:31 11:15 WBC RBC Hgb Hct MCV MCHC RDW Seg Neuts % (Manual) Lymphocytes % (Manual) Seg Neutrophils # Man Lymphocytes # (Manual) PT INR POC ABG pH POC ABG pCO2 POC ABG pO2 Sodium Potassium Chloride Carbon Dioxide BUN Creatinine Glucose POC Glucose 238 H 344 H Hemoglobin A1c Lactic Acid Calcium Phosphorus Magnesium C-Reactive Protein Total Protein Albumin LDL Cholesterol Direct HDL Cholesterol Allied health notes reviewed: nursing
[2017-11-16] MEDS: cefTRIAXone 1 GM in NACL 0.9% 20 ML IV SCH (17:31)
[2017-11-16] MEDS: FLEXERIL PO PRN (22:03)
[2017-11-17] MEDS: NOVOLOG SUB-Q SCH ×4 (00:01→18:16)
[2017-11-17] MEDS: ZOSYN/NS 3.375GM/50ML 3.375 GM/50 ML BAG IV SCH ×4 (00:01→18:15)
[2017-11-17] MEDS: MORPHINE IV PRN (06:02)
[2017-11-17] MEDS: PROCARDIA XL PO SCH (11:15)
[2017-11-17] MEDS: celeXA PO SCH (11:15)
[2017-11-17] MEDS: PEPCID PO SCH (11:16)
[2017-11-17] MEDS: ASPIRIN PR SCH (11:16)
[2017-11-17] MEDS: COMBIGAN 0.2-0.5% OU SCH ×2 (11:16→21:17)
--- NOTE | 2017-11-17 11:24 | Progress Note ---
Assessment and Plan Assessment and plan: Patient is 37-year-old woman with a history of insulin-dependent diabetes mellitus, CVA on aspirin and Plavix, hypertension, dyslipidemia and depression who presented with altered mental status and was admitted for DKA. Her baseline mental function per sister Jessica: she walks with a walker, she feeds herself, needs help with clothes, left arm weaker than right and speech is usually slurred. Jessica reports that patient was discharged from [facility] about 1.5 months ago and went to [facility]. Then, she went to her home from there. She lives with daughter Leslye and brother, Sean, who moved in with her for more support. per Jessica: "I wanna say she wasn't talking her insulin, because this 3rd stoke did alittle mentally and she more forgettable, that is what I am thinking , for example, she will say, I need to take my insulin but she had just took her insulin." They went to [place], on the way back Saturday night 11pm, she was sleeping off and on, BG was 516 and she took her insulin. Her daughter, Leslye, said next morning she got up morning to go to the bathroom and she fell and then was unresponsive, she was found on the floor in urine by daughter, Leslye. -DKA with acute metabolic acidosis, high anion gap: Treated with IV fluids, insulin drip now resolved -Acute metabolic encephalopathy/semiconscious state: treat the above -Recurrent Acute ischemic strokes. ?hydrocephalus on Ct head: consulted Neurology --->Sepsis due to acute right mastoiditis, poa, start iv abx -Hypernatremia: needs more free water, bmp -Moderate malnutrition: test clerk -Acute ischemic stroke, poa: get ECHO, used stroke protocol 11/09/17: Insulin drip was stopped because of hypoglycemia and patient was sent from ED to medical/surg floor. Anion gap was still high so I sent ICU to start insulin drip. I also ordered bmp stat. By the time the stat bmp was resulted, patient was in the icu. Anion gap has closed, so i will downgrade back to medical surg floor. Replace her potassium, start diet, if she unable to eat continue D5W due to hypernatremia and not eating. Await neurology assessment because she is not at her mental baseline of slurred speech and ambulation with a walker. Order PT/OT 11/10/17: I gave pt 0.5mg iv ativan x 1 to complete mri brain that Neurology ordered, MRI brain reported as multiple focal areas of restricted diffusion right cerebral hemisphere suggestive excuse ischemia, no evidence of hemorrhage , dilated right lateral ventricle without definite evidence of obstruction, acute right mastoiditis. I started abx, iv rocephin, used stroke protocol 11/11/2017: WBC went down, Still hypernatremic, more free water, repeat labs in am. ECHO pending. I called Jessica at [phone], no answer ?phone broken message. 11/12/17: echo pending, replace potassium, hyperglycemia on D5W for the hypernatremia, continue ssi, if she tolerates a diet today, then d/c ivf, change ssi to achs instead of q4hr, urine culture still pending. Hopefully SNF placement in 1-2 days 11/13/17: Echo reviewed, hypernatremia/hypokalemia resolved, stop ivf. Waiting on placement 11/14/17: [facility] in [place], [place], waiting on insurance pre-auth 11/15/17: failed swallow, going for peg on saturday because she is on Plavix. Nutrition: Patient refusing NGT but she will re-consider; she is comminunicating via paper and pencil. She agreed to NGT 11/16/17: continue ngt tube. 11/17/17: abd xray, check ngt placement. peg tube tomorrow then placement History Interval history: Patient was seen and examined. Follow-up on current diagnosis/altered mental status. Overnight uneventful. Patient not given any history; therefore, Imaging, nursing note, chart, labs and old chart reviewed. Responding more. Hospitalist Physical - Physical exam Narrative exam: GEN: Thin frail woman chronic a bit debilitating appearing, lethargic, nonverbal HEENT: NCAT, EOMI, PERRL, OP Clear NECK: supple, no adenopathy, no thyromegaly, no JVD CVS/HEART: regular tachycardia NORMAL S1S2, NO JVD, pulses present bilaterally CHEST/LUNGS: CTA B, Symmetrical chest expansion, good air entry bilaterally GI/Abdomen: soft, NTND, good bowel sounds, no guarding or rebound /Bladder: no suprapubic tenderness, no CVA or paraspinal tenderness EXT/Skin: no c/c/e, no obvious rash MSK: Moving both arms with contractures Neuro: CN 2-12 grossly intact except nonverbal, hemiparesis, facial asymmetry, no new focal deficits Psych: calm but confused - Constitutional Vitals: Temp Pulse Resp BP Pulse Ox 98.4 F 85 19 145/80 97 11/17/17 08:05 11/17/17 08:05 11/17/17 08:05 11/17/17 08:05 11/17/17 08:05 General appearance: Present: well-nourished. Absent: mild distress Results - Labs CBC & Chem 7: 11/13/17 05:55 11/13/17 05:55 Labs: Laboratory Last Values WBC 12.4 K/mm3 (4.5-11.0) H 11/13/17 05:55 RBC 2.92 M/mm3 (3.65-5.03) L 11/13/17 05:55 Hgb 8.8 gm/dl (10.1-14.3) L 11/13/17 05:55 Hct 26.1 % (30.3-42.9) L 11/13/17 05:55 MCV 89 fl (79-97) 11/13/17 05:55 MCH 30 pg (28-32) 11/13/17 05:55 MCHC 34 % (30-34) 11/13/17 05:55 RDW 12.6 % (13.2-15.2) L 11/13/17 05:55 Plt Count 249 K/mm3 (140-440) 11/13/17 05:55 Add Manual Diff Complete 11/07/17 12:26 Total Counted 100 11/07/17 12:26 Seg Neutrophils % Cigarette Seller 11/07/17 12:26 Seg Neuts % (Manual) 90.0 % (40.0-70.0) H 11/07/17 12:26 Band Neutrophils % 4.0 % 11/07/17 12:26 Lymphocytes % (Manual) 2.0 % (13.4-35.0) L 11/07/17 12:26 Reactive Lymphs % (Man) 0 % 11/07/17 12:26 Monocytes % (Manual) 4.0 % (0.0-7.3) 11/07/17 12:26 Eosinophils % (Manual) 0 % (0.0-4.3) 11/07/17 12:26 Basophils % (Manual) 0 % (0.0-1.8) 11/07/17 12: Metamyelocytes % 0 % 11/07/17 12:26 Myelocytes % 0 % 11/07/17 12:26 Promyelocytes % 0 % 11/07/17 12:26 Blast Cells % 0 % 11/07/17 12:26 Nucleated RBC % Not Reportable 11/07/17 12:26 Seg Neutrophils # Man 18.1 K/mm3 (1.8-7.7) H 11/07/17 12:26 Band Neutrophils # 0.8 K/mm3 11/07/17 12:26 Lymphocytes # (Manual) 0.4 K/mm3 (1.2-5.4) L 11/07/17 12:26 Abs React Lymphs (Man) 0.0 K/mm3 11/07/17 12:26 Monocytes # (Manual) 0.8 K/mm3 (0.0-0.8) 11/07/17 12:26 Eosinophils # (Manual) 0.0 K/mm3 (0.0-0.4) 11/07/17 12:26 Basophils # (Manual) 0.0 K/mm3 (0.0-0.1) 11/07/17 12:26 Metamyelocytes # 0.0 K/mm3 11/07/17 12:26 Myelocytes # 0.0 K/mm3 11/07/17 12:26 Promyelocytes # 0.0 K/mm3 11/07/17 12:26 Blast Cells # 0.0 K/mm3 11/07/17 12:26 WBC Morphology Not Reportable 11/07/17 12:26 Hypersegmented Neuts Not Reportable 11/07/17 12:26 Hyposegmented Neuts Not Reportable 11/07/17 12:26 Hypogranular Neuts Not Reportable 11/07/17 12:26 Smudge Cells Not Reportable 11/07/17 12:26 Toxic Granulation Not Reportable 11/07/17 12:26 Toxic Vacuolation Not Reportable 11/07/17 12:26 Dohle Bodies Not Reportable 11/07/17 12:26 Pelger-Huet Anomaly Not Reportable 11/07/17 12:26 Xiomy Rods Not Reportable 11/07/17 12:26 Platelet Estimate Not Reportable 11/07/17 12:26 Clumped Platelets Not Reportable 11/07/17 12:26 Plt Clumps, EDTA Not Reportable 11/07/17 12:26 Large Platelets Not Reportable 11/07/17 12:26 Giant Platelets Not Reportable 11/07/17 12:26 Platelet Satelliting Not Reportable 11/07/17 12:26 Plt Morphology Comment Not Reportable 11/07/17 12:26 RBC Morphology Normal 11/07/17 12:26 Dimorphic RBCs Not Reportable 11/07/17 12:26 Polychromasia Not Reportable 11/07/17 12:26 Hypochromasia Not Reportable 11/07/17 12:26 Poikilocytosis Not Reportable 11/07/17 12:26 Anisocytosis Not Reportable 11/07/17 12:26 Microcytosis Not Reportable 11/07/17 12:26 Macrocytosis Not Reportable 11/07/17 12:26 Spherocytes Not Reportable 11/07/17 12:26 Pappenheimer Bodies Not Reportable 11/07/17 12:26 Sickle Cells Not Reportable 11/07/17 12:26 Target Cells Not Reportable 11/07/17 12:26 Tear Drop Cells Not Reportable 11/07/17 12:26 Ovalocytes Not Reportable 11/07/17 12:26 Helmet Cells Not Reportable 11/07/17 12:26 [place] Bodies Not Reportable 11/07/17 12:26 [place] Rings Not Reportable 11/07/17 12:26 [place] Cells Not Reportable 11/07/17 12:26 Bite Cells Not Reportable 11/07/17 12:26 Crenated Cell Not Reportable 11/07/17 12:26 Elliptocytes Not Reportable 11/07/17 12:26 Acanthocytes (Spur) Not Reportable 11/07/17 12:26 Rouleaux Not Reportable 11/07/17 12:26 Hemoglobin C Crystals Not Reportable 11/07/17 12:26 Schistocytes Not Reportable 11/07/17 12:26 Malaria parasites Not Reportable 11/07/17 12:26 [place] Bodies Not Reportable 11/07/17 12:26 Hem Pathologist Commnt No 11/07/17 12:26 PT 13.2 Sec. (12.2-14.9) 11/15/17 08:39 INR 0.95 (0.87-1.13) 11/15/17 08:39 POC ABG pH 7.389 (7.35-7.45) 11/09/17 19:49 POC ABG pCO2 28.9 (35-45) L 11/09/17 19:49 POC ABG pO2 98 (80-105) 11/09/17 19:49 POC ABG HCO3 17.4 11/09/17 19:49 POC ABG Total CO2 18 11/09/17 19:49 POC ABG O2 Sat 98 11/09/17 19:49 POC ABG Base Excess -8 11/09/17 19:49 FiO2 21 % 11/09/17 19:49 Sodium 144 mmol/L (137-145) 11/13/17 05:55 Potassium 4.1 mmol/L (3.6-5.0) D 11/13/17 05:55 Chloride 108.2 mmol/L (98-107) H 11/13/17 05:55 Carbon Dioxide 21 mmol/L (22-30) L 11/13/17 05:55 Anion Gap 19 mmol/L 11/13/17 05:55 BUN 12 mg/dL (7-17) 11/13/17 05:55 Creatinine 0.7 mg/dL (0.7-1.2) 11/13/17 05:55 Estimated GFR > 60 ml/min 11/13/17 05:55 BUN/Creatinine Ratio 17 % 11/13/17 05:55 Glucose 228 mg/dL (65-100) H 11/13/17 05:55 POC Glucose 275 (70-105) H 11/17/17 06:14 Hemoglobin A1c 10.0 % (4-6) H 11/07/17 17:02 Lactic Acid 1.80 mmol/L (0.7-2.0) 11/09/17 19:44 Calcium 8.1 mg/dL (8.4-10.2) L 11/13/17 05:55 Phosphorus 1.50 mg/dL (2.5-4.5) L 11/09/17 07:07 Magnesium 1.80 mg/dL (1.7-2.3) 11/12/17 04:40 Total Bilirubin 0.30 mg/dL (0.1-1.2) 11/07/17 13:44 Direct Bilirubin 0.2 mg/dL (0-0.2) 11/07/17 13:44 Indirect Bilirubin 0.1 mg/dL 11/07/17 13:44 AST 15 units/L (5-40) 11/07/17 13:44 ALT 11 units/L (7-56) 11/07/17 13:44 Alkaline Phosphatase 89 units/L (35-129) 11/07/17 13:44 C-Reactive Protein 4.70 mg/dL (0.00-1.30) H 11/09/17 19:44 Total Protein 5.8 g/dL (6.3-8.2) L 11/07/17 13:44 Albumin 3.0 g/dL (3.9-5) L 11/07/17 13:44 Albumin/Globulin Ratio 1.1 % 11/07/17 13:44 Triglycerides 94 mg/dL (2-149) 11/11/17 07:27 Cholesterol 148 mg/dL (50-199) 11/11/17 07:27 LDL Cholesterol Direct 42 mg/dL (50-130) L 11/11/17 07:27 HDL Cholesterol 88 mg/dL (40-59) H 11/11/17 07:27 Cholesterol/HDL Ratio 1.68 % 11/11/17 07:27 HCG, Qual Negative (Negative) 11/09/17 15:05 Urine Color Yellow (Yellow) 11/07/17 14:28 Urine Turbidity Clear (Clear) 11/07/17 14:28 Urine pH 5.0 (5.0-7.0) 11/07/17 14:28 Ur Specific [place] 1.016 (1.003-1.030) 11/07/17 14:28 Urine Protein 100 mg/dl mg/dL (Negative) 11/07/17 14:28 Urine Glucose (UA) >=500 mg/dL (Negative) 11/07/17 14:28 Urine Ketones 80 mg/dL (Negative) 11/07/17 14:28 Urine Blood Mod (Negative) 11/07/17 14:28 Urine Nitrite Neg (Negative) 11/07/17 14:28 Urine Bilirubin Neg (Negative) 11/07/17 14:28 Urine Urobilinogen < 2.0 mg/dL (<2.0) 11/07/17 14:28 Ur Leukocyte Esterase Neg (Negative) 11/07/17 14:28 Urine WBC (Auto) 2.0 /HPF (0.0-6.0) 11/07/17 14:28 Urine RBC (Auto) < 1.0 /HPF (0.0-6.0) 11/07/17 14:28 U Epithel Cells (Auto) < 1.0 /HPF (0-13.0) 11/07/17 14:28 Urine Bacteria (Auto) 1+ /HPF (Negative) 11/07/17 14:28 Urine Opiates Screen Presumptive negative 11/07/17 14:28 Urine Methadone Screen Presumptive negative 11/07/17 14:28 Ur Barbiturates Screen Presumptive negative 11/07/17 14:28 Ur Phencyclidine Scrn Presumptive negative 11/07/17 14:28 Ur Amphetamines Screen Presumptive negative 11/07/17 14:28 U Benzodiazepines Scrn Presumptive negative 11/07/17 14:28 Urine Cocaine Screen Presumptive negative 11/07/17 14:28 U Marijuana (THC) Screen Presumptive negative 11/07/17 14:28 Drugs of Abuse Note Disclamer 11/07/17 14:28
--- NOTE | 2017-11-17 12:00 | Gastroenterology Progress Note ---
Assessment and Plan - Patient Problems (1) Inability to swallow Current Visit: Yes Status: Acute Plan to address problem: PEG scheduled for tomorrow. Off plavix since 11/14 (2) HTN (hypertension) Current Visit: Yes Status: Chronic Qualifiers: Hypertension type: essential hypertension Qualified Code(s): I10 - Essential (primary) hypertension (3) History of CVA with residual deficit Current Visit: Yes Status: Chronic Subjective Date of service: 11/17/17 Principal diagnosis: inability to swallow Interval history: Feels OK. No complaints. Objective - Constitutional Vitals: Temp Pulse Resp BP Pulse Ox 98.4 F 85 19 145/80 97 11/17/17 08:05 11/17/17 08:05 11/17/17 08:05 11/17/17 08:05 11/17/17 08:05 General appearance: no acute distress - EENT ENT: hearing intact, clear oral mucosa - Neck Neck: supple, normal ROM - Respiratory Respiratory effort: normal Respiratory: bilateral: CTA - Cardiovascular Rhythm: regular - Gastrointestinal General gastrointestinal: Present: soft, non-tender, non-distended, normal bowel sounds - Neurologic Neurological: other (alert and cooperative. No speech.) - Psychiatric Psychiatric: appropriate mood/affect - Labs CBC & Chem 7: 11/13/17 05:55 11/13/17 05:55 Labs: Laboratory Results - last 24 hr 11/16/17 11/16/17 11/17/17 16:55 21:38 06:14 POC Glucose 302 H 259 H 275 H 11/17/17 11:35 POC Glucose 291 H
--- NOTE | 2017-11-17 12:06 | XRay Report ---
Flatplate of abdomen: Compared to 11/15/17. History: NG tip. Findings: Tip of Dobbhoff feeding tube is noted in the fundus of the stomach. A single distended loop of small bowel in lower mid abdomen. Stool in the colon with contrast in colon. Impression: No significant interval change.
--- NOTE | 2017-11-17 13:31 | Progress Note ---
Assessment and Plan -Sepsis secondary to acute mastoiditis -Acute ischemic stroke -DKA with acute metabolic acidosis, high anion gap-improving -Acute metabolic encephalopathy( improved) -Recurrent Acute ischemic strokes -Expressive aphasia -Hypernatremia -Moderate malnutrition -Oropharyngeal dysphagia Monitor hemodynamics Complete antibiotics per ID Continue with supplemental oxygen for O2 sats >92% Aspiration precautions Speech language pathologist to continue to treat- swallow and speech Enteric nutrition Free water flushes PT/OT/mobility Secondary stroke prophylaxis Evaluate for other secondary causes of stroke. Accuchecks with glycemic control Subjective Date of service: 11/17/17 Principal diagnosis: inability to swallow Interval history: Patient is seen today for: Acute on Chronic Encephalopathy; SIRS; DKA; Seizures Seen and examined at bedside; 24hour events reviewed; nursing and respiratory care staff consulted; no adverse overnight events reported to me; She wants to eat. Objective Vital Signs - 12hr 11/17/17 08:05 Temperature 98.4 F Pulse Rate 85 Respiratory 19 Rate Blood Pressure 145/80 O2 Sat by Pulse 97 Oximetry Constitutional: no acute distress, asleep Eyes: non-icteric Neck: supple, no lymphadenopathy Ascultation: Bilateral: clear Cardiovascular: regular rate and rhythm Gastrointestinal: normoactive bowel sounds, soft, non-tender Integumentary: normal Extremities: no cyanosis, no edema Neurologic: other (Patient sleeping at this time.) Psychiatric: other (Patient sleeping at this time.) CBC and BMP: 11/13/17 05:55 11/13/17 05:55 ABG, PT/INR, D-dimer: ABG POC ABG pH 7.389 (7.35-7.45) 11/09/17 19:49 POC ABG pCO2 28.9 (35-45) L 11/09/17 19:49 POC ABG pO2 98 (80-105) 11/09/17 19:49 POC ABG HCO3 17.4 11/09/17 19:49 POC ABG Total CO2 18 11/09/17 19:49 POC ABG O2 Sat 98 11/09/17 19:49 PT/INR, D-dimer PT 13.2 Sec. (12.2-14.9) 11/15/17 08:39 INR 0.95 (0.87-1.13) 11/15/17 08:39 Abnormal lab findings: Abnormal Labs 1211/07/17 11/07/17 12:26 12:26 12:26 WBC 20.1 H RBC Hgb Hct MCV 101 H MCHC RDW Seg Neuts % (Manual) 90.0 H Lymphocytes % (Manual) 2.0 L Seg Neutrophils # Man 18.1 H Lymphocytes # (Manual) 0.4 L PT 16.4 H INR 1.25 H POC ABG pH POC ABG pCO2 POC ABG pO2 Sodium Potassium Chloride Carbon Dioxide BUN Creatinine Glucose POC Glucose 445 H Hemoglobin A1c Lactic Acid Calcium Phosphorus Magnesium C-Reactive Protein Total Protein Albumin LDL Cholesterol Direct HDL Cholesterol 11/07/17 11/07/17 11/07/17 12:39 13:44 13:44 WBC RBC Hgb Hct MCV MCHC RDW Seg Neuts % (Manual) Lymphocytes % (Manual) Seg Neutrophils # Man Lymphocytes # (Manual) PT INR POC ABG pH 6.856 L POC ABG pCO2 12.4 L POC ABG pO2 288 H Sodium Potassium Chloride Carbon Dioxide BUN Creatinine Glucose POC Glucose Hemoglobin A1c Lactic Acid Calcium Phosphorus 8.10 H Magnesium 2.60 H C-Reactive Protein Total Protein 5.8 L Albumin 3.0 L LDL Cholesterol Direct HDL Cholesterol 11/07/17 11/07/17 11/07/17 13:44 14:17 15:17 WBC RBC Hgb Hct MCV MCHC RDW Seg Neuts % (Manual) Lymphocytes % (Manual) Seg Neutrophils # Man Lymphocytes # (Manual) PT INR POC ABG pH POC ABG pCO2 POC ABG pO2 Sodium Potassium 6.5 H* 5.8 H 5.7 H Chloride 94.4 L Carbon Dioxide 5 L* 2 L* < 2.0 L* BUN 43 H 38 H 39 H Creatinine 1.3 H 1.3 H Glucose 629 H* 610 H* 585 H* POC Glucose Hemoglobin A1c Lactic Acid Calcium 8.3 L 7.7 L 7.9 L Phosphorus Magnesium C-Reactive Protein Total Protein Albumin LDL Cholesterol Direct HDL Cholesterol 11/07/17 11/07/17 11/07/17 15:17 15:40 16:57 WBC RBC Hgb Hct MCV MCHC RDW Seg Neuts % (Manual) Lymphocytes % (Manual) Seg Neutrophils # Man Lymphocytes # (Manual) PT INR POC ABG pH POC ABG pCO2 POC ABG pO2 Sodium Potassium Chloride Carbon Dioxide 3 L* BUN 42 H Creatinine 1.3 H Glucose 557 H* POC Glucose > 500 H Hemoglobin A1c Lactic Acid 2.90 H* Calcium 8.1 L Phosphorus Magnesium C-Reactive Protein Total Protein Albumin LDL Cholesterol Direct HDL Cholesterol 11/07/17 11/07/17 11/07/17 17:02 17:02 18:05 WBC RBC Hgb Hct MCV MCHC RDW Seg Neuts % (Manual) Lymphocytes % (Manual) Seg Neutrophils # Man Lymphocytes # (Manual) PT INR POC ABG pH POC ABG pCO2 POC ABG pO2 Sodium Potassium Chloride Carbon Dioxide BUN Creatinine Glucose POC Glucose 485 H Hemoglobin A1c 10.0 H Lactic Acid Calcium Phosphorus 6.60 H Magnesium 2.70 H C-Reactive Protein Total Protein Albumin LDL Cholesterol Direct HDL Cholesterol 11/07/17 11/07/17 11/07/17 18:52 20:20 21:23 WBC RBC Hgb Hct MCV MCHC RDW Seg Neuts % (Manual) Lymphocytes % (Manual) Seg Neutrophils # Man Lymphocytes # (Manual) PT INR POC ABG pH POC ABG pCO2 POC ABG pO2 Sodium 148 H Potassium Chloride Carbon Dioxide < 2.0 L* BUN 41 H Creatinine 1.4 H Glucose 473 H POC Glucose 356 H 322 H Hemoglobin A1c Lactic Acid Calcium 7.8 L Phosphorus Magnesium C-Reactive Protein Total Protein Albumin LDL Cholesterol Direct HDL Cholesterol 11/07/17 11/07/17 11/07/17 22:28 23:01 23:31 WBC RBC Hgb Hct MCV MCHC RDW Seg Neuts % (Manual) Lymphocytes % (Manual) Seg Neutrophils # Man Lymphocytes # (Manual) PT INR POC ABG pH POC ABG pCO2 POC ABG pO2 Sodium 148 H Potassium Chloride 111.6 H Carbon Dioxide 4 L* BUN 43 H Creatinine 1.3 H Glucose 177 H POC Glucose 242 H 204 H Hemoglobin A1c Lactic Acid Calcium 7.7 L Phosphorus Magnesium C-Reactive Protein Total Protein Albumin LDL Cholesterol Direct HDL Cholesterol 11/08/17 11/08/17 11/08/17 01:20 03:30 04:01 WBC RBC Hgb Hct MCV MCHC RDW Seg Neuts % (Manual) Lymphocytes % (Manual) Seg Neutrophils # Man Lymphocytes # (Manual) PT INR POC ABG pH POC ABG pCO2 POC ABG pO2 Sodium Potassium Chloride Carbon Dioxide BUN Creatinine Glucose POC Glucose 120 H 59 L 132 H Hemoglobin A1c Lactic Acid Calcium Phosphorus Magnesium C-Reactive Protein Total Protein Albumin LDL Cholesterol Direct HDL Cholesterol 11/08/17 11/08/17 11/08/17 04:20 04:20 05:15 WBC RBC Hgb Hct MCV MCHC RDW Seg Neuts % (Manual) Lymphocytes % (Manual) Seg Neutrophils # Man Lymphocytes # (Manual) PT INR POC ABG pH POC ABG pCO2 POC ABG pO2 Sodium 151 H 150 H Potassium Chloride 114.3 H 115.4 H Carbon Dioxide 10 L 10 L BUN 48 H 48 H Creatinine 1.3 H Glucose 121 H 118 H POC Glucose 134 H Hemoglobin A1c Lactic Acid Calcium 7.8 L 7.8 L Phosphorus Magnesium C-Reactive Protein Total Protein Albumin LDL Cholesterol Direct HDL Cholesterol 11/08/17 11/08/17 11/08/17 06:41 07:49 08:12 WBC RBC Hgb Hct MCV MCHC RDW Seg Neuts % (Manual) Lymphocytes % (Manual) Seg Neutrophils # Man Lymphocytes # (Manual) PT INR POC ABG pH POC ABG pCO2 POC ABG pO2 Sodium 151 H Potassium Chloride 116.5 H Carbon Dioxide 13 L BUN 52 H Creatinine 1.3 H Glucose 213 H POC Glucose 172 H 228 H Hemoglobin A1c Lactic Acid Calcium 7.9 L Phosphorus Magnesium C-Reactive Protein Total Protein Albumin LDL Cholesterol Direct HDL Cholesterol 11/08/17 11/08/17 11/08/17 08:22 09:31 11:04 WBC RBC Hgb Hct MCV MCHC RDW Seg Neuts % (Manual) Lymphocytes % (Manual) Seg Neutrophils # Man Lymphocytes # (Manual) PT INR POC ABG pH POC ABG pCO2 POC ABG pO2 Sodium Potassium Chloride Carbon Dioxide BUN Creatinine Glucose POC Glucose 140 H 140 H 136 H Hemoglobin A1c Lactic Acid Calcium Phosphorus Magnesium C-Reactive Protein Total Protein Albumin LDL Cholesterol Direct HDL Cholesterol 11/08/17 11/08/17 11/08/17 12:11 13:40 17:21 WBC RBC Hgb Hct MCV MCHC RDW Seg Neuts % (Manual) Lymphocytes % (Manual) Seg Neutrophils # Man Lymphocytes # (Manual) PT INR POC ABG pH POC ABG pCO2 POC ABG pO2 Sodium 152 H Potassium Chloride 117.6 H Carbon Dioxide 15 L BUN 50 H Creatinine 1.3 H Glucose 144 H POC Glucose 111 H 182 H Hemoglobin A1c Lactic Acid Calcium Phosphorus Magnesium C-Reactive Protein Total Protein Albumin LDL Cholesterol Direct HDL Cholesterol 11/08/17 11/08/17 11/09/17 17:45 23:06 00:39 WBC RBC Hgb Hct MCV MCHC RDW Seg Neuts % (Manual) Lymphocytes % (Manual) Seg Neutrophils # Man Lymphocytes # (Manual) PT INR POC ABG pH POC ABG pCO2 POC ABG pO2 Sodium 149 H Potassium Chloride 116.2 H Carbon Dioxide 13 L BUN 48 H Creatinine 1.3 H Glucose 171 H POC Glucose < 40 L 123 H Hemoglobin A1c Lactic Acid Calcium 8.1 L Phosphorus Magnesium C-Reactive Protein Total Protein Albumin LDL Cholesterol Direct HDL Cholesterol 11/09/17 11/09/17 11/09/17 07:07 07:07 11:35 WBC RBC Hgb Hct MCV MCHC RDW Seg Neuts % (Manual) Lymphocytes % (Manual) Seg Neutrophils # Man Lymphocytes # (Manual) PT INR POC ABG pH POC ABG pCO2 POC ABG pO2 Sodium 152 H Potassium 3.0 L D Chloride 121.9 H Carbon Dioxide 18 L BUN 44 H Creatinine Glucose POC Glucose 118 H Hemoglobin A1c Lactic Acid Calcium Phosphorus 1.50 L Magnesium C-Reactive Protein Total Protein Albumin LDL Cholesterol Direct HDL Cholesterol 11/09/17 11/09/17 11/09/17 16:54 19:44 19:49 WBC RBC Hgb Hct MCV MCHC RDW Seg Neuts % (Manual) Lymphocytes % (Manual) Seg Neutrophils # Man Lymphocytes # (Manual) PT INR POC ABG pH POC ABG pCO2 28.9 L POC ABG pO2 Sodium Potassium Chloride Carbon Dioxide BUN Creatinine Glucose POC Glucose 231 H Hemoglobin A1c Lactic Acid Calcium Phosphorus Magnesium C-Reactive Protein 4.70 H Total Protein Albumin LDL Cholesterol Direct HDL Cholesterol 11/09/17 11/10/17 11/10/17 21:48 06:25 12:35 WBC RBC Hgb Hct MCV MCHC RDW Seg Neuts % (Manual) Lymphocytes % (Manual) Seg Neutrophils # Man Lymphocytes # (Manual) PT INR POC ABG pH POC ABG pCO2 POC ABG pO2 Sodium Potassium Chloride Carbon Dioxide BUN Creatinine Glucose POC Glucose 176 H 299 H 258 H Hemoglobin A1c Lactic Acid Calcium Phosphorus Magnesium C-Reactive Protein Total Protein Albumin LDL Cholesterol Direct HDL Cholesterol 11/10/17 11/10/17 11/11/17 16:43 22:07 02:59 WBC RBC Hgb Hct MCV MCHC RDW Seg Neuts % (Manual) Lymphocytes % (Manual) Seg Neutrophils # Man Lymphocytes # (Manual) PT INR POC ABG pH POC ABG pCO2 POC ABG pO2 Sodium Potassium Chloride Carbon Dioxide BUN Creatinine Glucose POC Glucose 252 H 248 H 193 H Hemoglobin A1c Lactic Acid Calcium Phosphorus Magnesium C-Reactive Protein Total Protein Albumin LDL Cholesterol Direct HDL Cholesterol 11/11/17 11/11/17 11/11/17 06:20 07:27 07:27 WBC 18.6 H RBC 2.90 L Hgb 9.0 L Hct 27.0 L MCV MCHC RDW Seg Neuts % (Manual) Lymphocytes % (Manual) Seg Neutrophils # Man Lymphocytes # (Manual) PT INR POC ABG pH POC ABG pCO2 POC ABG pO2 Sodium 152 H Potassium Chloride 116.2 H Carbon Dioxide 19 L BUN 24 H Creatinine Glucose 288 H POC Glucose 280 H Hemoglobin A1c Lactic Acid Calcium 8.3 L Phosphorus Magnesium C-Reactive Protein Total Protein Albumin LDL Cholesterol Direct 42 L HDL Cholesterol 88 H 11/11/17 11/11/17 11/11/17 11:09 17:12 20:59 WBC RBC Hgb Hct MCV MCHC RDW Seg Neuts % (Manual) Lymphocytes % (Manual) Seg Neutrophils # Man Lymphocytes # (Manual) PT INR POC ABG pH POC ABG pCO2 POC ABG pO2 Sodium Potassium Chloride Carbon Dioxide BUN Creatinine Glucose POC Glucose 328 H 306 H 318 H Hemoglobin A1c Lactic Acid Calcium Phosphorus Magnesium C-Reactive Protein Total Protein Albumin LDL Cholesterol Direct HDL Cholesterol 11/12/17 11/12/17 11/12/17 01:55 04:40 04:40 WBC 13.0 H RBC 2.88 L Hgb 9.0 L Hct 26.2 L MCV MCHC 35 H RDW 12.6 L Seg Neuts % (Manual) Lymphocytes % (Manual) Seg Neutrophils # Man Lymphocytes # (Manual) PT INR POC ABG pH POC ABG pCO2 POC ABG pO2 Sodium 148 H Potassium 3.3 L Chloride 111.8 H Carbon Dioxide BUN 18 H Creatinine Glucose 212 H POC Glucose 274 H Hemoglobin A1c Lactic Acid Calcium 8.3 L Phosphorus Magnesium C-Reactive Protein Total Protein Albumin LDL Cholesterol Direct HDL Cholesterol 11/12/17 11/12/17 11/12/17 06:30 12:14 16:50 WBC RBC Hgb Hct MCV MCHC RDW Seg Neuts % (Manual) Lymphocytes % (Manual) Seg Neutrophils # Man Lymphocytes # (Manual) PT INR POC ABG pH POC ABG pCO2 POC ABG pO2 Sodium Potassium Chloride Carbon Dioxide BUN Creatinine Glucose POC Glucose 285 H 166 H 178 H Hemoglobin A1c Lactic Acid Calcium Phosphorus Magnesium C-Reactive Protein Total Protein Albumin LDL Cholesterol Direct HDL Cholesterol 11/12/17 11/13/17 11/13/17 21:24 05:47 05:55 WBC 12.4 H RBC 2.92 L Hgb 8.8 L Hct 26.1 L MCV MCHC RDW 12.6 L Seg Neuts % (Manual) Lymphocytes % (Manual) Seg Neutrophils # Man Lymphocytes # (Manual) PT INR POC ABG pH POC ABG pCO2 POC ABG pO2 Sodium Potassium Chloride Carbon Dioxide BUN Creatinine Glucose POC Glucose 197 H 291 H Hemoglobin A1c Lactic Acid Calcium Phosphorus Magnesium C-Reactive Protein Total Protein Albumin LDL Cholesterol Direct HDL Cholesterol 11/13/17 11/13/17 11/13/17 05:55 12:24 16:33 WBC RBC Hgb Hct MCV MCHC RDW Seg Neuts % (Manual) Lymphocytes % (Manual) Seg Neutrophils # Man Lymphocytes # (Manual) PT INR POC ABG pH POC ABG pCO2 POC ABG pO2 Sodium Potassium Chloride 108.2 H Carbon Dioxide 21 L BUN Creatinine Glucose 228 H POC Glucose 215 H 280 H Hemoglobin A1c Lactic Acid Calcium 8.1 L Phosphorus Magnesium C-Reactive Protein Total Protein Albumin LDL Cholesterol Direct HDL Cholesterol 11/13/17 11/14/17 11/14/17 22:12 05:27 12:47 WBC RBC Hgb Hct MCV MCHC RDW Seg Neuts % (Manual) Lymphocytes % (Manual) Seg Neutrophils # Man Lymphocytes # (Manual) PT INR POC ABG pH POC ABG pCO2 POC ABG pO2 Sodium Potassium Chloride Carbon Dioxide BUN Creatinine Glucose POC Glucose 236 H 186 H 206 H Hemoglobin A1c Lactic Acid Calcium Phosphorus Magnesium C-Reactive Protein Total Protein Albumin LDL Cholesterol Direct HDL Cholesterol 11/14/17 11/14/17 11/15/17 17:27 22:19 05:48 WBC RBC Hgb Hct MCV MCHC RDW Seg Neuts % (Manual) Lymphocytes % (Manual) Seg Neutrophils # Man Lymphocytes # (Manual) PT INR POC ABG pH POC ABG pCO2 POC ABG pO2 Sodium Potassium Chloride Carbon Dioxide BUN Creatinine Glucose POC Glucose 213 H 123 H 203 H Hemoglobin A1c Lactic Acid Calcium Phosphorus Magnesium C-Reactive Protein Total Protein Albumin LDL Cholesterol Direct HDL Cholesterol 11/15/17 11/15/17 11/16/17 11:20 16:53 01:08 WBC RBC Hgb Hct MCV MCHC RDW Seg Neuts % (Manual) Lymphocytes % (Manual) Seg Neutrophils # Man Lymphocytes # (Manual) PT INR POC ABG pH POC ABG pCO2 POC ABG pO2 Sodium Potassium Chloride Carbon Dioxide BUN Creatinine Glucose POC Glucose 223 H 264 H 183 H Hemoglobin A1c Lactic Acid Calcium Phosphorus Magnesium C-Reactive Protein Total Protein Albumin LDL Cholesterol Direct HDL Cholesterol 11/16/17 11/16/17 11/16/17 06:31 11:15 16:55 WBC RBC Hgb Hct MCV MCHC RDW Seg Neuts % (Manual) Lymphocytes % (Manual) Seg Neutrophils # Man Lymphocytes # (Manual) PT INR POC ABG pH POC ABG pCO2 POC ABG pO2 Sodium Potassium Chloride Carbon Dioxide BUN Creatinine Glucose POC Glucose 238 H 344 H 302 H Hemoglobin A1c Lactic Acid Calcium Phosphorus Magnesium C-Reactive Protein Total Protein Albumin LDL Cholesterol Direct HDL Cholesterol 11/16/17 11/17/17 11/17/17 21:38 06:14 11:35 WBC RBC Hgb Hct MCV MCHC RDW Seg Neuts % (Manual) Lymphocytes % (Manual) Seg Neutrophils # Man Lymphocytes # (Manual) PT INR POC ABG pH POC ABG pCO2 POC ABG pO2 Sodium Potassium Chloride Carbon Dioxide BUN Creatinine Glucose POC Glucose 259 H 275 H 291 H Hemoglobin A1c Lactic Acid Calcium Phosphorus Magnesium C-Reactive Protein Total Protein Albumin LDL Cholesterol Direct HDL Cholesterol Allied health notes reviewed: nursing
[2017-11-17] MEDS: cefTRIAXone 1 GM in NACL 0.9% 20 ML IV SCH (18:15)
[2017-11-18] MEDS: MORPHINE IV PRN (00:04)
[2017-11-18] MEDS: NOVOLOG SUB-Q SCH ×6 (00:05→17:02)
[2017-11-18] MEDS ORDERED: NACL 0.9% 1000 ML 1,000 ML IV SCH (09:00)
--- NOTE | 2017-11-18 10:24 | Progress Note ---
Assessment and Plan Assessment and plan: Patient is 37-year-old woman with a history of insulin-dependent diabetes mellitus, CVA on aspirin and Plavix, hypertension, dyslipidemia and depression who presented with altered mental status and was admitted for DKA. Her baseline mental function per sister Jessica: she walks with a walker, she feeds herself, needs help with clothes, left arm weaker than right and speech is usually slurred. Jessica reports that patient was discharged from [facility] about 1.5 months ago and went to [facility]. Then, she went to her home from there. She lives with daughter Leslye and brother, Sean, who moved in with her for more support. per Jessica: "I wanna say she wasn't talking her insulin, because this 3rd stoke did alittle mentally and she more forgettable, that is what I am thinking , for example, she will say, I need to take my insulin but she had just took her insulin." They went to [place], on the way back Saturday night 11pm, she was sleeping off and on, BG was 516 and she took her insulin. Her daughter, Leslye, said next morning she got up morning to go to the bathroom and she fell and then was unresponsive, she was found on the floor in urine by daughter, Leslye. -DKA with acute metabolic acidosis, high anion gap: Treated with IV fluids, insulin drip now resolved -Acute metabolic encephalopathy/semiconscious state: treat the above -Recurrent Acute ischemic strokes. ?hydrocephalus on Ct head: consulted Neurology --->Sepsis due to acute right mastoiditis, poa, start iv abx -Hypernatremia: needs more free water, bmp -Moderate malnutrition: production expert -Acute ischemic stroke, poa: get ECHO, used stroke protocol 11/09/17: Insulin drip was stopped because of hypoglycemia and patient was sent from ED to medical/surg floor. Anion gap was still high so I sent ICU to start insulin drip. I also ordered bmp stat. By the time the stat bmp was resulted, patient was in the icu. Anion gap has closed, so i will downgrade back to medical surg floor. Replace her potassium, start diet, if she unable to eat continue D5W due to hypernatremia and not eating. Await neurology assessment because she is not at her mental baseline of slurred speech and ambulation with a walker. Order PT/OT 11/10/17: I gave pt 0.5mg iv ativan x 1 to complete mri brain that Neurology ordered, MRI brain reported as multiple focal areas of restricted diffusion right cerebral hemisphere suggestive excuse ischemia, no evidence of hemorrhage , dilated right lateral ventricle without definite evidence of obstruction, acute right mastoiditis. I started abx, iv rocephin, used stroke protocol 11/11/2017: WBC went down, Still hypernatremic, more free water, repeat labs in am. ECHO pending. I called Jessica at [phone], no answer ?phone broken message. 11/12/17: echo pending, replace potassium, hyperglycemia on D5W for the hypernatremia, continue ssi, if she tolerates a diet today, then d/c ivf, change ssi to achs instead of q4hr, urine culture still pending. Hopefully SNF placement in 1-2 days 11/13/17: Echo reviewed, hypernatremia/hypokalemia resolved, stop ivf. Waiting on placement 11/14/17: [facility] in [place], [place], waiting on insurance pre-auth 11/15/17: failed swallow, going for peg on saturday because she is on Plavix. Nutrition: Patient refusing NGT but she will re-consider; she is comminunicating via paper and pencil. She agreed to NGT 11/16/17: continue ngt tube. 11/17/17: abd xray, check ngt placement. peg tube tomorrow then placement 11/18/17: peg today, restart antiplatelet soon after History Interval history: Patient was seen and examined. Follow-up on current diagnosis/altered mental status. Overnight uneventful. Patient not given any history; therefore, Imaging, nursing note, chart, labs and old chart reviewed. Responding more. Hospitalist Physical - Physical exam Narrative exam: GEN: Thin frail woman chronic a bit debilitating appearing, lethargic, nonverbal HEENT: NCAT, EOMI, PERRL, OP Clear NECK: supple, no adenopathy, no thyromegaly, no JVD CVS/HEART: regular tachycardia NORMAL S1S2, NO JVD, pulses present bilaterally CHEST/LUNGS: CTA B, Symmetrical chest expansion, good air entry bilaterally GI/Abdomen: soft, NTND, good bowel sounds, no guarding or rebound /Bladder: no suprapubic tenderness, no CVA or paraspinal tenderness EXT/Skin: no c/c/e, no obvious rash MSK: Moving both arms with contractures Neuro: CN 2-12 grossly intact except nonverbal, hemiparesis, facial asymmetry, no new focal deficits Psych: calm but confused - Constitutional Vitals: Temp Pulse Resp BP Pulse Ox 99.1 F 86 18 157/90 97 11/18/17 07:48 11/18/17 07:48 11/18/17 07:48 11/18/17 07:48 11/18/17 07:48 General appearance: Present: well-nourished. Absent: mild distress Results - Labs CBC & Chem 7: 11/13/17 05:55 11/13/17 05:55 Labs: Laboratory Last Values WBC 12.4 K/mm3 (4.5-11.0) H 11/13/17 05:55 RBC 2.92 M/mm3 (3.65-5.03) L 11/13/17 05:55 Hgb 8.8 gm/dl (10.1-14.3) L 11/13/17 05:55 Hct 26.1 % (30.3-42.9) L 11/13/17 05:55 MCV 89 fl (79-97) 11/13/17 05:55 MCH 30 pg (28-32) 11/13/17 05:55 MCHC 34 % (30-34) 11/13/17 05:55 RDW 12.6 % (13.2-15.2) L 11/13/17 05:55 Plt Count 249 K/mm3 (140-440) 11/13/17 05:55 Add Manual Diff Complete 11/07/17 12:26 Total Counted 100 11/07/17 12:26 Seg Neutrophils % [employer] 11/07/17 12:26 Seg Neuts % (Manual) 90.0 % (40.0-70.0) H 11/07/17 12:26 Band Neutrophils % 4.0 % 11/07/17 12:26 Lymphocytes % (Manual) 2.0 % (13.4-35.0) L 11/07/17 12:26 Reactive Lymphs % (Man) 0 % 11/07/17 12:26 Monocytes % (Manual) 4.0 % (0.0-7.3) 11/07/17 12:26 Eosinophils % (Manual) 0 % (0.0-4.3) 11/07/17 12:26 Basophils % (Manual) 0 % (0.0-1.8) 11/07/17 12:26 Metamyelocytes % 0 % 11/07/17 12:26 Myelocytes % 0 % 11/07/17 12:26 Promyelocytes % 0 % 11/07/17 12:26 Blast Cells % 0 % 11/07/17 12: Nucleated RBC % Not Reportable 11/07/17 12:26 Seg Neutrophils # Man 18.1 K/mm3 (1.8-7.7) H 11/07/17 12:26 Band Neutrophils # 0.8 K/mm3 11/07/17 12:26 Lymphocytes # (Manual) 0.4 K/mm3 (1.2-5.4) L 11/07/17 12:26 Abs React Lymphs (Man) 0.0 K/mm3 11/07/17 12:26 Monocytes # (Manual) 0.8 K/mm3 (0.0-0.8) 11/07/17 12:26 Eosinophils # (Manual) 0.0 K/mm3 (0.0-0.4) 11/07/17 12:26 Basophils # (Manual) 0.0 K/mm3 (0.0-0.1) 11/07/17 12:26 Metamyelocytes # 0.0 K/mm3 11/07/17 12:26 Myelocytes # 0.0 K/mm3 11/07/17 12:26 Promyelocytes # 0.0 K/mm3 11/07/17 12:26 Blast Cells # 0.0 K/mm3 11/07/17 12:26 WBC Morphology Not Reportable 11/07/17 12:26 Hypersegmented Neuts Not Reportable 11/07/17 12:26 Hyposegmented Neuts Not Reportable 11/07/17 12:26 Hypogranular Neuts Not Reportable 11/07/17 12:26 Smudge Cells Not Reportable 11/07/17 12:26 Toxic Granulation Not Reportable 11/07/17 12:26 Toxic Vacuolation Not Reportable 11/07/17 12:26 Dohle Bodies Not Reportable 11/07/17 12:26 Pelger-Huet Anomaly Not Reportable 11/07/17 12:26 Xiomy Rods Not Reportable 11/07/17 12:26 Platelet Estimate Not Reportable 11/07/17 12:26 Clumped Platelets Not Reportable 11/07/17 12:26 Plt Clumps, EDTA Not Reportable 11/07/17 12:26 Large Platelets Not Reportable 11/07/17 12:26 Giant Platelets Not Reportable 11/07/17 12:26 Platelet Satelliting Not Reportable 11/07/17 12:26 Plt Morphology Comment Not Reportable 11/07/17 12:26 RBC Morphology Normal 11/07/17 12:26 Dimorphic RBCs Not Reportable 11/07/17 12:26 Polychromasia Not Reportable 11/07/17 12:26 Hypochromasia Not Reportable 11/07/17 12:26 Poikilocytosis Not Reportable 11/07/17 12:26 Anisocytosis Not Reportable 11/07/17 12:26 Microcytosis Not Reportable 11/07/17 12:26 Macrocytosis Not Reportable 11/07/17 12:26 Spherocytes Not Reportable 11/07/17 12:26 Pappenheimer Bodies Not Reportable 11/07/17 12:26 Sickle Cells Not Reportable 11/07/17 12:26 Target Cells Not Reportable 11/07/17 12:26 Tear Drop Cells Not Reportable 11/07/17 12:26 Ovalocytes Not Reportable 11/07/17 12:26 Helmet Cells Not Reportable 11/07/17 12:26 [place] Bodies Not Reportable 11/07/17 12:26 [place] Rings Not Reportable 11/07/17 12:26 [place] Cells Not Reportable 11/07/17 12:26 Bite Cells Not Reportable 11/07/17 12:26 Crenated Cell Not Reportable 11/07/17 12:26 Elliptocytes Not Reportable 11/07/17 12:26 Acanthocytes (Spur) Not Reportable 11/07/17 12:26 Rouleaux Not Reportable 11/07/17 12:26 Hemoglobin C Crystals Not Reportable 11/07/17 12:26 Schistocytes Not Reportable 11/07/17 12:26 Malaria parasites Not Reportable 11/07/17 12:26 [place] Bodies Not Reportable 11/07/17 12:26 Hem Pathologist Commnt No 11/07/17 12:26 PT 13.2 Sec. (12.2-14.9) 11/15/17 08:39 INR 0.95 (0.87-1.13) 11/15/17 08:39 POC ABG pH 7.389 (7.35-7.45) 11/09/17 19:49 POC ABG pCO2 28.9 (35-45) L 11/09/17 19:49 POC ABG pO2 98 (80-105) 11/09/17 19:49 POC ABG HCO3 17.4 11/09/17 19:49 POC ABG Total CO2 18 11/09/17 19:49 POC ABG O2 Sat 98 11/09/17 19:49 POC ABG Base Excess -8 11/09/17 19:49 FiO2 21 % 11/09/17 19:49 Sodium 144 mmol/L (137-145) 11/13/17 05:55 Potassium 4.1 mmol/L (3.6-5.0) D 11/13/17 05:55 Chloride 108.2 mmol/L (98-107) H 11/13/17 05:55 Carbon Dioxide 21 mmol/L (22-30) L 11/13/17 05:55 Anion Gap 19 mmol/L 11/13/17 05:55 BUN 12 mg/dL (7-17) 11/13/17 05:55 Creatinine 0.7 mg/dL (0.7-1.2) 11/13/17 05:55 Estimated GFR > 60 ml/min 11/13/17 05:55 BUN/Creatinine Ratio 17 % 11/13/17 05:55 Glucose 228 mg/dL (65-100) H 11/13/17 05:55 POC Glucose 328 (70-105) H 11/18/17 06:28 Hemoglobin A1c 10.0 % (4-6) H 11/07/17 17:02 Lactic Acid 1.80 mmol/L (0.7-2.0) 11/09/17 19:44 Calcium 8.1 mg/dL (8.4-10.2) L 11/13/17 05:55 Phosphorus 1.50 mg/dL (2.5-4.5) L 11/09/17 07:07 Magnesium 1.80 mg/dL (1.7-2.3) 11/12/17 04:40 Total Bilirubin 0.30 mg/dL (0.1-1.2) 11/07/17 13:44 Direct Bilirubin 0.2 mg/dL (0-0.2) 11/07/17 13:44 Indirect Bilirubin 0.1 mg/dL 11/07/17 13:44 AST 15 units/L (5-40) 11/07/17 13:44 ALT 11 units/L (7-56) 11/07/17 13:44 Alkaline Phosphatase 89 units/L (35-129) 11/07/17 13:44 C-Reactive Protein 4.70 mg/dL (0.00-1.30) H 11/09/17 19:44 Total Protein 5.8 g/dL (6.3-8.2) L 11/07/17 13:44 Albumin 3.0 g/dL (3.9-5) L 11/07/17 13:44 Albumin/Globulin Ratio 1.1 % 11/07/17 13:44 Triglycerides 94 mg/dL (2-149) 11/11/17 07:27 Cholesterol 148 mg/dL (50-199) 11/11/17 07:27 LDL Cholesterol Direct 42 mg/dL (50-130) L 11/11/17 07:27 HDL Cholesterol 88 mg/dL (40-59) H 11/11/17 07:27 Cholesterol/HDL Ratio 1.68 % 11/11/17 07:27 HCG, Qual Negative (Negative) 11/09/17 15:05 Urine Color Yellow (Yellow) 11/07/17 14:28 Urine Turbidity Clear (Clear) 11/07/17 14:28 Urine pH 5.0 (5.0-7.0) 11/07/17 14:28 Ur Specific [place] 1.016 (1.003-1.030) 11/07/17 14:28 Urine Protein 100 mg/dl mg/dL (Negative) 11/07/17 14:28 Urine Glucose (UA) >=500 mg/dL (Negative) 11/07/17 14:28 Urine Ketones 80 mg/dL (Negative) 11/07/17 14:28 Urine Blood Mod (Negative) 11/07/17 14:28 Urine Nitrite Neg (Negative) 11/07/17 14:28 Urine Bilirubin Neg (Negative) 11/07/17 14:28 Urine Urobilinogen < 2.0 mg/dL (<2.0) 11/07/17 14:28 Ur Leukocyte Esterase Neg (Negative) 11/07/17 14:28 Urine WBC (Auto) 2.0 /HPF (0.0-6.0) 11/07/17 14:28 Urine RBC (Auto) < 1.0 /HPF (0.0-6.0) 11/07/17 14:28 U Epithel Cells (Auto) < 1.0 /HPF (0-13.0) 11/07/17 14:28 Urine Bacteria (Auto) 1+ /HPF (Negative) 11/07/17 14:28 Urine Opiates Screen Presumptive negative 11/07/17 14:28 Urine Methadone Screen Presumptive negative 11/07/17 14:28 Ur Barbiturates Screen Presumptive negative 11/07/17 14:28 Ur Phencyclidine Scrn Presumptive negative 11/07/17 14:28 Ur Amphetamines Screen Presumptive negative 11/07/17 14:28 U Benzodiazepines Scrn Presumptive negative 11/07/17 14:28 Urine Cocaine Screen Presumptive negative 11/07/17 14:28 U Marijuana (THC) Screen Presumptive negative 11/07/17 14:28 Drugs of Abuse Note Disclamer 11/07/17 14:28
[2017-11-18] MEDS: PROCARDIA XL PO SCH (10:28)
[2017-11-18] MEDS: celeXA PO SCH (10:28)
[2017-11-18] MEDS: PEPCID PO SCH (10:28)
--- NOTE | 2017-11-18 11:17 | Progress Note ---
Subjective Date of service: 11/18/17 Principal diagnosis: Acute on Chronic Encephalopathy; SIRS; DKA; Seizures Interval history: Patient is seen today for: Acute on Chronic Encephalopathy; SIRS; DKA; Seizures Seen and examined at bedside; 24hour events reviewed; nursing and respiratory care staff consulted; no adverse overnight events reported to me; Objective Vital Signs - 12hr 11/18/17 07:48 Temperature 99.1 F Pulse Rate 86 Respiratory 18 Rate Blood Pressure 157/90 O2 Sat by Pulse 97 Oximetry Constitutional: no acute distress, asleep Eyes: non-icteric Neck: supple, no lymphadenopathy Ascultation: Bilateral: clear Cardiovascular: regular rate and rhythm Gastrointestinal: normoactive bowel sounds, soft, non-tender Integumentary: normal Extremities: no cyanosis, no edema Neurologic: other (Patient sleeping at this time.) Psychiatric: other (Patient sleeping at this time.) CBC and BMP: 11/13/17 05:55 11/13/17 05:55 ABG, PT/INR, D-dimer: ABG POC ABG pH 7.389 (7.35-7.45) 11/09/17 19:49 POC ABG pCO2 28.9 (35-45) L 11/09/17 19:49 POC ABG pO2 98 (80-105) 11/09/17 19:49 POC ABG HCO3 17.4 11/09/17 19:49 POC ABG Total CO2 18 11/09/17 19:49 POC ABG O2 Sat 98 11/09/17 19:49 PT/INR, D-dimer PT 13.2 Sec. (12.2-14.9) 11/15/17 08:39 INR 0.95 (0.87-1.13) 11/15/17 08:39 Abnormal lab findings: Abnormal Labs 11/07/17 11/07/17 11/07/17 12:26 12:26 12:26 WBC 20.1 H RBC Hgb Hct MCV 101 H MCHC RDW Seg Neuts % (Manual) 90.0 H Lymphocytes % (Manual) 2.0 L Seg Neutrophils # Man 18.1 H Lymphocytes # (Manual) 0.4 L PT 16.4 H INR 1.25 H POC ABG pH POC ABG pCO2 POC ABG pO2 Sodium Potassium Chloride Carbon Dioxide BUN Creatinine Glucose POC Glucose 445 H Hemoglobin A1c Lactic Acid Calcium Phosphorus Magnesium C-Reactive Protein Total Protein Albumin LDL Cholesterol Direct HDL Cholesterol 11/07/17 11/07/17 11/07/17 12:39 13:44 13:44 WBC RBC Hgb Hct MCV MCHC RDW Seg Neuts % (Manual) Lymphocytes % (Manual) Seg Neutrophils # Man Lymphocytes # (Manual) PT INR POC ABG pH 6.856 L POC ABG pCO2 12.4 L POC ABG pO2 288 H Sodium Potassium Chloride Carbon Dioxide BUN Creatinine Glucose POC Glucose Hemoglobin A1c Lactic Acid Calcium Phosphorus 8.10 H Magnesium 2.60 H C-Reactive Protein Total Protein 5.8 L Albumin 3.0 L LDL Cholesterol Direct HDL Cholesterol 11/07/17 11/07/17 11/07/17 13:44 14:17 15:17 WBC RBC Hgb Hct MCV MCHC RDW Seg Neuts % (Manual) Lymphocytes % (Manual) Seg Neutrophils # Man Lymphocytes # (Manual) PT INR POC ABG pH POC ABG pCO2 POC ABG pO2 Sodium Potassium 6.5 H* 5.8 H 5.7 H Chloride 94.4 L Carbon Dioxide 5 L* 2 L* < 2.0 L* BUN 43 H 38 H 39 H Creatinine 1.3 H 1.3 H Glucose 629 H* 610 H* 585 H* POC Glucose Hemoglobin A1c Lactic Acid Calcium 8.3 L 7.7 L 7.9 L Phosphorus Magnesium C-Reactive Protein Total Protein Albumin LDL Cholesterol Direct HDL Cholesterol 11/07/17 11/07/17 11/07/17 15:17 15:40 16:57 WBC RBC Hgb Hct MCV MCHC RDW Seg Neuts % (Manual) Lymphocytes % (Manual) Seg Neutrophils # Man Lymphocytes # (Manual) PT INR POC ABG pH POC ABG pCO2 POC ABG pO2 Sodium Potassium Chloride Carbon Dioxide 3 L* BUN 42 H Creatinine 1.3 H Glucose 557 H* POC Glucose > 500 H Hemoglobin A1c Lactic Acid 2.90 H* Calcium 8.1 L Phosphorus Magnesium C-Reactive Protein Total Protein Albumin LDL Cholesterol Direct HDL Cholesterol 11/07/17 11/07/17 11/07/17 17:02 17:02 18:05 WBC RBC Hgb Hct MCV MCHC RDW Seg Neuts % (Manual) Lymphocytes % (Manual) Seg Neutrophils # Man Lymphocytes # (Manual) PT INR POC ABG pH POC ABG pCO2 POC ABG pO2 Sodium Potassium Chloride Carbon Dioxide BUN Creatinine Glucose POC Glucose 485 H Hemoglobin A1c 10.0 H Lactic Acid Calcium Phosphorus 6.60 H Magnesium 2.70 H C-Reactive Protein Total Protein Albumin LDL Cholesterol Direct HDL Cholesterol 11/07/17 11/07/17 11/07/17 18:52 20:20 21:23 WBC RBC Hgb Hct MCV MCHC RDW Seg Neuts % (Manual) Lymphocytes % (Manual) Seg Neutrophils # Man Lymphocytes # (Manual) PT INR POC ABG pH POC ABG pCO2 POC ABG pO2 Sodium 148 H Potassium Chloride Carbon Dioxide < 2.0 L* BUN 41 H Creatinine 1.4 H Glucose 473 H POC Glucose 356 H 322 H Hemoglobin A1c Lactic Acid Calcium 7.8 L Phosphorus Magnesium C-Reactive Protein Total Protein Albumin LDL Cholesterol Direct HDL Cholesterol 11/07/17 11/07/17 11/07/17 22:28 23:01 23:31 WBC RBC Hgb Hct MCV MCHC RDW Seg Neuts % (Manual) Lymphocytes % (Manual) Seg Neutrophils # Man Lymphocytes # (Manual) PT INR POC ABG pH POC ABG pCO2 POC ABG pO2 Sodium 148 H Potassium Chloride 111.6 H Carbon Dioxide 4 L* BUN 43 H Creatinine 1.3 H Glucose 177 H POC Glucose 242 H 204 H Hemoglobin A1c Lactic Acid Calcium 7.7 L Phosphorus Magnesium C-Reactive Protein Total Protein Albumin LDL Cholesterol Direct HDL Cholesterol 11/08/17 11/08/17 11/08/17 01:20 03:30 04:01 WBC RBC Hgb Hct MCV MCHC RDW Seg Neuts % (Manual) Lymphocytes % (Manual) Seg Neutrophils # Man Lymphocytes # (Manual) PT INR POC ABG pH POC ABG pCO2 POC ABG pO2 Sodium Potassium Chloride Carbon Dioxide BUN Creatinine Glucose POC Glucose 120 H 59 L 132 H Hemoglobin A1c Lactic Acid Calcium Phosphorus Magnesium C-Reactive Protein Total Protein Albumin LDL Cholesterol Direct HDL Cholesterol 11/08/17 11/08/17 11/08/17 04:20 04:20 05:15 WBC RBC Hgb Hct MCV MCHC RDW Seg Neuts % (Manual) Lymphocytes % (Manual) Seg Neutrophils # Man Lymphocytes # (Manual) PT INR POC ABG pH POC ABG pCO2 POC ABG pO2 Sodium 151 H 150 H Potassium Chloride 114.3 H 115.4 H Carbon Dioxide 10 L 10 L BUN 48 H 48 H Creatinine 1.3 H Glucose 121 H 118 H POC Glucose 134 H Hemoglobin A1c Lactic Acid Calcium 7.8 L 7.8 L Phosphorus Magnesium C-Reactive Protein Total Protein Albumin LDL Cholesterol Direct HDL Cholesterol 11/08/17 11/08/17 11/08/17 06:41 07:49 08:12 WBC RBC Hgb Hct MCV MCHC RDW Seg Neuts % (Manual) Lymphocytes % (Manual) Seg Neutrophils # Man Lymphocytes # (Manual) PT INR POC ABG pH POC ABG pCO2 POC ABG pO2 Sodium 151 H Potassium Chloride 116.5 H Carbon Dioxide 13 L BUN 52 H Creatinine 1.3 H Glucose 213 H POC Glucose 172 H 228 H Hemoglobin A1c Lactic Acid Calcium 7.9 L Phosphorus Magnesium C-Reactive Protein Total Protein Albumin LDL Cholesterol Direct HDL Cholesterol 11/08/17 11/08/17 11/08/17 08:22 09:31 11:04 WBC RBC Hgb Hct MCV MCHC RDW Seg Neuts % (Manual) Lymphocytes % (Manual) Seg Neutrophils # Man Lymphocytes # (Manual) PT INR POC ABG pH POC ABG pCO2 POC ABG pO2 Sodium Potassium Chloride Carbon Dioxide BUN Creatinine Glucose POC Glucose 140 H 140 H 136 H Hemoglobin A1c Lactic Acid Calcium Phosphorus Magnesium C-Reactive Protein Total Protein Albumin LDL Cholesterol Direct HDL Cholesterol 11/08/17 11/08/17 11/08/17 12:11 13:40 17:21 WBC RBC Hgb Hct MCV MCHC RDW Seg Neuts % (Manual) Lymphocytes % (Manual) Seg Neutrophils # Man Lymphocytes # (Manual) PT INR POC ABG pH POC ABG pCO2 POC ABG pO2 Sodium 152 H Potassium Chloride 117.6 H Carbon Dioxide 15 L BUN 50 H Creatinine 1.3 H Glucose 144 H POC Glucose 111 H 182 H Hemoglobin A1c Lactic Acid Calcium Phosphorus Magnesium C-Reactive Protein Total Protein Albumin LDL Cholesterol Direct HDL Cholesterol 11/08/17 11/08/17 11/09/17 17:45 23:06 00:39 WBC RBC Hgb Hct MCV MCHC RDW Seg Neuts % (Manual) Lymphocytes % (Manual) Seg Neutrophils # Man Lymphocytes # (Manual) PT INR POC ABG pH POC ABG pCO2 POC ABG pO2 Sodium 149 H Potassium Chloride 116.2 H Carbon Dioxide 13 L BUN 48 H Creatinine 1.3 H Glucose 171 H POC Glucose < 40 L 123 H Hemoglobin A1c Lactic Acid Calcium 8.1 L Phosphorus Magnesium C-Reactive Protein Total Protein Albumin LDL Cholesterol Direct HDL Cholesterol 11/09/17 11/09/17 11/09/17 07:07 07:07 11:35 WBC RBC Hgb Hct MCV MCHC RDW Seg Neuts % (Manual) Lymphocytes % (Manual) Seg Neutrophils # Man Lymphocytes # (Manual) PT INR POC ABG pH POC ABG pCO2 POC ABG pO2 Sodium 152 H Potassium 3.0 L D Chloride 121.9 H Carbon Dioxide 18 L BUN 44 H Creatinine Glucose POC Glucose 118 H Hemoglobin A1c Lactic Acid Calcium Phosphorus 1.50 L Magnesium C-Reactive Protein Total Protein Albumin LDL Cholesterol Direct HDL Cholesterol 11/09/17 11/09/17 11/09/17 16:54 19:44 19:49 WBC RBC Hgb Hct MCV MCHC RDW Seg Neuts % (Manual) Lymphocytes % (Manual) Seg Neutrophils # Man Lymphocytes # (Manual) PT INR POC ABG pH POC ABG pCO2 28.9 L POC ABG pO2 Sodium Potassium Chloride Carbon Dioxide BUN Creatinine Glucose POC Glucose 231 H Hemoglobin A1c Lactic Acid Calcium Phosphorus Magnesium C-Reactive Protein 4.70 H Total Protein Albumin LDL Cholesterol Direct HDL Cholesterol 11/09/17 11/10/17 11/10/17 21:48 06:25 12:35 WBC RBC Hgb Hct MCV MCHC RDW Seg Neuts % (Manual) Lymphocytes % (Manual) Seg Neutrophils # Man Lymphocytes # (Manual) PT INR POC ABG pH POC ABG pCO2 POC ABG pO2 Sodium Potassium Chloride Carbon Dioxide BUN Creatinine Glucose POC Glucose 176 H 299 H 258 H Hemoglobin A1c Lactic Acid Calcium Phosphorus Magnesium C-Reactive Protein Total Protein Albumin LDL Cholesterol Direct HDL Cholesterol 11/10/17 11/10/17 11/11/17 16:43 22:07 02:59 WBC RBC Hgb Hct MCV MCHC RDW Seg Neuts % (Manual) Lymphocytes % (Manual) Seg Neutrophils # Man Lymphocytes # (Manual) PT INR POC ABG pH POC ABG pCO2 POC ABG pO2 Sodium Potassium Chloride Carbon Dioxide BUN Creatinine Glucose POC Glucose 252 H 248 H 193 H Hemoglobin A1c Lactic Acid Calcium Phosphorus Magnesium C-Reactive Protein Total Protein Albumin LDL Cholesterol Direct HDL Cholesterol 11/11/17 11/11/17 11/11/17 06:20 07:27 07:27 WBC 18.6 H RBC 2.90 L Hgb 9.0 L Hct 27.0 L MCV MCHC RDW Seg Neuts % (Manual) Lymphocytes % (Manual) Seg Neutrophils # Man Lymphocytes # (Manual) PT INR POC ABG pH POC ABG pCO2 POC ABG pO2 Sodium 152 H Potassium Chloride 116.2 H Carbon Dioxide 19 L BUN 24 H Creatinine Glucose 288 H POC Glucose 280 H Hemoglobin A1c Lactic Acid Calcium 8.3 L Phosphorus Magnesium C-Reactive Protein Total Protein Albumin LDL Cholesterol Direct 42 L HDL Cholesterol 88 H 11/11/17 11/11/17 11/11/17 11:09 17:12 20:59 WBC RBC Hgb Hct MCV MCHC RDW Seg Neuts % (Manual) Lymphocytes % (Manual) Seg Neutrophils # Man Lymphocytes # (Manual) PT INR POC ABG pH POC ABG pCO2 POC ABG pO2 Sodium Potassium Chloride Carbon Dioxide BUN Creatinine Glucose POC Glucose 328 H 306 H 318 H Hemoglobin A1c Lactic Acid Calcium Phosphorus Magnesium C-Reactive Protein Total Protein Albumin LDL Cholesterol Direct HDL Cholesterol 11/12/17 11/12/17 11/12/17 01:55 04:40 04:40 WBC 13.0 H RBC 2.88 L Hgb 9.0 L Hct 26.2 L MCV MCHC 35 H RDW 12.6 L Seg Neuts % (Manual) Lymphocytes % (Manual) Seg Neutrophils # Man Lymphocytes # (Manual) PT INR POC ABG pH POC ABG pCO2 POC ABG pO2 Sodium 148 H Potassium 3.3 L Chloride 111.8 H Carbon Dioxide BUN 18 H Creatinine Glucose 212 H POC Glucose 274 H Hemoglobin A1c Lactic Acid Calcium 8.3 L Phosphorus Magnesium C-Reactive Protein Total Protein Albumin LDL Cholesterol Direct HDL Cholesterol 11/12/17 11/12/17 11/12/17 06:30 12:14 16:50 WBC RBC Hgb Hct MCV MCHC RDW Seg Neuts % (Manual) Lymphocytes % (Manual) Seg Neutrophils # Man Lymphocytes # (Manual) PT INR POC ABG pH POC ABG pCO2 POC ABG pO2 Sodium Potassium Chloride Carbon Dioxide BUN Creatinine Glucose POC Glucose 285 H 166 H 178 H Hemoglobin A1c Lactic Acid Calcium Phosphorus Magnesium C-Reactive Protein Total Protein Albumin LDL Cholesterol Direct HDL Cholesterol 11/12/17 11/13/17 11/13/17 21:24 05:47 05:55 WBC 12.4 H RBC 2.92 L Hgb 8.8 L Hct 26.1 L MCV MCHC RDW 12.6 L Seg Neuts % (Manual) Lymphocytes % (Manual) Seg Neutrophils # Man Lymphocytes # (Manual) PT INR POC ABG pH POC ABG pCO2 POC ABG pO2 Sodium Potassium Chloride Carbon Dioxide BUN Creatinine Glucose POC Glucose 197 H 291 H Hemoglobin A1c Lactic Acid Calcium Phosphorus Magnesium C-Reactive Protein Total Protein Albumin LDL Cholesterol Direct HDL Cholesterol 11/13/17 11/13/17 11/13/17 05:55 12:24 16:33 WBC RBC Hgb Hct MCV MCHC RDW Seg Neuts % (Manual) Lymphocytes % (Manual) Seg Neutrophils # Man Lymphocytes # (Manual) PT INR POC ABG pH POC ABG pCO2 POC ABG pO2 Sodium Potassium Chloride 108.2 H Carbon Dioxide 21 L BUN Creatinine Glucose 228 H POC Glucose 215 H 280 H Hemoglobin A1c Lactic Acid Calcium 8.1 L Phosphorus Magnesium C-Reactive Protein Total Protein Albumin LDL Cholesterol Direct HDL Cholesterol 11/13/17 11/14/17 11/14/17 22:12 05:27 12:47 WBC RBC Hgb Hct MCV MCHC RDW Seg Neuts % (Manual) Lymphocytes % (Manual) Seg Neutrophils # Man Lymphocytes # (Manual) PT INR POC ABG pH POC ABG pCO2 POC ABG pO2 Sodium Potassium Chloride Carbon Dioxide BUN Creatinine Glucose POC Glucose 236 H 186 H 206 H Hemoglobin A1c Lactic Acid Calcium Phosphorus Magnesium C-Reactive Protein Total Protein Albumin LDL Cholesterol Direct HDL Cholesterol 11/14/17 11/14/17 11/15/17 17:27 22:19 05:48 WBC RBC Hgb Hct MCV MCHC RDW Seg Neuts % (Manual) Lymphocytes % (Manual) Seg Neutrophils # Man Lymphocytes # (Manual) PT INR POC ABG pH POC ABG pCO2 POC ABG pO2 Sodium Potassium Chloride Carbon Dioxide BUN Creatinine Glucose POC Glucose 213 H 123 H 203 H Hemoglobin A1c Lactic Acid Calcium Phosphorus Magnesium C-Reactive Protein Total Protein Albumin LDL Cholesterol Direct HDL Cholesterol 11/15/17 11/15/17 11/16/17 11:20 16:53 01:08 WBC RBC Hgb Hct MCV MCHC RDW Seg Neuts % (Manual) Lymphocytes % (Manual) Seg Neutrophils # Man Lymphocytes # (Manual) PT INR POC ABG pH POC ABG pCO2 POC ABG pO2 Sodium Potassium Chloride Carbon Dioxide BUN Creatinine Glucose POC Glucose 223 H 264 H 183 H Hemoglobin A1c Lactic Acid Calcium Phosphorus Magnesium C-Reactive Protein Total Protein Albumin LDL Cholesterol Direct HDL Cholesterol 11/16/17 11/16/17 11/16/17 06:31 11:15 16:55 WBC RBC Hgb Hct MCV MCHC RDW Seg Neuts % (Manual) Lymphocytes % (Manual) Seg Neutrophils # Man Lymphocytes # (Manual) PT INR POC ABG pH POC ABG pCO2 POC ABG pO2 Sodium Potassium Chloride Carbon Dioxide BUN Creatinine Glucose POC Glucose 238 H 344 H 302 H Hemoglobin A1c Lactic Acid Calcium Phosphorus Magnesium C-Reactive Protein Total Protein Albumin LDL Cholesterol Direct HDL Cholesterol 11/16/17 11/17/17 11/17/17 21:38 06:14 11:35 WBC RBC Hgb Hct MCV MCHC RDW Seg Neuts % (Manual) Lymphocytes % (Manual) Seg Neutrophils # Man Lymphocytes # (Manual) PT INR POC ABG pH POC ABG pCO2 POC ABG pO2 Sodium Potassium Chloride Carbon Dioxide BUN Creatinine Glucose POC Glucose 259 H 275 H 291 H Hemoglobin A1c Lactic Acid Calcium Phosphorus Magnesium C-Reactive Protein Total Protein Albumin LDL Cholesterol Direct HDL Cholesterol 11/17/17 11/17/17 11/18/17 15:52 22:37 06:28 WBC RBC Hgb Hct MCV MCHC RDW Seg Neuts % (Manual) Lymphocytes % (Manual) Seg Neutrophils # Man Lymphocytes # (Manual) PT INR POC ABG pH POC ABG pCO2 POC ABG pO2 Sodium Potassium Chloride Carbon Dioxide BUN Creatinine Glucose POC Glucose 253 H 197 H 328 H Hemoglobin A1c Lactic Acid Calcium Phosphorus Magnesium C-Reactive Protein Total Protein Albumin LDL Cholesterol Direct HDL Cholesterol Allied health notes reviewed: nursing
[2017-11-18] MEDS ORDERED: WATER FOR IRRIG STERILE IR ONE (11:18)
[2017-11-18] MEDS ORDERED: XYLOCAINE MPF 2% ONE (12:00)
[2017-11-18] MEDS ORDERED: NACL 0.9% 1000 ML 1,000 ML ONE (12:09)
[2017-11-18] MEDS: COMBIGAN 0.2-0.5% OU SCH (12:40)
[2017-11-18] MEDS ORDERED: ANCEF/STERILE WATER 2 GM/20 ML 2 GM/20 ML SYRINGE IV ONE (12:51)
[2017-11-18] MEDS ORDERED: ANCEF/STERILE WATER 2 GM/20 ML 2 GM/20 ML SYRINGE IV NR (13:00)
--- NOTE | 2017-11-18 13:06 | Anesthesia Consultation ---
Anesthesia Consult and Med Hx Date of service: 11/18/17 - Airway Anesthetic Teeth Evaluation: Poor (missing teeth) ROM Head & Neck: Adequate Mental/Hyoid Distance: Adequate Mallampati Class: Class III Intubation Access Assessment: Probably Good - Pulmonary Exam CTA: Yes - Cardiac Exam Cardiac Exam: RRR - Pre-Operative Health Status ASA Pre-Surgery Classification: ASA3 Proposed Anesthetic Plan: MAC - Pulmonary Hx Smoking: No - Cardiovascular System Hx Hypertension: Yes (ECHO 10/27 EF 50-55%) Hx Heart Attack/AMI: No - Central Nervous System Hx Seizures: Yes CVA: Yes (WALK W WALKER) Hx Psychiatric Problems: Yes (DEPRESSION) - Endocrine Hx Insulin Dependent Diabetes: Yes (DKA )
--- NOTE | 2017-11-18 13:06 | Anesthesia Day of Surgery ---
Anesthesia Day of Surgery - Day of Surgery Patient Examined: Yes Patient H&P Reviewed: Yes Patient is NPO: Yes
[2017-11-18] MEDS ORDERED: DIPRIVAN 10 MG/ML IV ONE ×2 (14:42)
[2017-11-18] MEDS ORDERED: SUBLIMAZE ONE (14:43)
--- NOTE | 2017-11-18 15:02 | Post Operative Note ---
Pre-op diagnosis: Neurogenic Dysphagia Post-op diagnosis: other (Same, s/p PEG) Findings: 1. Normal appearing stomach 2. PEG placed 2 cm below L mid clav line body of stomach - External bumper at 5cm Procedure: EGD with PEG insertion Anesthesia: MAC Surgeon: ADI MORRISSEY Estimated blood loss: minimal Pathology: none Specimen disposition: other (N/A) Condition: stable Disposition: floor (Recs: 1. May use PEG in 4 hours for feeds/flush/meds. 2. Will loosen bumper tomorrow. 3. Will resume Plavix/ASA in AM.)
--- NOTE | 2017-11-18 15:55 | Post Anesthesia Evaluation ---
- Post Anesthesia Evaluation Patient Participated: Yes Airway Patent: Yes Stable Respiratory Function: Yes Nausea/Vomiting: No Temp > 96.8F: Yes Pain Manageable: Yes Adequeate Hydration: Yes Anesthesia Complications: No
[2017-11-18] MEDS: ASPIRIN PR SCH (16:51)
[2017-11-18] MEDS: cefTRIAXone 1 GM in NACL 0.9% 20 ML IV SCH (17:02)
--- NOTE | 2017-11-18 19:40 | Operative Report ---
PROCEDURE PERFORMED: Esophagogastroduodenoscopy with percutaneous gastrostomy tube insertion. PREOPERATIVE DIAGNOSIS: Neurogenic dysphagia from a stroke. POSTOPERATIVE DIAGNOSIS: Neurogenic dysphagia from a stroke, status post gastrostomy tube. ENDOSCOPIST: Dio Winslow MD. INSTRUMENT: [email or web address] video endoscope. MEDICATIONS: MAC anesthesia by [facility] as well as Ancef 2 grams given preoperatively. COMPLICATIONS: No apparent complications. ESTIMATED BLOOD LOSS: Minimal. SPECIMENS: None. IMPLANTS: A 20-Irish pull type gastrostomy tube in the body of the stomach. ASSISTANTS: None. CONDITION AT COMPLETION: Stable. TECHNIQUE: The patient and her family were apprised of the risks and benefits of the procedure. The patient gave consent to proceed. After consent was obtained, the patient was placed in the supine position. The above sedative medications were given. Her vital signs remained stable throughout the procedure. The instrument was advanced from the mouth to the second portion of the duodenum under direct visualization. At that point, the bowel was insufflated and the endoscope was slowly withdrawn into the body of the stomach. There was a good red light reflex and indentation seen in an area 2 cm below the left midclavicular line in the abdomen. The area was sterilely draped and prepped and a 20-Irish pull type gastrostomy tube was placed over a guidewire in the usual manner. The external bumper was fixed at 5 cm and the procedure was then terminated. FINDINGS: 1. Normal appearing upper GI tract. 2. Successful percutaneous gastrostomy tube placement, 20-Irish/pull type, placed 2 cm below the left midclavicular line in the abdomen, in the body of the stomach. A. The external bumper was fixed at 5 cm. RECOMMENDATIONS: 1. May use the gastrostomy tube in 4 hours for feeds, flushing and medications. 2. We will loosen the bumper tomorrow. 3. We will resume Plavix and aspirin in the morning. JOB# [id number] IAM/DIEGO
--- NOTE | 2017-11-18 19:53 | Progress Note ---
Assessment and Plan Acute ischemic stroke Sepsis secondary to acute mastoiditis DKA with acute metabolic acidosis, high anion gap-improving Acute metabolic encephalopathy (improved) Recurrent Acute ischemic strokes Expressive aphasia Hypernatremia Moderate malnutrition Oropharyngeal dysphagia Sore Throat - s/p PEG - will give prn chloraseptic for sore throat - Complete antibiotics per ID - Continue with supplemental oxygen for O2 sats >92% - continue aspiration precautions - Enteric nutrition as tolerated - Free water flushes - PT/OT/mobility - Secondary stroke prophylaxis - Evaluate for other secondary causes of stroke. - Accuchecks with glycemic control ....re-evaluate in am & prn Subjective Date of service: 11/18/17 Principal diagnosis: Acute on Chronic Encephalopathy; SIRS; DKA; Seizures Interval history: Patient is seen today for: Acute on Chronic Encephalopathy; SIRS; DKA; Seizures Seen and examined at bedside; 24hour events reviewed; nursing and respiratory care staff consulted; no adverse overnight events reported to me; resting in bed ; looks and feels so much better; friend visiting; states that she has a sore throat; No N/V/F/C Objective Vital Signs - 12hr 11/18/17 11/18/17 11/18/17 12:09 12:12 15:08 Temperature 98.7 F 98.7 F 98.4 F Pulse Rate 82 82 97 H Respiratory 18 18 16 Rate Blood Pressure 159/88 159/88 138/86 O2 Sat by Pulse 98 98 96 Oximetry 11/18/17 11/18/17 15:23 15:38 Temperature Pulse Rate 87 85 Respiratory 11 L 10 L Rate Blood Pressure 145/87 145/92 O2 Sat by Pulse 100 100 Oximetry Constitutional: no acute distress, alert Eyes: non-icteric ENT: oropharynx moist, other (No goiter) Neck: supple, no lymphadenopathy, no JVD Effort: normal Ascultation: Bilateral: clear Percussion: Bilateral: not dull Cardiovascular: regular rate and rhythm, other (No rubs or murmurs) Gastrointestinal: normoactive bowel sounds, soft, non-tender, non-distended, other (No HSM) Integumentary: normal Extremities: no cyanosis, no edema, pulses normal, no ischemia or petechiae Neurologic: pupils equal and round, other (left hemiparesis) Psychiatric: mood appropriate, affect normal CBC and BMP: 11/13/17 05:55 01/03/18 05:55 ABG, PT/INR, D-dimer: ABG POC ABG pH 7.389 (7.35-7.45) 11/09/17 19:49 POC ABG pCO2 28.9 (35-45) L 11/09/17 19:49 POC ABG pO2 98 (80-105) 11/09/17 19:49 POC ABG HCO3 17.4 11/09/17 19:49 POC ABG Total CO2 18 11/09/17 19:49 POC ABG O2 Sat 98 11/09/17 19:49 PT/INR, D-dimer PT 13.2 Sec. (12.2-14.9) 11/15/17 08:39 INR 0.95 (0.87-1.13) 11/15/17 08:39 Abnormal lab findings: Abnormal Labs 11/07/17 11/07/17 11/07/17 12:26 12:26 12:26 WBC 20.1 H RBC Hgb Hct MCV 101 H MCHC RDW Seg Neuts % (Manual) 90.0 H Lymphocytes % (Manual) 2.0 L Seg Neutrophils # Man 18.1 H Lymphocytes # (Manual) 0.4 L PT 16.4 H INR 1.25 H POC ABG pH POC ABG pCO2 POC ABG pO2 Sodium Potassium Chloride Carbon Dioxide BUN Creatinine Glucose POC Glucose 445 H Hemoglobin A1c Lactic Acid Calcium Phosphorus Magnesium C-Reactive Protein Total Protein Albumin LDL Cholesterol Direct HDL Cholesterol 11/07/17 11/07/17 11/07/17 12:39 13:44 13:44 WBC RBC Hgb Hct MCV MCHC RDW Seg Neuts % (Manual) Lymphocytes % (Manual) Seg Neutrophils # Man Lymphocytes # (Manual) PT INR POC ABG pH 6.856 L POC ABG pCO2 12.4 L POC ABG pO2 288 H Sodium Potassium Chloride Carbon Dioxide BUN Creatinine Glucose POC Glucose Hemoglobin A1c Lactic Acid Calcium Phosphorus 8.10 H Magnesium 2.60 H C-Reactive Protein Total Protein 5.8 L Albumin 3.0 L LDL Cholesterol Direct HDL Cholesterol 11/07/17 11/07/17 11/07/17 13:44 14:17 15:17 WBC RBC Hgb Hct MCV MCHC RDW Seg Neuts % (Manual) Lymphocytes % (Manual) Seg Neutrophils # Man Lymphocytes # (Manual) PT INR POC ABG pH POC ABG pCO2 POC ABG pO2 Sodium Potassium 6.5 H* 5.8 H 5.7 H Chloride 94.4 L Carbon Dioxide 5 L* 2 L* < 2.0 L* BUN 43 H 38 H 39 H Creatinine 1.3 H 1.3 H Glucose 629 H* 610 H* 585 H* POC Glucose Hemoglobin A1c Lactic Acid Calcium 8.3 L 7.7 L 7.9 L Phosphorus Magnesium C-Reactive Protein Total Protein Albumin LDL Cholesterol Direct HDL Cholesterol 11/07/17 11/07/17 11/07/17 15:17 15:40 16:57 WBC RBC Hgb Hct MCV MCHC RDW Seg Neuts % (Manual) Lymphocytes % (Manual) Seg Neutrophils # Man Lymphocytes # (Manual) PT INR POC ABG pH POC ABG pCO2 POC ABG pO2 Sodium Potassium Chloride Carbon Dioxide 3 L* BUN 42 H Creatinine 1.3 H Glucose 557 H* POC Glucose > 500 H Hemoglobin A1c Lactic Acid 2.90 H* Calcium 8.1 L Phosphorus Magnesium C-Reactive Protein Total Protein Albumin LDL Cholesterol Direct HDL Cholesterol 11/07/17 11/07/17 11/07/17 17:02 17:02 18:05 WBC RBC Hgb Hct MCV MCHC RDW Seg Neuts % (Manual) Lymphocytes % (Manual) Seg Neutrophils # Man Lymphocytes # (Manual) PT INR POC ABG pH POC ABG pCO2 POC ABG pO2 Sodium Potassium Chloride Carbon Dioxide BUN Creatinine Glucose POC Glucose 485 H Hemoglobin A1c 10.0 H Lactic Acid Calcium Phosphorus 6.60 H Magnesium 2.70 H C-Reactive Protein Total Protein Albumin LDL Cholesterol Direct HDL Cholesterol 11/07/17 11/07/17 11/07/17 18:52 20:20 21:23 WBC RBC Hgb Hct MCV MCHC RDW Seg Neuts % (Manual) Lymphocytes % (Manual) Seg Neutrophils # Man Lymphocytes # (Manual) PT INR POC ABG pH POC ABG pCO2 POC ABG pO2 Sodium 148 H Potassium Chloride Carbon Dioxide < 2.0 L* BUN 41 H Creatinine 1.4 H Glucose 473 H POC Glucose 356 H 322 H Hemoglobin A1c Lactic Acid Calcium 7.8 L Phosphorus Magnesium C-Reactive Protein Total Protein Albumin LDL Cholesterol Direct HDL Cholesterol 11/07/17 11/07/17 11/07/17 22:28 23:01 23:31 WBC RBC Hgb Hct MCV MCHC RDW Seg Neuts % (Manual) Lymphocytes % (Manual) Seg Neutrophils # Man Lymphocytes # (Manual) PT INR POC ABG pH POC ABG pCO2 POC ABG pO2 Sodium 148 H Potassium Chloride 111.6 H Carbon Dioxide 4 L* BUN 43 H Creatinine 1.3 H Glucose 177 H POC Glucose 242 H 204 H Hemoglobin A1c Lactic Acid Calcium 7.7 L Phosphorus Magnesium C-Reactive Protein Total Protein Albumin LDL Cholesterol Direct HDL Cholesterol 11/08/17 11/08/17 11/08/17 01:20 03:30 04:01 WBC RBC Hgb Hct MCV MCHC RDW Seg Neuts % (Manual) Lymphocytes % (Manual) Seg Neutrophils # Man Lymphocytes # (Manual) PT INR POC ABG pH POC ABG pCO2 POC ABG pO2 Sodium Potassium Chloride Carbon Dioxide BUN Creatinine Glucose POC Glucose 120 H 59 L 132 H Hemoglobin A1c Lactic Acid Calcium Phosphorus Magnesium C-Reactive Protein Total Protein Albumin LDL Cholesterol Direct HDL Cholesterol 11/08/17 11/08/17 11/08/17 04:20 04:20 05:15 WBC RBC Hgb Hct MCV MCHC RDW Seg Neuts % (Manual) Lymphocytes % (Manual) Seg Neutrophils # Man Lymphocytes # (Manual) PT INR POC ABG pH POC ABG pCO2 POC ABG pO2 Sodium 151 H 150 H Potassium Chloride 114.3 H 115.4 H Carbon Dioxide 10 L 10 L BUN 48 H 48 H Creatinine 1.3 H Glucose 121 H 118 H POC Glucose 134 H Hemoglobin A1c Lactic Acid Calcium 7.8 L 7.8 L Phosphorus Magnesium C-Reactive Protein Total Protein Albumin LDL Cholesterol Direct HDL Cholesterol 11/08/17 11/08/17 11/08/17 06:41 07:49 08:12 WBC RBC Hgb Hct MCV MCHC RDW Seg Neuts % (Manual) Lymphocytes % (Manual) Seg Neutrophils # Man Lymphocytes # (Manual) PT INR POC ABG pH POC ABG pCO2 POC ABG pO2 Sodium 151 H Potassium Chloride 116.5 H Carbon Dioxide 13 L BUN 52 H Creatinine 1.3 H Glucose 213 H POC Glucose 172 H 228 H Hemoglobin A1c Lactic Acid Calcium 7.9 L Phosphorus Magnesium C-Reactive Protein Total Protein Albumin LDL Cholesterol Direct HDL Cholesterol 11/08/17 11/08/17 11/08/17 08:22 09:31 11:04 WBC RBC Hgb Hct MCV MCHC RDW Seg Neuts % (Manual) Lymphocytes % (Manual) Seg Neutrophils # Man Lymphocytes # (Manual) PT INR POC ABG pH POC ABG pCO2 POC ABG pO2 Sodium Potassium Chloride Carbon Dioxide BUN Creatinine Glucose POC Glucose 140 H 140 H 136 H Hemoglobin A1c Lactic Acid Calcium Phosphorus Magnesium C-Reactive Protein Total Protein Albumin LDL Cholesterol Direct HDL Cholesterol 11/08/17 11/08/17 11/08/17 12:11 13:40 17:21 WBC RBC Hgb Hct MCV MCHC RDW Seg Neuts % (Manual) Lymphocytes % (Manual) Seg Neutrophils # Man Lymphocytes # (Manual) PT INR POC ABG pH POC ABG pCO2 POC ABG pO2 Sodium 152 H Potassium Chloride 117.6 H Carbon Dioxide 15 L BUN 50 H Creatinine 1.3 H Glucose 144 H POC Glucose 111 H 182 H Hemoglobin A1c Lactic Acid Calcium Phosphorus Magnesium C-Reactive Protein Total Protein Albumin LDL Cholesterol Direct HDL Cholesterol 11/08/17 11/08/17 11/09/17 17:45 23:06 00:39 WBC RBC Hgb Hct MCV MCHC RDW Seg Neuts % (Manual) Lymphocytes % (Manual) Seg Neutrophils # Man Lymphocytes # (Manual) PT INR POC ABG pH POC ABG pCO2 POC ABG pO2 Sodium 149 H Potassium Chloride 116.2 H Carbon Dioxide 13 L BUN 48 H Creatinine 1.3 H Glucose 171 H POC Glucose < 40 L 123 H Hemoglobin A1c Lactic Acid Calcium 8.1 L Phosphorus Magnesium C-Reactive Protein Total Protein Albumin LDL Cholesterol Direct HDL Cholesterol 11/09/17 11/09/17 11/09/17 07:07 07:07 11:35 WBC RBC Hgb Hct MCV MCHC RDW Seg Neuts % (Manual) Lymphocytes % (Manual) Seg Neutrophils # Man Lymphocytes # (Manual) PT INR POC ABG pH POC ABG pCO2 POC ABG pO2 Sodium 152 H Potassium 3.0 L D Chloride 121.9 H Carbon Dioxide 18 L BUN 44 H Creatinine Glucose POC Glucose 118 H Hemoglobin A1c Lactic Acid Calcium Phosphorus 1.50 L Magnesium C-Reactive Protein Total Protein Albumin LDL Cholesterol Direct HDL Cholesterol 11/09/17 11/09/17 11/09/17 16:54 19:44 19:49 WBC RBC Hgb Hct MCV MCHC RDW Seg Neuts % (Manual) Lymphocytes % (Manual) Seg Neutrophils # Man Lymphocytes # (Manual) PT INR POC ABG pH POC ABG pCO2 28.9 L POC ABG pO2 Sodium Potassium Chloride Carbon Dioxide BUN Creatinine Glucose POC Glucose 231 H Hemoglobin A1c Lactic Acid Calcium Phosphorus Magnesium C-Reactive Protein 4.70 H Total Protein Albumin LDL Cholesterol Direct HDL Cholesterol 11/09/17 11/10/17 11/10/17 21:48 06:25 12:35 WBC RBC Hgb Hct MCV MCHC RDW Seg Neuts % (Manual) Lymphocytes % (Manual) Seg Neutrophils # Man Lymphocytes # (Manual) PT INR POC ABG pH POC ABG pCO2 POC ABG pO2 Sodium Potassium Chloride Carbon Dioxide BUN Creatinine Glucose POC Glucose 176 H 299 H 258 H Hemoglobin A1c Lactic Acid Calcium Phosphorus Magnesium C-Reactive Protein Total Protein Albumin LDL Cholesterol Direct HDL Cholesterol 11/10/17 11/10/17 11/11/17 16:43 22:07 02:59 WBC RBC Hgb Hct MCV MCHC RDW Seg Neuts % (Manual) Lymphocytes % (Manual) Seg Neutrophils # Man Lymphocytes # (Manual) PT INR POC ABG pH POC ABG pCO2 POC ABG pO2 Sodium Potassium Chloride Carbon Dioxide BUN Creatinine Glucose POC Glucose 252 H 248 H 193 H Hemoglobin A1c Lactic Acid Calcium Phosphorus Magnesium C-Reactive Protein Total Protein Albumin LDL Cholesterol Direct HDL Cholesterol 11/11/17 11/11/17 11/11/17 06:20 07:27 07:27 WBC 18.6 H RBC 2.90 L Hgb 9.0 L Hct 27.0 L MCV MCHC RDW Seg Neuts % (Manual) Lymphocytes % (Manual) Seg Neutrophils # Man Lymphocytes # (Manual) PT INR POC ABG pH POC ABG pCO2 POC ABG pO2 Sodium 152 H Potassium Chloride 116.2 H Carbon Dioxide 19 L BUN 24 H Creatinine Glucose 288 H POC Glucose 280 H Hemoglobin A1c Lactic Acid Calcium 8.3 L Phosphorus Magnesium C-Reactive Protein Total Protein Albumin LDL Cholesterol Direct 42 L HDL Cholesterol 88 H 11/11/17 11/11/17 11/11/17 11:09 17:12 20:59 WBC RBC Hgb Hct MCV MCHC RDW Seg Neuts % (Manual) Lymphocytes % (Manual) Seg Neutrophils # Man Lymphocytes # (Manual) PT INR POC ABG pH POC ABG pCO2 POC ABG pO2 Sodium Potassium Chloride Carbon Dioxide BUN Creatinine Glucose POC Glucose 328 H 306 H 318 H Hemoglobin A1c Lactic Acid Calcium Phosphorus Magnesium C-Reactive Protein Total Protein Albumin LDL Cholesterol Direct HDL Cholesterol 11/12/17 11/12/17 11/12/17 01:55 04:40 04:40 WBC 13.0 H RBC 2.88 L Hgb 9.0 L Hct 26.2 L MCV MCHC 35 H RDW 12.6 L Seg Neuts % (Manual) Lymphocytes % (Manual) Seg Neutrophils # Man Lymphocytes # (Manual) PT INR POC ABG pH POC ABG pCO2 POC ABG pO2 Sodium 148 H Potassium 3.3 L Chloride 111.8 H Carbon Dioxide BUN 18 H Creatinine Glucose 212 H POC Glucose 274 H Hemoglobin A1c Lactic Acid Calcium 8.3 L Phosphorus Magnesium C-Reactive Protein Total Protein Albumin LDL Cholesterol Direct HDL Cholesterol 11/12/17 11/12/17 11/12/17 06:30 12:14 16:50 WBC RBC Hgb Hct MCV MCHC RDW Seg Neuts % (Manual) Lymphocytes % (Manual) Seg Neutrophils # Man Lymphocytes # (Manual) PT INR POC ABG pH POC ABG pCO2 POC ABG pO2 Sodium Potassium Chloride Carbon Dioxide BUN Creatinine Glucose POC Glucose 285 H 166 H 178 H Hemoglobin A1c Lactic Acid Calcium Phosphorus Magnesium C-Reactive Protein Total Protein Albumin LDL Cholesterol Direct HDL Cholesterol 11/12/17 11/13/17 11/13/17 21:24 05:47 05:55 WBC 12.4 H RBC 2.92 L Hgb 8.8 L Hct 26.1 L MCV MCHC RDW 12.6 L Seg Neuts % (Manual) Lymphocytes % (Manual) Seg Neutrophils # Man Lymphocytes # (Manual) PT INR POC ABG pH POC ABG pCO2 POC ABG pO2 Sodium Potassium Chloride Carbon Dioxide BUN Creatinine Glucose POC Glucose 197 H 291 H Hemoglobin A1c Lactic Acid Calcium Phosphorus Magnesium C-Reactive Protein Total Protein Albumin LDL Cholesterol Direct HDL Cholesterol 11/13/17 11/13/17 11/13/17 05:55 12:24 16:33 WBC RBC Hgb Hct MCV MCHC RDW Seg Neuts % (Manual) Lymphocytes % (Manual) Seg Neutrophils # Man Lymphocytes # (Manual) PT INR POC ABG pH POC ABG pCO2 POC ABG pO2 Sodium Potassium Chloride 108.2 H Carbon Dioxide 21 L BUN Creatinine Glucose 228 H POC Glucose 215 H 280 H Hemoglobin A1c Lactic Acid Calcium 8.1 L Phosphorus Magnesium C-Reactive Protein Total Protein Albumin LDL Cholesterol Direct HDL Cholesterol 11/13/17 11/14/17 11/14/17 22:12 05:27 12:47 WBC RBC Hgb Hct MCV MCHC RDW Seg Neuts % (Manual) Lymphocytes % (Manual) Seg Neutrophils # Man Lymphocytes # (Manual) PT INR POC ABG pH POC ABG pCO2 POC ABG pO2 Sodium Potassium Chloride Carbon Dioxide BUN Creatinine Glucose POC Glucose 236 H 186 H 206 H Hemoglobin A1c Lactic Acid Calcium Phosphorus Magnesium C-Reactive Protein Total Protein Albumin LDL Cholesterol Direct HDL Cholesterol 11/14/17 11/14/17 11/15/17 17:27 22:19 05:48 WBC RBC Hgb Hct MCV MCHC RDW Seg Neuts % (Manual) Lymphocytes % (Manual) Seg Neutrophils # Man Lymphocytes # (Manual) PT INR POC ABG pH POC ABG pCO2 POC ABG pO2 Sodium Potassium Chloride Carbon Dioxide BUN Creatinine Glucose POC Glucose 213 H 123 H 203 H Hemoglobin A1c Lactic Acid Calcium Phosphorus Magnesium C-Reactive Protein Total Protein Albumin LDL Cholesterol Direct HDL Cholesterol 11/15/17 11/15/17 11/16/17 11:20 16:53 01:08 WBC RBC Hgb Hct MCV MCHC RDW Seg Neuts % (Manual) Lymphocytes % (Manual) Seg Neutrophils # Man Lymphocytes # (Manual) PT INR POC ABG pH POC ABG pCO2 POC ABG pO2 Sodium Potassium Chloride Carbon Dioxide BUN Creatinine Glucose POC Glucose 223 H 264 H 183 H Hemoglobin A1c Lactic Acid Calcium Phosphorus Magnesium C-Reactive Protein Total Protein Albumin LDL Cholesterol Direct HDL Cholesterol 11/16/17 11/16/17 11/16/17 06:31 11:15 16:55 WBC RBC Hgb Hct MCV MCHC RDW Seg Neuts % (Manual) Lymphocytes % (Manual) Seg Neutrophils # Man Lymphocytes # (Manual) PT INR POC ABG pH POC ABG pCO2 POC ABG pO2 Sodium Potassium Chloride Carbon Dioxide BUN Creatinine Glucose POC Glucose 238 H 344 H 302 H Hemoglobin A1c Lactic Acid Calcium Phosphorus Magnesium C-Reactive Protein Total Protein Albumin LDL Cholesterol Direct HDL Cholesterol 11/16/17 11/17/17 11/17/17 21:38 06:14 11:35 WBC RBC Hgb Hct MCV MCHC RDW Seg Neuts % (Manual) Lymphocytes % (Manual) Seg Neutrophils # Man Lymphocytes # (Manual) PT INR POC ABG pH POC ABG pCO2 POC ABG pO2 Sodium Potassium Chloride Carbon Dioxide BUN Creatinine Glucose POC Glucose 259 H 275 H 291 H Hemoglobin A1c Lactic Acid Calcium Phosphorus Magnesium C-Reactive Protein Total Protein Albumin LDL Cholesterol Direct HDL Cholesterol 11/17/17 11/17/17 11/18/17 15:52 22:37 06:28 WBC RBC Hgb Hct MCV MCHC RDW Seg Neuts % (Manual) Lymphocytes % (Manual) Seg Neutrophils # Man Lymphocytes # (Manual) PT INR POC ABG pH POC ABG pCO2 POC ABG pO2 Sodium Potassium Chloride Carbon Dioxide BUN Creatinine Glucose POC Glucose 253 H 197 H 328 H Hemoglobin A1c Lactic Acid Calcium Phosphorus Magnesium C-Reactive Protein Total Protein Albumin LDL Cholesterol Direct HDL Cholesterol 11/18/17 11/18/17 11:38 16:18 WBC RBC Hgb Hct MCV MCHC RDW Seg Neuts % (Manual) Lymphocytes % (Manual) Seg Neutrophils # Man Lymphocytes # (Manual) PT INR POC ABG pH POC ABG pCO2 POC ABG pO2 Sodium Potassium Chloride Carbon Dioxide BUN Creatinine Glucose POC Glucose 176 H 244 H Hemoglobin A1c Lactic Acid Calcium Phosphorus Magnesium C-Reactive Protein Total Protein Albumin LDL Cholesterol Direct HDL Cholesterol Allied health notes reviewed: nursing
[2017-11-19] MEDS: NOVOLOG SUB-Q SCH ×3 (03:53→12:31)
[2017-11-19] MEDS: MORPHINE IV PRN (04:06)
--- NOTE | 2017-11-19 09:43 | Gastroenterology Progress Note ---
Assessment and Plan 1.PEG placement 2.acute ischemic stroke 3.acute metabolic encephalopathy 4.DKA -failed speech eval with modified barium swallow -s/p EGD with PEG placement yesterday -PEG site WNL w/o signs of infection -bumper off loaded to prevent skin breakdown -tolerating tube feeding -split gauze dressing PRN -okay to resume plavix and ASA -continue supportive care -no further GI recommendations at this time, will sign off Subjective Date of service: 11/19/17 Principal diagnosis: PEG placement Interval history: Patient resting in bed. No acute distress. Alert and able to nod head to questions. Shakes head no when asked if she is having any abd pain or N/V. PEG site is w/o redness, swelling, odor, bleeding, or drainage. Tolerating tube feedings. Objective - Constitutional Vitals: Temp Pulse Resp BP Pulse Ox 99.1 F 104 H 18 152/93 95 11/19/17 07:52 11/19/17 07:52 11/19/17 07:52 11/19/17 07:52 11/19/17 07:52 General appearance: no acute distress, other (alert, non-verbal) - Respiratory Respiratory: bilateral: CTA - Cardiovascular Rhythm: regular Heart Sounds: Present: S1 & S2 - Gastrointestinal General gastrointestinal: Present: soft, non-tender, non-distended, normal bowel sounds, other (+PEG) - Labs CBC & Chem 7: 11/13/17 05:55 11/13/17 05:55 Labs: Laboratory Results - last 24 hr 11/18/17 11/18/17 11/18/17 11:38 16:18 22:39 POC Glucose 176 H 244 H 208 H 11/19/17 06:58 POC Glucose 297 H
[2017-11-19] MEDS ORDERED: PLAVIX PO SCH (10:00)
[2017-11-19] MEDS ORDERED: PROTONIX FEEDTUBE SCH (10:00)
[2017-11-19] MEDS: celeXA PO SCH (11:45)
[2017-11-19] MEDS: COMBIGAN 0.2-0.5% OU SCH ×2 (11:47→11:48)
[2017-11-19] MEDS ORDERED: NORVASC PO SCH (12:00)
--- NOTE | 2017-11-19 13:05 | Vascular Lab Report ---
CAROTID DUPLEX STUDY: RIGHT PSVEDV CCA [id number] CCA [id number] ICA PROX:[id number] ICA MID:[id number] ICA DIST:[id number] ECA: 137 VERT: 65 28 LEFT PSVEDV CCA [id number] CCA DIST:[id number] ICA PROX:[id number] ICA [id number] ICA [id number] ECA: 124 VERT: 46 20 REASON FOR EXAM: Stroke. COMMENTS ON THE RIGHT: Doppler frequency analysis is consistent with 16 to 49 percent diameter reduction of the internal carotid artery. Minimal amount of plaque is seen. The common carotid artery is patent. The external carotid artery is patent. The vertebral artery has antegrade flow. COMMENTS ON THE LEFT: Doppler frequency analysis is consistent with 16 to 49 percent diameter reduction of the internal carotid artery. Minimal amount of plaque is seen. The common carotid artery is patent. The external carotid artery is patent. The vertebral artery has antegrade flow. IMPRESSION: Less than 50% diameter reduction in the internal carotid arteries bilaterally.
--- NOTE | 2017-11-19 14:07 | Discharge Summary ---
Providers - Providers Date of Admission: 11/07/17 15:53 Date of discharge: 11/19/17 Attending physician: BROOKLYN DAVILA 11/14/17 17:39 Consult to Physician [CONS] Routine Consulting Provider: DINAH LERMA Reason For Exam: peg placement Place consult to:: DR LERMA Notified:: Phone number called:: [phone] Was contact made?: Yes If yes, spoke with:: ARTI Time called:: 17:41 11/15/17 11:16 Consult to Dietitian/Nutrition [CONS] Routine Physician Instructions: Reason For Exam: Reason for Consult: Write/Manage Tube Feeding 11/07/17 19:09 Consult to Physician [CONS] Stat Consulting Provider: BRYAN DAVIS Reason For Exam: ICU admission Place consult to:: Dr. aDvis Notified:: Answering Service Phone number called:: [phone] Was contact made?: Yes If yes, spoke with:: Dr. Davis Time called:: 19:00 11/08/17 09:31 Consult to Physician [CONS] Routine Consulting Provider: CARLEY CABRERA Reason For Exam: ?hydrocephalus Place consult to:: Dr. Cabrera Notified:: Answering Service Phone number called:: [phone] Was contact made?: Yes If yes, spoke with:: Dr. 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:: ss Consult to Dietitian/Nutrition [CONS] Routine Physician Instructions: Reason For Exam: Reason for Consult: Nutrition Recommendations Reason for Consult: Malnutrition Occupational Therapy Evaluate and Treat [CONS] Routine Comment: Reason For Exam: Neuro deficits Physical Therapy Evaluation and Treat [CONS] Routine Comment: Reason For Exam: Neuro deficits 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 Her baseline mental function per sister Jessica: she walks with a walker, she feeds herself, needs help with clothes, left arm weaker than right and speech is usually slurred. Jessica reports that patient was discharged from [facility] about 1.5 months ago and went to [facility]. Then, she went to her home from there. She lives with daughter Leslye and brother, Sean, who moved in with her for more support. per Jessica: "I wanna say she wasn't talking her insulin, because this 3rd stoke did alittle mentally and she more forgettable, that is what I am thinking , for example, she will say, I need to take my insulin but she had just took her insulin." They went to [place], on the way back Saturday night 11pm, she was sleeping off and on, BG was 516 and she took her insulin. Her daughter, Leslye, said next morning she got up morning to go to the bathroom and she fell and then was unresponsive, she was found on the floor in urine by daughter, Leslye. -DKA with acute metabolic acidosis, high anion gap: Treated with IV fluids, insulin drip now resolved -Acute metabolic encephalopathy/semiconscious state: treat the above -Recurrent Acute ischemic strokes. 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 Anion gap was still high so I sent ICU to start insulin drip. I also ordered bmp stat. By the time the stat bmp was resulted, patient was in the icu. Anion gap has closed, so i will downgrade back to medical surg floor. Replace her potassium, start diet, if she unable to eat continue D5W due to hypernatremia and not eating. Await neurology assessment because she is not at her mental baseline of slurred speech and ambulation with a walker. Order PT/OT 11/10/17: I gave pt 0.5mg iv ativan x 1 to complete mri brain that Neurology ordered, MRI brain reported as multiple focal areas of restricted diffusion right cerebral hemisphere suggestive excuse ischemia, no evidence of hemorrhage , dilated right lateral ventricle without definite evidence of obstruction, acute right mastoiditis. I started abx, iv rocephin, used stroke protocol 11/11/2017: WBC went down, Still hypernatremic, more free water, repeat labs in am. ECHO pending. I called Jessica at [phone], no answer ?phone broken message. 11/12/17: echo pending, replace potassium, hyperglycemia on D5W for the hypernatremia, continue ssi, if she tolerates a diet today, then d/c ivf, change ssi to achs instead of q4hr, urine culture still pending. Hopefully SNF placement in 1-2 days 11/13/17: Echo reviewed, hypernatremia/hypokalemia resolved, stop ivf. Waiting on placement 11/14/17: [facility] in [place], [place], waiting on insurance pre-auth 11/15/17: failed swallow, going for peg on saturday because she is on Plavix. Nutrition: Patient refusing NGT but she will re-consider; she is comminunicating via paper and pencil. She agreed to NGT 11/16/17: continue ngt tube. 11/17/17: abd xray, check ngt placement. peg tube tomorrow then placement 11/18/17: peg today, restart antiplatelet soon after 11/19/17: tolerated tube feedings, going to [facility], sister Rachid at bedside (who i discharge last week, she looks great). Disposition: [id number] SNF W [facility] CERT Time spent for discharge: 35 minutes Core Measure Documentation - Palliative Care Palliative Care/ Comfort Measures: Not Applicable - Core Measures Any of the following diagnoses?: stroke - VTE Discharge Requirements Deep Vein Thrombosis/Pulmonary Embolism Present on Admission: No Has pt received <5 days of overlap therapy or INR<2.0: No Anticoagulant overlap therapy prescribed at discharge: No Contraindication No Overlap Therapy order at DC: Not Indicated - Stroke Discharge Requirements Statin for LDL = or >70 mg/dl on DC: Yes Anticoag for atrial fib/atrial flutter: Not Applicable Antithrombotic for ischemic stroke: Yes Exam - Physical Exam Narrative exam: GEN: Thin frail woman chronic a bit debilitating appearing, lethargic, nonverbal HEENT: NCAT, EOMI, PERRL, OP Clear NECK: supple, no adenopathy, no thyromegaly, no JVD CVS/HEART: regular tachycardia NORMAL S1S2, NO JVD, pulses present bilaterally CHEST/LUNGS: CTA B, Symmetrical chest expansion, good air entry bilaterally GI/Abdomen: soft, NTND, good bowel sounds, no guarding or rebound /Bladder: no suprapubic tenderness, no CVA or paraspinal tenderness EXT/Skin: no c/c/e, no obvious rash MSK: Moving both arms with contractures Neuro: CN 2-12 grossly intact except nonverbal, hemiparesis, facial asymmetry, no new focal deficits Psych: calm but confused - Constitutional Vitals: Temp Pulse Resp BP Pulse Ox 99.1 F 104 H 18 150/78 95 11/19/17 07:52 11/19/17 07:52 11/19/17 07:52 11/19/17 11:46 11/19/17 07:52 Plan Activity: up only with assistance, fall precautions, other (no strenous activity until cleared by pcp) Diet: per dietitian instruction ([employer] goal tube feedings 55 mL per hour) Special Instructions: record daily BP diary, record blood sugar diary Follow up with: PRIMARY CARE, [Primary Care Provider] - 3-5 Days
[2017-11-19 14:49] VITALS: BP 131/86
== END 2017-11-19 15:10 | DRG 871 ==
LOC: ED 12:14 → CC1 15:53 → 3A 11-09 01:06
PROVIDERS: ADMIT Internal Medicine; ATTEND Internal Medicine
PROC: 4A033R1 Measurement of Arterial Saturation, Peripheral, Percutaneous Approach (ICD-10-PCS; 2017-11-07)
PROC: 0DH63UZ Insertion of Feeding Device into Stomach, Percutaneous Approach (ICD-10-PCS; principal; 2017-11-18)
PROC: 3E0G76Z Introduction of Nutritional Substance into Upper GI, Via Natural or Artificial Opening (ICD-10-PCS; 2017-11-18)
DX: A41.9 Sepsis, unspecified organism (principal); G93.41 Metabolic encephalopathy; E11.10 Type 2 diabetes mellitus with ketoacidosis without coma; I63.9 Cerebral infarction, unspecified; H70.001 Acute mastoiditis without complications, right ear; E87.0 Hyperosmolality and hypernatremia; E44.0 Moderate protein-calorie malnutrition; Z68.1 Body mass index [BMI] 19.9 or less, adult; R47.01 Aphasia; E87.5 Hyperkalemia; I10 Essential (primary) hypertension; F32.9 Major depressive disorder, single episode, unspecified; G40.909 Epilepsy, unspecified, not intractable, without status epilepticus; R13.12 Dysphagia, oropharyngeal phase; Z79.4 Long term (current) use of insulin; Z79.82 Long term (current) use of aspirin; Z79.899 Other long term (current) drug therapy
CPT/HCPCS: 36415; 36600; 70450; 70551; 71010; 74018; 74230; 80048; 80061; 80074; 80307; 81001; 82140; 82803; 82962; 83036; 83735; 84100; 84703; 85007; 85025; 85027; 85610; 86140; 87040; 93005; 93010; 93306; 93880; 95819; 96361; 96374; 96375; A9270-GY; G8978-GP; G8979-GP; G8987-GO; G8988-GO; G8996-GN; G8997-GN; J0690; J0696; J1815; J1818; J2060; J2270; J2405; J2543; J2704; J3010; J3480; J7030; J7070

== ENCOUNTER 2019-10-03 17:51 | Inpatient (IN) | payer MEDICARE ==
--- NOTE | 2019-10-03 18:04 | Emergency Department Report ---
ED General Adult HPI - General Chief complaint: Dyspnea/Respdistress Stated complaint: KRISTY Time Seen by Provider: 10/03/19 18:01 Source: patient, EMS (verbal report received from emergency medical services. EMS documentation not available at time of chart dictation ), RN notes reviewed, old records reviewed Mode of arrival: Stretcher Limitations: Physical Limitation - History of Present Illness Initial comments: This is a 39-year-old female. The patient has a history of stroke, left-sided hemiparesis, hypertension, seizure, diabetes The patient is brought to the hospital by emergency medical services for acute respiratory distress. Upon arrival, patient on BiPAP, saturating 88% on BiPAP therapy, in moderate to severe respiratory distress. Emergency medical services gave steroids, albuterol, and Lasix prior to arrival. Upon initial evaluation, patient is awake, protecting airway, in moderate to severe respiratory distress, with cool clammy skin, diaphoresis, and market hypertension, systolic blood pressure in the 220s. Patient continued on BiPAP therapy, given nitroglycerin IV push by myself, 600 g, 400 g, 1 g. Patient then started on nitroglycerin drip. This is continued with her BiPAP. This markedly improved her symptoms. The patient indicated that she had a primary care doctor but cannot recall their name. Patient not able to describe exacerbating or relieving factors. -: Sudden (per ems) Radiation: other Quality: other Consistency: other Improves with: other Worsens with: other Associated Symptoms: shortness of breath - Related Data Home Medications Medication Instructions Recorded Confirmed Last Taken NIFEdipine [Nifedipine ER] 10 mg PO TID 11/21/17 11/21/17 1 Day Ago ~11/20/17 Previous Rx's Medication Instructions Recorded Last Taken Type Acetaminophen [Acetaminophen TAB] 325 mg PO Q4H PRN #30 tablet 11/19/17 Unknown Rx Aspirin [Aspirin EC] 81 mg PO DAILY #30 11/19/17 1 Day Ago Rx ~11/20/17 AtorvaSTATin [Lipitor] 80 mg PO QHS #30 day 11/19/17 1 Day Ago Rx ~11/20/17 Bisacodyl [Dulcolax suppos] 10 mg AR QDAY PRN #7 supp.rect 11/19/17 Unknown Rx Brimonidine/Timolol 0.2-0.5% 1 drops OU Q12HR #1 bottle 11/19/17 1 Day Ago Rx [Combigan 0.2-0.5%] ~11/20/17 Citalopram [celeXA] 10 mg PO QDAY #30 11/19/17 1 Day Ago Rx ~11/20/17 Clopidogrel [Plavix] 75 mg PO QDAY #30 11/19/17 1 Day Ago Rx ~11/20/17 Cyclobenzaprine [Flexeril 10 MG 10 mg PO TID PRN #30 day 11/19/17 Unknown Rx TAB] Lipase/Protease/Amylase [Pancreaze 1 each FEEDTUBE PRN PRN #30 capsule 11/19/[address],500 Unit] Magnesium Hydroxide [Milk of 30 ml PO Q4H PRN #30 oral.liqd 11/19/17 Unknown Rx Magnesia] Petrolatum,White [Vaseline Lip 1 applic TP DIRECT PRN #30 tube 11/19/17 Unknown Rx Therapy] Simple Syrup 15 ml FEEDTUBE PRN PRN #30 11/19/17 Unknown Rx oral.liqd Simple Syrup 30 ml FEEDTUBE PRN PRN #30 11/19/17 Unknown Rx oral.liqd Sodium Bicarbonate 325 mg FEEDTUBE PRN PRN #30 tablet 11/19/17 Unknown Rx amLODIPine 5 mg PO QDAY #30 tablet 11/19/17 1 Day Ago Rx ~11/20/17 Detemir (Nf) [Levemir (Nf)] 10 units SUB-Q QHS units 11/28/17 Unknown Rx Allergies Allergy/AdvReac Type Severity Reaction Status Date / Time No Known Allergies Allergy Unverified 11/20/14 03:04 ED Review of Systems ROS: Stated complaint: KRISTY Other details as noted in HPI Comment: Unobtainable due to pts medical conditions ED Past Medical Hx - Past Medical History Hx Hypertension: Yes (ECHO 10/27 EF 50-55%) Hx CVA: Yes (left side) Hx Heart Attack/AMI: No Hx Congestive Heart Failure: No Hx Diabetes: Yes Hx Seizures: Yes Hx Asthma: No Hx COPD: No - Surgical History Additional Surgical History: Spinal surgery, neck/artery surgery - Social History Smoking Status: Never Smoker - Medications Home Medications: Home Medications Medication Instructions Recorded Confirmed Last Taken Type Acetaminophen [Acetaminophen TAB] 325 mg PO Q4H PRN #30 tablet 11/19/17 11/21/17 Unknown Rx Aspirin [Aspirin EC] 81 mg PO DAILY #30 11/19/17 11/21/17 1 Day Ago Rx ~11/20/17 AtorvaSTATin [Lipitor] 80 mg PO QHS #30 day 11/19/17 11/21/17 1 Day Ago Rx ~11/20/17 Bisacodyl [Dulcolax suppos] 10 mg AR QDAY PRN #7 supp.rect 11/19/17 11/21/17 Unknown Rx Brimonidine/Timolol 0.2-0.5% 1 drops OU Q12HR #1 bottle 11/19/17 11/21/17 1 Day Ago Rx [Combigan 0.2-0.5%] ~11/20/17 Citalopram [celeXA] 10 mg PO QDAY #30 11/19/17 11/21/17 1 Day Ago Rx ~11/20/17 Clopidogrel [Plavix] 75 mg PO QDAY #30 11/19/17 11/21/17 1 Day Ago Rx ~11/20/17 Cyclobenzaprine [Flexeril 10 MG 10 mg PO TID PRN #30 day 11/19/17 11/21/17 Unk nown Rx TAB] Lipase/Protease/Amylase [Pancreaze 1 each FEEDTUBE PRN PRN #30 capsule 11/19/17 11/21/[address] 10,500 Unit] Magnesium Hydroxide [Milk of 30 ml PO Q4H PRN #30 oral.liqd 11/19/17 11/21/17 Unknown Rx Magnesia] Petrolatum,White [Vaseline Lip 1 applic TP DIRECT PRN #30 tube 11/19/17 11/21/17 Unknown Rx Therapy] Simple Syrup 15 ml FEEDTUBE PRN PRN #30 11/19/17 11/21/17 Unknown Rx oral.liqd Simple Syrup 30 ml FEEDTUBE PRN PRN #30 11/19/17 11/21/17 Unknown Rx oral.liqd Sodium Bicarbonate 325 mg FEEDTUBE PRN PRN #30 tablet 11/19/17 11/21/17 Unknown Rx amLODIPine 5 mg PO QDAY #30 tablet 11/19/17 11/21/17 1 Day Ago Rx ~11/20/17 NIFEdipine [Nifedipine ER] 10 mg PO TID 11/21/17 11/21/17 1 Day Ago History ~11/20/17 Detemir (Nf) [Levemir (Nf)] 10 units SUB-Q QHS units 11/28/17 Unknown Rx ED Physical Exam - General Limitations: Physical Limitation General appearance: anxious, in distress, obese - Head Head exam: Present: atraumatic, normocephalic - Eye Eye exam: Present: normal appearance - ENT ENT exam: Present: normal orophraynx, mucous membranes moist, normal external ear exam - Neck Neck exam: Present: normal inspection, full ROM. Absent: tenderness, meningismus - Respiratory Respiratory exam: Present: respiratory distress, rales, accessory muscle use - Cardiovascular Cardiovascular Exam: Present: normal rhythm, tachycardia, normal heart sounds. Absent: systolic murmur, diastolic murmur, rubs, gallop - GI/Abdominal GI/Abdominal exam: Present: soft, normal bowel sounds. Absent: distended, tenderness, guarding, rebound, rigid, pulsatile mass - Extremities Exam Extremities exam: Present: normal inspection (muscular compartments are soft.), pedal edema, other (2+ pulses noted in the bilateral upper, lower extremities. There is left upper extremity left lower extremity chronic hemiparesis. There is no palpable cord. There is a negative Homans sign.). Absent: calf tenderness - Back Exam Back exam: Present: normal inspection. Absent: tenderness, CVA tenderness (R), CVA tenderness (L), paraspinal tenderness, vertebral tenderness - Neurological Exam Neurological exam: Present: alert, motor sensory deficit (there is left leg weakness, left arm weakness. This is chronic. Moving right arm, right leg spontaneously) - Psychiatric Psychiatric exam: Present: anxious - Skin Skin exam: Present: warm, dry, intact, normal color. Absent: rash ED Course Vital Signs 10/03/19 10/03/19 10/03/19 17:57 18:02 18:04 Temperature Pulse Rate 117 H 102 H 104 H Respiratory 25 H 20 Rate Blood Pressure 210/131 Blood Pressure 221/135 [Right] O2 Sat by Pulse 100 100 Oximetry 10/03/19 10/03/19 10/03/19 18:20 19:10 19:15 Temperature 97.1 F L Pulse Rate 97 H 102 H Respiratory 25 H 19 21 Rate Blood Pressure Blood Pressure [Right] O2 Sat by Pulse 96 92 Oximetry 10/03/19 10/03/19 10/03/19 19:31 19:35 19:45 Temperature 97.2 F L Pulse Rate 94 H 99 H 99 H Respiratory 20 23 16 Rate Blood Pressure 206/109 207/109 Blood Pressure 206/109 [Right] O2 Sat by Pulse 99 97 96 Oximetry 10/03/19 10/03/19 10/03/19 20:00 20:30 20:45 Temperature Pulse Rate 94 H 99 H 95 H Respiratory 20 18 19 Rate Blood Pressure 180/97 197/106 202/108 Blood Pressure [Right] O2 Sat by Pulse 97 99 99 Oximetry 10/03/19 10/03/19 10/03/19 20:56 21:00 21:15 Temperature Pulse Rate 93 H 93 H 90 Respiratory 15 14 Rate Blood Pressure 195/105 173/97 151/85 Blood Pressure [Right] O2 Sat by Pulse 98 98 Oximetry ED Medical Decision Making - Lab Data Result diagrams: 10/03/19 18:40 10/03/19 18:40 Vital Signs 10/03/19 10/03/19 10/03/19 17:57 18:02 18:04 Temperature Pulse Rate 117 H 102 H 104 H Respiratory 25 H 20 Rate Blood Pressure 210/131 Blood Pressure 221/135 [Right] O2 Sat by Pulse 100 100 Oximetry 10/03/19 10/03/19 10/03/19 18:20 19:10 19:15 Temperature 97.1 F L Pulse Rate 97 H 102 H Respiratory 25 H 19 21 Rate Blood Pressure Blood Pressure [Right] O2 Sat by Pulse 96 92 Oximetry 10/03/19 10/03/19 10/03/19 19:31 19:35 19:45 Temperature Pulse Rate 94 H 99 H 99 H Respiratory 20 23 16 Rate Blood Pressure 206/109 207/109 Blood Pressure 206/109 [Right] O2 Sat by Pulse 99 97 96 Oximetry Lab Results 10/03/19 10/03/19 10/03/19 Range/Units 18:34 18:40 18:40 WBC 13.8 H (4.5-11.0) K/mm3 RBC 2.67 L (3.65-5.03) M/mm3 Hgb 8.0 L (10.1-14.3) gm/dl Hct 24.5 L (30.3-42.9) % MCV 92 (79-97) fl MCH 30 (28-32) pg MCHC 33 (30-34) % RDW 13.2 (13.2-15.2) % Plt Count 264 (140-440) K/mm3 Add Manual Diff Complete Total Counted 100 Seg Neutrophils % Computer Forensics Investigator Seg Neuts % (Manual) 93.0 H (40.0-70.0) % Band Neutrophils % 0 % Lymphocytes % (Manual) 4.0 L (13.4-35.0) % Reactive Lymphs % (Man) 0 % Monocytes % (Manual) 2.0 (0.0-7.3) % Eosinophils % (Manual) 1.0 (0.0-4.3) % Basophils % (Manual) 0 (0.0-1.8) % Metamyelocytes % 0 % Myelocytes % 0 % Promyelocytes % 0 % Blast Cells % 0 % Nucleated RBC % Not Reportable Seg Neutrophils # Man 12.8 H (1.8-7.7) K/mm3 Band Neutrophils # 0.0 K/mm3 Lymphocytes # (Manual) 0.6 L (1.2-5.4) K/mm3 Abs React Lymphs (Man) 0.0 K/mm3 Monocytes # (Manual) 0.3 (0.0-0.8) K/mm3 Eosinophils # (Manual) 0.1 (0.0-0.4) K/mm3 Basophils # (Manual) 0.0 (0.0-0.1) K/mm3 Metamyelocytes # 0.0 K/mm3 Myelocytes # 0.0 K/mm3 Promyelocytes # 0.0 K/mm3 Blast Cells # 0.0 K/mm3 WBC Morphology Not Reportable Hypersegmented Neuts Not Reportable Hyposegmented Neuts Not Reportable Hypogranular Neuts Not Reportable Smudge Cells Not Reportable Toxic Granulation Not Reportable Toxic Vacuolation Not Reportable Dohle Bodies Not Reportable Pelger-Huet Anomaly Not Reportable Xiomy Rods Not Reportable Platelet Estimate Consistent w auto Clumped Platelets Not Reportable Plt Clumps, EDTA Not Reportable Large Platelets 1+ Giant Platelets Not Reportable Platelet Satelliting Not Reportable Plt Morphology Comment Not Reportable RBC Morphology Normal Dimorphic RBCs Not Reportable Polychromasia Not Reportable Hypochromasia Not Reportable Poikilocytosis Not Reportable Anisocytosis Not Reportable Microcytosis Not Reportable Macrocytosis Not Reportable Spherocytes Not Reportable Pappenheimer Bodies Not Reportable Sickle Cells Not Reportable Target Cells Not Reportable Tear Drop Cells Not Reportable Ovalocytes Not Reportable Helmet Cells Not Reportable [place] Bodies Not Reportable [place] Rings Not Reportable [place] Cells Not Reportable Bite Cells Not Reportable Crenated Cell Not Reportable Elliptocytes Not Reportable Acanthocytes (Spur) Not Reportable Rouleaux Not Reportable Hemoglobin C Crystals Not Reportable Schistocytes Not Reportable Malaria parasites Not Reportable Mundo Bodies Not Reportable Hem Pathologist Commnt No PT 14.2 (12.2-14.9) Sec. INR 1.11 (0.87-1.13) APTT 29.0 (24.2-36.6) Sec. POC ABG pH 7.336 L (7.35-7.45) ABG pH (7.350-7.450) pH Units POC ABG pCO2 44.2 (35-45) ABG pCO2 mm Hg POC ABG pO2 147 H (80-105) ABG pO2 (80.0-90.0) mm Hg POC ABG HCO3 23.6 (22-26 mml/L) ABG HCO3 (20.0-26.0) mmol/L POC ABG Total CO2 25 (23-27mmol/L) POC ABG O2 Sat 99 ABG O2 Saturation (95.0-99.0) % ABG O2 Content (0.0-44) POC ABG Base Excess -2 ((-2) - (+3)mmol/L) ABG Base Excess (-2.0-3.0) mmol/L ABG Hemoglobin (12.0-16.0) gm/dl ABG Carboxyhemoglobin (0.0-5.0) % ABG Methemoglobin (0.0-1.5) % VBG pH (7.320-7.420) Oxyhemoglobin (95.0-99.0) % FiO2 50 % Sodium (137-145) mmol/L Potassium (3.6-5.0) mmol/L Chloride (98-107) mmol/L Carbon Dioxide (22-30) mmol/L Anion Gap mmol/L BUN (7-17) mg/dL Creatinine (0.7-1.2) mg/dL Estimated GFR ml/min BUN/Creatinine Ratio % Glucose (65-100) mg/dL POC Glucose (70-105) Calcium (8.4-10.2) mg/dL Magnesium (1.7-2.3) mg/dL Total Bilirubin (0.1-1.2) mg/dL AST (5-40) units/L ALT (7-56) units/L Alkaline Phosphatase (35-129) units/L Total Creatine Kinase (30-135) units/L Troponin T (0.00-0.029) ng/mL NT-Pro-B Natriuret Pep (0-450) pg/mL Total Protein (6.3-8.2) g/dL Albumin (3.9-5) g/dL Albumin/Globulin Ratio % Triglycerides (2-149) mg/dL Cholesterol (50-199) mg/dL LDL Cholesterol Direct (50-130) mg/dL HDL Cholesterol (40-59) mg/dL Cholesterol/HDL Ratio % Urine Color (Yellow) Urine Turbidity (Clear) Urine pH (5.0-7.0) Ur Specific [place] (1.003-1.030) Urine Protein (Negative) mg/dL Urine Glucose (UA) (Negative) mg/dL Urine Ketones (Negative) mg/dL Urine Blood (Negative) Urine Nitrite (Negative) Urine Bilirubin (Negative) Urine Urobilinogen (<2.0) mg/dL Ur Leukocyte Esterase (Negative) Urine WBC (Auto) (0.0-6.0) /HPF Urine RBC (Auto) (0.0-6.0) /HPF U Epithel Cells (Auto) (0-13.0) /HPF Urine Bacteria (Auto) (Negative) /HPF Hyaline Casts /LPF Urine Yeast (Budding) /HPF 10/03/19 10/03/19 10/03/19 Range/Units 18:40 18:40 18:40 WBC (4.5-11.0) K/mm3 RBC (3.65-5.03) M/mm3 Hgb (10.1-14.3) gm/dl Hct (30.3-42.9) % MCV (79-97) fl MCH (28-32) pg MCHC (30-34) % RDW (13.2-15.2) % Plt Count (140-440) K/mm3 Add Manual Diff Total Counted Seg Neutrophils % Seg Neuts % (Manual) (40.0-70.0) % Band Neutrophils % % Lymphocytes % (Manual) (13.4-35.0) % Reactive Lymphs % (Man) % Monocytes % (Manual) (0.0-7.3) % Eosinophils % (Manual) (0.0-4.3) % Basophils % (Manual) (0.0-1.8) % Metamyelocytes % % Myelocytes % % Promyelocytes % % Blast Cells % % Nucleated RBC % Seg Neutrophils # Man (1.8-7.7) K/mm3 Band Neutrophils # K/mm3 Lymphocytes # (Manual) (1.2-5.4) K/mm3 Abs React Lymphs (Man) K/mm3 Monocytes # (Manual) (0.0-0.8) K/mm3 Eosinophils # (Manual) (0.0-0.4) K/mm3 Basophils # (Manual) (0.0-0.1) K/mm3 Metamyelocytes # K/mm3 Myelocytes # K/mm3 Promyelocytes # K/mm3 Blast Cells # K/mm3 WBC Morphology Hypersegmented Neuts Hyposegmented Neuts Hypogranular Neuts Smudge Cells Toxic Granulation Toxic Vacuolation Dohle Bodies Pelger-Huet Anomaly Xiomy Rods Platelet Estimate Clumped Platelets Plt Clumps, EDTA Large Platelets Giant Platelets Platelet Satelliting Plt Morphology Comment RBC Morphology Dimorphic RBCs Polychromasia Hypochromasia Poikilocytosis Anisocytosis Microcytosis Macrocytosis Spherocytes Pappenheimer Bodies Sickle Cells Target Cells Tear Drop Cells Ovalocytes Helmet Cells [place] Bodies [place] Rings Danna Cells Bite Cells Crenated Cell Elliptocytes Acanthocytes (Spur) Rouleaux Hemoglobin C Crystals Schistocytes Malaria parasites Mundo Bodies Hem Pathologist Commnt PT (12.2-14.9) Sec. INR (0.87-1.13) APTT (24.2-36.6) Sec. POC ABG pH (7.35-7.45) ABG pH 7.378 (7.350-7.450) pH Units POC ABG pCO2 (35-45) ABG pCO2 37.7 mm Hg POC ABG pO2 (80-105) ABG pO2 82.9 (80.0-90.0) mm Hg POC ABG HCO3 (22-26 mml/L) ABG HCO3 21.7 (20.0-26.0) mmol/L POC ABG Total CO2 (23-27mmol/L) POC ABG O2 Sat ABG O2 Saturation 96.8 (95.0-99.0) % ABG O2 Content 12.0 (0.0-44) POC ABG Base Excess ((-2) - (+3)mmol/L) ABG Base Excess -3.1 L (-2.0-3.0) mmol/L ABG Hemoglobin 9.2 L (12.0-16.0) gm/dl ABG Carboxyhemoglobin 4.4 (0.0-5.0) % ABG Methemoglobin 0.3 (0.0-1.5) % VBG pH 7.378 (7.320-7.420) Oxyhemoglobin 92.2 L (95.0-99.0) % FiO2 21 % Sodium 137 (137-145) mmol/L Potassium 4.3 (3.6-5.0) mmol/L Chloride 103.1 (98-107) mmol/L Carbon Dioxide 19 L (22-30) mmol/L Anion Gap 19 mmol/L BUN 30 H (7-17) mg/dL Creatinine 2.5 H (0.7-1.2) mg/dL Estimated GFR 26 ml/min BUN/Creatinine Ratio 12 % Glucose 474 H (65-100) mg/dL POC Glucose (70-105) Calcium 8.1 L (8.4-10.2) mg/dL Magnesium 2.00 (1.7-2.3) mg/dL Total Bilirubin 0.20 (0.1-1.2) mg/dL AST 19 (5-40) units/L ALT 16 (7-56) units/L Alkaline Phosphatase 109 (35-129) units/L Total Creatine Kinase 64 (30-135) units/L Troponin T 0.034 H (0.00-0.029) ng/mL NT-Pro-B Natriuret Pep 65024 H (0-450) pg/mL Total Protein 6.6 (6.3-8.2) g/dL Albumin 2.8 L (3.9-5) g/dL Albumin/Globulin Ratio 0.7 % Triglycerides 149 (2-149) mg/dL Cholesterol 268 H (50-199) mg/dL LDL Cholesterol Direct 176 H (50-130) mg/dL HDL Cholesterol 74 H (40-59) mg/dL Cholesterol/HDL Ratio 3.62 % Urine Color (Yellow) Urine Turbidity (Clear) Urine pH (5.0-7.0) Ur Specific [place] (1.003-1.030) Urine Protein (Negative) mg/dL Urine Glucose (UA) (Negative) mg/dL Urine Ketones (Negative) mg/dL Urine Blood (Negative) Urine Nitrite (Negative) Urine Bilirubin (Negative) Urine Urobilinogen (<2.0) mg/dL Ur Leukocyte Esterase (Negative) Urine WBC (Auto) (0.0-6.0) /HPF Urine RBC (Auto) (0.0-6.0) /HPF U Epithel Cells (Auto) (0-13.0) /HPF Urine Bacteria (Auto) (Negative) /HPF Hyaline Casts /LPF Urine Yeast (Budding) /HPF 10/03/19 10/03/19 Range/Units 18:46 19:50 WBC (4.5-11.0) K/mm3 RBC (3.65-5.03) M/mm3 Hgb (10.1-14.3) gm/dl Hct (30.3-42.9) % MCV (79-97) fl MCH (28-32) pg MCHC (30-34) % RDW (13.2-15.2) % Plt Count (140-440) K/mm3 Add Manual Diff Total Counted Seg Neutrophils % Seg Neuts % (Manual) (40.0-70.0) % Band Neutrophils % % Lymphocytes % (Manual) (13.4-35.0) % Reactive Lymphs % (Man) % Monocytes % (Manual) (0.0-7.3) % Eosinophils % (Manual) (0.0-4.3) % Basophils % (Manual) (0.0-1.8) % Metamyelocytes % % Myelocytes % % Promyelocytes % % Blast Cells % % Nucleated RBC % Seg Neutrophils # Man (1.8-7.7) K/mm3 Band Neutrophils # K/mm3 Lymphocytes # (Manual) (1.2-5.4) K/mm3 Abs React Lymphs (Man) K/mm3 Monocytes # (Manual) (0.0-0.8) K/mm3 Eosinophils # (Manual) (0.0-0.4) K/mm3 Basophils # (Manual) (0.0-0.1) K/mm3 Metamyelocytes # K/mm3 Myelocytes # K/mm3 Promyelocytes # K/mm3 Blast Cells # K/mm3 WBC Morphology Hypersegmented Neuts Hyposegmented Neuts Hypogranular Neuts Smudge Cells Toxic Granulation Toxic Vacuolation Dohle Bodies Pelger-Huet Anomaly Xiomy Rods Platelet Estimate Clumped Platelets Plt Clumps, EDTA Large Platelets Giant Platelets Platelet Satelliting Plt Morphology Comment RBC Morphology Dimorphic RBCs Polychromasia Hypochromasia Poikilocytosis Anisocytosis Microcytosis Macrocytosis Spherocytes Pappenheimer Bodies Sickle Cells Target Cells Tear Drop Cells Ovalocytes Helmet Cells [place] Bodies [place] Rings Danna Cells Bite Cells Crenated Cell Elliptocytes Acanthocytes (Spur) Rouleaux Hemoglobin C Crystals Schistocytes Malaria parasites Mundo Bodies Hem Pathologist Commnt PT (12.2-14.9) Sec. INR (0.87-1.13) APTT (24.2-36.6) Sec. POC ABG pH (7.35-7.45) ABG pH (7.350-7.450) pH Units POC ABG pCO2 (35-45) ABG pCO2 mm Hg POC ABG pO2 (80-105) ABG pO2 (80.0-90.0) mm Hg POC ABG HCO3 (22-26 mml/L) ABG HCO3 (20.0-26.0) mmol/L POC ABG Total CO2 (23-27mmol/L) POC ABG O2 Sat ABG O2 Saturation (95.0-99.0) % ABG O2 Content (0.0-44) POC ABG Base Excess ((-2) - (+3)mmol/L) ABG Base Excess (-2.0-3.0) mmol/L ABG Hemoglobin (12.0-16.0) gm/dl ABG Carboxyhemoglobin (0.0-5.0) % ABG Methemoglobin (0.0-1.5) % VBG pH (7.320-7.420) Oxyhemoglobin (95.0-99.0) % FiO2 % Sodium (137-145) mmol/L Potassium (3.6-5.0) mmol/L Chloride (98-107) mmol/L Carbon Dioxide (22-30) mmol/L Anion Gap mmol/L BUN (7-17) mg/dL Creatinine (0.7-1.2) mg/dL Estimated GFR ml/min BUN/Creatinine Ratio % Glucose (65-100) mg/dL POC Glucose 473 H (70-105) Calcium (8.4-10.2) mg/dL Magnesium (1.7-2.3) mg/dL Total Bilirubin (0.1-1.2) mg/dL AST (5-40) units/L ALT (7-56) units/L Alkaline Phosphatase (35-129) units/L Total Creatine Kinase (30-135) units/L Troponin T (0.00-0.029) ng/mL NT-Pro-B Natriuret Pep (0-450) pg/mL Total Protein (6.3-8.2) g/dL Albumin (3.9-5) g/dL Albumin/Globulin Ratio % Triglycerides (2-149) mg/dL Cholesterol (50-199) mg/dL LDL Cholesterol Direct (50-130) mg/dL HDL Cholesterol (40-59) mg/dL Cholesterol/HDL Ratio % Urine Color Straw (Yellow) Urine Turbidity Clear (Clear) Urine pH 7.0 (5.0-7.0) Ur Specific [place] 1.013 (1.003-1.030) Urine Protein >500 (Negative) mg/dL Urine Glucose (UA) >=500 (Negative) mg/dL Urine Ketones Neg (Negative) mg/dL Urine Blood Sm (Negative) Urine Nitrite Neg (Negative) Urine Bilirubin Neg (Negative) Urine Urobilinogen < 2.0 (<2.0) mg/dL Ur Leukocyte Esterase Mod (Negative) Urine WBC (Auto) 20.0 H (0.0-6.0) /HPF Urine RBC (Auto) 28.0 (0.0-6.0) /HPF U Epithel Cells (Auto) 2.0 (0-13.0) /HPF Urine Bacteria (Auto) 1+ (Negative) /HPF Hyaline Casts 2 /LPF Urine Yeast (Budding) Few /HPF - EKG Data -: EKG Interpreted by Mt EKG shows normal: sinus rhythm Rate: tachycardia - EKG Data 10/03/19 20:26 The EKG today shows a sinus rhythm, 98 beats for minute, normal axis, the QTC is prolonged, there is low voltage, there is no endorsement of chest pain, the EKG is not consistent with a STEMI. It appears to be grossly unchanged from prior EKG from November 2017 - Radiology Data Radiology results: report reviewed, image reviewed Print Report Referring Physician: JOHN VALENZUELA Patient Name: WES WING Date of : 1980 Sex: Female Report Date: 2019-10-03 Report Status: Finalized Findings [facility] [address] [id number] XRay Report Signed Patient: WES WING MR#: [id number] : 1980 Acct:[id number] Age/Sex: 39 / F ADM Date: 10/03/19 Loc: ED Attending Dr: Ordering Physician: JOHN VALENZUELA MD Date of Service: 10/03/19 Procedure(s): XR chest 1V ap Accession Number(s): [id number] cc: JOHN VALENZUELA MD Fluoro Time In Minutes: CHEST 1 VIEW 10/03/2019 6:02 PM INDICATION / CLINICAL INFORMATION: Dyspnea. COMPARISON: One view of the chest from 11/20/2017. FINDINGS: SUPPORT DEVICES: None. HEART / MEDIASTINUM: No significant abnormality. LUNGS / PLEURA: There are small bilateral pleural effusions with bilateral atelectasis/edema. No pneumothorax is seen. ADDITIONAL FINDINGS: No significant additional findings. IMPRESSION: Small pleural effusions with bilateral atelectasis/edema. Signer Name: Brad Parker MD Signed: 10/03/2019 6:31 PM Workstation Name: [id number] Transcribed By: MN Dictated By: Brad Parker MD Electronically Authenticated By: Brad Parker MD Signed Date/Time: 10/03/19 0123 - Medical Decision Making Differential diagnosis, including not limited to: Malignant hypertensive emergency, flash pulmonary edema, cardiorenal syndrome, pneumonia, urinary tract infection, hyperglycemia Assessment and plan: 39-year-old female with emergent presentation of flash pulmonary edema, requiring initiation of positive pressure ventilation and vasoactive medications. She is much improved at this time. Laboratory studies suggest renal insufficiency, we appreciate her physical exam, however we will give her a trial bolus of gentle IV fluids, and reassess. She was given diuretics prior to my evaluation by emergency medical services. Elevated troponin is reviewed and appreciated, this is likely a type II troponin leak. Hyperglycemia not consistent with diabetic ketoacidosis, insulin is ordered. Urinalysis is reviewed and appreciated, suggestive of possible urinary tract infection. Case was presented to the Hospital physician, Dr. Peterson who has accepted the patient to his service. Patient continues to appear clinically improved on multiple repeat examinations. Critical Care Time: Yes Critical care time in (mins) excluding proc time.: 60 Critical care attestation.: If time is entered above; I have spent that time in minutes in the direct care of this critically ill patient, excluding procedure time. ED Disposition Clinical Impression: Flash pulmonary edema, ABHISHEK (acute kidney injury), Malignant hypertensive urgency, Hyperglycemia Disposition: [id number] OP ADMIT IP TO THIS HOSP Is pt being admited?: Yes Does the pt Need Aspirin: Yes Condition: Critical
--- NOTE | 2019-10-03 18:36 | XRay Report ---
CHEST 1 VIEW 10/03/2019 6:02 PM INDICATION / CLINICAL INFORMATION: Dyspnea. COMPARISON: One view of the chest from 11/20/2017. FINDINGS: SUPPORT DEVICES: None. HEART / MEDIASTINUM: No significant abnormality. LUNGS / PLEURA: There are small bilateral pleural effusions with bilateral atelectasis/edema. No pneu mothorax is seen. ADDITIONAL FINDINGS: No significant additional findings. IMPRESSION: Small pleural effusions with bilateral atelectasis/edema. Signer Name: Brad Parker MD Signed: 10/03/2019 6:31 PM Workstation Name: [id number]
[2019-10-03] MEDS ORDERED: NITROGLYCERIN DRIP 50 MG/250 ML BOTTLE IV SCH (19:00)
[2019-10-03 19:06] LABS: ABG Base Excess -3.1 mmol/L (-2.0-3.0); ABG HCO3 21.7 mmol/L (20.0-26.0); ABG Methemoglobin 0.3 % (0.0-1.5); ABG Oxygen Saturation 96.8 % (95.0-99.0); ABG PCO2 37.7 mm Hg; ABG PH 7.378 pH Units (7.350-7.450); ABG PO2 82.9 mm Hg (80.0-90.0); VEN PH 7.378 (7.320-7.420)
[2019-10-03 19:08] LABS: Albumin 2.8 g/dL (3.9-5); Calcium 8.1 mg/dL (8.4-10.2)
[2019-10-03 19:10] LABS: Bacteria,Urine 1+ /HPF (Negative); Bilirubin,Urine NEG (Negative); Blood,Urine SM (Negative); Color,Urine Straw (Yellow); Hyaline Casts,Urine 2 /LPF; Urobilinogen,Urine < 2.0 mg/dL (<2.0)
[2019-10-03 19:15] LABS: Hematocrit 24.5 % (30.3-42.9); Mean Corpuscular HGB Conc 33 % (30-34); Mean Corpuscular Volume 92 fl (79-97); Platelet Count 264 K/mm3 (140-440); Red Blood Count 2.67 M/mm3 (3.65-5.03); Red Cell Distribution Width 13.2 % (13.2-15.2)
[2019-10-03] MEDS ORDERED: SODIUM CHLORIDE 0.9% 500 ML 500 ML IV ONE (19:18)
[2019-10-03] MEDS ORDERED: INSULIN REGULAR, HUMAN 100 UNITS/1 ML IV ONE (19:18)
[2019-10-03 19:19] LABS: Protein,Urine >500 mg/dL (Negative)
[2019-10-03 19:21] LABS: Chol/HDL Ratio 3.62 %
[2019-10-03 19:22] LABS: INR 1.11 (0.87-1.13)
[2019-10-03] MEDS ORDERED: ASPIRIN 300 MG RECT SUPP PR ONE (20:00)
[2019-10-03 20:04] LABS: Total Cells Counted 100
[2019-10-03 20:05] LABS: Basophils % (Manual) 0 % (0.0-1.8); Large Platelets 1+; Platelet Estimate Consistent w Auto; RBC Morphology Normal
[2019-10-03] MEDS ORDERED: cefTRIAXone/NS 1 GM/50 ML 1 GM/50 ML BAG IV ONE (20:23)
[2019-10-03] MEDS ORDERED: hydrALAZINE 20 MG/1 ML INJ IV ONE (20:52)
[2019-10-03] MEDS ORDERED: hydrALAZINE 20 MG/1 ML INJ ONE (20:54)
[2019-10-03] MEDS ORDERED: SIMPLE SYRUP 15 ML FEEDTUBE PRN ×2 (23:00)
[2019-10-03] MEDS ORDERED: MAGNESIUM HYDROXIDE (MOM) ORAL LIQD UDC PO PRN (23:00)
[2019-10-03] MEDS ORDERED: SODIUM BICARBONATE 325 MG TAB FEEDTUBE PRN (23:00)
[2019-10-03] MEDS ORDERED: LIPASE 10,500/PROTEASE 25,000/AMYLASE 43,750 (UNITS) DR CAP FEEDTUBE PRN (23:00)
[2019-10-03] MEDS ORDERED: IPRATROPIUM/ALBUTEROL SULFATE 3 ML AMPUL.NEB IH PRN (23:03)
[2019-10-03] MEDS ORDERED: NIFEdipine XL 90 MG TAB PO SCH (23:30)
[2019-10-03] MEDS: VALSARTAN 160MG TAB PO SCH (23:45)
[2019-10-03] MEDS: methylPREDNISolone Sod Succinate 125 MG/2 ML INJ IV SCH (23:45)
[2019-10-03] MEDS ORDERED: niCARdipine 50 MG in SODIUM CHLORIDE 0.9% 250ML 230 ML IV SCH (23:45)
[2019-10-04] MEDS ORDERED: ALBUTEROL 2.5 MG/3 ML NEBU IH PRN (00:26)
[2019-10-04] MEDS: methylPREDNISolone Sod Succinate 125 MG/2 ML INJ IV SCH (05:52)
--- NOTE | 2019-10-04 07:59 | History and Physical Report ---
History of Present Illness Date of examination: 10/03/19 Date of admission: 10/03/19 20:29 Chief complaint: Acute onset of SOB for few hours History of present illness: 39-year-old female with history of stroke, left-sided hemiparesis, hypertension, seizure, diabetes brought to the hospital by emergency medical services for acute respiratory distress. Upon arrival, patient on BiPAP, saturating 88% on BiPAP therapy, in moderate to severe respiratory distress. [facility] services gave steroids, albuterol, and Lasix prior to arrival. Upon initial evaluation, patient is awake, protecting airway, in moderate to severe respiratory distress, with cool clammy skin, diaphoresis, and markedly high BP--- systolic blood pressure in the 220s. Patient continued on BiPAP therapy and was started on NTG drip. Patient not able to describe exacerbating or relieving factors. Patient has a PEG tube sec to Dysphagia caused by CVA Past Medical History Hypertension: Yes (ECHO 10/27 EF 50-55%) CVA: Yes (left side) Diabetes: Yes Seizures: Yes Surgical History Additional Surgical History: Spinal surgery, neck/artery surgery Social History Smoking Status: Never Smoker Family History Htn - Medications Home Medications: Home Medications Medication Instructions Recorded Confirmed Last Taken Type Acetaminophen [Acetaminophen TAB] 325 mg PO Q4H PRN #30 tablet 11/19/17 11/21/17 Unknown Rx Aspirin [Aspirin EC] 81 mg PO DAILY #30 11/19/17 11/21/17 1 Day Ago Rx ~11/20/17 AtorvaSTATin [Lipitor] 80 mg PO QHS #30 day 11/19/17 11/21/17 1 Day Ago Rx ~11/20/17 Bisacodyl [Dulcolax suppos] 10 mg GA QDAY PRN #7 supp.rect 11/19/17 11/21/17 Unknown Rx Brimonidine/Timolol 0.2-0.5% 1 drops OU Q12HR #1 bottle 11/19/17 11/21/17 1 Day Ago Rx [Combigan 0.2-0.5%] ~11/20/17 Citalopram [celeXA] 10 mg PO QDAY #30 11/19/17 11/21/17 1 Day Ago Rx ~11/20/17 Clopidogrel [Plavix] 75 mg PO QDAY #30 11/19/17 11/21/17 1 Day Ago Rx ~11/20/17 Cyclobenzaprine [Flexeril 10 MG 10 mg PO TID PRN #30 day 11/19/17 11/21/17 Unknown Rx TAB] Lipase/Protease/Amylase [Pancreaze 1 each FEEDTUBE PRN PRN #30 capsule 11/19/17 11/21/[address] 10,500 Unit] Magnesium Hydroxide [Milk of 30 ml PO Q4H PRN #30 oral.liqd 11/19/17 11/21/17 Unknown Rx Magnesia] Petrolatum,White [Vaseline Lip 1 applic TP DIRECT PRN #30 tube 11/19/17 11/21/17 Unknown Rx Therapy] Simple Syrup 15 ml FEEDTUBE PRN PRN #30 11/19/17 11/21/17 Unknown Rx oral.liqd Simple Syrup 30 ml FEEDTUBE PRN PRN #30 11/19/17 11/21/17 Unknown Rx oral.liqd Sodium Bicarbonate 325 mg FEEDTUBE PRN PRN #30 tablet 11/19/17 11/21/17 Unknown Rx amLODIPine 5 mg PO QDAY #30 tablet 11/19/17 11/21/17 1 Day Ago Rx ~11/20/17 NIFEdipine [Nifedipine ER] 10 mg PO TID 11/21/17 11/21/17 1 Day Ago History ~11/20/17 Detemir (Nf) [Levemir (Nf)] 10 units SUB-Q QHS units 11/28/17 Unknown Rx Review of Systems ROS: Stated complaint: KRISTY Other details as noted in HPI Comment: Unobtainable due to pts medical conditions Medications and Allergies Allergies Allergy/AdvReac Type Severity Reaction Status Date / Time No Known Allergies Allergy Unverified 11/20/14 03:04 Home Medications Medication Instructions Recorded Confirmed Last Taken Type Acetaminophen [Acetaminophen TAB] 325 mg PO Q4H PRN #30 tablet 11/19/17 11/21/17 Unknown Rx Aspirin [Aspirin EC] 81 mg PO DAILY #30 11/19/17 11/21/17 1 Day Ago Rx ~11/20/17 AtorvaSTATin [Lipitor] 80 mg PO QHS #30 day 11/19/17 11/21/17 1 Day Ago Rx ~11/20/17 Bisacodyl [Dulcolax suppos] 10 mg GA QDAY PRN #7 supp.rect 11/19/17 11/21/17 Unknown Rx Brimonidine/Timolol 0.2-0.5% 1 drops OU Q12HR #1 bottle 11/19/17 11/21/17 1 Day Ago Rx [Combigan 0.2-0.5%] ~11/20/17 Citalopram [celeXA] 10 mg PO QDAY #30 11/19/17 11/21/17 1 Day Ago Rx ~11/20/17 Clopidogrel [Plavix] 75 mg PO QDAY #30 11/19/17 11/21/17 1 Day Ago Rx ~11/20/17 Cyclobenzaprine [Flexeril 10 MG 10 mg PO TID PRN #30 day 11/19/17 11/21/17 Unknown Rx TAB] Lipase/Protease/Amylase [Pancreaze 1 each FEEDTUBE PRN PRN #30 capsule 11/19/17 11/21/[address] 10,500 Unit] Magnesium Hydroxide [Milk of 30 ml PO Q4H PRN #30 oral.liqd 11/19/17 11/21/17 Unknown Rx Magnesia] Petrolatum,White [Vaseline Lip 1 applic TP DIRECT PRN #30 tube 11/19/17 11/21/17 Unknown Rx Therapy] Simple Syrup 15 ml FEEDTUBE PRN PRN #30 11/19/17 11/21/17 Unknown Rx oral.liqd Simple Syrup 30 ml FEEDTUBE PRN PRN #30 11/19/17 11/21/17 Unknown Rx oral.liqd Sodium Bicarbonate 325 mg FEEDTUBE PRN PRN #30 tablet 11/19/17 11/21/17 Unknown Rx amLODIPine 5 mg PO QDAY #30 tablet 11/19/17 11/21/17 1 Day Ago Rx ~11/20/17 NIFEdipine [Nifedipine ER] 10 mg PO TID 11/21/17 11/21/17 1 Day Ago History ~11/20/17 Detemir (Nf) [Levemir (Nf)] 10 units SUB-Q QHS units 11/28/17 Unknown Rx Active Meds: Active Medications Acetaminophen (Tylenol) 325 mg PO Q4H PRN PRN Reason: Pain MILD(1-3)/Fever >100.5/MUNOZ Albuterol (Proventil) 2.5 mg IH Q3HRT PRN PRN Reason: Wheezing Albuterol/Ipratropium (Duoneb *Not For Prn Use*) 1 ampul IH QIDRT KYE Lipase/Protease/Amylase (Pancreaze Dr 10,500 Unit) 1 each FEEDTUBE PRN PRN PRN Reason: For Clogged Feeding Tube Aspirin (Halfprin Ec) 81 mg PO DAILY [facility] Atorvastatin Calcium (Lipitor) 80 mg PO QHS KYE Bisacodyl (Dulcolax) 10 mg GA QDAY PRN PRN Reason: Constipation Brimonidine/Timolol (Combigan 0.2-0.5%) 1 drops OU Q12HR [facility] Citalopram Hydrobromide (Celexa) 10 mg PO QDAY KYE Clopidogrel Bisulfate (Plavix) 75 mg PO QDAY KYE Cyclobenzaprine HCl (Flexeril) 10 mg PO TID PRN PRN Reason: Muscle Spasm Heparin Sodium (Porcine) (Heparin) 5,000 unit SUB-Q Q12HR [facility] Hydralazine HCl (Apresoline) 10 mg IV Q30MIN PRN PRN Reason: Blood Pressure Ceftriaxone Sodium (Rocephin/Ns 2 Gm/100 Ml) 2 gm in 100 mls @ 200 mls/hr IV Q24HR [facility]; Protocol Azithromycin 500 mg/ Sodium (Chloride) 250 mls @ 250 mls/hr IV Q24HR KYE; Protocol Nicardipine HCl 50 mg/ Sodium (Chloride) 250 mls @ 25 mls/hr IV TITR KYE; Protocol Last Titration: 10/04/19 07:45 Dose: 2.5 mg/hr, 12.5 mls/hr Documented by: Insulin Glargine (Lantus) 10 units SUB-Q QHS [facility] Magnesium Hydroxide (Milk Of Magnesia) 30 ml PO Q4H PRN PRN Reason: Constipation Methylprednisolone Sodium Succinate (Solu-Medrol) 125 mg IV Q8HR [facility] Last Admin: 10/04/19 05:52 Dose: 125 mg Documented by: Simple Syrup (Simple Syrup) 15 ml FEEDTUBE PRN PRN PRN Reason: Hypoglycemia Simple Syrup (Simple Syrup) 30 ml FEEDTUBE PRN PRN PRN Reason: Hypoglycemia Sodium Bicarbonate (Sodium Bicarbonate) 325 mg FEEDTUBE PRN PRN PRN Reason: For Clogged Feeding Tube Valsartan (Diovan) 160 mg PO BID KYE Last Admin: 10/03/19 23:45 Dose: 160 mg Documented by: Exam - Constitutional Vitals: Temp Pulse Resp BP Pulse Ox 97.2 F L 93 H 13 221/135 99 10/03/19 19:45 10/04/19 07:15 10/04/19 07:15 10/04/19 07:15 10/04/19 07:15 General appearance: Present: severe distress, well-nourished - EENT Eyes: Present: PERRL ENT: hearing intact, clear oral mucosa - Neck Neck: Present: supple, normal ROM - Respiratory Respiratory effort: normal Respiratory: bilateral: rales, rhonchi, wheezing - Cardiovascular Heart rate: 130 Rhythm: regular Heart Sounds: Present: S1 & S2. Absent: rub, click - Extremities Extremities: no ischemia, pulses symmetrical, No edema Peripheral Pulses: within normal limits - Abdominal General gastrointestinal: Present: soft, non-tender, non-distended, normal bowel sounds, other (PEG in place) Female genitourinary: Present: normal - Rectal Rectal Exam: deferred - Integumentary Integumentary: Present: clear, warm, dry - Musculoskeletal Musculoskeletal: left sided weakness - Psychiatric Psychiatric: appropriate mood/affect, intact judgment & insight - Neurologic Neurologic: CNII-XII intact, moves all extremities - Allied Health Allied health notes reviewed: nursing Results - Labs CBC & Chem 7: 10/03/19 18:40 10/03/19 18:40 Labs: Laboratory Last Values WBC 13.8 K/mm3 (4.5-11.0) H 10/03/19 18:40 RBC 2.67 M/mm3 (3.65-5.03) L 10/03/19 18:40 Hgb 8.0 gm/dl (10.1-14.3) L 10/03/19 18:40 Hct 24.5 % (30.3-42.9) L 10/03/19 18:40 MCV 92 fl (79-97) 10/03/19 18:40 MCH 30 pg (28-32) 10/03/19 18:40 MCHC 33 % (30-34) 10/03/19 18:40 RDW 13.2 % (13.2-15.2) 10/03/19 18:40 Plt Count 264 K/mm3 (140-440) 10/03/19 18:40 Add Manual Diff Complete 10/03/19 18:40 Total Counted 100 10/03/19 18:40 Seg Neutrophils % [employer] 10/03/19 18:40 Seg Neuts % (Manual) 93.0 % (40.0-70.0) H 10/03/19 18:40 Band Neutrophils % 0 % 10/03/19 18:40 Lymphocytes % (Manual) 4.0 % (13.4-35.0) L 10/03/19 18:40 Reactive Lymphs % (Man) 0 % 10/03/19 18:40 Monocytes % (Manual) 2.0 % (0.0-7.3) 10/03/19 18:40 Eosinophils % (Manual) 1.0 % (0.0-4.3) 10/03/19 18:40 Basophils % (Manual) 0 % (0.0-1.8) 10/03/19 18:40 Metamyelocytes % 0 % 10/03/19 18:40 Myelocytes % 0 % 10/03/19 18:40 Promyelocytes % 0 % 10/03/19 18:40 Blast Cells % 0 % 10/03/19 18:40 Nucleated RBC % Not Reportable 10/03/19 18:40 Seg Neutrophils # Man 12.8 K/mm3 (1.8-7.7) H 10/03/19 18:40 Band Neutrophils # 0.0 K/mm3 10/03/19 18:40 Lymphocytes # (Manual) 0.6 K/mm3 (1.2-5.4) L 10/03/19 18:40 Abs React Lymphs (Man) 0.0 K/mm3 10/03/19 18:40 Monocytes # (Manual) 0.3 K/mm3 (0.0-0.8) 10/03/19 18:40 Eosinophils # (Manual) 0.1 K/mm3 (0.0-0.4) 10/03/19 18:40 Basophils # (Manual) 0.0 K/mm3 (0.0-0.1) 10/03/19 18:40 Metamyelocytes # 0.0 K/mm3 10/03/19 18:40 Myelocytes # 0.0 K/mm3 10/03/19 18:40 Promyelocytes # 0.0 K/mm3 10/03/19 18:40 Blast Cells # 0.0 K/mm3 10/03/19 18:40 WBC Morphology Not Reportable 10/03/19 18:40 Hypersegmented Neuts Not Reportable 10/03/19 18:40 Hyposegmented Neuts Not Reportable 10/03/19 18:40 Hypogranular Neuts Not Reportable 10/03/19 18:40 Smudge Cells Not Reportable 10/03/19 18:40 Toxic Granulation Not Reportable 10/03/19 18:40 Toxic Vacuolation Not Reportable 10/03/19 18:40 Dohle Bodies Not Reportable 10/03/19 18:40 Pelger-Huet Anomaly Not Reportable 10/03/19 18:40 Xiomy Rods Not Reportable 10/03/19 18:40 Platelet Estimate Consistent w auto 10/03/19 18:40 Clumped Platelets Not Reportable 10/03/19 18:40 Plt Clumps, EDTA Not Reportable 10/03/19 18:40 Large Platelets 1+ 10/03/19 18:40 Giant Platelets Not Reportable 10/03/19 18:40 Platelet Satelliting Not Reportable 10/03/19 18:40 Plt Morphology Comment Not Reportable 10/03/19 18:40 RBC Morphology Normal 10/03/19 18:40 Dimorphic RBCs Not Reportable 10/03/19 18:40 Polychromasia Not Reportable 10/03/19 18:40 Hypochromasia Not Reportable 10/03/19 18:40 Poikilocytosis Not Reportable 10/03/19 18:40 Anisocytosis Not Reportable 10/03/19 18:40 Microcytosis Not Reportable 10/03/19 18:40 Macrocytosis Not Reportable 10/03/19 18:40 Spherocytes Not Reportable 10/03/19 18:40 Pappenheimer Bodies Not Reportable 10/03/19 18:40 Sickle Cells Not Reportable 10/03/19 18:40 Target Cells Not Reportable 10/03/19 18:40 Tear Drop Cells Not Reportable 10/03/19 18:40 Ovalocytes Not Reportable 10/03/19 18:40 Helmet Cells Not Reportable 10/03/19 18:40 [place] Bodies Not Reportable 10/03/19 18:40 [place] Rings Not Reportable 10/03/19 18:40 [place] Cells Not Reportable 10/03/19 18:40 Bite Cells Not Reportable 10/03/19 18:40 Crenated Cell Not Reportable 10/03/19 18:40 Elliptocytes Not Reportable 10/03/19 18:40 Acanthocytes (Spur) Not Reportable 10/03/19 18:40 Rouleaux Not Reportable 10/03/19 18:40 Hemoglobin C Crystals Not Reportable 10/03/19 18:40 Schistocytes Not Reportable 10/03/19 18:40 Malaria parasites Not Reportable 10/03/19 18:40 Mundo Bodies Not Reportable 10/03/19 18:40 Hem Pathologist Commnt No 10/03/19 18:40 PT 14.2 Sec. (12.2-14.9) 10/03/19 18:40 INR 1.11 (0.87-1.13) 10/03/19 18:40 APTT 29.0 Sec. (24.2-36.6) 10/03/19 18:40 POC ABG pH 7.336 (7.35-7.45) L 10/03/19 18:34 ABG pH 7.378 pH Units (7.350-7.450) 10/03/19 18:40 POC ABG pCO2 44.2 (35-45) 10/03/19 18:34 ABG pCO2 37.7 mm Hg 10/03/19 18:40 POC ABG pO2 147 (80-105) H 10/03/19 18:34 ABG pO2 82.9 mm Hg (80.0-90.0) 10/03/19 18:40 POC ABG HCO3 23.6 (22-26 mml/L) 10/03/19 18:34 ABG HCO3 21.7 mmol/L (20.0-26.0) 10/03/19 18:40 POC ABG Total CO2 25 (23-27mmol/L) 10/03/19 18:34 POC ABG O2 Sat 99 10/03/19 18:34 ABG O2 Saturation 96.8 % (95.0-99.0) 10/03/19 18:40 ABG O2 Content 12.0 (0.0-44) 10/03/19 18:40 POC ABG Base Excess -2 ((-2) - (+3)mmol/L) 10/03/19 18:34 ABG Base Excess -3.1 mmol/L (-2.0-3.0) L 10/03/19 18:40 ABG Hemoglobin 9.2 gm/dl (12.0-16.0) L 10/03/19 18:40 ABG Carboxyhemoglobin 4.4 % (0.0-5.0) 10/03/19 18:40 ABG Methemoglobin 0.3 % (0.0-1.5) 10/03/19 18:40 VBG pH 7.378 (7.320-7.420) 10/03/19 18:40 Oxyhemoglobin 92.2 % (95.0-99.0) L 10/03/19 18:40 FiO2 21 % 10/03/19 18:40 Sodium 137 mmol/L (137-145) 10/03/19 18:40 Potassium 4.3 mmol/L (3.6-5.0) 10/03/19 18:40 Chloride 103.1 mmol/L (98-107) 10/03/19 18:40 Carbon Dioxide 19 mmol/L (22-30) L 10/03/19 18:40 Anion Gap 19 mmol/L 10/03/19 18:40 BUN 30 mg/dL (7-17) H 10/03/19 18:40 Creatinine 2.5 mg/dL (0.7-1.2) H 10/03/19 18:40 Estimated GFR 26 ml/min 10/03/19 18:40 BUN/Creatinine Ratio 12 % 10/03/19 18:40 Glucose 474 mg/dL (65-100) H 10/03/19 18:40 POC Glucose 439 (70-105) H 10/04/19 06:33 Calcium 8.1 mg/dL (8.4-10.2) L 10/03/19 18:40 Magnesium 2.00 mg/dL (1.7-2.3) 10/03/19 18:40 Total Bilirubin 0.20 mg/dL (0.1-1.2) 10/03/19 18:40 AST 19 units/L (5-40) 10/03/19 18:40 ALT 16 units/L (7-56) 10/03/19 18:40 Alkaline Phosphatase 109 units/L (35-129) 10/03/19 18:40 Total Creatine Kinase 64 units/L (30-135) 10/03/19 18:40 Troponin T 0.034 ng/mL (0.00-0.029) H 10/03/19 18:40 NT-Pro-B Natriuret Pep 32537 pg/mL (0-450) H 10/03/19 18:40 Total Protein 6.6 g/dL (6.3-8.2) 10/03/19 18:40 Albumin 2.8 g/dL (3.9-5) L 10/03/19 18:40 Albumin/Globulin Ratio 0.7 % 10/03/19 18:40 Triglycerides 149 mg/dL (2-149) 10/03/19 18:40 Cholesterol 268 mg/dL (50-199) H 10/03/19 18:40 LDL Cholesterol Direct 176 mg/dL (50-130) H 10/03/19 18:40 HDL Cholesterol 74 mg/dL (40-59) H 10/03/19 18:40 Cholesterol/HDL Ratio 3.62 % 10/03/19 18:40 Urine Color Straw (Yellow) 10/03/19 18:46 Urine Turbidity Clear (Clear) 10/03/19 18:46 Urine pH 7.0 (5.0-7.0) 10/03/19 18:46 Ur Specific [place] 1.013 (1.003-1.030) 10/03/19 18:46 Urine Protein >500 mg/dL (Negative) 10/03/19 18:46 Urine Glucose (UA) >=500 mg/dL (Negative) 10/03/19 18:46 Urine Ketones Neg mg/dL (Negative) 10/03/19 18:46 Urine Blood Sm (Negative) 10/03/19 18:46 Urine Nitrite Neg (Negative) 10/03/19 18:46 Urine Bilirubin Neg (Negative) 10/03/19 18:46 Urine Urobilinogen < 2.0 mg/dL (<2.0) 10/03/19 18:46 Ur Leukocyte Esterase Mod (Negative) 10/03/19 18:46 Urine WBC (Auto) 20.0 /HPF (0.0-6.0) H 10/03/19 18:46 Urine RBC (Auto) 28.0 /HPF (0.0-6.0) 10/03/19 18:46 U Epithel Cells (Auto) 2.0 /HPF (0-13.0) 10/03/19 18:46 Urine Bacteria (Auto) 1+ /HPF (Negative) 10/03/19 18:46 Hyaline Casts 2 /LPF 10/03/19 18:46 Urine Yeast (Budding) Few /HPF 10/03/19 18:46 Short CBC 10/03/19 Range/Units 18:40 WBC 13.8 H (4.5-11.0) K/mm3 Hgb 8.0 L (10.1-14.3) gm/dl Hct 24.5 L (30.3-42.9) % Plt Count 264 (140-440) K/mm3 BMP 10/03/19 18:40 Sodium 137 Potassium 4.3 Chloride 103.1 Carbon Dioxide 19 L BUN 30 H Creatinine 2.5 H Glucose 474 H Calcium 8.1 L Cardiac Enzymes 10/03/19 Range/Units 18:40 Total Creatine Kinase 64 (30-135) units/L Troponin T 0.034 H (0.00-0.029) ng/mL Liver Function 10/03/19 Range/Units 18:40 Total Bilirubin 0.20 (0.1-1.2) mg/dL AST 19 (5-40) units/L ALT 16 (7-56) units/L Alkaline Phosphatase 109 (35-129) units/L Albumin 2.8 L (3.9-5) g/dL Urine 10/03/19 Range/Units 18:46 Urine Color Straw (Yellow) Urine pH 7.0 (5.0-7.0) Ur Specific [place] 1.013 (1.003-1.030) Urine Protein >500 (Negative) mg/dL Urine Glucose (UA) >=500 (Negative) mg/dL - Imaging and Cardiology EKG: report reviewed (Sinus rhythm 98/min Non specific T abnormalities) Chest x-ray: report reviewed (Bilateral small effusions Bilateral atelectasis/edema) Assessment and Plan Assessment and plan: CCT 40 minutes Advance Directives: Yes (Full Code) VTE prophylaxis?: Chemical Plan of care discussed with patient/family: Yes - Patient Problems (1) Malignant hypertensive urgency Current Visit: Yes Status: Acute Plan to address problem: On NTG drip Antihypertensives in the form of Nifedipine Valsartan etc started IV Hydralazine 10 mg q3 prn (2) Flash pulmonary edema Current Visit: Yes Status: Acute Plan to address problem: IV lasix ECHO for EF (3) Malnutrition Current Visit: Yes Status: Chronic Qualifiers: Protein-calorie malnutrition severity: severe Plan to address problem: Dietitian consult (4) IDDM (insulin dependent diabetes mellitus) Current Visit: Yes Status: Chronic Plan to address problem: Cont home insulin and coverage Check A1c and adjust Insulin dosage (5) CAD (coronary artery disease) Current Visit: Yes Status: Chronic Qualifiers: Coronary Disease-Associated Artery/Lesion type: [place] artery [place] vs. transplanted heart: [place] heart Plan to address problem: Cont Plavix (6) Glaucoma Current Visit: Yes Status: Chronic Qualifiers: Glaucoma type: unspecified Plan to address problem: Cont eye drops (7) DVT prophylaxis Current Visit: No Status: Acute Plan to address problem: On Heparin and GI prophylaxis
[2019-10-04] MEDS ORDERED: IPRATROPIUM/ALBUTEROL SULFATE 3 ML AMPUL.NEB IH SCH (08:00)
[2019-10-04] MEDS ORDERED: INSULIN REGULAR, HUMAN 100 UNITS/1 ML IV ONE (08:01)
[2019-10-04] MEDS: HEPARIN 5,000 UNIT/1 ML VIAL SUB-Q SCH ×2 (09:01→22:25)
[2019-10-04] MEDS: INSULIN LISPRO 100 UNIT/ML SUB-Q SCH ×4 (09:01→22:25)
--- NOTE | 2019-10-04 09:34 | Consultation ---
History of Present Illness Consult date: 10/04/19 Requesting physician: MALLORIE MRATINEZ Reason for consult: dyspnea History of present illness: 39 y/o female with several medical issues admitted with hypertensive emergency and acute respiratory failure secondary to flash pulmonary edema. Per patient, missed some of her blood pressure medications. Has some difficulty with speech, most likely secondary to stroke so difficult to understand but she answers questions appropriately. No family present at bedside. Past History Past Medical History: hypertension, hyperlipidemia Medications and Allergies Allergies Allergy/AdvReac Type Severity Reaction Status Date / Time No Known Allergies Allergy Unverified 11/20/14 03:04 Home Medications Medication Instructions Recorded Confirmed Last Taken Type Acetaminophen [Acetaminophen TAB] 325 mg PO Q4H PRN #30 tablet 11/19/17 11/21/17 Unknown Rx Aspirin [Aspirin EC] 81 mg PO DAILY #30 11/19/17 11/21/17 1 Day Ago Rx ~11/20/17 AtorvaSTATin [Lipitor] 80 mg PO QHS #30 day 11/19/17 11/21/17 1 Day Ago Rx ~11/20/17 Bisacodyl [Dulcolax suppos] 10 mg OK QDAY PRN #7 supp.rect 11/19/17 11/21/17 Unknown Rx Brimonidine/Timolol 0.2-0.5% 1 drops OU Q12HR #1 bottle 11/19/17 11/21/17 1 Day Ago Rx [Combigan 0.2-0.5%] ~11/20/17 Citalopram [celeXA] 10 mg PO QDAY #30 11/19/17 11/21/17 1 Day Ago Rx ~11/20/17 Clopidogrel [Plavix] 75 mg PO QDAY #30 11/19/17 11/21/17 1 Day Ago Rx ~11/20/17 Cyclobenzaprine [Flexeril 10 MG 10 mg PO TID PRN #30 day 11/19/17 11/21/17 Unknown Rx TAB] Lipase/Protease/Amylase [Pancreaze 1 each FEEDTUBE PRN PRN #30 capsule 11/19/17 11/21/17 Unknown Rx 10,500 Unit] Magnesium Hydroxide [Milk of 30 ml PO Q4H PRN #30 oral.liqd 11/19/17 11/21/17 Unknown Rx Magnesia] Petrolatum,White [Vaseline Lip 1 applic TP DIRECT PRN #30 tube 11/19/17 11/21/17 Unknown Rx Therapy] Simple Syrup 15 ml FEEDTUBE PRN PRN #30 11/19/17 11/21/17 Unknown Rx oral.liqd Simple Syrup 30 ml FEEDTUBE PRN PRN #30 11/19/17 11/21/17 Unknown Rx oral.liqd Sodium Bicarbonate 325 mg FEEDTUBE PRN PRN #30 tablet 11/19/17 11/21/17 Unknown Rx amLODIPine 5 mg PO QDAY #30 tablet 11/19/17 11/21/17 1 Day Ago Rx ~11/20/17 NIFEdipine [Nifedipine ER] 10 mg PO TID 11/21/17 11/21/17 1 Day Ago History ~11/20/17 Detemir (Nf) [Levemir (Nf)] 10 units SUB-Q QHS units 11/28/17 Unknown Rx Active Meds: Active Medications Acetaminophen (Tylenol) 325 mg PO Q4H PRN PRN Reason: Pain MILD(1-3)/Fever >100.5/MUNOZ Albuterol/Ipratropium (Duoneb *Not For Prn Use*) 1 ampul IH QIDRT [facility] Lipase/Protease/Amylase (Pancreaze Dr 10,500 Unit) 1 each FEEDTUBE PRN PRN PRN Reason: For Clogged Feeding Tube Aspirin (Halfprin Ec) 81 mg PO DAILY [facility] Atorvastatin Calcium (Lipitor) 80 mg PO QHS [facility] Bisacodyl (Dulcolax) 10 mg OK QDAY PRN PRN Reason: Constipation Brimonidine/Timolol (Combigan 0.2-0.5%) 1 drops OU Q12HR [facility] Citalopram Hydrobromide (Celexa) 10 mg PO QDAY [facility] Clopidogrel Bisulfate (Plavix) 75 mg PO QDAY [facility] Cyclobenzaprine HCl (Flexeril) 10 mg PO TID PRN PRN Reason: Muscle Spasm Heparin Sodium (Porcine) (Heparin) 5,000 unit SUB-Q Q12HR [facility] Last Admin: 10/04/19 09:01 Dose: 5,000 unit Documented by: Hydralazine HCl (Apresoline) 10 mg IV Q30MIN PRN PRN Reason: Blood Pressure Ceftriaxone Sodium (Rocephin/Ns 2 Gm/100 Ml) 2 gm in 100 mls @ 200 mls/hr IV Q24HR KYE; Protocol Nicardipine HCl 50 mg/ Sodium (Chloride) 250 mls @ 25 mls/hr IV TITR KYE; Protocol Last Titration: 10/04/19 07:45 Dose: 2.5 mg/hr, 12.5 mls/hr Documented by: Ceftriaxone Sodium (Rocephin/Ns 2 Gm/100 Ml) 2 gm in 100 mls @ 200 mls/hr IV Q24HR KYE; Protocol Insulin Glargine (Lantus) 10 units SUB-Q QHS KYE Insulin Human Lispro (Humalog) 0 unit SUB-Q ACHS KYE; Protocol Last Admin: 10/04/19 09:01 Dose: 8 unit Documented by: Magnesium Hydroxide (Milk Of Magnesia) 30 ml PO Q4H PRN PRN Reason: Constipation Simple Syrup (Simple Syrup) 15 ml FEEDTUBE PRN PRN PRN Reason: Hypoglycemia Simple Syrup (Simple Syrup) 30 ml FEEDTUBE PRN PRN PRN Reason: Hypoglycemia Sodium Bicarbonate (Sodium Bicarbonate) 325 mg FEEDTUBE PRN PRN PRN Reason: For Clogged Feeding Tube Valsartan (Diovan) 160 mg PO BID [facility] Last Admin: 10/03/19 23:45 Dose: 160 mg Documented by: Review of Systems All systems: negative Physical Examination Vital signs: Vital Signs Pulse Resp BP Pulse Ox 117 H 25 H 221/135 100 10/03/19 17:57 10/03/19 17:57 10/03/19 17:57 10/03/19 17:57 General appearance: no acute distress, alert Eyes: non-icteric ENT: oropharynx moist Neck: supple Effort: normal Ascultation: Bilateral: clear Percussion: Bilateral: not dull Cardiovascular: regular rate and rhythm Gastrointestinal: soft, non-tender Results - Laboratory Findings CBC and BMP: 10/03/19 18:40 10/03/19 18:40 ABG POC ABG pH 7.336 (7.35-7.45) L 10/03/19 18:34 ABG pH 7.378 pH Units (7.350-7.450) 10/03/19 18:40 POC ABG pCO2 44.2 (35-45) 10/03/19 18:34 ABG pCO2 37.7 mm Hg 10/03/19 18:40 POC ABG pO2 147 (80-105) H 10/03/19 18:34 ABG pO2 82.9 mm Hg (80.0-90.0) 10/03/19 18:40 POC ABG HCO3 23.6 (22-26 mml/L) 10/03/19 18:34 POC ABG Total CO2 25 (23-27mmol/L) 10/03/19 18:34 POC ABG O2 Sat 99 10/03/19 18:34 ABG O2 Saturation 96.8 % (95.0-99.0) 10/03/19 18:40 PT/INR, D-dimer PT 14.2 Sec. (12.2-14.9) 10/03/19 18:40 INR 1.11 (0.87-1.13) 10/03/19 18:40 Abnormal lab findings: Abnormal Labs 10/03/19 10/03/19 10/03/19 18:34 18:40 18:40 WBC 13.8 H RBC 2.67 L Hgb 8.0 L Hct 24.5 L Seg Neuts % (Manual) 93.0 H Lymphocytes % (Manual) 4.0 L Seg Neutrophils # Man 12.8 H Lymphocytes # (Manual) 0.6 L POC ABG pH 7.336 L POC ABG pO2 147 H ABG Base Excess ABG Hemoglobin Oxyhemoglobin Carbon Dioxide 19 L BUN 30 H Creatinine 2.5 H Glucose 474 H POC Glucose Calcium 8.1 L Troponin T 0.034 H NT-Pro-B Natriuret Pep Albumin 2.8 L Cholesterol 268 H LDL Cholesterol Direct 176 H HDL Cholesterol 74 H Urine WBC (Auto) 10/03/19 10/03/19 10/03/19 18:40 18:40 18:46 WBC RBC Hgb Hct Seg Neuts % (Manual) Lymphocytes % (Manual) Seg Neutrophils # Man Lymphocytes # (Manual) POC ABG pH POC ABG pO2 ABG Base Excess -3.1 L ABG Hemoglobin 9.2 L Oxyhemoglobin 92.2 L Carbon Dioxide BUN Creatinine Glucose POC Glucose Calcium Troponin T NT-Pro-B Natriuret Pep 32788 H Albumin Cholesterol LDL Cholesterol Direct HDL Cholesterol Urine WBC (Auto) 20.0 H 10/03/19 10/03/19 10/04/19 19:50 21:27 00:15 WBC RBC Hgb Hct Seg Neuts % (Manual) Lymphocytes % (Manual) Seg Neutrophils # Man Lymphocytes # (Manual) POC ABG pH POC ABG pO2 ABG Base Excess ABG Hemoglobin Oxyhemoglobin Carbon Dioxide BUN Creatinine Glucose POC Glucose 473 H 329 H 325 H Calcium Troponin T NT-Pro-B Natriuret Pep Albumin Cholesterol LDL Cholesterol Direct HDL Cholesterol Urine WBC (Auto) 10/04/19 06:33 WBC RBC Hgb Hct Seg Neuts % (Manual) Lymphocytes % (Manual) Seg Neutrophils # Man Lymphocytes # (Manual) POC ABG pH POC ABG pO2 ABG Base Excess ABG Hemoglobin Oxyhemoglobin Carbon Dioxide BUN Creatinine Glucose POC Glucose 439 H Calcium Troponin T NT-Pro-B Natriuret Pep Albumin Cholesterol LDL Cholesterol Direct HDL Cholesterol Urine WBC (Auto) - Diagnostic Findings Chest x-ray: image reviewed (Mild pulmonary edema) Assessment and Plan 39 y/o female with multiple medical issues admitted with hypertensive emergency, acute respiratory failure and acute renal failure. 1. Needs labs for today. 2. Will speak to nursing about stopping drip now that on oral therapy 3. If renal function still elevated will need renal ultrasound, and urine cr as well as urine sodium 4. If able to transition off drip, should be stable for transfer out of unit. Wean FiO2 to off. CCT 31 minutes.
[2019-10-04] MEDS: cefTRIAXone/NS 2 GM/100 ML 2 GM/100 ML BAG IV SCH ×3 (09:48→09:51)
[2019-10-04] MEDS: VALSARTAN 160MG TAB PO SCH ×2 (09:48→22:25)
[2019-10-04] MEDS: ASPIRIN EC 81 MG TAB PO SCH (09:49)
[2019-10-04] MEDS: COMBIGAN 0.2-0.5% OPHTH SOLN OU SCH ×2 (09:49→22:45)
[2019-10-04] MEDS: CITALOPRAM 10 MG TAB PO SCH (09:49)
[2019-10-04] MEDS: CLOPIDOGREL 75 MG TAB PO SCH (09:49)
[2019-10-04] MEDS ORDERED: amLODIPine 5 MG TAB PO SCH (10:00)
[2019-10-04] MEDS ORDERED: AZITHROMYCIN 500 MG in SODIUM CHLORIDE 0.9% 250ML 250 ML IV SCH (10:00)
[2019-10-04] MEDS: ACETAMINOPHEN 325 MG TAB PO PRN (14:06)
--- NOTE | 2019-10-04 15:55 | Progress Note ---
Assessment and Plan - Patient Problems (1) ABHISHEK (acute kidney injury) Current Visit: Yes Status: Acute Plan to address problem: Patient with acute kidney injury. Most likely secondary to acute on chronic kidney disease. Prerenal azotemia. And malignant hypertension. (2) Flash pulmonary edema Current Visit: Yes Status: Acute Plan to address problem: Last pulmonary edema secondary to uncontrolled blood pressure hypertensive emergency. Should improve with correction of blood pressure and diuresis gentle diuresis. (3) Malignant hypertensive urgency Current Visit: Yes Status: Acute Plan to address problem: We'll start patient on by mouth medications Procardia and angiotensin receptor fish. Monitor blood pressure treat when necessary hydralazine for breakthrough pressure (4) CAD (coronary artery disease) Current Visit: Yes Status: Chronic Qualifiers: Coronary Disease-Associated Artery/Lesion type: [place] artery [place] vs. transplanted heart: [place] heart Plan to address problem: Patient is not having chest pain shortness of breath at this particular time stable coronary artery disease. (5) IDDM (insulin dependent diabetes mellitus) Current Visit: Yes Status: Chronic Plan to address problem: Patient blood sugars uncontrolled. We'll start patient on Lantus 15 units daily at bedtime. (6) History of CVA with residual deficit Current Visit: No Status: Chronic Plan to address problem: Patient just has residual weakness. We'll continue to treat with aggressive antilipid's and antiplatelet therapy. Along with beta fish when blood pressure permits. History Interval history: Patient 39-year-old female with a history of CVA left hemiparesis and dysarthria hypertension seizure disorder and diabetes presents with acute respiratory failure placed on BiPAP sats were 88%. Patient also placed on steroids and beta agonists. Was found to have malignant hypertension with systolic blood pressure greater than 220. Patient then placed on nitroglycerin drip. Patient currently states she is hungry she is more alert today. Appears to be close at her baseline. Nitroglycerin drip was weaned off. Hospitalist Physical - Constitutional Vitals: Temp Pulse Resp BP Pulse Ox 96.9 F L 83 14 119/71 99 10/04/19 12:00 10/04/19 15:00 10/04/19 15:00 10/04/19 15:00 10/04/19 15:00 General appearance: Present: no acute distress, well-nourished - EENT Eyes: Present: PERRL, EOM intact ENT: hearing intact, clear oral mucosa, dentition normal, other (dysarthria) - Neck Neck: Present: supple, normal ROM - Respiratory Respiratory: bilateral: CTA - Cardiovascular Rhythm: regular Heart Sounds: Present: S1 & S2 - Extremities Extremities: no ischemia, pulses intact, pulses symmetrical, No edema, normal temperature - Abdominal General gastrointestinal: soft, non-tender, non-distended, other (PEG tube feedings) - Integumentary Integumentary: Present: clear, warm, dry - Psychiatric Psychiatric: appropriate mood/affect - Neurologic Neurologic: CNII-XII intact, focal deficits Results - Labs CBC & Chem 7: 10/03/19 18:40 10/03/19 18:40 Labs: Laboratory Last Values WBC 13.8 K/mm3 (4.5-11.0) H 10/03/19 18:40 RBC 2.67 M/mm3 (3.65-5.03) L 10/03/19 18:40 Hgb 8.0 gm/dl (10.1-14.3) L 10/03/19 18:40 Hct 24.5 % (30.3-42.9) L 10/03/19 18:40 MCV 92 fl (79-97) 10/03/19 18:40 MCH 30 pg (28-32) 10/03/19 18:40 MCHC 33 % (30-34) 10/03/19 18:40 RDW 13.2 % (13.2-15.2) 10/03/19 18:40 Plt Count 264 K/mm3 (140-440) 10/03/19 18:40 Add Manual Diff Complete 10/03/19 18:40 Total Counted 100 10/03/19 18:40 Seg Neutrophils % Laminator Preforms 10/03/19 18:40 Seg Neuts % (Manual) 93.0 % (40.0-70.0) H 10/03/19 18:40 Band Neutrophils % 0 % 10/03/19 18:40 Lymphocytes % (Manual) 4.0 % (13.4-35.0) L 10/03/19 18:40 Reactive Lymphs % (Man) 0 % 10/03/19 18:40 Monocytes % (Manual) 2.0 % (0.0-7.3) 10/03/19 18:40 Eosinophils % (Manual) 1.0 % (0.0-4.3) 10/03/19 18:40 Basophils % (Manual) 0 % (0.0-1.8) 10/03/19 18:40 Metamyelocytes % 0 % 10/03/19 18:40 Myelocytes % 0 % 10/03/19 18:40 Promyelocytes % 0 % 10/03/19 18:40 Blast Cells % 0 % 10/03/19 18:40 Nucleated RBC % Not Reportable 10/03/19 18:40 Seg Neutrophils # Man 12.8 K/mm3 (1.8-7.7) H 10/03/19 18:40 Band Neutrophils # 0.0 K/mm3 10/03/19 18:40 Lymphocytes # (Manual) 0.6 K/mm3 (1.2-5.4) L 10/03/19 18:40 Abs React Lymphs (Man) 0.0 K/mm3 10/03/19 18:40 Monocytes # (Manual) 0.3 K/mm3 (0.0-0.8) 10/03/19 18:40 Eosinophils # (Manual) 0.1 K/mm3 (0.0-0.4) 10/03/19 18:40 Basophils # (Manual) 0.0 K/mm3 (0.0-0.1) 10/03/19 18:40 Metamyelocytes # 0.0 K/mm3 10/03/19 18:40 Myelocytes # 0.0 K/mm3 10/03/19 18:40 Promyelocytes # 0.0 K/mm3 10/03/19 18:40 Blast Cells # 0.0 K/mm3 10/03/19 18:40 WBC Morphology Not Reportable 10/03/19 18:40 Hypersegmented Neuts Not Reportable 10/03/19 18:40 Hyposegmented Neuts Not Reportable 10/03/19 18:40 Hypogranular Neuts Not Reportable 10/03/19 18:40 Smudge Cells Not Reportable 10/03/19 18:40 Toxic Granulation Not Reportable 10/03/19 18:40 Toxic Vacuolation Not Reportable 10/03/19 18:40 Dohle Bodies Not Reportable 10/03/19 18:40 Pelger-Huet Anomaly Not Reportable 10/03/19 18:40 Xiomy Rods Not Reportable 10/03/19 18:40 Platelet Estimate Consistent w auto 10/03/19 18:40 Clumped Platelets Not Reportable 10/03/19 18:40 Plt Clumps, EDTA Not Reportable 10/03/19 18:40 Large Platelets 1+ 10/03/19 18:40 Giant Platelets Not Reportable 10/03/19 18:40 Platelet Satelliting Not Reportable 10/03/19 18:40 Plt Morphology Comment Not Reportable 10/03/19 18:40 RBC Morphology Normal 10/03/19 18:40 Dimorphic RBCs Not Reportable 10/03/19 18:40 Polychromasia Not Reportable 10/03/19 18:40 Hypochromasia Not Reportable 10/03/19 18:40 Poikilocytosis Not Reportable 10/03/19 18:40 Anisocytosis Not Reportable 10/03/19 18:40 Microcytosis Not Reportable 10/03/19 18:40 Macrocytosis Not Reportable 10/03/19 18:40 Spherocytes Not Reportable 10/03/19 18:40 Pappenheimer Bodies Not Reportable 10/03/19 18:40 Sickle Cells Not Reportable 10/03/19 18:40 Target Cells Not Reportable 10/03/19 18:40 Tear Drop Cells Not Reportable 10/03/19 18:40 Ovalocytes Not Reportable 10/03/19 18:40 Helmet Cells Not Reportable 10/03/19 18:40 [place] Bodies Not Reportable 10/03/19 18:40 [place] Rings Not Reportable 10/03/19 18:40 [place]anna Cells Not Reportable 10/03/19 18:40 Bite Cells Not Reportable 10/03/19 18:40 Crenated Cell Not Reportable 10/03/19 18:40 Elliptocytes Not Reportable 10/03/19 18:40 Acanthocytes (Spur) Not Reportable 10/03/19 18:40 Rouleaux Not Reportable 10/03/19 18:40 Hemoglobin C Crystals Not Reportable 10/03/19 18:40 Schistocytes Not Reportable 10/03/19 18:40 Malaria parasites Not Reportable 10/03/19 18:40 [place] Bodies Not Reportable 10/03/19 18:40 Hem Pathologist Commnt No 10/03/19 18:40 PT 14.2 Sec. (12.2-14.9) 10/03/19 18:40 INR 1.11 (0.87-1.13) 10/03/19 18:40 APTT 29.0 Sec. (24.2-36.6) 10/03/19 18:40 POC ABG pH 7.336 (7.35-7.45) L 10/03/19 18:34 ABG pH 7.378 pH Units (7.350-7.450) 10/03/19 18:40 POC ABG pCO2 44.2 (35-45) 10/03/19 18:34 ABG pCO2 37.7 mm Hg 10/03/19 18:40 POC ABG pO2 147 (80-105) H 10/03/19 18:34 ABG pO2 82.9 mm Hg (80.0-90.0) 10/03/19 18:40 POC ABG HCO3 23.6 (22-26 mml/L) 10/03/19 18:34 ABG HCO3 21.7 mmol/L (20.0-26.0) 10/03/19 18:40 POC ABG Total CO2 25 (23-27mmol/L) 10/03/19 18:34 POC ABG O2 Sat 99 10/03/19 18:34 ABG O2 Saturation 96.8 % (95.0-99.0) 10/03/19 18:40 ABG O2 Content 12.0 (0.0-44) 10/03/19 18:40 POC ABG Base Excess -2 ((-2) - (+3)mmol/L) 10/03/19 18:34 ABG Base Excess -3.1 mmol/L (-2.0-3.0) L 10/03/19 18:40 ABG Hemoglobin 9.2 gm/dl (12.0-16.0) L 10/03/19 18:40 ABG Carboxyhemoglobin 4.4 % (0.0-5.0) 10/03/19 18:40 ABG Methemoglobin 0.3 % (0.0-1.5) 10/03/19 18:40 VBG pH 7.378 (7.320-7.420) 10/03/19 18:40 Oxyhemoglobin 92.2 % (95.0-99.0) L 10/03/19 18:40 FiO2 21 % 10/03/19 18:40 Sodium 137 mmol/L (137-145) 10/03/19 18:40 Potassium 4.3 mmol/L (3.6-5.0) 10/03/19 18:40 Chloride 103.1 mmol/L (98-107) 10/03/19 18:40 Carbon Dioxide 19 mmol/L (22-30) L 10/03/19 18:40 Anion Gap 19 mmol/L 10/03/19 18:40 BUN 30 mg/dL (7-17) H 10/03/19 18:40 Creatinine 2.5 mg/dL (0.7-1.2) H 10/03/19 18:40 Estimated GFR 26 ml/min 10/03/19 18:40 BUN/Creatinine Ratio 12 % 10/03/19 18:40 Glucose 474 mg/dL (65-100) H 10/03/19 18:40 POC Glucose 398 (70-105) H 10/04/19 13:05 Calcium 8.1 mg/dL (8.4-10.2) L 10/03/19 18:40 Magnesium 2.00 mg/dL (1.7-2.3) 10/03/19 18:40 Total Bilirubin 0.20 mg/dL (0.1-1.2) 10/03/19 18:40 AST 19 units/L (5-40) 10/03/19 18:40 ALT 16 units/L (7-56) 10/03/19 18:40 Alkaline Phosphatase 109 units/L (35-129) 10/03/19 18:40 Total Creatine Kinase 64 units/L (30-135) 10/03/19 18:40 Troponin T 0.034 ng/mL (0.00-0.029) H 10/03/19 18:40 NT-Pro-B Natriuret Pep 45247 pg/mL (0-450) H 10/03/19 18:40 Total Protein 6.6 g/dL (6.3-8.2) 10/03/19 18:40 Albumin 2.8 g/dL (3.9-5) L 10/03/19 18:40 Albumin/Globulin Ratio 0.7 % 10/03/19 18:40 Triglycerides 149 mg/dL (2-149) 10/03/19 18:40 Cholesterol 268 mg/dL (50-199) H 10/03/19 18:40 LDL Cholesterol Direct 176 mg/dL (50-130) H 10/03/19 18:40 HDL Cholesterol 74 mg/dL (40-59) H 10/03/19 18:40 Cholesterol/HDL Ratio 3.62 % 10/03/19 18:40 Urine Color Straw (Yellow) 10/03/19 18:46 Urine Turbidity Clear (Clear) 10/03/19 18:46 Urine pH 7.0 (5.0-7.0) 10/03/19 18:46 Ur Specific [place] 1.013 (1.003-1.030) 10/03/19 18:46 Urine Protein >500 mg/dL (Negative) 10/03/19 18:46 Urine Glucose (UA) >=500 mg/dL (Negative) 10/03/19 18:46 Urine Ketones Neg mg/dL (Negative) 10/03/19 18:46 Urine Blood Sm (Negative) 10/03/19 18:46 Urine Nitrite Neg (Negative) 10/03/19 18:46 Urine Bilirubin Neg (Negative) 10/03/19 18:46 Urine Urobilinogen < 2.0 mg/dL (<2.0) 10/03/19 18:46 Ur Leukocyte Esterase Mod (Negative) 10/03/19 18:46 Urine WBC (Auto) 20.0 /HPF (0.0-6.0) H 10/03/19 18:46 Urine RBC (Auto) 28.0 /HPF (0.0-6.0) 10/03/19 18:46 U Epithel Cells (Auto) 2.0 /HPF (0-13.0) 10/03/19 18:46 Urine Bacteria (Auto) 1+ /HPF (Negative) 10/03/19 18:46 Hyaline Casts 2 /LPF 10/03/19 18:46 Urine Yeast (Budding) Few /HPF 10/03/19 18:46 - Imaging and Cardiology EKG: image reviewed Chest x-ray: report reviewed, image reviewed Active Medications - Current Medications Current Medications: Generic Name Dose Route Start Last Admin Trade Name Freq PRN Reason Stop Dose Admin Acetaminophen 325 mg 10/03/19 23:00 10/04/19 14:06 Tylenol PO 325 mg Q4H PRN Administration Pain MILD(1-3)/Fever >100.5/MUNOZ Lipase/Protease/Amylase 1 each 10/03/19 23:00 Danny Cruz 10,500 Unit FEEDTUBE PRN PRN For Clogged Feeding Tube Aspirin 81 mg 10/04/19 10:00 10/04/19 09:49 Halfprin Ec PO 81 mg DAILY KYE Administration Atorvastatin Calcium 80 mg 10/04/19 22:00 Lipitor PO QHS KYE Bisacodyl 10 mg 10/03/19 23:00 Dulcolax DE QDAY PRN Constipation Brimonidine/Timolol 1 drops 10/04/19 10:00 10/04/19 09:49 Combigan 0.2-0.5% OU 1 drops Q12HR KYE Administration Citalopram Hydrobromide 10 mg 10/04/19 10:00 10/04/19 09:49 Celexa PO 10 mg QDAY KYE Administration Clopidogrel Bisulfate 75 mg 10/04/19 10:00 10/04/19 09:49 Plavix PO 75 mg QDAY KYE Administration Cyclobenzaprine HCl 10 mg 10/03/19 23:00 Flexeril PO TID PRN Muscle Spasm Heparin Sodium (Porcine) 5,000 unit 10/04/19 10:00 10/04/19 09:01 Heparin SUB-Q 5,000 unit Q12HR KYE Administration Hydralazine HCl 10 mg 10/03/19 23:06 Apresoline IV Q30MIN PRN Blood Pressure Ceftriaxone Sodium 2 gm in 100 mls @ 200 mls/hr 10/04/19 10:00 10/04/19 09:51 Rocephin/Ns 2 Gm/100 Ml IV Not Given Q24HR [facility] Protocol Nicardipine HCl 50 mg/ Sodium 250 mls @ 25 mls/hr 10/03/19 23:45 10/04/19 09:49 Chloride IV 0 mg/hr TITR KYE 0 mls/hr Titration Protocol 5 MG/HR Ceftriaxone Sodium 2 gm in 100 mls @ 200 mls/hr 10/04/19 08:00 10/04/19 10:20 Rocephin/Ns 2 Gm/100 Ml IV Infused Q24HR [facility] Infusion Protocol Insulin Glargine 15 units 10/04/19 22:00 Lantus SUB-Q QHS [facility] Insulin Human Lispro 0 unit 10/04/19 09:00 10/04/19 12:57 Humalog SUB-Q 8 unit ACHS [facility] Administration Protocol Magnesium Hydroxide 30 ml 10/03/19 23:00 Milk Of Magnesia PO Q4H PRN Constipation Simple Syrup 15 ml 10/03/19 23:00 Simple Syrup FEEDTUBE PRN PRN Hypoglycemia Simple Syrup 30 ml 10/03/19 23:00 Simple Syrup FEEDTUBE PRN PRN Hypoglycemia Sodium Bicarbonate 325 mg 10/03/19 23:00 Sodium Bicarbonate FEEDTUBE PRN PRN For Clogged Feeding Tube Valsartan 160 mg 10/03/19 23:45 10/04/19 09:48 Diovan PO 160 mg BID KYE Administration Nutrition/Malnutrition Assess - Dietary Evaluation Nutrition/Malnutrition Findings: Nutrition Notes Start: 10/04/19 10:54 Freq: Status: Active Protocol: Document 10/04/19 11:29 LP (Rec: 10/04/19 11:31 LP [id number]) Nutrition Notes Need for Assessment generated from: carton folder,MST Initial or Follow up Brief Note Current Diagnosis Acute Kidney Injury,Diabetes, Hypertension,Stroke Current Diet Consistent CHO Labs/Tests BG 325,439 BNP 97451 Subjective/Other Information Screen for MST. 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 Pt food preferences noted. Pt wanting diet education on heart and DM. Minimum of two criteria No physical signs of malnutrition #1 Nutrition Diagnosis Food and nutrition-related knowledge deficit Etiology DM and cardiac diet As Evidenced by Signs and Symptoms Pt not following DM and cardiac diet at home Nutrition Intervention Teaching Recipient Patient Learning Readiness Good Teaching Methods Discussion,Handout Response to Teaching Verbalize understanding Education Handouts Provided Consistent CHO and Stroke nutrition therapy Barriers to Learning No Barriers RD phone number provided Yes Patient aware of follow up options Yes Follow-Up By: 10/05/19 Additional Comments Follow for diet education questions
[2019-10-04] MEDS: NIFEdipine XL 30 MG TAB PO SCH (16:31)
[2019-10-04] MEDS ORDERED: DETEMIR SUB-Q SCH (22:00)
[2019-10-04] MEDS ORDERED: INSULIN GLARGINE 100 UNITS/ML SUB-Q SCH ×2 (22:00)
--- NOTE | 2019-10-05 08:44 | Progress Note ---
Assessment and Plan - Patient Problems (1) ABHISHEK (acute kidney injury) Current Visit: Yes Status: Acute (2) Flash pulmonary edema Current Visit: Yes Status: Acute (3) Malignant hypertensive urgency Current Visit: Yes Status: Acute (4) CAD (coronary artery disease) Current Visit: Yes Status: Chronic Qualifiers: Coronary Disease-Associated Artery/Lesion type: [place] artery [place] vs. transplanted heart: [place] heart (5) IDDM (insulin dependent diabetes mellitus) Current Visit: Yes Status: Chronic (6) History of CVA with residual deficit Current Visit: No Status: Chronic History Interval history: Patient 39-year-old female with a history of CVA left hemiparesis and dysarthria hypertension seizure disorder and diabetes presents with acute respiratory failure placed on BiPAP sats were 88%. Patient also placed on steroids and beta agonists. Was found to have malignant hypertension with systolic blood pressure greater than 220. Patient's blood pressure is much better controlled now. 134/86. Continue present antihypertensives. Patient hospital course complicated by uncontrolled blood sugar. Uncontrolled diabetes. Patient however breathing much better. Follow-up chest x-ray labs pending. Hospitalist Physical - Constitutional Vitals: Temp Pulse Resp BP Pulse Ox 98.4 F 80 20 168/99 94 10/05/19 05:11 10/05/19 05:11 10/05/19 05:11 10/05/19 05:11 10/05/19 05:11 General appearance: Present: no acute distress, well-nourished Results - Labs CBC & Chem 7: 10/03/19 18:40 10/03/19 18:40 Labs: Laboratory Last Values WBC 13.8 K/mm3 (4.5-11.0) H 10/03/19 18:40 RBC 2.67 M/mm3 (3.65-5.03) L 10/03/19 18:40 Hgb 8.0 gm/dl (10.1-14.3) L 10/03/19 18:40 Hct 24.5 % (30.3-42.9) L 10/03/19 18:40 MCV 92 fl (79-97) 10/03/19 18:40 MCH 30 pg (28-32) 10/03/19 18:40 MCHC 33 % (30-34) 10/03/19 18:40 RDW 13.2 % (13.2-15.2) 10/03/19 18:40 Plt Count 264 K/mm3 (140-440) 10/03/19 18:40 Add Manual Diff Complete 10/03/19 18:40 Total Counted 100 10/03/19 18:40 Seg Neutrophils % Certified Nurses' Aide 10/03/19 18:40 Seg Neuts % (Manual) 93.0 % (40.0-70.0) H 10/03/19 18:40 Band Neutrophils % 0 % 10/03/19 18:40 Lymphocytes % (Manual) 4.0 % (13.4-35.0) L 10/03/19 18:40 Reactive Lymphs % (Man) 0 % 10/03/19 18:40 Monocytes % (Manual) 2.0 % (0.0-7.3) 10/03/19 18:40 Eosinophils % (Manual) 1.0 % (0.0-4.3) 10/03/19 18:40 Basophils % (Manual) 0 % (0.0-1.8) 10/03/19 18:40 Metamyelocytes % 0 % 10/03/19 18:40 Myelocytes % 0 % 10/03/19 18:40 Promyelocytes % 0 % 10/03/19 18:40 Blast Cells % 0 % 10/03/19 18:40 Nucleated RBC % Not Reportable 10/03/19 18:40 Seg Neutrophils # Man 12.8 K/mm3 (1.8-7.7) H 10/03/19 18:40 Band Neutrophils # 0.0 K/mm3 10/03/19 18:40 Lymphocytes # (Manual) 0.6 K/mm3 (1.2-5.4) L 10/03/19 18:40 Abs React Lymphs (Man) 0.0 K/mm3 10/03/19 18:40 Monocytes # (Manual) 0.3 K/mm3 (0.0-0.8) 10/03/19 18:40 Eosinophils # (Manual) 0.1 K/mm3 (0.0-0.4) 10/03/19 18:40 Basophils # (Manual) 0.0 K/mm3 (0.0-0.1) 10/03/19 18:40 Metamyelocytes # 0.0 K/mm3 10/03/19 18:40 Myelocytes # 0.0 K/mm3 10/03/19 18:40 Promyelocytes # 0.0 K/mm3 10/03/19 18:40 Blast Cells # 0.0 K/mm3 10/03/19 18:40 WBC Morphology Not Reportable 10/03/19 18:40 Hypersegmented Neuts Not Reportable 10/03/19 18:40 Hyposegmented Neuts Not Reportable 10/03/19 18:40 Hypogranular Neuts Not Reportable 10/03/19 18:40 Smudge Cells Not Reportable 10/03/19 18:40 Toxic Granulation Not Reportable 10/03/19 18:40 Toxic Vacuolation Not Reportable 10/03/19 18:40 Dohle Bodies Not Reportable 10/03/19 18:40 Pelger-Huet Anomaly Not Reportable 10/03/19 18:40 Xiomy Rods Not Reportable 10/03/19 18:40 Platelet Estimate Consistent w auto 10/03/19 18:40 Clumped Platelets Not Reportable 10/03/19 18:40 Plt Clumps, EDTA Not Reportable 10/03/19 18:40 Large Platelets 1+ 10/03/19 18:40 Giant Platelets Not Reportable 10/03/19 18:40 Platelet Satelliting Not Reportable 10/03/19 18:40 Plt Morphology Comment Not Reportable 10/03/19 18:40 RBC Morphology Normal 10/03/19 18:40 Dimorphic RBCs Not Reportable 10/03/19 18:40 Polychromasia Not Reportable 10/03/19 18:40 Hypochromasia Not Reportable 10/03/19 18:40 Poikilocytosis Not Reportable 10/03/19 18:40 Anisocytosis Not Reportable 10/03/19 18:40 Microcytosis Not Reportable 10/03/19 18:40 Macrocytosis Not Reportable 10/03/19 18:40 Spherocytes Not Reportable 10/03/19 18:40 Pappenheimer Bodies Not Reportable 10/03/19 18:40 Sickle Cells Not Reportable 10/03/19 18:40 Target Cells Not Reportable 10/03/19 18:40 Tear Drop Cells Not Reportable 10/03/19 18:40 Ovalocytes Not Reportable 10/03/19 18:40 Helmet Cells Not Reportable 10/03/19 18:40 [place] Bodies Not Reportable 10/03/19 18:40 [place] Rings Not Reportable 10/03/19 18:40 [place] Cells Not Reportable 10/03/19 18:40 Bite Cells Not Reportable 10/03/19 18:40 Crenated Cell Not Reportable 10/03/19 18:40 Elliptocytes Not Reportable 10/03/19 18:40 Acanthocytes (Spur) Not Reportable 10/03/19 18:40 Rouleaux Not Reportable 10/03/19 18:40 Hemoglobin C Crystals Not Reportable 10/03/19 18:40 Schistocytes Not Reportable 10/03/19 18:40 Malaria parasites Not Reportable 10/03/19 18:40 [place] Bodies Not Reportable 10/03/19 18:40 Hem Pathologist Commnt No 10/03/19 18:40 PT 14.2 Sec. (12.2-14.9) 10/03/19 18:40 INR 1.11 (0.87-1.13) 10/03/19 18:40 APTT 29.0 Sec. (24.2-36.6) 10/03/19 18:40 POC ABG pH 7.336 (7.35-7.45) L 10/03/19 18:34 ABG pH 7.378 pH Units (7.350-7.450) 10/03/19 18:40 POC ABG pCO2 44.2 (35-45) 10/03/19 18:34 ABG pCO2 37.7 mm Hg 10/03/19 18:40 POC ABG pO2 147 (80-105) H 10/03/19 18:34 ABG pO2 82.9 mm Hg (80.0-90.0) 10/03/19 18:40 POC ABG HCO3 23.6 (22-26 mml/L) 10/03/19 18:34 ABG HCO3 21.7 mmol/L (20.0-26.0) 10/03/19 18:40 POC ABG Total CO2 25 (23-27mmol/L) 10/03/19 18:34 POC ABG O2 Sat 99 10/03/19 18:34 ABG O2 Saturation 96.8 % (95.0-99.0) 10/03/19 18:40 ABG O2 Content 12.0 (0.0-44) 10/03/19 18:40 POC ABG Base Excess -2 ((-2) - (+3)mmol/L) 10/03/19 18:34 ABG Base Excess -3.1 mmol/L (-2.0-3.0) L 10/03/19 18:40 ABG Hemoglobin 9.2 gm/dl (12.0-16.0) L 10/03/19 18:40 ABG Carboxyhemoglobin 4.4 % (0.0-5.0) 10/03/19 18:40 ABG Methemoglobin 0.3 % (0.0-1.5) 10/03/19 18:40 VBG pH 7.378 (7.320-7.420) 10/03/19 18:40 Oxyhemoglobin 92.2 % (95.0-99.0) L 10/03/19 18:40 FiO2 21 % 10/03/19 18:40 Sodium 137 mmol/L (137-145) 10/03/19 18:40 Potassium 4.3 mmol/L (3.6-5.0) 10/03/19 18:40 Chloride 103.1 mmol/L (98-107) 10/03/19 18:40 Carbon Dioxide 19 mmol/L (22-30) L 10/03/19 18:40 Anion Gap 19 mmol/L 10/03/19 18:40 BUN 30 mg/dL (7-17) H 10/03/19 18:40 Creatinine 2.5 mg/dL (0.7-1.2) H 10/03/19 18:40 Estimated GFR 26 ml/min 10/03/19 18:40 BUN/Creatinine Ratio 12 % 10/03/19 18:40 Glucose 474 mg/dL (65-100) H 10/03/19 18:40 POC Glucose 305 (70-105) H 10/04/19 21:09 Calcium 8.1 mg/dL (8.4-10.2) L 10/03/19 18:40 Magnesium 2.00 mg/dL (1.7-2.3) 10/03/19 18:40 Total Bilirubin 0.20 mg/dL (0.1-1.2) 10/03/19 18:40 AST 19 units/L (5-40) 10/03/19 18:40 ALT 16 units/L (7-56) 10/03/19 18:40 Alkaline Phosphatase 109 units/L (35-129) 10/03/19 18:40 Total Creatine Kinase 64 units/L (30-135) 10/03/19 18:40 Troponin T 0.034 ng/mL (0.00-0.029) H 10/03/19 18:40 NT-Pro-B Natriuret Pep 45063 pg/mL (0-450) H 10/03/19 18:40 Total Protein 6.6 g/dL (6.3-8.2) 10/03/19 18:40 Albumin 2.8 g/dL (3.9-5) L 10/03/19 18:40 Albumin/Globulin Ratio 0.7 % 10/03/19 18:40 Triglycerides 149 mg/dL (2-149) 10/03/19 18:40 Cholesterol 268 mg/dL (50-199) H 10/03/19 18:40 LDL Cholesterol Direct 176 mg/dL (50-130) H 10/03/19 18:40 HDL Cholesterol 74 mg/dL (40-59) H 10/03/19 18:40 Cholesterol/HDL Ratio 3.62 % 10/03/19 18:40 Urine Color Straw (Yellow) 10/03/19 18:46 Urine Turbidity Clear (Clear) 10/03/19 18:46 Urine pH 7.0 (5.0-7.0) 10/03/19 18:46 Ur Specific [place] 1.013 (1.003-1.030) 10/03/19 18:46 Urine Protein >500 mg/dL (Negative) 10/03/19 18:46 Urine Glucose (UA) >=500 mg/dL (Negative) 10/03/19 18:46 Urine Ketones Neg mg/dL (Negative) 10/03/19 18:46 Urine Blood Sm (Negative) 10/03/19 18:46 Urine Nitrite Neg (Negative) 10/03/19 18:46 Urine Bilirubin Neg (Negative) 10/03/19 18:46 Urine Urobilinogen < 2.0 mg/dL (<2.0) 10/03/19 18:46 Ur Leukocyte Esterase Mod (Negative) 10/03/19 18:46 Urine WBC (Auto) 20.0 /HPF (0.0-6.0) H 10/03/19 18:46 Urine RBC (Auto) 28.0 /HPF (0.0-6.0) 10/03/19 18:46 U Epithel Cells (Auto) 2.0 /HPF (0-13.0) 10/03/19 18:46 Urine Bacteria (Auto) 1+ /HPF (Negative) 10/03/19 18:46 Hyaline Casts 2 /LPF 10/03/19 18:46 Urine Yeast (Budding) Few /HPF 10/03/19 18:46 Active Medications - Current Medications Current Medications: Generic Name Dose Route Start Last Admin Trade Name Freq PRN Reason Stop Dose Admin Acetaminophen 325 mg 10/03/19 23:00 10/04/19 14:06 Tylenol PO 325 mg Q4H PRN Administration Pain MILD(1-3)/Fever >100.5/MUNOZ Lipase/Protease/Amylase 1 each 10/03/19 23:00 Pancrepaula [place] 10,500 Unit FEEDTUBE PRN PRN For Clogged Feeding Tube Aspirin 81 mg 10/04/19 10:00 10/04/19 09:49 Halfprin Ec PO 81 mg DAILY KYE Administration Atorvastatin Calcium 80 mg 10/04/19 22:00 10/04/19 22:25 Lipitor PO 80 mg QHS KYE Administration Bisacodyl 10 mg 10/03/19 23:00 Dulcolax TN QDAY PRN Constipation Brimonidine/Timolol 1 drops 10/04/19 10:00 10/04/19 22:45 Combigan 0.2-0.5% OU 1 drops Q12HR KYE Administration Citalopram Hydrobromide 10 mg 10/04/19 10:00 10/04/19 09:49 Celexa PO 10 mg QDAY KYE Administration Clopidogrel Bisulfate 75 mg 10/04/19 10:00 10/04/19 09:49 Plavix PO 75 mg QDAY KYE Administration Cyclobenzaprine HCl 10 mg 10/03/19 23:00 Flexeril PO TID PRN Muscle Spasm Heparin Sodium (Porcine) 5,000 unit 10/04/19 10:00 10/04/19 22:25 Heparin SUB-Q 5,000 unit Q12HR KYE Administration Hydralazine HCl 10 mg 10/03/19 23:06 Apresoline IV Q30MIN PRN Blood Pressure Ceftriaxone Sodium 2 gm in 100 mls @ 200 mls/hr 10/04/19 10:00 10/04/19 09:51 Rocephin/Ns 2 Gm/100 Ml IV Not Given Q24HR [facility] Protocol Insulin Glargine 15 units 10/04/19 22:00 10/04/19 22:45 Lantus SUB-Q 15 units QHS KYE Administration Insulin Human Lispro 0 unit 10/04/19 09:00 10/04/19 22:25 Humalog SUB-Q 6 unit ACHS KYE Administration Protocol Magnesium Hydroxide 30 ml 10/03/19 23:00 Milk Of Magnesia PO Q4H PRN Constipation Nifedipine 30 mg 10/04/19 16:00 10/04/19 16:31 Procardia Xl PO 30 mg QDAY KYE Administration Simple Syrup 15 ml 10/03/19 23:00 Simple Syrup FEEDTUBE PRN PRN Hypoglycemia Simple Syrup 30 ml 10/03/19 23:00 Simple Syrup FEEDTUBE PRN PRN Hypoglycemia Sodium Bicarbonate 325 mg 10/03/19 23:00 Sodium Bicarbonate FEEDTUBE PRN PRN For Clogged Feeding Tube Valsartan 160 mg 10/03/19 23:45 10/04/19 22:25 Diovan PO 160 mg BID KYE Administration Nutrition/Malnutrition Assess - Dietary Evaluation Nutrition/Malnutrition Findings: Nutrition Notes Start: 10/04/19 10:54 Freq: Status: Active Protocol: Document 10/04/19 11:29 LP (Rec: 10/04/19 11:31 LP [id number]) Nutrition Notes 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 Pt food preferences noted. Pt wanting diet education on heart and DM. Minimum of two criteria No physical signs of malnutrition #1 Nutrition Diagnosis Food and nutrition-related knowledge deficit Etiology DM and cardiac diet As Evidenced by Signs and Symptoms Pt not following DM and cardiac diet at home Nutrition Intervention Teaching Recipient Patient Learning Readiness Good Teaching Methods Discussion,Handout Response to Teaching Verbalize understanding Education Handouts Provided Consistent CHO and Stroke nutrition therapy Barriers to Learning No Barriers RD phone number provided Yes Patient aware of follow up options Yes Follow-Up By: 10/05/19 Additional Comments Follow for diet education questions
[2019-10-05 09:39] LABS: Basophils % (Auto) 0.3 % (0.0-1.8); Hematocrit 26.6 % (30.3-42.9); Hemoglobin 8.6 gm/dl (10.1-14.3); Lymphocytes # (Auto) 1.7 K/mm3 (1.2-5.4); Lymphocytes % (Auto) 10.9 % (13.4-35.0); Mean Corpuscular HGB Conc 32 % (30-34); Mean Corpuscular Volume 92 fl (79-97); Monocytes # (Auto) 0.6 K/mm3 (0.0-0.8); Monocytes % (Auto) 4.1 % (0.0-7.3); Platelet Count 317 K/mm3 (140-440); Red Blood Count 2.88 M/mm3 (3.65-5.03); Red Cell Distribution Width 13.7 % (13.2-15.2)
[2019-10-05 09:58] LABS: Calcium 8.6 mg/dL (8.4-10.2)
[2019-10-05] MEDS: VALSARTAN 160MG TAB PO SCH ×2 (10:05→21:30)
[2019-10-05] MEDS: NIFEdipine XL 30 MG TAB PO SCH (10:05)
[2019-10-05] MEDS: HEPARIN 5,000 UNIT/1 ML VIAL SUB-Q SCH ×2 (10:06→21:32)
[2019-10-05] MEDS: ASPIRIN EC 81 MG TAB PO SCH (10:06)
[2019-10-05] MEDS: CLOPIDOGREL 75 MG TAB PO SCH (10:06)
--- NOTE | 2019-10-05 11:21 | XRay Report ---
CHEST 1 VIEW INDICATION: Shortness of breath. COMPARISON: 10/03/2019 FINDINGS: Support devices: None. Heart: Stable mild cardiomegaly. Lungs/Pleura: No significant change in mild bilateral pulmonary venous congestion and small pleural e ffusions, left greater than right. No pneumothorax. Additional findings: None. IMPRESSION: No significant change. Mild CHF or volume overload is suggested. Signer Name: Veto Castorena Jr, MD Signed: 10/05/2019 11:17 AM Workstation Name: [id number]
[2019-10-05] MEDS: ACETAMINOPHEN 325 MG TAB PO PRN ×2 (12:30→18:30)
[2019-10-05] MEDS: CITALOPRAM 10 MG TAB PO SCH (12:30)
[2019-10-05] MEDS: cefTRIAXone/NS 2 GM/100 ML 2 GM/100 ML BAG IV SCH (12:34)
[2019-10-05] MEDS: COMBIGAN 0.2-0.5% OPHTH SOLN OU SCH ×2 (12:48→21:56)
--- NOTE | 2019-10-05 13:06 | Progress Note ---
Assessment and Plan - Patient Problems (1) ABHISHEK (acute kidney injury) Current Visit: Yes Status: Acute Plan to address problem: Patient with acute on chronic kidney disease. Chronic most likely secondary to hypertensive renal disease. Nephrology consult for further recommendations. Low-salt diet. Continue all renal toxic medications. (2) Flash pulmonary edema Current Visit: Yes Status: Acute Plan to address problem: Patient flash pulmonary edema this was reason for acute respiratory failure resolving. (3) Malignant hypertensive urgency Current Visit: Yes Status: Acute Plan to address problem: Patient's blood pressure has begin to go back up on day 2 after being weaned from nitroglycerin drip. We'll increase Procardia to 60 mg daily and continue treatment with hydralazine as deep when necessary and will titrate accordingly. (4) CAD (coronary artery disease) Current Visit: Yes Status: Chronic Qualifiers: Coronary Disease-Associated Artery/Lesion type: [place] artery [place] vs. transplanted heart: [place] heart Plan to address problem: Patient is not having chest pain shortness of breath at this particular time stable coronary artery disease. (5) IDDM (insulin dependent diabetes mellitus) Current Visit: Yes Status: Chronic Plan to address problem: Diabetes remains uncontrolled we'll increase Lantus to 20 units daily at bedtime and increase to moderate dose sliding scale. (6) History of CVA with residual deficit Current Visit: No Status: Chronic Plan to address problem: Patient just has residual weakness. We'll continue to treat with aggressive antilipid's and antiplatelet therapy. Along with beta fish when blood pressure permits. (7) Acute respiratory failure Current Visit: Yes Status: Acute Plan to address problem: Initially secondary to flash pulmonary edema with underlying etiology of hypertensive crisis. Resolving after blood pressure improved. History Interval history: She name. Resting comfortably today distress. States she has a slight headache otherwise feels better. Difficult to understand because of dysphagia. Hospitalist Physical - Constitutional Vitals: Temp Pulse Resp BP Pulse Ox 97.9 F 87 18 191/120 94 10/05/19 08:46 10/05/19 10:05 10/05/19 08:46 10/05/19 10:05 10/05/19 08:46 General appearance: Present: no acute distress, well-nourished - EENT Eyes: Present: PERRL, EOM intact ENT: hearing intact, clear oral mucosa, dentition normal - Neck Neck: Present: supple, normal ROM - Respiratory Respiratory: bilateral: rhonchi - Cardiovascular Heart Sounds: Present: S1 & S2 - Extremities Extremities: no ischemia, pulses intact, pulses symmetrical, No edema Peripheral Pulses: within normal limits - Abdominal General gastrointestinal: soft, non-tender, non-distended, normal bowel sounds, no hepatomegaly, no splenomegaly - Integumentary Integumentary: Present: clear, warm, dry - Psychiatric Psychiatric: appropriate mood/affect, intact judgment & insight, memory intact - Neurologic Neurologic: CNII-XII intact, moves all extremities Results - Labs CBC & Chem 7: 10/05/19 09:01 10/05/19 09: Labs: Laboratory Last Values WBC 15.2 K/mm3 (4.5-11.0) H 10/05/19 09: RBC 2.88 M/mm3 (3.65-5.03) L 10/05/19 09: Hgb 8.6 gm/dl (10.1-14.3) L 10/05/19 09: Hct 26.6 % (30.3-42.9) L 10/05/19 09: MCV 92 fl (79-97) 10/05/19 09: MCH 30 pg (28-32) 10/05/19 09: MCHC 32 % (30-34) 10/05/19 09: RDW 13.7 % (13.2-15.2) 10/05/19 09: Plt Count 317 K/mm3 (140-440) 10/05/19 09: Lymph % (Auto) 10.9 % (13.4-35.0) L 10/05/19 09:01 [place] % (Auto) 4.1 % (0.0-7.3) 10/05/19 09:01 Eos % (Auto) 0.0 % (0.0-4.3) 10/05/19 09:01 Baso % (Auto) 0.3 % (0.0-1.8) 10/05/19 09: Lymph # 1.7 K/mm3 (1.2-5.4) 10/05/19 09: [place] # 0.6 K/mm3 (0.0-0.8) 10/05/19 09: Eos # 0.0 K/mm3 (0.0-0.4) 10/05/19 09:01 Baso # 0.0 K/mm3 (0.0-0.1) 10/05/19 09:01 Add Manual Diff Complete 10/03/19 18:40 Total Counted 100 10/03/19 18:40 Seg Neutrophils % 84.7 % (40.0-70.0) H 10/05/19 09:01 Seg Neuts % (Manual) 93.0 % (40.0-70.0) H 10/03/19 18:40 Band Neutrophils % 0 % 10/03/19 18:40 Lymphocytes % (Manual) 4.0 % (13.4-35.0) L 10/03/19 18:40 Reactive Lymphs % (Man) 0 % 10/03/19 18:40 Monocytes % (Manual) 2.0 % (0.0-7.3) 10/03/19 18:40 Eosinophils % (Manual) 1.0 % (0.0-4.3) 10/03/19 18:40 Basophils % (Manual) 0 % (0.0-1.8) 10/03/19 18:40 Metamyelocytes % 0 % 10/03/19 18:40 Myelocytes % 0 % 10/03/19 18:40 Promyelocytes % 0 % 10/03/19 18:40 Blast Cells % 0 % 10/03/19 18:40 Nucleated RBC % Not Reportable 10/03/19 18:40 Seg Neutrophils # 12.9 K/mm3 (1.8-7.7) H 10/05/19 09:01 Seg Neutrophils # Man 12.8 K/mm3 (1.8-7.7) H 10/03/19 18:40 Band Neutrophils # 0.0 K/mm3 10/03/19 18:40 Lymphocytes # (Manual) 0.6 K/mm3 (1.2-5.4) L 10/03/19 18:40 Abs React Lymphs (Man) 0.0 K/mm3 10/03/19 18:40 Monocytes # (Manual) 0.3 K/mm3 (0.0-0.8) 10/03/19 18:40 Eosinophils # (Manual) 0.1 K/mm3 (0.0-0.4) 10/03/19 18:40 Basophils # (Manual) 0.0 K/mm3 (0.0-0.1) 10/03/19 18:40 Metamyelocytes # 0.0 K/mm3 10/03/19 18:40 Myelocytes # 0.0 K/mm3 10/03/19 18:40 Promyelocytes # 0.0 K/mm3 10/03/19 18:40 Blast Cells # 0.0 K/mm3 10/03/19 18:40 WBC Morphology Not Reportable 10/03/19 18:40 Hypersegmented Neuts Not Reportable 10/03/19 18:40 Hyposegmented Neuts Not Reportable 10/03/19 18:40 Hypogranular Neuts Not Reportable 10/03/19 18:40 Smudge Cells Not Reportable 10/03/19 18:40 Toxic Granulation Not Reportable 10/03/19 18:40 Toxic Vacuolation Not Reportable 10/03/19 18:40 Dohle Bodies Not Reportable 10/03/19 18:40 Pelger-Huet Anomaly Not Reportable 10/03/19 18:40 Xiomy Rods Not Reportable 10/03/19 18:40 Platelet Estimate Consistent w auto 10/03/19 18:40 Clumped Platelets Not Reportable 10/03/19 18:40 Plt Clumps, EDTA Not Reportable 10/03/19 18:40 Large Platelets 1+ 10/03/19 18:40 Giant Platelets Not Reportable 10/03/19 18:40 Platelet Satelliting Not Reportable 10/03/19 18:40 Plt Morphology Comment Not Reportable 10/03/19 18:40 RBC Morphology Normal 10/03/19 18:40 Dimorphic RBCs Not Reportable 10/03/19 18:40 Polychromasia Not Reportable 10/03/19 18:40 Hypochromasia Not Reportable 10/03/19 18:40 Poikilocytosis Not Reportable 10/03/19 18:40 Anisocytosis Not Reportable 10/03/19 18:40 Microcytosis Not Reportable 10/03/19 18:40 Macrocytosis Not Reportable 10/03/19 18:40 Spherocytes Not Reportable 10/03/19 18:40 Pappenheimer Bodies Not Reportable 10/03/19 18:40 Sickle Cells Not Reportable 10/03/19 18:40 Target Cells Not Reportable 10/03/19 18:40 Tear Drop Cells Not Reportable 10/03/19 18:40 Ovalocytes Not Reportable 10/03/19 18:40 Helmet Cells Not Reportable 10/03/19 18:40 [place] Bodies Not Reportable 10/03/19 18:40 [place] Rings Not Reportable 10/03/19 18:40 Kidder Cells Not Reportable 10/03/19 18:40 Bite Cells Not Reportable 10/03/19 18:40 Crenated Cell Not Reportable 10/03/19 18:40 Elliptocytes Not Reportable 10/03/19 18:40 Acanthocytes (Spur) Not Reportable 10/03/19 18:40 Rouleaux Not Reportable 10/03/19 18:40 Hemoglobin C Crystals Not Reportable 10/03/19 18:40 Schistocytes Not Reportable 10/03/19 18:40 Malaria parasites Not Reportable 10/03/19 18:40 [place] Bodies Not Reportable 10/03/19 18:40 Hem Pathologist Commnt No 10/03/19 18:40 PT 14.2 Sec. (12.2-14.9) 10/03/19 18:40 INR 1.11 (0.87-1.13) 10/03/19 18:40 APTT 29.0 Sec. (24.2-36.6) 10/03/19 18:40 POC ABG pH 7.336 (7.35-7.45) L 10/03/19 18:34 ABG pH 7.378 pH Units (7.350-7.450) 10/03/19 18:40 POC ABG pCO2 44.2 (35-45) 10/03/19 18:34 ABG pCO2 37.7 mm Hg 10/03/19 18:40 POC ABG pO2 147 (80-105) H 10/03/19 18:34 ABG pO2 82.9 mm Hg (80.0-90.0) 10/03/19 18:40 POC ABG HCO3 23.6 (22-26 mml/L) 10/03/19 18:34 ABG HCO3 21.7 mmol/L (20.0-26.0) 10/03/19 18:40 POC ABG Total CO2 25 (23-27mmol/L) 10/03/19 18:34 POC ABG O2 Sat 99 10/03/19 18:34 ABG O2 Saturation 96.8 % (95.0-99.0) 10/03/19 18:40 ABG O2 Content 12.0 (0.0-44) 10/03/19 18:40 POC ABG Base Excess -2 ((-2) - (+3)mmol/L) 10/03/19 18:34 ABG Base Excess -3.1 mmol/L (-2.0-3.0) L 10/03/19 18:40 ABG Hemoglobin 9.2 gm/dl (12.0-16.0) L 10/03/19 18:40 ABG Carboxyhemoglobin 4.4 % (0.0-5.0) 10/03/19 18:40 ABG Methemoglobin 0.3 % (0.0-1.5) 10/03/19 18:40 VBG pH 7.378 (7.320-7.420) 10/03/19 18:40 Oxyhemoglobin 92.2 % (95.0-99.0) L 10/03/19 18:40 FiO2 21 % 10/03/19 18:40 Sodium 134 mmol/L (137-145) L 10/05/19 09:01 Potassium 4.2 mmol/L (3.6-5.0) 10/05/19 09:01 Chloride 99.0 mmol/L (98-107) 10/05/19 09:01 Carbon Dioxide 18 mmol/L (22-30) L 10/05/19 09:01 Anion Gap 21 mmol/L 10/05/19 09:01 BUN 49 mg/dL (7-17) H 10/05/19 09:01 Creatinine 2.9 mg/dL (0.7-1.2) H 10/05/19 09:01 Estimated GFR 22 ml/min 10/05/19 09:01 BUN/Creatinine Ratio 17 % 10/05/19 09:01 Glucose 159 mg/dL (65-100) H 10/05/19 09:01 POC Glucose 167 (70-105) H 10/05/19 12:15 Calcium 8.6 mg/dL (8.4-10.2) 10/05/19 09:01 Magnesium 2.00 mg/dL (1.7-2.3) 10/03/19 18:40 Total Bilirubin 0.20 mg/dL (0.1-1.2) 10/05/19 09:01 AST 19 units/L (5-40) 10/05/19 09:01 ALT 20 units/L (7-56) 10/05/19 09:01 Alkaline Phosphatase 96 units/L (35-129) 10/05/19 09:01 Total Creatine Kinase 64 units/L (30-135) 10/03/19 18:40 Troponin T 0.034 ng/mL (0.00-0.029) H 10/03/19 18:40 NT-Pro-B Natriuret Pep 86242 pg/mL (0-450) H 10/03/19 18:40 Total Protein 7.4 g/dL (6.3-8.2) 10/05/19 09:01 Albumin 3.0 g/dL (3.9-5) L 10/05/19 09:01 Albumin/Globulin Ratio 0.7 % 10/05/19 09:01 Triglycerides 149 mg/dL (2-149) 10/03/19 18:40 Cholesterol 268 mg/dL (50-199) H 10/03/19 18:40 LDL Cholesterol Direct 176 mg/dL (50-130) H 10/03/19 18:40 HDL Cholesterol 74 mg/dL (40-59) H 10/03/19 18:40 Cholesterol/HDL Ratio 3.62 % 10/03/19 18:40 Urine Color Straw (Yellow) 10/03/19 18:46 Urine Turbidity Clear (Clear) 10/03/19 18:46 Urine pH 7.0 (5.0-7.0) 10/03/19 18:46 Ur Specific [place] 1.013 (1.003-1.030) 10/03/19 18:46 Urine Protein >500 mg/dL (Negative) 10/03/19 18:46 Urine Glucose (UA) >=500 mg/dL (Negative) 10/03/19 18:46 Urine Ketones Neg mg/dL (Negative) 10/03/19 18:46 Urine Blood Sm (Negative) 10/03/19 18:46 Urine Nitrite Neg (Negative) 10/03/19 18:46 Urine Bilirubin Neg (Negative) 10/03/19 18:46 Urine Urobilinogen < 2.0 mg/dL (<2.0) 10/03/19 18:46 Ur Leukocyte Esterase Mod (Negative) 10/03/19 18:46 Urine WBC (Auto) 20.0 /HPF (0.0-6.0) H 10/03/19 18:46 Urine RBC (Auto) 28.0 /HPF (0.0-6.0) 10/03/19 18:46 U Epithel Cells (Auto) 2.0 /HPF (0-13.0) 10/03/19 18:46 Urine Bacteria (Auto) 1+ /HPF (Negative) 10/03/19 18:46 Hyaline Casts 2 /LPF 10/03/19 18:46 Urine Yeast (Budding) Few /HPF 10/03/19 18:46 Active Medications - Current Medications Current Medications: Generic Name Dose Route Start Last Admin Trade Name Freq PRN Reason Stop Dose Admin Acetaminophen 325 mg 10/03/19 23:00 10/05/19 12:30 Tylenol PO 325 mg Q4H PRN Administration Pain MILD(1-3)/Fever >100.5/MUNOZ Lipase/Protease/Amylase 1 each 10/03/19 23:[address] 10,500 Unit FEEDTUBE PRN PRN For Clogged Feeding Tube Aspirin 81 mg 10/04/19 10:00 10/05/19 10:06 Halfprin Ec PO 81 mg DAILY KYE Administration Atorvastatin Calcium 80 mg 10/04/19 22:00 10/04/19 22:25 Lipitor PO 80 mg QHS KYE Administration Bisacodyl 10 mg 10/03/19 23:00 Dulcolax [place] QDAY PRN Constipation Brimonidine/Timolol 1 drops 10/04/19 10:00 10/05/19 12:48 Combigan 0.2-0.5% OU 1 drops Q12HR KYE Administration Citalopram Hydrobromide 10 mg 10/04/19 10:00 10/05/19 12:30 Celexa PO 10 mg QDAY KYE Administration Clopidogrel Bisulfate 75 mg 10/04/19 10:00 10/05/19 10:06 Plavix PO 75 mg QDAY KYE Administration Cyclobenzaprine HCl 10 mg 10/03/19 23:00 Flexeril PO TID PRN Muscle Spasm Heparin Sodium (Porcine) 5,000 unit 10/04/19 10:00 10/05/19 10:06 Heparin SUB-Q 5,000 unit Q12HR KYE Administration Hydralazine HCl 10 mg 10/03/19 23:06 Apresoline IV Q30MIN PRN Blood Pressure Ceftriaxone Sodium 2 gm in 100 mls @ 200 mls/hr 10/04/19 10:00 10/05/19 12:34 Rocephin/Ns 2 Gm/100 Ml IV 200 mls/hr Q24HR KYE Administration Protocol Insulin Glargine 20 units 10/05/19 22:00 Lantus SUB-Q QHS KYE Insulin Human Lispro 0 unit 10/04/19 09:00 10/04/19 22:25 Humalog SUB-Q 6 unit ACHS KYE Administration Protocol Magnesium Hydroxide 30 ml 10/03/19 23:00 10/05/19 10:06 Milk Of Magnesia PO 30 ml Q4H PRN Administration Constipation Nifedipine 30 mg 10/04/19 16:00 10/05/19 10:05 Procardia Xl PO 30 mg QDAY KYE Administration Simple Syrup 15 ml 10/03/19 23:00 Simple Syrup FEEDTUBE PRN PRN Hypoglycemia Simple Syrup 30 ml 10/03/19 23:00 Simple Syrup FEEDTUBE PRN PRN Hypoglycemia Sodium Bicarbonate 325 mg 10/03/19 23:00 Sodium Bicarbonate FEEDTUBE PRN PRN For Clogged Feeding Tube Valsartan 160 mg 10/03/19 23:45 10/05/19 10:05 Diovan PO 160 mg BID KYE Administration Nutrition/Malnutrition Assess - Dietary Evaluation Nutrition/Malnutrition Findings: Nutrition Notes Start: 10/04/19 10:54 Freq: Status: Active Protocol: Document 10/04/19 11:29 LP (Rec: 10/04/19 11:31 LP [id number]) Nutrition Notes 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 Pt food preferences noted. Pt wanting diet education on heart and DM. Minimum of two criteria No physical signs of malnutrition #1 Nutrition Diagnosis Food and nutrition-related knowledge deficit Etiology DM and cardiac diet As Evidenced by Signs and Symptoms Pt not following DM and cardiac diet at home Nutrition Intervention Teaching Recipient Patient Learning Readiness Good Teaching Methods Discussion,Handout Response to Teaching Verbalize understanding Education Handouts Provided Consistent CHO and Stroke nutrition therapy Barriers to Learning No Barriers RD phone number provided Yes Patient aware of follow up options Yes Follow-Up By: 10/05/19 Additional Comments Follow for diet education questions - Malnutrition Assessment Minimum of two criteria: Yes - Attestation Statement I have reviewed and agreed w/ Malnutrition eval & tx plan: Yes
[2019-10-05] MEDS: INSULIN LISPRO 100 UNIT/ML SUB-Q SCH ×3 (13:38→22:31)
[2019-10-05] MEDS ORDERED: hydrALAZINE 25 MG TAB PO SCH (14:00)
--- NOTE | 2019-10-05 18:07 | Progress Note ---
Assessment and Plan Imp: 1. Accelerated HTN/hypertensive urgency 2. Acute respiratory failure, hypoxia 3. Pulm edema/pleural effusions due to #1 4. CKD 5. Normocytic anemia, probably due to renal disease Rec: 1. Cr has been 2.1 or > since 05/2019 in the [facility]; await renal consult 2. Echo 06/2019 showed normal LVEF, + diastolic dysfunction and severely dilated LA; resume home dose of Lasix 40mg daily 3. Resume home Coreg 25mg BID, Nifedipine long-acting 60mg daily, and Hydralazine 100mg BID 4. F/u CXR periodically although doing okay on RA currently Plan of care reviewed with patient, she understands/agrees Subjective Date of service: 10/05/19 Principal diagnosis: pulm edema Interval history: Feeling better. SOB better. BP still high. No chest pain. On RA. Active Medications Acetaminophen (Tylenol) 325 mg PO Q4H PRN PRN Reason: Pain MILD(1-3)/Fever >100.5/MUNOZ Last Admin: 10/05/19 12:30 Dose: 325 mg Documented by: Lipase/Protease/Amylase (Danny Cruz 10,500 Unit) 1 each FEEDTUBE PRN PRN PRN Reason: For Clogged Feeding Tube Aspirin (Halfprin Ec) 81 mg PO DAILY [facility] Last Admin: 10/05/19 10:06 Dose: 81 mg Documented by: Atorvastatin Calcium (Lipitor) 80 mg PO QHS [facility] Last Admin: 10/04/19 22:25 Dose: 80 mg Documented by: Bisacodyl (Dulcolax) 10 mg [place] QDAY PRN PRN Reason: Constipation Brimonidine/Timolol (Combigan 0.2-0.5%) 1 drops OU Q12HR [facility] Last Admin: 10/05/19 12:48 Dose: 1 drops Documented by: Carvedilol (Coreg) 25 mg PO BID [facility] Citalopram Hydrobromide (Celexa) 10 mg PO QDAY [facility] Last Admin: 10/05/19 12:30 Dose: 10 mg Documented by: Clopidogrel Bisulfate (Plavix) 75 mg PO QDAY [facility] Last Admin: 10/05/19 10:06 Dose: 75 mg Documented by: Cyclobenzaprine HCl (Flexeril) 10 mg PO TID PRN PRN Reason: Muscle Spasm Furosemide (Lasix) 40 mg PO QDAY [facility] Heparin Sodium (Porcine) (Heparin) 5,000 unit SUB-Q Q12HR [facility] Last Admin: 10/05/19 10:06 Dose: 5,000 unit Documented by: Hydralazine HCl (Apresoline) 10 mg IV Q30MIN PRN PRN Reason: Blood Pressure Hydralazine HCl (Apresoline) 100 mg PO BID [facility] Ceftriaxone Sodium (Rocephin/Ns 2 Gm/100 Ml) 2 gm in 100 mls @ 200 mls/hr IV Q24HR [facility]; Protocol Last Admin: 10/05/19 12:34 Dose: 200 mls/hr Documented by: Insulin Glargine (Lantus) 20 units SUB-Q QHS [facility] Insulin Human Lispro (Humalog) 0 unit SUB-Q ACHS [facility]; Protocol Last Admin: 10/05/19 13:39 Dose: Not Given Documented by: Magnesium Hydroxide (Milk Of Magnesia) 30 ml PO Q4H PRN PRN Reason: Constipation Last Admin: 10/05/19 10:06 Dose: 30 ml Documented by: Nifedipine (Procardia Xl) 60 mg PO QDAY [facility] Simple Syrup (Simple Syrup) 15 ml FEEDTUBE PRN PRN PRN Reason: Hypoglycemia Simple Syrup (Simple Syrup) 30 ml FEEDTUBE PRN PRN PRN Reason: Hypoglycemia Sodium Bicarbonate (Sodium Bicarbonate) 325 mg FEEDTUBE PRN PRN PRN Reason: For Clogged Feeding Tube Valsartan (Diovan) 160 mg PO BID [facility] Last Admin: 10/05/19 10:05 Dose: 160 mg Documented by: Objective Vital Signs - 12hr 10/05/19 10/05/19 10/05/19 08:42 08:46 10:05 Temperature 97.9 F Pulse Rate 76 86 87 Pulse Rate [ 87 From Monitor] Respiratory 18 Rate Blood Pressure 190/121 191/120 O2 Sat by Pulse 94 Oximetry 10/05/19 13:51 Temperature 97.7 F Pulse Rate 88 Pulse Rate [ From Monitor] Respiratory 18 Rate Blood Pressure 201/123 O2 Sat by Pulse 94 Oximetry Constitutional: no acute distress, alert Eyes: non-icteric ENT: oropharynx moist Neck: supple Effort: normal Ascultation: Bilateral: diminished breath sounds (bases) Cardiovascular: regular rate and rhythm (no mrg) Gastrointestinal: normoactive bowel sounds, soft, non-tender, non-distended Integumentary: normal Extremities: no cyanosis, no edema, pink and warm Neurologic: normal mental status, other (LUE weakness, dysarthria) Psychiatric: mood appropriate, affect normal CBC and BMP: 10/05/19 09:01 10/05/19 09:01 ABG, PT/INR, D-dimer: ABG POC ABG pH 7.336 (7.35-7.45) L 10/03/19 18:34 ABG pH 7.378 pH Units (7.350-7.450) 10/03/19 18:40 POC ABG pCO2 44.2 (35-45) 10/03/19 18:34 ABG pCO2 37.7 mm Hg 10/03/19 18:40 POC ABG pO2 147 (80-105) H 10/03/19 18:34 ABG pO2 82.9 mm Hg (80.0-90.0) 10/03/19 18:40 POC ABG HCO3 23.6 (22-26 mml/L) 10/03/19 18:34 POC ABG Total CO2 25 (23-27mmol/L) 10/03/19 18:34 POC ABG O2 Sat 99 10/03/19 18:34 ABG O2 Saturation 96.8 % (95.0-99.0) 10/03/19 18:40 PT/INR, D-dimer PT 14.2 Sec. (12.2-14.9) 10/03/19 18:40 INR 1.11 (0.87-1.13) 10/03/19 18:40 Abnormal lab findings: Abnormal Labs 10/03/19 10/03/19 10/03/19 18:34 18:40 18:40 WBC 13.8 H RBC 2.67 L Hgb 8.0 L Hct 24.5 L Lymph % (Auto) Seg Neutrophils % Seg Neuts % (Manual) 93.0 H Lymphocytes % (Manual) 4.0 L Seg Neutrophils # Seg Neutrophils # Man 12.8 H Lymphocytes # (Manual) 0.6 L POC ABG pH 7.336 L POC ABG pO2 147 H ABG Base Excess ABG Hemoglobin Oxyhemoglobin Sodium Carbon Dioxide 19 L BUN 30 H Creatinine 2.5 H Glucose 474 H POC Glucose Calcium 8.1 L Troponin T 0.034 H NT-Pro-B Natriuret Pep Albumin 2.8 L Cholesterol 268 H LDL Cholesterol Direct 176 H HDL Cholesterol 74 H Urine WBC (Auto) 10/03/19 10/03/19 10/03/19 18:40 18:40 18:46 WBC RBC Hgb Hct Lymph % (Auto) Seg Neutrophils % Seg Neuts % (Manual) Lymphocytes % (Manual) Seg Neutrophils # Seg Neutrophils # Man Lymphocytes # (Manual) POC ABG pH POC ABG pO2 ABG Base Excess -3.1 L ABG Hemoglobin 9.2 L Oxyhemoglobin 92.2 L Sodium Carbon Dioxide BUN Creatinine Glucose POC Glucose Calcium Troponin T NT-Pro-B Natriuret Pep 44871 H Albumin Cholesterol LDL Cholesterol Direct HDL Cholesterol Urine WBC (Auto) 20.0 H 10/03/19 10/03/19 10/04/19 19:50 21:27 00:15 WBC RBC Hgb Hct Lymph % (Auto) Seg Neutrophils % Seg Neuts % (Manual) Lymphocytes % (Manual) Seg Neutrophils # Seg Neutrophils # Man Lymphocytes # (Manual) POC ABG pH POC ABG pO2 ABG Base Excess ABG Hemoglobin Oxyhemoglobin Sodium Carbon Dioxide BUN Creatinine Glucose POC Glucose 473 H 329 H 325 H Calcium Troponin T NT-Pro-B Natriuret Pep Albumin Cholesterol LDL Cholesterol Direct HDL Cholesterol Urine WBC (Auto) 10/04/19 10/04/19 10/04/19 06:33 08:52 13:05 WBC RBC Hgb Hct Lymph % (Auto) Seg Neutrophils % Seg Neuts % (Manual) Lymphocytes % (Manual) Seg Neutrophils # Seg Neutrophils # Man Lymphocytes # (Manual) POC ABG pH POC ABG pO2 ABG Base Excess ABG Hemoglobin Oxyhemoglobin Sodium Carbon Dioxide BUN Creatinine Glucose POC Glucose 439 H 424 H 398 H Calcium Troponin T NT-Pro-B Natriuret Pep Albumin Cholesterol LDL Cholesterol Direct HDL Cholesterol Urine WBC (Auto) 10/04/19 10/04/19 10/05/19 16:46 21:09 09:01 WBC 15.2 H RBC 2.88 L Hgb 8.6 L Hct 26.6 L Lymph % (Auto) 10.9 L Seg Neutrophils % 84.7 H Seg Neuts % (Manual) Lymphocytes % (Manual) Seg Neutrophils # 12.9 H Seg Neutrophils # Man Lymphocytes # (Manual) POC ABG pH POC ABG pO2 ABG Base Excess ABG Hemoglobin Oxyhemoglobin Sodium Carbon Dioxide BUN Creatinine Glucose POC Glucose 349 H 305 H Calcium Troponin T NT-Pro-B Natriuret Pep Albumin Cholesterol LDL Cholesterol Direct HDL Cholesterol Urine WBC (Auto) 10/05/19 10/05/19 10/05/19 09:01 09:08 12:15 WBC RBC Hgb Hct Lymph % (Auto) Seg Neutrophils % Seg Neuts % (Manual) Lymphocytes % (Manual) Seg Neutrophils # Seg Neutrophils # Man Lymphocytes # (Manual) POC ABG pH POC ABG pO2 ABG Base Excess ABG Hemoglobin Oxyhemoglobin Sodium 134 L Carbon Dioxide 18 L BUN 49 H Creatinine 2.9 H Glucose 159 H POC Glucose 179 H 167 H Calcium Troponin T NT-Pro-B Natriuret Pep Albumin 3.0 L Cholesterol LDL Cholesterol Direct HDL Cholesterol Urine WBC (Auto) 10/05/19 17:40 WBC RBC Hgb Hct Lymph % (Auto) Seg Neutrophils % Seg Neuts % (Manual) Lymphocytes % (Manual) Seg Neutrophils # Seg Neutrophils # Man Lymphocytes # (Manual) POC ABG pH POC ABG pO2 ABG Base Excess ABG Hemoglobin Oxyhemoglobin Sodium Carbon Dioxide BUN Creatinine Glucose POC Glucose 124 H Calcium Troponin T NT-Pro-B Natriuret Pep Albumin Cholesterol LDL Cholesterol Direct HDL Cholesterol Urine WBC (Auto) Chest x-ray: report reviewed, image reviewed (bilateral effusions/edema unchanged)
[2019-10-05] MEDS: FUROSEMIDE 40 MG TAB PO SCH (18:30)
[2019-10-05] MEDS: carvediloL 25 MG TAB PO SCH (21:29)
[2019-10-05] MEDS: hydrALAZINE 25 MG TAB PO SCH (21:29)
[2019-10-05] MEDS: INSULIN GLARGINE 100 UNITS/ML SUB-Q SCH (21:32)
[2019-10-05] MEDS: CYCLOBENZAPRINE 10 MG TAB PO PRN (22:52)
[2019-10-06] MEDS: hydrALAZINE 20 MG/1 ML INJ IV PRN ×2 (04:22→08:36)
[2019-10-06] MEDS: INSULIN LISPRO 100 UNIT/ML SUB-Q SCH ×4 (08:00→22:25)
--- NOTE | 2019-10-06 09:27 | Consultation ---
History of Present Illness - Reason for Consult Consult date: 10/06/19 acute renal failure, chronic renal failure, proteinuria - History of Present Illness This is 39 yo AAF with history of CVA with residual left-sided hemiparesis, hypertension, seizure d/o, Type 2 DM, uncontrolled, who presented to the [facility] ER [facility] complaints of acute respiratory distress. Upon arrival, patient on BiPAP, saturating 88% on BiPAP therapy, in moderate to severe respiratory distress. Emergency medical services gave steroids, albuterol, and Lasix prior to arrival. BP on admission was as high as 210/110mmHg, initially requiring cardene gtt. Labs showed elevated BUN/Cr at 49/2.9mg/dl for which renal consult is requested. Pt denies recent NSAIDS use or IV contrast exposure, pt is not aware of underlying renal disease. previous Cr was 0.6mg/dl in 11/2017. Pt was found to have uncontrolled DM along with significant proteinuria on UA. Past History Past Medical History: hypertension, hyperlipidemia Medications and Allergies Allergies Allergy/AdvReac Type Severity Reaction Status Date / Time No Known Allergies Allergy Unverified 11/20/14 03:04 Home Medications Medication Instructions Recorded Confirmed Last Taken Type Acetaminophen [Acetaminophen TAB] 325 mg PO Q4H PRN #30 tablet 11/19/17 11/21/17 Unknown Rx Aspirin [Aspirin EC] 81 mg PO DAILY #30 11/19/17 11/21/17 1 Day Ago Rx ~11/20/17 AtorvaSTATin [Lipitor] 80 mg PO QHS #30 day 11/19/17 11/21/17 1 Day Ago Rx ~11/20/17 Bisacodyl [Dulcolax suppos] 10 mg [place] QDAY PRN #7 supp.rect 11/19/17 11/21/17 Unknown Rx Brimonidine/Timolol 0.2-0.5% 1 drops OU Q12HR #1 bottle 11/19/17 11/21/17 1 Day Ago Rx [Combigan 0.2-0.5%] ~11/20/17 Citalopram [celeXA] 10 mg PO QDAY #30 11/19/17 11/21/17 1 Day Ago Rx ~11/20/17 Clopidogrel [Plavix] 75 mg PO QDAY #30 11/19/17 11/21/17 1 Day Ago Rx ~11/20/17 Cyclobenzaprine [Flexeril 10 MG 10 mg PO TID PRN #30 day 11/19/17 11/21/17 Unknown Rx TAB] Lipase/Protease/Amylase [Pancreaze 1 each FEEDTUBE PRN PRN #30 capsule 11/19/17 11/21/17 Unknown Rx 10,500 Unit] Magnesium Hydroxide [Milk of 30 ml PO Q4H PRN #30 oral.liqd 11/19/17 11/21/17 Unknown Rx Magnesia] Petrolatum,White [Vaseline Lip 1 applic TP DIRECT PRN #30 tube 11/19/17 11/21/17 Unknown Rx Therapy] Simple Syrup 15 ml FEEDTUBE PRN PRN #30 11/19/17 11/21/17 Unknown Rx oral.liqd Simple Syrup 30 ml FEEDTUBE PRN PRN #30 11/19/17 11/21/17 Unknown Rx oral.liqd Sodium Bicarbonate 325 mg FEEDTUBE PRN PRN #30 tablet 11/19/17 11/21/17 Unknown Rx amLODIPine 5 mg PO QDAY #30 tablet 11/19/17 11/21/17 1 Day Ago Rx ~11/20/17 NIFEdipine [Nifedipine ER] 10 mg PO TID 11/21/17 11/21/17 1 Day Ago History ~11/20/17 Detemir (Nf) [Levemir (Nf)] 10 units SUB-Q QHS units 11/28/17 Unknown Rx Active Meds: Active Medications Acetaminophen (Tylenol) 325 mg PO Q4H PRN PRN Reason: Pain MILD(1-3)/Fever >100.5/MUNOZ Last Admin: 10/05/19 18:30 Dose: 325 mg Documented by: Lipase/Protease/Amylase (Danny Cruz 10,500 Unit) 1 each FEEDTUBE PRN PRN PRN Reason: For Clogged Feeding Tube Aspirin (Halfprin Ec) 81 mg PO DAILY [facility] Last Admin: 10/05/19 10:06 Dose: 81 mg Documented by: Atorvastatin Calcium (Lipitor) 80 mg PO QHS [facility] Last Admin: 10/05/19 21:30 Dose: 80 mg Documented by: Bisacodyl (Dulcolax) 10 mg [place] QDAY PRN PRN Reason: Constipation Brimonidine/Timolol (Combigan 0.2-0.5%) 1 drops OU Q12HR [facility] Last Admin: 10/05/19 21:56 Dose: 1 drops Documented by: Carvedilol (Coreg) 25 mg PO BID [facility] Last Admin: 10/05/19 21:29 Dose: 25 mg Documented by: Citalopram Hydrobromide (Celexa) 10 mg PO QDAY [facility] Last Admin: 10/05/19 12:30 Dose: 10 mg Documented by: Clopidogrel Bisulfate (Plavix) 75 mg PO QDAY [facility] Last Admin: 10/05/19 10:06 Dose: 75 mg Documented by: Cyclobenzaprine HCl (Flexeril) 10 mg PO TID PRN PRN Reason: Muscle Spasm Last Admin: 10/05/19 22:52 Dose: 10 mg Documented by: Furosemide (Lasix) 40 mg PO QDAY [facility] Last Admin: 10/05/19 18:30 Dose: 40 mg Documented by: Heparin Sodium (Porcine) (Heparin) 5,000 unit SUB-Q Q12HR [facility] Last Admin: 10/05/19 21:32 Dose: 5,000 unit Documented by: Hydralazine HCl (Apresoline) 10 mg IV Q30MIN PRN PRN Reason: Blood Pressure Last Admin: 10/06/19 08:36 Dose: 10 mg Documented by: Hydralazine HCl (Apresoline) 100 mg PO BID [facility] Last Admin: 10/05/19 21:29 Dose: 100 mg Documented by: Ceftriaxone Sodium (Rocephin/Ns 2 Gm/100 Ml) 2 gm in 100 mls @ 200 mls/hr IV Q24HR [facility]; Protocol Stop: 10/08/19 10:29 Last Admin: 10/05/19 12:34 Dose: 200 mls/hr Documented by: Insulin Glargine (Lantus) 20 units SUB-Q QHS [facility] Last Admin: 10/05/19 21:32 Dose: 20 units Documented by: Insulin Human Lispro (Humalog) 0 unit SUB-Q [facility]; Protocol Last Admin: 10/06/19 08:00 Dose: Not Given Documented by: Magnesium Hydroxide (Milk Of Magnesia) 30 ml PO Q4H PRN PRN Reason: Constipation Last Admin: 10/05/19 10:06 Dose: 30 ml Documented by: Nifedipine (Procardia Xl) 60 mg PO QDAY [facility] Simple Syrup (Simple Syrup) 15 ml FEEDTUBE PRN PRN PRN Reason: Hypoglycemia Simple Syrup (Simple Syrup) 30 ml FEEDTUBE PRN PRN PRN Reason: Hypoglycemia Sodium Bicarbonate (Sodium Bicarbonate) 325 mg FEEDTUBE PRN PRN PRN Reason: For Clogged Feeding Tube Valsartan (Diovan) 160 mg PO BID [facility] Last Admin: 10/05/19 21:30 Dose: 160 mg Documented by: Review of Systems All systems: negative Constitutional: weakness, malaise Cardiovascular: shortness of breath, dyspnea on exertion Exam - Vital Signs Vital signs: Vital Signs Pulse Resp BP Pulse Ox 117 H 25 H 221/135 100 10/03/19 17:57 10/03/19 17:57 10/03/19 17:57 10/03/19 17:57 - General Appearance General appearance: well-developed, well-nourished, appears stated age EENT: ATNC, PERRL, mucous membranes moist Neck: Present: neck supple Respiratory: Clear to Ascultation Heart: regular, S1S2 Gastrointestinal: Present: normoactive bowel sounds Integumentary: no rash, other (no edema ) Neurologic: no focal deficit, alert and oriented x3, strength 5/5 Psychiatric: mood/affect appropriate, cooperative Results - Lab Results 10/05/19 09:01 10/05/19 09:01 Most recent lab results ABG pH 7.378 pH Units (7.350-7.450) 10/03/19 18:40 ABG pCO2 37.7 mm Hg 10/03/19 18:40 ABG pO2 82.9 mm Hg (80.0-90.0) 10/03/19 18:40 ABG HCO3 21.7 mmol/L (20.0-26.0) 10/03/19 18:40 ABG O2 Saturation 96.8 % (95.0-99.0) 10/03/19 18:40 Calcium 8.6 mg/dL (8.4-10.2) 10/05/19 09:01 Magnesium 2.00 mg/dL (1.7-2.3) 10/03/19 18:40 Assessment and Plan - Patient Problems (1) ABHISHEK (acute kidney injury) Current Visit: Yes Status: Acute Plan to address problem: ABHISHEK most likely secondary to malignant HTN, superimposed on CKD. Given also evidence of significant glucosuria/proteinuria in the setting of uncontrolled T2DM, suspect underlying diabetic nephropathy along with hypertensive nephrosclerosis as cause of underlying CKD. will check urine lytes/ protein/cr ratio. Will also check C3/4, ELEANOR, ANCA, Anti GBM Ab given e/o mild hematuria along with significant proteinuria, hypertension, pulmonary edema to rule out acute vasculitic event. If renal function continues to decline will consider renal biopsy. Avoid nephrotoxins, NSAIDs, IV contrast. (2) Flash pulmonary edema Current Visit: Yes Status: Acute Plan to address problem: improved with BP control and diuresis with lasix. cont lasix 40mg po qd (3) Malignant hypertensive urgency Current Visit: Yes Status: Acute Plan to address problem: BP improved. montor BP on current meds (4) IDDM (insulin dependent diabetes mellitus) Current Visit: Yes Status: Chronic Plan to address problem: DM management as per primary attending (5) Anemia in chronic illness Current Visit: Yes Status: Acute Plan to address problem: check irons stores. consider ISIDORO if iron store is replete
[2019-10-06] MEDS: cefTRIAXone/NS 2 GM/100 ML 2 GM/100 ML BAG IV SCH (10:08)
[2019-10-06] MEDS: ASPIRIN EC 81 MG TAB PO SCH (10:09)
[2019-10-06] MEDS: VALSARTAN 160MG TAB PO SCH ×2 (10:09→21:54)
[2019-10-06] MEDS: hydrALAZINE 25 MG TAB PO SCH ×2 (10:09→21:46)
[2019-10-06] MEDS: CITALOPRAM 10 MG TAB PO SCH (10:09)
[2019-10-06] MEDS: NIFEdipine XL 30 MG TAB PO SCH (10:09)
[2019-10-06] MEDS: CLOPIDOGREL 75 MG TAB PO SCH (10:09)
[2019-10-06] MEDS: FUROSEMIDE 40 MG TAB PO SCH (10:10)
[2019-10-06] MEDS: HEPARIN 5,000 UNIT/1 ML VIAL SUB-Q SCH ×2 (10:10→21:47)
[2019-10-06] MEDS: carvediloL 25 MG TAB PO SCH ×2 (10:10→21:46)
[2019-10-06] MEDS: CYCLOBENZAPRINE 10 MG TAB PO PRN ×2 (10:23→21:53)
[2019-10-06] MEDS: COMBIGAN 0.2-0.5% OPHTH SOLN OU SCH (10:36)
--- NOTE | 2019-10-06 12:06 | Progress Note ---
Assessment and Plan Assessment and plan: 39-year-old female with history of stroke, left-sided hemiparesis, hypertension, seizure, diabetes brought to the hospital by emergency medical services for acute respiratory distress. Upon arrival, patient on BiPAP, saturating 88% on BiPAP therapy, in moderate to severe respiratory distress. Emergency medical services gave steroids, albuterol, and Lasix prior to arrival. Upon initial evaluation, patient is awake, protecting airway, in moderate to severe respiratory distress, with cool clammy skin, diaphoresis, and markedly high BP--- systolic blood pressure in the 220s. Patient Now off OF BIPAP Patient not able to describe exacerbating or relieving factors. Patient has a PEG tube sec to Dysphagia caused by CVA - Patient Problems (1) ABHISHEK (acute kidney injury) SECONDARY TO ATN AND POSSIBLE UNDERLYING HYPTERNSIVE RENAL DISEASE Current Visit: Yes Status: Acute Plan to address problem: Patient with acute on chronic kidney disease. Chronic most likely secondary to hypertensive renal disease. Nephrology consult for further recommendations. Low-salt diet. Continue all renal toxic medications. she appears to be close to her baseline in renal (2) Flash pulmonary edema Current Visit: Yes Status: Acute Plan to address problem: Patient flash pulmonary edema this was reason for acute respiratory failure resolving. (3) Malignant hypertensive urgency Current Visit: Yes Status: Acute Plan to address problem: Patient's blood pressure has begin to go back up on day 2 after being weaned f rom nitroglycerin drip. Home medications restarted, improvement in BP noed (4) CAD (coronary artery disease) Current Visit: Yes Status: Chronic Qualifiers: Coronary Disease-Associated Artery/Lesion type: [place] artery [place] vs. transplanted heart: [place] heart Plan to address problem: Patient is not having chest pain shortness of breath at this particular time stable coronary artery disease. (5) IDDM (insulin dependent diabetes mellitus) Current Visit: Yes Status: Chronic Plan to address problem: Diabetes remains uncontrolled we'll increase Lantus to 20 units daily at bedtime and increase to moderate dose sliding scale. (6) History of CVA with residual deficit Current Visit: No Status: Chronic Plan to address problem: Patient just has residual weakness. We'll continue to treat with aggressive antilipid's and antiplatelet therapy. Along with beta fish when blood pressure permits. (7) Acute respiratory failure Current Visit: Yes Status: Acute Plan to address problem: Initially secondary to flash pulmonary edema with underlying etiology of hypertensive crisis. Resolving after blood pressure improved. (8) Acute cystitis; monitor culture. continue abx anticipae discharge in am if patients BP remains stable History Interval history: Patient seen and examined, asked when she can go home. No new complaints at this time. BP still elevated but showing some improvement Hospitalist Physical - Physical exam Narrative exam: General appearance: Present: no acute distress, well-nourished - EENT Eyes: Present: PERRL, EOM intact ENT: hearing intact, clear oral mucosa, dentition normal - Neck Neck: Present: supple, normal ROM - Respiratory Respiratory: bilateral: rhonchi - Cardiovascular Heart Sounds: Present: S1 & S2 - Extremities Extremities: no ischemia, pulses intact, pulses symmetrical, No edema Peripheral Pulses: within normal limits - Abdominal General gastrointestinal: soft, non-tender, non-distended, normal bowel sounds, no hepatomegaly, no splenomegaly - Integumentary Integumentary: Present: clear, warm, dry - Psychiatric Psychiatric: appropriate mood/affect, intact judgment & insight, memory intact, dysartheria - Neurologic Neurologic: CNII-XII intact, moves all extremities - Constitutional Vitals: Temp Pulse Resp BP Pulse Ox 97.9 F 88 18 130/77 95 10/06/19 10:56 10/06/19 10:56 10/06/19 10:56 10/06/19 10:56 10/06/19 10:56 General appearance: Present: no acute distress, well-nourished Results - Labs CBC & Chem 7: 10/05/19 09:01 10/05/19 09:01 Labs: Laboratory Last Values WBC 15.2 K/mm3 (4.5-11.0) H 10/05/19 09:01 RBC 2.88 M/mm3 (3.65-5.03) L 10/05/19 09:01 Hgb 8.6 gm/dl (10.1-14.3) L 10/05/19 09:01 Hct 26.6 % (30.3-42.9) L 10/05/19 09:01 MCV 92 fl (79-97) 10/05/19 09:01 MCH 30 pg (28-32) 10/05/19 09:01 MCHC 32 % (30-34) 10/05/19 09:01 RDW 13.7 % (13.2-15.2) 10/05/19 09:01 Plt Count 317 K/mm3 (140-440) 10/05/19 09:01 Lymph % (Auto) 10.9 % (13.4-35.0) L 10/05/19 09:01 Nance % (Auto) 4.1 % (0.0-7.3) 10/05/19 09:01 Eos % (Auto) 0.0 % (0.0-4.3) 10/05/19 09:01 Baso % (Auto) 0.3 % (0.0-1.8) 10/05/19 09:01 Lymph # 1.7 K/mm3 (1.2-5.4) 10/05/19 09:01 Nance # 0.6 K/mm3 (0.0-0.8) 10/05/19 09:01 Eos # 0.0 K/mm3 (0.0-0.4) 10/05/19 09:01 Baso # 0.0 K/mm3 (0.0-0.1) 10/05/19 09:01 Add Manual Diff Complete 10/03/19 18:40 Total Counted 100 10/03/19 18:40 Seg Neutrophils % 84.7 % (40.0-70.0) H 10/05/19 09:01 Seg Neuts % (Manual) 93.0 % (40.0-70.0) H 10/03/19 18:40 Band Neutrophils % 0 % 10/03/19 18:40 Lymphocytes % (Manual) 4.0 % (13.4-35.0) L 10/03/19 18:40 Reactive Lymphs % (Man) 0 % 10/03/19 18:40 Monocytes % (Manual) 2.0 % (0.0-7.3) 10/03/19 18:40 Eosinophils % (Manual) 1.0 % (0.0-4.3) 10/03/19 18:40 Basophils % (Manual) 0 % (0.0-1.8) 10/03/19 18:40 Metamyelocytes % 0 % 10/03/19 18:40 Myelocytes % 0 % 10/03/19 18:40 Promyelocytes % 0 % 10/03/19 18:40 Blast Cells % 0 % 10/03/19 18:40 Nucleated RBC % Not Reportable 10/03/19 18:40 Seg Neutrophils # 12.9 K/mm3 (1.8-7.7) H 10/05/19 09:01 Seg Neutrophils # Man 12.8 K/mm3 (1.8-7.7) H 10/03/19 18:40 Band Neutrophils # 0.0 K/mm3 10/03/19 18:40 Lymphocytes # (Manual) 0.6 K/mm3 (1.2-5.4) L 10/03/19 18:40 Abs React Lymphs (Man) 0.0 K/mm3 10/03/19 18:40 Monocytes # (Manual) 0.3 K/mm3 (0.0-0.8) 10/03/19 18:40 Eosinophils # (Manual) 0.1 K/mm3 (0.0-0.4) 10/03/19 18:40 Basophils # (Manual) 0.0 K/mm3 (0.0-0.1) 10/03/19 18:40 Metamyelocytes # 0.0 K/mm3 10/03/19 18:40 Myelocytes # 0.0 K/mm3 10/03/19 18:40 Promyelocytes # 0.0 K/mm3 10/03/19 18:40 Blast Cells # 0.0 K/mm3 10/03/19 18:40 WBC Morphology Not Reportable 10/03/19 18:40 Hypersegmented Neuts Not Reportable 10/03/19 18:40 Hyposegmented Neuts Not Reportable 10/03/19 18:40 Hypogranular Neuts Not Reportable 10/03/19 18:40 Smudge Cells Not Reportable 10/03/19 18:40 Toxic Granulation Not Reportable 10/03/19 18:40 Toxic Vacuolation Not Reportable 10/03/19 18:40 Dohle Bodies Not Reportable 10/03/19 18:40 Pelger-Huet Anomaly Not Reportable 10/03/19 18:40 Xiomy Rods Not Reportable 10/03/19 18:40 Platelet Estimate Consistent w auto 10/03/19 18:40 Clumped Platelets Not Reportable 10/03/19 18:40 Plt Clumps, EDTA Not Reportable 10/03/19 18:40 Large Platelets 1+ 11/23/19 18:40 Giant Platelets Not Reportable 10/03/19 18:40 Platelet Satelliting Not Reportable 10/03/19 18:40 Plt Morphology Comment Not Reportable 10/03/19 18:40 RBC Morphology Normal 10/03/19 18:40 Dimorphic RBCs Not Reportable 10/03/19 18:40 Polychromasia Not Reportable 10/03/19 18:40 Hypochromasia Not Reportable 10/03/19 18:40 Poikilocytosis Not Reportable 10/03/19 18:40 Anisocytosis Not Reportable 10/03/19 18:40 Microcytosis Not Reportable 10/03/19 18:40 Macrocytosis Not Reportable 10/03/19 18:40 Spherocytes Not Reportable 10/03/19 18:40 Pappenheimer Bodies Not Reportable 10/03/19 18:40 Sickle Cells Not Reportable 10/03/19 18:40 Target Cells Not Reportable 10/03/19 18:40 Tear Drop Cells Not Reportable 10/03/19 18:40 Ovalocytes Not Reportable 10/03/19 18:40 Helmet Cells Not Reportable 10/03/19 18:40 [place] Bodies Not Reportable 10/03/19 18:40 [place] Rings Not Reportable 10/03/19 18:40 Danna Cells Not Reportable 10/03/19 18:40 Bite Cells Not Reportable 10/03/19 18:40 Crenated Cell Not Reportable 10/03/19 18:40 Elliptocytes Not Reportable 10/03/19 18:40 Acanthocytes (Spur) Not Reportable 10/03/19 18:40 Rouleaux Not Reportable 10/03/19 18:40 Hemoglobin C Crystals Not Reportable 10/03/19 18:40 Schistocytes Not Reportable 10/03/19 18:40 Malaria parasites Not Reportable 10/03/19 18:40 Mundo Bodies Not Reportable 10/03/19 18:40 Hem Pathologist Commnt No 10/03/19 18:40 PT 14.2 Sec. (12.2-14.9) 10/03/19 18:40 INR 1.11 (0.87-1.13) 10/03/19 18:40 APTT 29.0 Sec. (24.2-36.6) 10/03/19 18:40 POC ABG pH 7.336 (7.35-7.45) L 10/03/19 18:34 ABG pH 7.378 pH Units (7.350-7.450) 10/03/19 18:40 POC ABG pCO2 44.2 (35-45) 10/03/19 18:34 ABG pCO2 37.7 mm Hg 10/03/19 18:40 POC ABG pO2 147 (80-105) H 10/03/19 18:34 ABG pO2 82.9 mm Hg (80.0-90.0) 10/03/19 18:40 POC ABG HCO3 23.6 (22-26 mml/L) 10/03/19 18:34 ABG HCO3 21.7 mmol/L (20.0-26.0) 10/03/19 18:40 POC ABG Total CO2 25 (23-27mmol/L) 10/03/19 18:34 POC ABG O2 Sat 99 10/03/19 18:34 ABG O2 Saturation 96.8 % (95.0-99.0) 10/03/19 18:40 ABG O2 Content 12.0 (0.0-44) 10/03/19 18:40 POC ABG Base Excess -2 ((-2) - (+3)mmol/L) 10/03/19 18:34 ABG Base Excess -3.1 mmol/L (-2.0-3.0) L 10/03/19 18:40 ABG Hemoglobin 9.2 gm/dl (12.0-16.0) L 10/03/19 18:40 ABG Carboxyhemoglobin 4.4 % (0.0-5.0) 10/03/19 18:40 ABG Methemoglobin 0.3 % (0.0-1.5) 10/03/19 18:40 VBG pH 7.378 (7.320-7.420) 10/03/19 18:40 Oxyhemoglobin 92.2 % (95.0-99.0) L 10/03/19 18:40 FiO2 21 % 10/03/19 18:40 Sodium 134 mmol/L (137-145) L 10/05/19 09:01 Potassium 4.2 mmol/L (3.6-5.0) 10/05/19 09:01 Chloride 99.0 mmol/L (98-107) 10/05/19 09:01 Carbon Dioxide 18 mmol/L (22-30) L 10/05/19 09:01 Anion Gap 21 mmol/L 10/05/19 09:01 BUN 49 mg/dL (7-17) H 10/05/19 09:01 Creatinine 2.9 mg/dL (0.7-1.2) H 10/05/19 09:01 Estimated GFR 22 ml/min 10/05/19 09:01 BUN/Creatinine Ratio 17 % 10/05/19 09:01 Glucose 159 mg/dL (65-100) H 10/05/19 09:01 POC Glucose 218 (70-105) H 10/06/19 11:00 Calcium 8.6 mg/dL (8.4-10.2) 10/05/19 09:01 Magnesium 2.00 mg/dL (1.7-2.3) 10/03/19 18:40 Total Bilirubin 0.20 mg/dL (0.1-1.2) 10/05/19 09:01 AST 19 units/L (5-40) 10/05/19 09:01 ALT 20 units/L (7-56) 10/05/19 09:01 Alkaline Phosphatase 96 units/L (35-129) 10/05/19 09:01 Total Creatine Kinase 64 units/L (30-135) 10/03/19 18:40 Troponin T 0.034 ng/mL (0.00-0.029) H 10/03/19 18:40 NT-Pro-B Natriuret Pep 46254 pg/mL (0-450) H 10/03/19 18:40 Total Protein 7.4 g/dL (6.3-8.2) 10/05/19 09:01 Albumin 3.0 g/dL (3.9-5) L 10/05/19 09:01 Albumin/Globulin Ratio 0.7 % 10/05/19 09:01 Triglycerides 149 mg/dL (2-149) 10/03/19 18:40 Cholesterol 268 mg/dL (50-199) H 10/03/19 18:40 LDL Cholesterol Direct 176 mg/dL (50-130) H 10/03/19 18:40 HDL Cholesterol 74 mg/dL (40-59) H 10/03/19 18:40 Cholesterol/HDL Ratio 3.62 % 10/03/19 18:40 Urine Color Straw (Yellow) 10/03/19 18:46 Urine Turbidity Clear (Clear) 10/03/19 18:46 Urine pH 7.0 (5.0-7.0) 10/03/19 18:46 Ur Specific Stella 1.013 (1.003-1.030) 10/03/19 18:46 Urine Protein >500 mg/dL (Negative) 10/03/19 18:46 Urine Glucose (UA) >=500 mg/dL (Negative) 10/03/19 18:46 Urine Ketones Neg mg/dL (Negative) 10/03/19 18:46 Urine Blood Sm (Negative) 10/03/19 18:46 Urine Nitrite Neg (Negative) 10/03/19 18:46 Urine Bilirubin Neg (Negative) 10/03/19 18:46 Urine Urobilinogen < 2.0 mg/dL (<2.0) 10/03/19 18:46 Ur Leukocyte Esterase Mod (Negative) 10/03/19 18:46 Urine WBC (Auto) 20.0 /HPF (0.0-6.0) H 10/03/19 18:46 Urine RBC (Auto) 28.0 /HPF (0.0-6.0) 10/03/19 18:46 U Epithel Cells (Auto) 2.0 /HPF (0-13.0) 10/03/19 18:46 Urine Bacteria (Auto) 1+ /HPF (Negative) 10/03/19 18:46 Hyaline Casts 2 /LPF 10/03/19 18:46 Urine Yeast (Budding) Few /HPF 10/03/19 18:46 Active Medications - Current Medications Current Medications: Generic Name Dose Route Start Last Admin Trade Name Freq PRN Reason Stop Dose Admin Acetaminophen 325 mg 10/03/19 23:00 10/05/19 18:30 Tylenol PO 325 mg Q4H PRN Administration Pain MILD(1-3)/Fever >100.5/MUNOZ Lipase/Protease/Amylase 1 each 10/03/19 23:[address] 10,500 Unit FEEDTUBE PRN PRN For Clogged Feeding Tube Aspirin 81 mg 10/04/19 10:00 10/06/19 10:09 Halfprin Ec PO 81 mg DAILY KYE Administration Atorvastatin Calcium 80 mg 10/04/19 22:00 10/05/19 21:30 Lipitor PO 80 mg QHS KYE Administration Bisacodyl 10 mg 10/03/19 23:00 Dulcolax [place] QDAY PRN Constipation Brimonidine/Timolol 1 drops 10/04/19 10:00 10/06/19 10:36 Combigan 0.2-0.5% OU 1 drops Q12HR KYE Administration Carvedilol 25 mg 10/05/19 22:00 10/06/19 10:10 Coreg PO 25 mg BID KYE Administration Citalopram Hydrobromide 10 mg 10/04/19 10:00 10/06/19 10:09 Celexa PO 10 mg QDAY KYE Administration Clopidogrel Bisulfate 75 mg 10/04/19 10:00 10/06/19 10:09 Plavix PO 75 mg QDAY KYE Administration Cyclobenzaprine HCl 10 mg 10/03/19 23:00 10/06/19 10:23 Flexeril PO 10 mg TID PRN Administration Muscle Spasm Furosemide 40 mg 10/05/19 19:00 10/06/19 10:10 Lasix PO 40 mg QDAY KYE Administration Heparin Sodium (Porcine) 5,000 unit 10/04/19 10:00 10/06/19 10:10 Heparin SUB-Q 5,000 unit Q12HR KYE Administration Hydralazine HCl 10 mg 10/03/19 23:06 10/06/19 08:36 Apresoline IV 10 mg Q30MIN PRN Administration Blood Pressure Hydralazine HCl 100 mg 10/05/19 22:00 10/06/19 10:09 Apresoline PO 100 mg BID KYE Administration Ceftriaxone Sodium 2 gm in 100 mls @ 200 mls/hr 10/04/19 10:00 10/06/19 10:08 Rocephin/Ns 2 Gm/100 Ml IV 10/08/19 10:29 200 mls/hr Q24HR KYE Administration Protocol Insulin Glargine 20 units 10/05/19 22:00 10/05/19 21:32 Lantus SUB-Q 20 units QHS KYE Administration Insulin Human Lispro 0 unit 10/04/19 09:00 10/06/19 08:00 Humalog SUB-Q Not Given ACHS KYE Protocol Magnesium Hydroxide 30 ml 10/03/19 23:00 10/05/19 10:06 Milk Of Magnesia PO 30 ml Q4H PRN Administration Constipation Nifedipine 60 mg 10/05/19 18:03 10/06/19 10:09 Procardia Xl PO 60 mg QDAY KYE Administration Simple Syrup 15 ml 10/03/19 23:00 Simple Syrup FEEDTUBE PRN PRN Hypoglycemia Simple Syrup 30 ml 10/03/19 23:00 Simple Syrup FEEDTUBE PRN PRN Hypoglycemia Sodium Bicarbonate 325 mg 10/03/19 23:00 Sodium Bicarbonate FEEDTUBE PRN PRN For Clogged Feeding Tube Valsartan 160 mg 10/03/19 23:45 10/06/19 10:09 Diovan PO 160 mg BID KYE Administration Nutrition/Malnutrition Assess - Dietary Evaluation Nutrition/Malnutrition Findings: Nutrition Notes Start: 10/04/19 10:54 Freq: Status: Active Protocol: Document 10/05/19 13:39 LP (Rec: 10/05/19 13:39 LP [id number]) Nutrition Notes Initial or Follow up Brief Note Subjective/Other Information Pt eating good. Pt food preferences updated and has no other diet education questions. Nutrition Intervention Revisit per MD consult or patient Sign Off request:
--- NOTE | 2019-10-06 14:56 | Progress Note ---
Assessment and Plan Imp: 1. Accelerated HTN/hypertensive urgency 2. Acute respiratory failure, hypoxia 3. Pulm edema/pleural effusions due to #1 4. CKD 5. Normocytic anemia, probably due to renal disease Rec: 1. Cr has been 2.1 or > since 05/2019 in the [place] system; F/u renal consult 2. Echo 06/2019 showed normal LVEF, + diastolic dysfunction and severely dilated LA; resume home dose of Lasix 40mg daily 3. Resumed home Coreg 25mg BID, Nifedipine long-acting 60mg daily, and Hydralazine 100mg BID; defer further optimization to renal/IMS 4. F/u CXR periodically although doing okay on RA currently Plan of care reviewed with patient, she understands/agrees Subjective Date of service: 10/06/19 Principal diagnosis: pulm edema Interval history: Feeling better. SOB better. BP still high. No chest pain. On RA. Active Medications Acetaminophen (Tylenol) 325 mg PO Q4H PRN PRN Reason: Pain MILD(1-3)/Fever >100.5/MUNOZ Last Admin: 10/05/19 18:30 Dose: 325 mg Documented by: Lipase/Protease/Amylase (Danny Cruz 10,500 Unit) 1 each FEEDTUBE PRN PRN PRN Reason: For Clogged Feeding Tube Aspirin (Halfprin Ec) 81 mg PO DAILY [facility] Last Admin: 10/06/19 10:09 Dose: 81 mg Documented by: Atorvastatin Calcium (Lipitor) 80 mg PO QHS [facility] Last Admin: 10/05/19 21:30 Dose: 80 mg Documented by: Bisacodyl (Dulcolax) 10 mg [place] QDAY PRN PRN Reason: Constipation Brimonidine/Timolol (Combigan 0.2-0.5%) 1 drops OU Q12HR [facility] Last Admin: 10/06/19 10:36 Dose: 1 drops Documented by: Carvedilol (Coreg) 25 mg PO BID [facility] Last Admin: 10/06/19 10:10 Dose: 25 mg Documented by: Citalopram Hydrobromide (Celexa) 10 mg PO QDAY [facility] Last Admin: 10/06/19 10:09 Dose: 10 mg Documented by: Clopidogrel Bisulfate (Plavix) 75 mg PO QDAY [facility] Last Admin: 10/06/19 10:09 Dose: 75 mg Documented by: Cyclobenzaprine HCl (Flexeril) 10 mg PO TID PRN PRN Reason: Muscle Spasm Last Admin: 10/06/19 10:23 Dose: 10 mg Documented by: Furosemide (Lasix) 40 mg PO QDAY [facility] Last Admin: 10/06/19 10:10 Dose: 40 mg Documented by: Heparin Sodium (Porcine) (Heparin) 5,000 unit SUB-Q Q12HR [facility] Last Admin: 10/06/19 10:10 Dose: 5,000 unit Documented by: Hydralazine HCl (Apresoline) 10 mg IV Q30MIN PRN PRN Reason: Blood Pressure Last Admin: 10/06/19 08:36 Dose: 10 mg Documented by: Hydralazine HCl (Apresoline) 100 mg PO BID [facility] Last Admin: 10/06/19 10:09 Dose: 100 mg Documented by: Ceftriaxone Sodium (Rocephin/Ns 2 Gm/100 Ml) 2 gm in 100 mls @ 200 mls/hr IV Q24HR [facility]; Protocol Stop: 10/08/19 10:29 Last Admin: 10/06/19 10:08 Dose: 200 mls/hr Documented by: Insulin Glargine (Lantus) 20 units SUB-Q QHS [facility] Last Admin: 10/05/19 21:32 Dose: 20 units Documented by: Insulin Human Lispro (Humalog) 0 unit SUB-Q ACHS [facility]; Protocol Last Admin: 10/06/19 08:00 Dose: Not Given Documented by: Magnesium Hydroxide (Milk Of Magnesia) 30 ml PO Q4H PRN PRN Reason: Constipation Last Admin: 10/05/19 10:06 Dose: 30 ml Documented by: Nifedipine (Procardia Xl) 60 mg PO QDAY [facility] Last Admin: 10/06/19 10:09 Dose: 60 mg Documented by: Simple Syrup (Simple Syrup) 15 ml FEEDTUBE PRN PRN PRN Reason: Hypoglycemia Simple Syrup (Simple Syrup) 30 ml FEEDTUBE PRN PRN PRN Reason: Hypoglycemia Sodium Bicarbonate (Sodium Bicarbonate) 325 mg FEEDTUBE PRN PRN PRN Reason: For Clogged Feeding Tube Valsartan (Diovan) 160 mg PO BID [facility] Last Admin: 10/06/19 10:09 Dose: 160 mg Documented by: Objective Vital Signs - 12hr 10/06/19 10/06/19 10/06/19 04:07 04:08 04:22 Temperature 97.5 F L Pulse Rate 86 86 Respiratory 18 Rate Blood Pressure 196/114 196/115 O2 Sat by Pulse 94 Oximetry 10/06/19 10/06/19 10/06/19 08:34 08:36 10:00 Temperature 98.0 F Pulse Rate 88 88 92 H Respiratory 18 20 Rate Blood Pressure 214/131 214/120 O2 Sat by Pulse 97 99 Oximetry 10/06/19 10/06/19 10/06/19 10:09 10:10 10:56 Temperature 97.9 F Pulse Rate 90 90 88 Respiratory 18 Rate Blood Pressure 190/115 190/115 130/77 O2 Sat by Pulse 95 Oximetry Constitutional: no acute distress, alert Eyes: non-icteric ENT: oropharynx moist Neck: supple Effort: normal Ascultation: Bilateral: diminished breath sounds (bases) Cardiovascular: regular rate and rhythm (no mrg) Gastrointestinal: normoactive bowel sounds, soft, non-tender, non-distended Integumentary: normal Extremities: no cyanosis, no edema, pink and warm Neurologic: normal mental status, other (LUE weakness, dysarthria) Psychiatric: mood appropriate, affect normal CBC and BMP: 10/05/19 09:01 10/05/19 09:01 ABG, PT/INR, D-dimer: ABG POC ABG pH 7.336 (7.35-7.45) L 10/03/19 18:34 ABG pH 7.378 pH Units (7.350-7.450) 10/03/19 18:40 POC ABG pCO2 44.2 (35-45) 10/03/19 18:34 ABG pCO2 37.7 mm Hg 10/03/19 18:40 POC ABG pO2 147 (80-105) H 10/03/19 18:34 ABG pO2 82.9 mm Hg (80.0-90.0) 10/03/19 18:40 POC ABG HCO3 23.6 (22-26 mml/L) 10/03/19 18:34 POC ABG Total CO2 25 (23-27mmol/L) 10/03/19 18:34 POC ABG O2 Sat 99 10/03/19 18:34 ABG O2 Saturation 96.8 % (95.0-99.0) 10/03/19 18:40 PT/INR, D-dimer PT 14.2 Sec. (12.2-14.9) 10/03/19 18:40 INR 1.11 (0.87-1.13) 10/03/19 18:40 Abnormal lab findings: Abnormal Labs 10/03/19 10/03/19 10/03/19 18:34 18:40 18:40 WBC 13.8 H RBC 2.67 L Hgb 8.0 L Hct 24.5 L Lymph % (Auto) Seg Neutrophils % Seg Neuts % (Manual) 93.0 H Lymphocytes % (Manual) 4.0 L Seg Neutrophils # Seg Neutrophils # Man 12.8 H Lymphocytes # (Manual) 0.6 L POC ABG pH 7.336 L POC ABG pO2 147 H ABG Base Excess ABG Hemoglobin Oxyhemoglobin Sodium Carbon Dioxide 19 L BUN 30 H Creatinine 2.5 H Glucose 474 H POC Glucose Calcium 8.1 L Troponin T 0.034 H NT-Pro-B Natriuret Pep Albumin 2.8 L Cholesterol 268 H LDL Cholesterol Direct 176 H HDL Cholesterol 74 H Urine WBC (Auto) 10/03/19 10/03/19 10/03/19 18:40 18:40 18:46 WBC RBC Hgb Hct Lymph % (Auto) Seg Neutrophils % Seg Neuts % (Manual) Lymphocytes % (Manual) Seg Neutrophils # Seg Neutrophils # Man Lymphocytes # (Manual) POC ABG pH POC ABG pO2 ABG Base Excess -3.1 L ABG Hemoglobin 9.2 L Oxyhemoglobin 92.2 L Sodium Carbon Dioxide BUN Creatinine Glucose POC Glucose Calcium Troponin T NT-Pro-B Natriuret Pep 53796 H Albumin Cholesterol LDL Cholesterol Direct HDL Cholesterol Urine WBC (Auto) 20.0 H 10/03/19 10/03/19 10/04/19 19:50 21:27 00:15 WBC RBC Hgb Hct Lymph % (Auto) Seg Neutrophils % Seg Neuts % (Manual) Lymphocytes % (Manual) Seg Neutrophils # Seg Neutrophils # Man Lymphocytes # (Manual) POC ABG pH POC ABG pO2 ABG Base Excess ABG Hemoglobin Oxyhemoglobin Sodium Carbon Dioxide BUN Creatinine Glucose POC Glucose 473 H 329 H 325 H Calcium Troponin T NT-Pro-B Natriuret Pep Albumin Cholesterol LDL Cholesterol Direct HDL Cholesterol Urine WBC (Auto) 10/04/19 10/04/19 10/04/19 06:33 08:52 13:05 WBC RBC Hgb Hct Lymph % (Auto) Seg Neutrophils % Seg Neuts % (Manual) Lymphocytes % (Manual) Seg Neutrophils # Seg Neutrophils # Man Lymphocytes # (Manual) POC ABG pH POC ABG pO2 ABG Base Excess ABG Hemoglobin Oxyhemoglobin Sodium Carbon Dioxide BUN Creatinine Glucose POC Glucose 439 H 424 H 398 H Calcium Troponin T NT-Pro-B Natriuret Pep Albumin Cholesterol LDL Cholesterol Direct HDL Cholesterol Urine WBC (Auto) 10/04/19 10/04/19 10/05/19 16:46 21:09 09:01 WBC 15.2 H RBC 2.88 L Hgb 8.6 L Hct 26.6 L Lymph % (Auto) 10.9 L Seg Neutrophils % 84.7 H Seg Neuts % (Manual) Lymphocytes % (Manual) Seg Neutrophils # 12.9 H Seg Neutrophils # Man Lymphocytes # (Manual) POC ABG pH POC ABG pO2 ABG Base Excess ABG Hemoglobin Oxyhemoglobin Sodium Carbon Dioxide BUN Creatinine Glucose POC Glucose 349 H 305 H Calcium Troponin T NT-Pro-B Natriuret Pep Albumin Cholesterol LDL Cholesterol Direct HDL Cholesterol Urine WBC (Auto) 10/05/19 10/05/19 10/05/19 09:01 09:08 12:15 WBC RBC Hgb Hct Lymph % (Auto) Seg Neutrophils % Seg Neuts % (Manual) Lymphocytes % (Manual) Seg Neutrophils # Seg Neutrophils # Man Lymphocytes # (Manual) POC ABG pH POC ABG pO2 ABG Base Excess ABG Hemoglobin Oxyhemoglobin Sodium 134 L Carbon Dioxide 18 L BUN 49 H Creatinine 2.9 H Glucose 159 H POC Glucose 179 H 167 H Calcium Troponin T NT-Pro-B Natriuret Pep Albumin 3.0 L Cholesterol LDL Cholesterol Direct HDL Cholesterol Urine WBC (Auto) 10/05/19 10/05/19 10/06/19 17:40 21:17 08:35 WBC RBC Hgb Hct Lymph % (Auto) Seg Neutrophils % Seg Neuts % (Manual) Lymphocytes % (Manual) Seg Neutrophils # Seg Neutrophils # Man Lymphocytes # (Manual) POC ABG pH POC ABG pO2 ABG Base Excess ABG Hemoglobin Oxyhemoglobin Sodium Carbon Dioxide BUN Creatinine Glucose POC Glucose 124 H 114 H 116 H Calcium Troponin T NT-Pro-B Natriuret Pep Albumin Cholesterol LDL Cholesterol Direct HDL Cholesterol Urine WBC (Auto) 10/06/19 11:00 WBC RBC Hgb Hct Lymph % (Auto) Seg Neutrophils % Seg Neuts % (Manual) Lymphocytes % (Manual) Seg Neutrophils # Seg Neutrophils # Man Lymphocytes # (Manual) POC ABG pH POC ABG pO2 ABG Base Excess ABG Hemoglobin Oxyhemoglobin Sodium Carbon Dioxide BUN Creatinine Glucose POC Glucose 218 H Calcium Troponin T NT-Pro-B Natriuret Pep Albumin Cholesterol LDL Cholesterol Direct HDL Cholesterol Urine WBC (Auto) Chest x-ray: report reviewed, image reviewed
--- NOTE | 2019-10-06 17:10 | Ultrasound Report ---
Renal ultrasound. 10/06/2019. HISTORY: Acute renal insufficiency. FINDINGS: Right kidney measures 9.7 x 4.4 x 5.5 cm. Cortex measures 8 mm. Left kidney measures 9.5 x 4.5 x 5.1 cm. Cortex measures 9 mm. Negative for mass or obstruction. Cortical echogenicity is increased on the right. The bladder contains moderate urine. IMPRESSION: 1. Mild increased right cortical echogenicity. 2. Mild cortical thinning bilaterally. Signer Name: David Payne MD Signed: 10/06/2019 5:05 PM Workstation Name: [id number]
[2019-10-06] MEDS: INSULIN GLARGINE 100 UNITS/ML SUB-Q SCH (22:25)
[2019-10-07] MEDS: hydrALAZINE 20 MG/1 ML INJ IV PRN ×3 (00:51→09:22)
[2019-10-07] MEDS: COMBIGAN 0.2-0.5% OPHTH SOLN OU SCH ×2 (00:53→09:26)
[2019-10-07 01:48] LABS: Creatinine,Urine 30.6 mg/dL (0.1-20.0)
[2019-10-07 04:53] LABS: Hemoglobin 9.2 gm/dl (10.1-14.3); Mean Corpuscular HGB Conc 33 % (30-34); Mean Corpuscular Volume 92 fl (79-97); Platelet Count 327 K/mm3 (140-440); Red Blood Count 3.05 M/mm3 (3.65-5.03); Red Cell Distribution Width 13.8 % (13.2-15.2)
[2019-10-07 04:59] LABS: Calcium 7.7 mg/dL (8.4-10.2)
[2019-10-07] MEDS ORDERED: POTASSIUM CHLORIDE ER 20 MEQ TAB PO ONE ×3 (08:00→14:02)
[2019-10-07] MEDS: cefTRIAXone/NS 2 GM/100 ML 2 GM/100 ML BAG IV SCH (09:21)
[2019-10-07] MEDS: NIFEdipine XL 30 MG TAB PO SCH (09:21)
[2019-10-07] MEDS: CLOPIDOGREL 75 MG TAB PO SCH (09:21)
[2019-10-07] MEDS: ASPIRIN EC 81 MG TAB PO SCH (09:22)
[2019-10-07] MEDS: FUROSEMIDE 40 MG TAB PO SCH (09:22)
[2019-10-07] MEDS: CITALOPRAM 10 MG TAB PO SCH (09:22)
[2019-10-07] MEDS: VALSARTAN 160MG TAB PO SCH (09:22)
[2019-10-07] MEDS: hydrALAZINE 25 MG TAB PO SCH (09:23)
[2019-10-07] MEDS: carvediloL 25 MG TAB PO SCH (09:24)
[2019-10-07] MEDS: HEPARIN 5,000 UNIT/1 ML VIAL SUB-Q SCH (09:34)
--- NOTE | 2019-10-07 09:37 | Progress Note ---
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 Given also evidence of significant glucosuria/proteinuria in the setting of uncontrolled T2DM, suspect underlying diabetic nephropathy along with hypertensive nephrosclerosis as cause of underlying CKD. will check urine lytes/ protein/cr ratio. Will also check C3/4, ELEANOR, ANCA, Anti GBM Ab given e/o mild hematuria along with significant proteinuria, hypertension, pulmonary edema to rule out acute vasculitic event. Pt otherwise stable for discharge from renal stand point with close outpatient CKD f/u. If renal function continues to decline will consider renal biopsy as outpatient, since pt is on plavix currently. Avoid nephrotoxins, NSAIDs, IV contrast. (2) Flash pulmonary edema Current Visit: Yes Status: Acute Plan to address problem: improved with BP control and diuresis with lasix. cont lasix 40mg po qd (3) Malignant hypertensive urgency Current Visit: Yes Status: Acute Plan to address problem: BP improved. montor BP on current meds (4) IDDM (insulin dependent diabetes mellitus) Current Visit: Yes Status: Chronic Plan to address problem: DM management as per primary attending (5) Anemia in chronic illness Current Visit: Yes Status: Acute Plan to address problem: check irons stores. consider [place] if iron store is replete Subjective Date of service: 10/07/19 Principal diagnosis: pulm edema Interval history: Pt awake, alert, in NAD, denies fever, chills, n/v/d, CP, SOB. Objective - Vital Signs Vital signs: Vital Signs - 12hr 10/06/19 10/06/19 10/06/19 21:46 21:54 22:00 Temperature Pulse Rate 88 88 84 Respiratory 20 Rate Blood Pressure 193/101 193/101 O2 Sat by Pulse 98 Oximetry 10/07/19 10/07/19 10/07/19 00:06 00:51 04:25 Temperature 98.6 F 98.2 F Pulse Rate 89 92 H 81 Respiratory 18 18 Rate Blood Pressure 181/97 181/97 177/102 O2 Sat by Pulse 99 97 Oximetry 10/07/19 10/07/19 10/07/19 05:36 08:25 09:22 Temperature 98.0 F Pulse Rate 85 84 84 Respiratory 18 Rate Blood Pressure 177/102 205/122 120/110 O2 Sat by Pulse 97 Oximetry 10/07/19 10/07/19 09:23 09:24 Temperature Pulse Rate 84 84 Respiratory Rate Blood Pressure 200/110 200/110 O2 Sat by Pulse Oximetry - General Appearance General appearance: well-developed, well-nourished, appears stated age EENT: ATNC, PERRL, mucous membranes moist Neck: no JVD Respiratory: Present: Clear to Ascultation Cardiology: regular, S1S2 Gastrointestinal: normoactive bowel sounds Integumentary: no rash, other (no edeam ) Neurologic: no focal deficit, alert and oriented x3, strength 5/5, CN 3-12 intact Psychiatric: mood/affect appropriate, cooperative - Lab 10/07/19 03:53 10/07/19 03:53 Most recent lab results ABG pH 7.378 pH Units (7.350-7.450) 10/03/19 18:40 ABG pCO2 37.7 mm Hg 10/03/19 18:40 ABG pO2 82.9 mm Hg (80.0-90.0) 10/03/19 18:40 ABG HCO3 21.7 mmol/L (20.0-26.0) 10/03/19 18:40 ABG O2 Saturation 96.8 % (95.0-99.0) 10/03/19 18:40 Calcium 7.7 mg/dL (8.4-10.2) L 10/07/19 03:53 Magnesium 2.00 mg/dL (1.7-2.3) 10/03/19 18:40 Urine Creatinine 30.6 mg/dL (0.1-20.0) H 10/06/19 Unknown Urine Sodium 101 mmol/L 10/06/19 Unknown Urine Total Protein 283 mg/dL (5-11.8) H 10/06/19 Unknown Medications & Allergies - Medications Allergies/Adverse Reactions: Allergies No Known Allergies Allergy (Unverified 11/20/14 03:04) Home Medications: Home Medications Medication Instructions Recorded Confirmed Last Taken Type Acetaminophen [Acetaminophen TAB] 325 mg PO Q4H PRN #30 tablet 11/19/17 11/21/17 Unknown Rx Aspirin [Aspirin EC] 81 mg PO DAILY #30 11/19/17 11/21/17 1 Day Ago Rx ~11/20/17 AtorvaSTATin [Lipitor] 80 mg PO QHS #30 day 11/19/17 11/21/17 1 Day Ago Rx ~11/20/17 Bisacodyl [Dulcolax suppos] 10 mg [place] QDAY PRN #7 supp.rect 11/19/17 11/21/17 Unknown Rx Brimonidine/Timolol 0.2-0.5% 1 drops OU Q12HR #1 bottle 11/19/17 11/21/17 1 Day Ago Rx [Combigan 0.2-0.5%] ~11/20/17 Citalopram [celeXA] 10 mg PO QDAY #30 11/19/17 11/21/17 1 Day Ago Rx ~11/20/17 Clopidogrel [Plavix] 75 mg PO QDAY #30 11/19/17 11/21/17 1 Day Ago Rx ~11/20/17 Cyclobenzaprine [Flexeril 10 MG 10 mg PO TID PRN #30 day 11/19/17 11/21/17 Unknown Rx TAB] Lipase/Protease/Amylase [Pancreaze 1 each FEEDTUBE PRN PRN #30 capsule 11/19/17 11/21/[address] 10,500 Unit] Magnesium Hydroxide [Milk of 30 ml PO Q4H PRN #30 oral.liqd 11/19/17 11/21/17 Unknown Rx Magnesia] Petrolatum,White [Vaseline Lip 1 applic TP DIRECT PRN #30 tube 11/19/17 11/21/17 Unknown Rx Therapy] Simple Syrup 15 ml FEEDTUBE PRN PRN #30 11/19/17 11/21/17 Unknown Rx oral.liqd Simple Syrup 30 ml FEEDTUBE PRN PRN #30 11/19/17 11/21/17 Unknown Rx oral.liqd Sodium Bicarbonate 325 mg FEEDTUBE PRN PRN #30 tablet 11/19/17 11/21/17 Unknown Rx amLODIPine 5 mg PO QDAY #30 tablet 11/19/17 11/21/17 1 Day Ago Rx ~11/20/17 NIFEdipine [Nifedipine ER] 10 mg PO TID 11/21/17 11/21/17 1 Day Ago History ~11/20/17 Detemir (Nf) [Levemir (Nf)] 10 units SUB-Q QHS units 11/28/17 Unknown Rx Active Medications: Generic Name Dose Route Start Last Admin Trade Name Freq PRN Reason Stop Dose Admin Acetaminophen 325 mg 10/03/19 23:00 10/05/19 18:30 Tylenol PO 325 mg Q4H PRN Administration Pain MILD(1-3)/Fever >100.5/MUNOZ Lipase/Protease/Amylase 1 each 10/03/19 23:00 Danny Cruz 10,500 Unit FEEDTUBE PRN PRN For Clogged Feeding Tube Aspirin 81 mg 10/04/19 10:00 10/07/19 09:22 Halfprin Ec PO 81 mg DAILY KYE Administration Atorvastatin Calcium 80 mg 10/04/19 22:00 10/06/19 21:46 Lipitor PO 80 mg QHS KYE Administration Bisacodyl 10 mg 10/03/19 23:00 Dulcolax [place] QDAY PRN Constipation Brimonidine/Timolol 1 drops 10/04/19 10:00 10/07/19 09:26 Combigan 0.2-0.5% OU 1 drops Q12HR KYE Administration Carvedilol 25 mg 10/05/19 22:00 10/07/19 09:24 Coreg PO 25 mg BID KYE Administration Citalopram Hydrobromide 10 mg 10/04/19 10:00 10/07/19 09:22 Celexa PO 10 mg QDAY KYE Administration Clopidogrel Bisulfate 75 mg 10/04/19 10:00 10/07/19 09:21 Plavix PO 75 mg QDAY [facility]YE Administration Cyclobenzaprine HCl 10 mg 10/03/19 23:00 10/06/19 21:53 Flexeril PO 10 mg TID PRN Administration Muscle Spasm Furosemide 40 mg 10/05/19 19:00 10/07/19 09:22 Lasix PO 40 mg QDAY [facility] Administration Heparin Sodium (Porcine) 5,000 unit 10/04/19 10:00 10/06/19 21:47 Heparin SUB-Q 5,000 unit Q12HR [facility] Administration Hydralazine HCl 10 mg 10/03/19 23:06 10/07/19 09:22 Apresoline IV 10 mg Q30MIN PRN Administration Blood Pressure Hydralazine HCl 100 mg 10/05/19 22:00 10/07/19 09:23 Apresoline PO 100 mg BID [facility] Administration Ceftriaxone Sodium 2 gm in 100 mls @ 200 mls/hr 10/04/19 10:00 10/07/19 09:21 Rocephin/Ns 2 Gm/100 Ml IV 10/08/19 10:29 200 mls/hr Q24HR KYE Administration Protocol Insulin Glargine 20 units 10/05/19 22:00 10/06/19 22:25 Lantus SUB-Q 20 units QHS [facility] Administration Insulin Human Lispro 0 unit 10/04/19 09:00 10/06/19 22:25 Humalog SUB-Q 8 unit ACHS [facility] Administration Protocol Magnesium Hydroxide 30 ml 10/03/19 23:00 10/05/19 10:06 Milk Of Magnesia PO 30 ml Q4H PRN Administration Constipation Nifedipine 60 mg 10/05/19 18:03 10/07/19 09:21 Procardia Xl PO 60 mg QDAY [facility] Administration Simple Syrup 15 ml 10/03/19 23:00 Simple Syrup FEEDTUBE PRN PRN Hypoglycemia Simple Syrup 30 ml 10/03/19 23:00 Simple Syrup FEEDTUBE PRN PRN Hypoglycemia Sodium Bicarbonate 325 mg 10/03/19 23:00 Sodium Bicarbonate FEEDTUBE PRN PRN For Clogged Feeding Tube Valsartan 160 mg 10/03/19 23:45 10/07/19 09:22 Diovan PO 160 mg BID [facility]YE Administration
[2019-10-07] MEDS: INSULIN LISPRO 100 UNIT/ML SUB-Q SCH ×3 (10:05→17:11)
--- NOTE | 2019-10-07 10:35 | Progress Note ---
Assessment and Plan - Patient Problems (1) Acute respiratory failure Current Visit: Yes Status: Acute (2) Anemia in chronic illness Current Visit: Yes Status: Acute (3) Flash pulmonary edema Current Visit: Yes Status: Acute (4) CAD (coronary artery disease) Current Visit: Yes Status: Chronic Qualifiers: Coronary Disease-Associated Artery/Lesion type: [place] artery [place] vs. transplanted heart: [place] heart (5) Encephalopathy acute Current Visit: No Status: Acute Subjective Principal diagnosis: pulm edema Interval history: no sob reported Objective Vital Signs - 12hr 10/07/19 10/07/19 10/07/19 00:06 00:51 04:25 Temperature 98.6 F 98.2 F Pulse Rate 89 92 H 81 Respiratory 18 18 Rate Blood Pressure 181/97 181/97 177/102 O2 Sat by Pulse 99 97 Oximetry 10/07/19 10/07/19 10/07/19 05:36 08:25 09:22 Temperature 98.0 F Pulse Rate 85 84 84 Respiratory 18 Rate Blood Pressure 177/102 205/122 120/110 O2 Sat by Pulse 97 Oximetry 10/07/19 10/07/19 10/07/19 09:23 09:24 10:00 Temperature Pulse Rate 84 84 80 Respiratory Rate Blood Pressure 200/110 200/110 O2 Sat by Pulse Oximetry Constitutional: no acute distress, alert Eyes: non-icteric ENT: oropharynx moist Neck: supple Effort: normal Ascultation: Bilateral: clear Percussion: Bilateral: not dull Cardiovascular: regular rate and rhythm (no mrg) Gastrointestinal: normoactive bowel sounds, soft, non-tender, non-distended Integumentary: normal Extremities: no cyanosis, no edema, pink and warm Neurologic: normal mental status, other (LUE weakness, dysarthria) Psychiatric: mood appropriate, affect normal CBC and BMP: 10/07/19 03:53 10/07/19 03:53 ABG, PT/INR, D-dimer: ABG POC ABG pH 7.336 (7.35-7.45) L 10/03/19 18:34 ABG pH 7.378 pH Units (7.350-7.450) 10/03/19 18:40 POC ABG pCO2 44.2 (35-45) 10/03/19 18:34 ABG pCO2 37.7 mm Hg 10/03/19 18:40 POC ABG pO2 147 (80-105) H 10/03/19 18:34 ABG pO2 82.9 mm Hg (80.0-90.0) 10/03/19 18:40 POC ABG HCO3 23.6 (22-26 mml/L) 10/03/19 18:34 POC ABG Total CO2 25 (23-27mmol/L) 10/03/19 18:34 POC ABG O2 Sat 99 10/03/19 18:34 ABG O2 Saturation 96.8 % (95.0-99.0) 10/03/19 18:40 PT/INR, D-dimer PT 14.2 Sec. (12.2-14.9) 10/03/19 18:40 INR 1.11 (0.87-1.13) 10/03/19 18:40 Abnormal lab findings: Abnormal Labs 10/03/19 10/03/19 10/03/19 18:34 18:40 18:40 WBC 13.8 H RBC 2.67 L Hgb 8.0 L Hct 24.5 L Lymph % (Auto) Seg Neutrophils % Seg Neuts % (Manual) 93.0 H Lymphocytes % (Manual) 4.0 L Seg Neutrophils # Seg Neutrophils # Man 12.8 H Lymphocytes # (Manual) 0.6 L POC ABG pH 7.336 L POC ABG pO2 147 H ABG Base Excess ABG Hemoglobin Oxyhemoglobin Sodium Potassium Carbon Dioxide 19 L BUN 30 H Creatinine 2.5 H Glucose 474 H POC Glucose Calcium 8.1 L Troponin T 0.034 H NT-Pro-B Natriuret Pep Albumin 2.8 L Cholesterol 268 H LDL Cholesterol Direct 176 H HDL Cholesterol 74 H Urine WBC (Auto) Urine Creatinine Urine Total Protein 10/03/19 10/03/19 10/03/19 18:40 18:40 18:46 WBC RBC Hgb Hct Lymph % (Auto) Seg Neutrophils % Seg Neuts % (Manual) Lymphocytes % (Manual) Seg Neutrophils # Seg Neutrophils # Man Lymphocytes # (Manual) POC ABG pH POC ABG pO2 ABG Base Excess -3.1 L ABG Hemoglobin 9.2 L Oxyhemoglobin 92.2 L Sodium Potassium Carbon Dioxide BUN Creatinine Glucose POC Glucose Calcium Troponin T NT-Pro-B Natriuret Pep 25166 H Albumin Cholesterol LDL Cholesterol Direct HDL Cholesterol Urine WBC (Auto) 20.0 H Urine Creatinine Urine Total Protein 10/03/19 10/03/19 10/04/19 19:50 21:27 00:15 WBC RBC Hgb Hct Lymph % (Auto) Seg Neutrophils % Seg Neuts % (Manual) Lymphocytes % (Manual) Seg Neutrophils # Seg Neutrophils # Man Lymphocytes # (Manual) POC ABG pH POC ABG pO2 ABG Base Excess ABG Hemoglobin Oxyhemoglobin Sodium Potassium Carbon Dioxide BUN Creatinine Glucose POC Glucose 473 H 329 H 325 H Calcium Troponin T NT-Pro-B Natriuret Pep Albumin Cholesterol LDL Cholesterol Direct HDL Cholesterol Urine WBC (Auto) Urine Creatinine Urine Total Protein 10/04/19 10/04/19 10/04/19 06:33 08:52 13:05 WBC RBC Hgb Hct Lymph % (Auto) Seg Neutrophils % Seg Neuts % (Manual) Lymphocytes % (Manual) Seg Neutrophils # Seg Neutrophils # Man Lymphocytes # (Manual) POC ABG pH POC ABG pO2 ABG Base Excess ABG Hemoglobin Oxyhemoglobin Sodium Potassium Carbon Dioxide BUN Creatinine Glucose POC Glucose 439 H 424 H 398 H Calcium Troponin T NT-Pro-B Natriuret Pep Albumin Cholesterol LDL Cholesterol Direct HDL Cholesterol Urine WBC (Auto) Urine Creatinine Urine Total Protein 10/04/19 10/04/19 10/05/19 16:46 21:09 09:01 WBC 15.2 H RBC 2.88 L Hgb 8.6 L Hct 26.6 L Lymph % (Auto) 10.9 L Seg Neutrophils % 84.7 H Seg Neuts % (Manual) Lymphocytes % (Manual) Seg Neutrophils # 12.9 H Seg Neutrophils # Man Lymphocytes # (Manual) POC ABG pH POC ABG pO2 ABG Base Excess ABG Hemoglobin Oxyhemoglobin Sodium Potassium Carbon Dioxide BUN Creatinine Glucose POC Glucose 349 H 305 H Calcium Troponin T NT-Pro-B Natriuret Pep Albumin Cholesterol LDL Cholesterol Direct HDL Cholesterol Urine WBC (Auto) Urine Creatinine Urine Total Protein 10/05/19 10/05/19 10/05/19 09:01 09:08 12:15 WBC RBC Hgb Hct Lymph % (Auto) Seg Neutrophils % Seg Neuts % (Manual) Lymphocytes % (Manual) Seg Neutrophils # Seg Neutrophils # Man Lymphocytes # (Manual) POC ABG pH POC ABG pO2 ABG Base Excess ABG Hemoglobin Oxyhemoglobin Sodium 134 L Potassium Carbon Dioxide 18 L BUN 49 H Creatinine 2.9 H Glucose 159 H POC Glucose 179 H 167 H Calcium Troponin T NT-Pro-B Natriuret Pep Albumin 3.0 L Cholesterol LDL Cholesterol Direct HDL Cholesterol Urine WBC (Auto) Urine Creatinine Urine Total Protein 10/05/19 10/05/19 10/06/19 17:40 21:17 08:35 WBC RBC Hgb Hct Lymph % (Auto) Seg Neutrophils % Seg Neuts % (Manual) Lymphocytes % (Manual) Seg Neutrophils # Seg Neutrophils # Man Lymphocytes # (Manual) POC ABG pH POC ABG pO2 ABG Base Excess ABG Hemoglobin Oxyhemoglobin Sodium Potassium Carbon Dioxide BUN Creatinine Glucose POC Glucose 124 H 114 H 116 H Calcium Troponin T NT-Pro-B Natriuret Pep Albumin Cholesterol LDL Cholesterol Direct HDL Cholesterol Urine WBC (Auto) Urine Creatinine Urine Total Protein 10/06/19 10/06/19 10/06/19 11:00 22:26 Unknown WBC RBC Hgb Hct Lymph % (Auto) Seg Neutrophils % Seg Neuts % (Manual) Lymphocytes % (Manual) Seg Neutrophils # Seg Neutrophils # Man Lymphocytes # (Manual) POC ABG pH POC ABG pO2 ABG Base Excess ABG Hemoglobin Oxyhemoglobin Sodium Potassium Carbon Dioxide BUN Creatinine Glucose POC Glucose 218 H 338 H Calcium Troponin T NT-Pro-B Natriuret Pep Albumin Cholesterol LDL Cholesterol Direct HDL Cholesterol Urine WBC (Auto) Urine Creatinine 30.6 H Urine Total Protein 283 H 10/07/19 10/07/19 03:53 03:53 WBC RBC 3.05 L Hgb 9.2 L Hct 28.0 L Lymph % (Auto) Seg Neutrophils % Seg Neuts % (Manual) Lymphocytes % (Manual) Seg Neutrophils # Seg Neutrophils # Man Lymphocytes # (Manual) POC ABG pH POC ABG pO2 ABG Base Excess ABG Hemoglobin Oxyhemoglobin Sodium Potassium 3.1 L D Carbon Dioxide 19 L BUN 44 H Creatinine 2.8 H Glucose POC Glucose Calcium 7.7 L Troponin T NT-Pro-B Natriuret Pep Albumin Cholesterol LDL Cholesterol Direct HDL Cholesterol Urine WBC (Auto) Urine Creatinine Urine Total Protein
--- NOTE | 2019-10-07 11:57 | Progress Note ---
Assessment and Plan Assessment and plan: 39-year-old female with history of stroke, left-sided hemiparesis, hypertension, seizure, diabetes brought to the hospital by emergency medical services for acute respiratory distress. Upon arrival, patient on BiPAP, saturating 88% on BiPAP therapy, in moderate to severe respiratory distress. Emergency medical services gave steroids, albuterol, and Lasix prior to arrival. Upon initial evaluation, patient is awake, protecting airway, in moderate to severe respiratory distress, with cool clammy skin, diaphoresis, and markedly high BP--- systolic blood pressure in the 220s. Patient Now off OF BIPAP Patient not able to describe exacerbating or relieving factors. Patient has a PEG tube sec to Dysphagia caused by CVA - Patient Problems (1) ABHISHEK (acute kidney injury) SECONDARY TO ATN AND POSSIBLE UNDERLYING HYPTERNSIVE RENAL DISEASE Current Visit: Yes Status: Acute Plan to address problem: Patient with acute on chronic kidney disease. Chronic most likely secondary to hypertensive renal disease. Nephrology consult for further recommendations. Low-salt diet. Continue all renal toxic medications. she appears to be close to her baseline in renal (2) Flash pulmonary edema Current Visit: Yes Status: Acute Plan to address problem: Patient flash pulmonary edema this was reason for acute respiratory failure resolving. (3) Malignant hypertensive urgency Current Visit: Yes Status: Acute Plan to address problem: Patient's blood pressure has begin to go back up on day 2 after being weaned from nitroglycerin drip. Bp went back up despite medications, will change coreg to labatelol for better control and monitor. Discused with Nursing staff Home medications restarted, improvement in BP noted (4) CAD (coronary artery disease) Current Visit: Yes Status: Chronic Qualifiers: Coronary Disease-Associated Artery/Lesion type: [place] artery [place] vs. transplanted heart: [place] heart Plan to address problem: Patient is not having chest pain shortness of breath at this particular time stable coronary artery disease. (5) IDDM (insulin dependent diabetes mellitus) Current Visit: Yes Status: Chronic Plan to address problem: Diabetes remains uncontrolled we'll increase Lantus to 20 units daily at bedtime and increase to moderate dose sliding scale. (6) History of CVA with residual deficit Current Visit: No Status: Chronic Plan to address problem: Patient just has residual weakness. We'll continue to treat with aggressive antilipid's and antiplatelet therapy. Along with beta fish when blood pressure permits. (7) Acute respiratory failure Current Visit: Yes Status: Acute Plan to address problem: Initially secondary to flash pulmonary edema with underlying etiology of hypertensive crisis. Resolving after blood pressure improved. (8) Acute cystitis; monitor culture. continue abx anticipae discharge in am if patients BP remains stable Hospitalist Physical - Constitutional Vitals: Temp Pulse Resp BP Pulse Ox 98.0 F 80 20 200/110 99 10/07/19 08:25 10/07/19 10:00 10/07/19 10:00 10/07/19 09:24 10/07/19 10:00 General appearance: Present: no acute distress, well-nourished Results - Labs CBC & Chem 7: 10/07/19 03:53 10/07/19 03:53 Labs: Laboratory Last Values WBC 7.8 K/mm3 (4.5-11.0) 10/07/19 03:53 RBC 3.05 M/mm3 (3.65-5.03) L 10/07/19 03:53 Hgb 9.2 gm/dl (10.1-14.3) L 10/07/19 03:53 Hct 28.0 % (30.3-42.9) L 10/07/19 03:53 MCV 92 fl (79-97) 10/07/19 03:53 MCH 30 pg (28-32) 10/07/19 03:53 MCHC 33 % (30-34) 10/07/19 03:53 RDW 13.8 % (13.2-15.2) 10/07/19 03:53 Plt Count 327 K/mm3 (140-440) 10/07/19 03:53 Lymph % (Auto) 10.9 % (13.4-35.0) L 10/05/19 09:01 [place] % (Auto) 4.1 % (0.0-7.3) 10/05/19 09:01 Eos % (Auto) 0.0 % (0.0-4.3) 10/05/19 09:01 Baso % (Auto) 0.3 % (0.0-1.8) 10/05/19 09:01 Lymph # 1.7 K/mm3 (1.2-5.4) 10/05/19 09:01 Trigg # 0.6 K/mm3 (0.0-0.8) 10/05/19 09:01 Eos # 0.0 K/mm3 (0.0-0.4) 10/05/19 09:01 Baso # 0.0 K/mm3 (0.0-0.1) 10/05/19 09:01 Add Manual Diff Complete 10/03/19 18:40 Total Counted 100 10/03/19 18:40 Seg Neutrophils % 84.7 % (40.0-70.0) H 10/05/19 09:01 Seg Neuts % (Manual) 93.0 % (40.0-70.0) H 10/03/19 18:40 Band Neutrophils % 0 % 10/03/19 18:40 Lymphocytes % (Manual) 4.0 % (13.4-35.0) L 10/03/19 18:40 Reactive Lymphs % (Man) 0 % 10/03/19 18:40 Monocytes % (Manual) 2.0 % (0.0-7.3) 10/03/19 18:40 Eosinophils % (Manual) 1.0 % (0.0-4.3) 10/03/19 18:40 Basophils % (Manual) 0 % (0.0-1.8) 10/03/19 18:40 Metamyelocytes % 0 % 10/03/19 18:40 Myelocytes % 0 % 10/03/19 18:40 Promyelocytes % 0 % 10/03/19 18:40 Blast Cells % 0 % 10/03/19 18:40 Nucleated RBC % Not Reportable 10/03/19 18:40 Seg Neutrophils # 12.9 K/mm3 (1.8-7.7) H 10/05/19 09:01 Seg Neutrophils # Man 12.8 K/mm3 (1.8-7.7) H 10/03/19 18:40 Band Neutrophils # 0.0 K/mm3 10/03/19 18:40 Lymphocytes # (Manual) 0.6 K/mm3 (1.2-5.4) L 10/03/19 18:40 Abs React Lymphs (Man) 0.0 K/mm3 10/03/19 18:40 Monocytes # (Manual) 0.3 K/mm3 (0.0-0.8) 10/03/19 18:40 Eosinophils # (Manual) 0.1 K/mm3 (0.0-0.4) 10/03/19 18:40 Basophils # (Manual) 0.0 K/mm3 (0.0-0.1) 10/03/19 18:40 Metamyelocytes # 0.0 K/mm3 10/03/19 18:40 Myelocytes # 0.0 K/mm3 10/03/19 18:40 Promyelocytes # 0.0 K/mm3 10/03/19 18:40 Blast Cells # 0.0 K/mm3 10/03/19 18:40 WBC Morphology Not Reportable 10/03/19 18:40 Hypersegmented Neuts Not Reportable 10/03/19 18:40 Hyposegmented Neuts Not Reportable 10/03/19 18:40 Hypogranular Neuts Not Reportable 10/03/19 18:40 Smudge Cells Not Reportable 10/03/19 18:40 Toxic Granulation Not Reportable 10/03/19 18:40 Toxic Vacuolation Not Reportable 10/03/19 18:40 Dohle Bodies Not Reportable 10/03/19 18:40 Pelger-Huet Anomaly Not Reportable 10/03/19 18:40 Xiomy Rods Not Reportable 10/03/19 18:40 Platelet Estimate Consistent w auto 10/03/19 18:40 Clumped Platelets Not Reportable 10/03/19 18:40 Plt Clumps, EDTA Not Reportable 10/03/19 18:40 Large Platelets 1+ 10/03/19 18:40 Giant Platelets Not Reportable 10/03/19 18:40 Platelet Satelliting Not Reportable 10/03/19 18:40 Plt Morphology Comment Not Reportable 10/03/19 18:40 RBC Morphology Normal 10/03/19 18:40 Dimorphic RBCs Not Reportable 10/03/19 18:40 Polychromasia Not Reportable 10/03/19 18:40 Hypochromasia Not Reportable 10/03/19 18:40 Poikilocytosis Not Reportable 10/03/19 18:40 Anisocytosis Not Reportable 10/03/19 18:40 Microcytosis Not Reportable 10/03/19 18:40 Macrocytosis Not Reportable 10/03/19 18:40 Spherocytes Not Reportable 10/03/19 18:40 Pappenheimer Bodies Not Reportable 10/03/19 18:40 Sickle Cells Not Reportable 10/03/19 18:40 Target Cells Not Reportable 10/03/19 18:40 Tear Drop Cells Not Reportable 10/03/19 18:40 Ovalocytes Not Reportable 10/03/19 18:40 Helmet Cells Not Reportable 10/03/19 18:40 [place] Bodies Not Reportable 10/03/19 18:40 [place] Rings Not Reportable 10/03/19 18:40 Danna Cells Not Reportable 10/03/19 18:40 Bite Cells Not Reportable 10/03/19 18:40 Crenated Cell Not Reportable 10/03/19 18:40 Elliptocytes Not Reportable 10/03/19 18:40 Acanthocytes (Spur) Not Reportable 10/03/19 18:40 Rouleaux Not Reportable 10/03/19 18:40 Hemoglobin C Crystals Not Reportable 10/03/19 18:40 Schistocytes Not Reportable 10/03/19 18:40 Malaria parasites Not Reportable 10/03/19 18:40 [place] Bodies Not Reportable 10/03/19 18:40 Hem Pathologist Commnt No 10/03/19 18:40 PT 14.2 Sec. (12.2-14.9) 10/03/19 18:40 INR 1.11 (0.87-1.13) 10/03/19 18:40 APTT 29.0 Sec. (24.2-36.6) 10/03/19 18:40 POC ABG pH 7.336 (7.35-7.45) L 10/03/19 18:34 ABG pH 7.378 pH Units (7.350-7.450) 10/03/19 18:40 POC ABG pCO2 44.2 (35-45) 10/03/19 18:34 ABG pCO2 37.7 mm Hg 10/03/19 18:40 POC ABG pO2 147 (80-105) H 10/03/19 18:34 ABG pO2 82.9 mm Hg (80.0-90.0) 10/03/19 18:40 POC ABG HCO3 23.6 (22-26 mml/L) 10/03/19 18:34 ABG HCO3 21.7 mmol/L (20.0-26.0) 10/03/19 18:40 POC ABG Total CO2 25 (23-27mmol/L) 10/03/19 18:34 POC ABG O2 Sat 99 10/03/19 18:34 ABG O2 Saturation 96.8 % (95.0-99.0) 10/03/19 18:40 ABG O2 Content 12.0 (0.0-44) 10/03/19 18:40 POC ABG Base Excess -2 ((-2) - (+3)mmol/L) 10/03/19 18:34 ABG Base Excess -3.1 mmol/L (-2.0-3.0) L 10/03/19 18:40 ABG Hemoglobin 9.2 gm/dl (12.0-16.0) L 10/03/19 18:40 ABG Carboxyhemoglobin 4.4 % (0.0-5.0) 10/03/19 18:40 ABG Methemoglobin 0.3 % (0.0-1.5) 10/03/19 18:40 VBG pH 7.378 (7.320-7.420) 10/03/19 18:40 Oxyhemoglobin 92.2 % (95.0-99.0) L 10/03/19 18:40 FiO2 21 % 10/03/19 18:40 Sodium 138 mmol/L (137-145) 10/07/19 03:53 Potassium 3.1 mmol/L (3.6-5.0) L D 10/07/19 03:53 Chloride 104.4 mmol/L (98-107) 10/07/19 03:53 Carbon Dioxide 19 mmol/L (22-30) L 10/07/19 03:53 Anion Gap 18 mmol/L 10/07/19 03:53 BUN 44 mg/dL (7-17) H 10/07/19 03:53 Creatinine 2.8 mg/dL (0.7-1.2) H 10/07/19 03:53 Estimated GFR 23 ml/min 10/07/19 03:53 BUN/Creatinine Ratio 16 % 10/07/19 03:53 Glucose 93 mg/dL (65-100) 10/07/19 03:53 POC Glucose 338 (70-105) H 10/06/19 22:26 Calcium 7.7 mg/dL (8.4-10.2) L 10/07/19 03:53 Magnesium 2.00 mg/dL (1.7-2.3) 10/03/19 18:40 Total Bilirubin 0.20 mg/dL (0.1-1.2) 10/05/19 09:01 AST 19 units/L (5-40) 10/05/19 09:01 ALT 20 units/L (7-56) 10/05/19 09:01 Alkaline Phosphatase 96 units/L (35-129) 10/05/19 09:01 Total Creatine Kinase 64 units/L (30-135) 10/03/19 18:40 Troponin T 0.034 ng/mL (0.00-0.029) H 10/03/19 18:40 NT-Pro-B Natriuret Pep 16046 pg/mL (0-450) H 10/03/19 18:40 Total Protein 7.4 g/dL (6.3-8.2) 10/05/19 09:01 Albumin 3.0 g/dL (3.9-5) L 10/05/19 09:01 Albumin/Globulin Ratio 0.7 % 10/05/19 09:01 Triglycerides 149 mg/dL (2-149) 10/03/19 18:40 Cholesterol 268 mg/dL (50-199) H 10/03/19 18:40 LDL Cholesterol Direct 176 mg/dL (50-130) H 10/03/19 18:40 HDL Cholesterol 74 mg/dL (40-59) H 10/03/19 18:40 Cholesterol/HDL Ratio 3.62 % 10/03/19 18:40 Urine Color Straw (Yellow) 10/03/19 18:46 Urine Turbidity Clear (Clear) 10/03/19 18:46 Urine pH 7.0 (5.0-7.0) 10/03/19 18:46 Ur Specific [place] 1.013 (1.003-1.030) 10/03/19 18:46 Urine Protein >500 mg/dL (Negative) 10/03/19 18:46 Urine Glucose (UA) >=500 mg/dL (Negative) 10/03/19 18:46 Urine Ketones Neg mg/dL (Negative) 10/03/19 18:46 Urine Blood Sm (Negative) 10/03/19 18:46 Urine Nitrite Neg (Negative) 10/03/19 18:46 Urine Bilirubin Neg (Negative) 10/03/19 18:46 Urine Urobilinogen < 2.0 mg/dL (<2.0) 10/03/19 18:46 Ur Leukocyte Esterase Mod (Negative) 10/03/19 18:46 Urine WBC (Auto) 20.0 /HPF (0.0-6.0) H 10/03/19 18:46 Urine RBC (Auto) 28.0 /HPF (0.0-6.0) 10/03/19 18:46 U Epithel Cells (Auto) 2.0 /HPF (0-13.0) 10/03/19 18:46 Urine Bacteria (Auto) 1+ /HPF (Negative) 10/03/19 18:46 Hyaline Casts 2 /LPF 10/03/19 18:46 Urine Yeast (Budding) Few /HPF 10/03/19 18:46 Urine Creatinine 30.6 mg/dL (0.1-20.0) H 10/06/19 Unknown Urine Sodium 101 mmol/L 10/06/19 Unknown Urine Total Protein 283 mg/dL (5-11.8) H 10/06/19 Unknown Active Medications - Current Medications Current Medications: Generic Name Dose Route Start Last Admin Trade Name Annabella PRN Reason Stop Dose Admin Acetaminophen 325 mg 10/03/19 23:00 10/05/19 18:30 Tylenol PO 325 mg Q4H PRN Administration Pain MILD(1-3)/Fever >100.5/MUNOZ Lipase/Protease/Amylase 1 each 10/03/19 23:00 Pancrepaula Cruz 10,500 Unit FEEDTUBE PRN PRN For Clogged Feeding Tube Aspirin 81 mg 10/04/19 10:00 10/07/19 09:22 Halfprin Ec PO 81 mg DAILY KYE Administration Atorvastatin Calcium 80 mg 10/04/19 22:00 10/06/19 21:46 Lipitor PO 80 mg QHS KYE Administration Bisacodyl 10 mg 10/03/19 23:00 Dulcolax TX QDAY PRN Constipation Brimonidine/Timolol 1 drops 10/04/19 10:00 10/07/19 09:26 Combigan 0.2-0.5% OU 1 drops Q12HR KYE Administration Carvedilol 25 mg 10/05/19 22:00 10/07/19 09:24 Coreg PO 25 mg BID KYE Administration Citalopram Hydrobromide 10 mg 10/04/19 10:00 10/07/19 09:22 Celexa PO 10 mg QDAY KYE Administration Clopidogrel Bisulfate 75 mg 10/04/19 10:00 10/07/19 09:21 Plavix PO 75 mg QDAY KYE Administration Cyclobenzaprine HCl 10 mg 10/03/19 23:00 10/06/19 21:53 Flexeril PO 10 mg TID PRN Administration Muscle Spasm Furosemide 40 mg 10/05/19 19:00 10/07/19 09:22 Lasix PO 40 mg QDAY KYE Administration Heparin Sodium (Porcine) 5,000 unit 10/04/19 10:00 10/07/19 09:34 Heparin SUB-Q 5,000 unit Q12HR KYE Administration Hydralazine HCl 10 mg 10/03/19 23:06 10/07/19 09:22 Apresoline IV 10 mg Q30MIN PRN Administration Blood Pressure Hydralazine HCl 100 mg 10/05/19 22:00 10/07/19 09:23 Apresoline PO 100 mg BID KYE Administration Ceftriaxone Sodium 2 gm in 100 mls @ 200 mls/hr 10/04/19 10:00 10/07/19 09:21 Rocephin/Ns 2 Gm/100 Ml IV 10/08/19 10:29 200 mls/hr Q24HR KYE Administration Protocol Insulin Glargine 20 units 10/05/19 22:00 10/06/19 22:25 Lantus SUB-Q 20 units QHS KYE Administration Insulin Human Lispro 0 unit 10/04/19 09:00 10/07/19 10:05 Humalog SUB-Q Not Given ACHS [facility] Protocol Magnesium Hydroxide 30 ml 10/03/19 23:00 10/05/19 10:06 Milk Of Magnesia PO 30 ml Q4H PRN Administration Constipation Nifedipine 60 mg 10/05/19 18:03 10/07/19 09:21 Procardia Xl PO 60 mg QDAY KYE Administration Simple Syrup 15 ml 10/03/19 23:00 Simple Syrup FEEDTUBE PRN PRN Hypoglycemia Simple Syrup 30 ml 10/03/19 23:00 Simple Syrup FEEDTUBE PRN PRN Hypoglycemia Sodium Bicarbonate 325 mg 10/03/19 23:00 Sodium Bicarbonate FEEDTUBE PRN PRN For Clogged Feeding Tube Valsartan 160 mg 10/03/19 23:45 10/07/19 09:22 Diovan PO 160 mg BID KYE Administration Nutrition/Malnutrition Assess - Dietary Evaluation Nutrition/Malnutrition Findings: Nutrition Notes Start: 10/04/19 10:54 Freq: Status: Active Protocol: Document 10/05/19 13:39 LP (Rec: 10/05/19 13:39 LP [id number]) Nutrition Notes Initial or Follow up Brief Note Subjective/Other Information Pt eating good. Pt food preferences updated and has no other diet education questions. Nutrition Intervention Revisit per MD consult or patient Sign Off request:
[2019-10-07] MEDS ORDERED: NIFEdipine XL 90 MG TAB PO SCH (12:54)
[2019-10-07] MEDS: ACETAMINOPHEN 325 MG TAB PO PRN (14:18)
[2019-10-07 16:34] VITALS: BP 142/87
--- NOTE | 2019-10-07 18:42 | Discharge Summary ---
Providers - Providers Date of Admission: 10/03/19 20:29 Attending physician: NIMCO CHOW MD 10/03/19 23:05 Consult to Physician [CONS] Routine Comment: Consulting Provider: MARY AMAYA Physician Instructions: Reason For Exam: acute respiratory failure 10/05/19 13:09 Consult to Physician [CONS] Routine Comment: Consulting Provider: STU CAZARES Physician Instructions: Reason For Exam: abhishek 10/07/19 10:55 Physical Therapy Evaluation and Treat [CONS] Routine Comment: Reason For Exam: CONTRACTION Primary care physician: [employer] Hospitalization Reason for admission: respiratory failure Condition: Stable Hospital course: 39-year-old female with history of stroke, left-sided hemiparesis, hypertension, seizure, diabetes brought to the hospital by emergency medical services for acute respiratory distress. Upon arrival, patient on BiPAP, saturating 88% on BiPAP therapy, in moderate to severe respiratory distress. Emergency medical services gave steroids, albuterol, and Lasix prior to arrival. Upon initial evaluation, patient is awake, protecting airway, in moderate to severe respiratory distress, with cool clammy skin, diaphoresis, and markedly high BP--- systolic blood pressure in the 220s. Patient Now off OF BIPAP Patient not able to describe exacerbating or relieving factors. Patient has a PEG tube sec to Dysphagia caused by CVA - Patient Problems (1) ABHISHEK (acute kidney injury) SECONDARY TO ATN AND POSSIBLE UNDERLYING HYPTERNSIVE RENAL DISEASE Current Visit: Yes Status: Acute Plan to address problem: Patient with acute on chronic kidney disease. Chronic most likely secondary to hypertensive renal disease. Nephrology consult for further recommendations. Low-salt diet. Continue all renal toxic medications. she appears to be close to her baseline in renal and sable for discharge. Patient was treated with control of BP and some fluids (2) Flash pulmonary edema Current Visit: Yes Status: Acute Plan to address problem: Patient flash pulmonary edema this was reason for acute respiratory failure resolving. (3) Malignant hypertensive urgency Current Visit: Yes Status: Acute Plan to address problem: Patient's blood pressure has begin to go back up on day 2 after being weaned from nitroglycerin drip. bp IMPROVED ON CURRENT MEDS, WILL PROCEED WITH DISCHARGE ON LABATELOL Discused with Nursing staff Home medications restarted, improvement in BP noted (4) CAD (coronary artery disease) Current Visit: Yes Status: Chronic Qualifiers: Coronary Disease-Associated Artery/Lesion type: [place] artery [place] vs. transplanted heart: [place] heart Plan to address problem: Patient is not having chest pain shortness of breath at this particular time stable coronary artery disease. (5) IDDM (insulin dependent diabetes mellitus) Current Visit: Yes Status: Chronic Plan to address problem: Diabetes remains uncontrolled we'll increase Lantus to 20 units daily at bedtime and increase to moderate dose sliding scale. (6) History of CVA with residual deficit Current Visit: No Status: Chronic Plan to address problem: Patient just has residual weakness. We'll continue to treat with aggressive antilipid's and antiplatelet therapy. Along with beta fish when blood pressure permits. (7) Acute respiratory failure Current Visit: Yes Status: Acute Plan to address problem: Initially secondary to flash pulmonary edema with underlying etiology of hyp ertensive crisis. Resolving after blood pressure improved. (8) Acute cystitis; monitor culture. continue abx Disposition: DC/TX-06 HOME UNDER HOME [facility] Time spent for discharge: 35 MINS Core Measure Documentation - Palliative Care Palliative Care/ Comfort Measures: Not Applicable - Core Measures Any of the following diagnoses?: none Exam - Physical Exam Narrative exam: General appearance: Present: no acute distress, well-nourished - EENT Eyes: Present: PERRL, EOM intact ENT: hearing intact, clear oral mucosa, dentition normal - Neck Neck: Present: supple, normal ROM - Respiratory Respiratory: bilateral: rhonchi - Cardiovascular Heart Sounds: Present: S1 & S2 - Extremities Extremities: no ischemia, pulses intact, pulses symmetrical, No edema Peripheral Pulses: within normal limits - Abdominal General gastrointestinal: soft, non-tender, non-distended, normal bowel sounds, no hepatomegaly, no splenomegaly - Integumentary Integumentary: Present: clear, warm, dry - Psychiatric Psychiatric: appropriate mood/affect, intact judgment & insight, memory intact, dysartheria - Neurologic Neurologic: CNII-XII intact, moves all extremities - Constitutional Vitals: Temp Pulse Resp BP Pulse Ox 98.0 F 76 18 142/87 99 10/07/19 12:06 10/07/19 16:33 10/07/19 16:33 10/07/19 16:33 10/07/19 16:33 Plan Activity: advance as tolerated, fall precautions Diet: low fat, diabetic Special Instructions: record daily weights, record daily BP diary, record blood sugar diary Follow up with: MANDI URIOSTEGUI MD [Primary Care Provider] - 7 Days STU CAZARES MD [Staff Physician] - 7 Days CHIN POSADA MD [Staff Physician] - 7 Days Prescriptions: hydrALAZINE [Apresoline TAB] 100 mg PO TID #90 tab Valsartan [Diovan] 160 mg PO BID #60 tablet labetaloL [Labetalol 100mg TAB] 100 mg PO Q8HR #90 tablet Furosemide [Lasix TAB] 40 mg PO QDAY #30 tablet NIFEdipine XL [Procardia Xl] 90 mg PO QDAY #30 tablet Other Discharge Orders: Glucometer (Amb) Location: None Selected Glucometer supplies[Amb] Location: None Selected
[2019-10-12 20:52] LABS: Myeloperoxidase Antibody <1.0 AI (<1.0)
[2019-10-13 13:28] LABS: ANA Screen, IFA Negative (Negative)
== END 2019-10-07 20:00 | disposition home health service (06) | DRG 189 ==
LOC: ED 17:51 → CC1 20:29 → 4A 10-04 21:09
PROVIDERS: ADMIT Internal Medicine; ATTEND Internal Medicine
PROC: 4A033R1 Measurement of Arterial Saturation, Peripheral, Percutaneous Approach (ICD-10-PCS; principal; 2019-10-03)
PROC: 5A09357 Assistance with Respiratory Ventilation, Less than 24 Consecutive Hours, Continuous Positive Airway Pressure (ICD-10-PCS; 2019-10-03)
DX: J96.01 Acute respiratory failure with hypoxia (principal); J81.0 Acute pulmonary edema; E43 Unspecified severe protein-calorie malnutrition; I16.1 Hypertensive emergency; I69.354 Hemiplegia and hemiparesis following cerebral infarction affecting left non-dominant side; J90 Pleural effusion, not elsewhere classified; N30.00 Acute cystitis without hematuria; G93.40 Encephalopathy, unspecified; N17.9 Acute kidney failure, unspecified; I16.0 Hypertensive urgency; H40.9 Unspecified glaucoma; E11.65 Type 2 diabetes mellitus with hyperglycemia; G40.909 Epilepsy, unspecified, not intractable, without status epilepticus; N18.9 Chronic kidney disease, unspecified; E11.22 Type 2 diabetes mellitus with diabetic chronic kidney disease; D63.8 Anemia in other chronic diseases classified elsewhere; I25.10 Atherosclerotic heart disease of native coronary artery without angina pectoris; Z68.21 Body mass index [BMI] 21.0-21.9, adult; Z68.24 Body mass index [BMI] 24.0-24.9, adult; Z79.82 Long term (current) use of aspirin
CPT/HCPCS: 36415; 71045; 76770; 80048; 80053; 80061; 81001; 82550; 82570; 82803; 82805; 82962; 83520; 83735; 83880; 84156; 84300; 84484; 85007; 85025; 85027; 85610; 85730; 86021; 86038; 86160; 87086; 93005; 93010; 96365; 96375; G0378; A9270-GY; J0360; J0456; J0696; J1644; J1815; J2930; J7040; J7050

== ENCOUNTER 2020-07-04 18:22 | Emergency (ER) | payer MEDICARE ==
--- NOTE | 2020-07-04 18:40 | Emergency Department Report ---
HPI - General Time Seen by Provider: 07/04/20 18:33 - HPI HPI: This is a 40-year-old -[place] female presents to the emergency department via EMS from home in cardiac arrest. Apparently the patient was interacting with her family and they went back and 5 minutes later and the patient was unresponsive. Family did not start CPR but did call EMS. They arrived about 5 to 6 minutes later and began ACLS protocol. The patient had bilateral lower extremity intraosseous lines placed and a Ty airway placed while she received chest compressions. She was found to have a critical low Accu-Chek and was given D50. She was given Narcan. She had a total of 5 rounds of ACLS in route to the hospital including 5 doses of epinephrine and the patient remained pulseless and in asystole. She has a history of CVA x3, insulin-dependent diabetes, coronary artery disease, seizures. ED Past Medical Hx - Past Medical History Hx Hypertension: Yes (ECHO 10/27 EF 50-55%) Hx CVA: Yes (left side) Hx Heart Attack/AMI: No Hx Congestive Heart Failure: No Hx Diabetes: Yes Hx Deep Vein Thrombosis: No Hx GERD: No Hx Liver Disease: No Hx Renal Disease: No Hx Sickle Cell Disease: No Hx Headaches / Migraines: No Hx Seizures: Yes Hx Kidney Stones: No Hx Asthma: No Hx COPD: No Hx Dementia: No Hx HIV: No - Surgical History Hx Coronary Stent: No Hx Open Heart Surgery: No Hx Pacemaker: No Hx Internal Defibrillator: No Hx Cholecystectomy: No Hx Appendectomy: No Hx Breast Surgery: No Additional Surgical History: Spinal surgery, neck/artery surgery - Social History Smoking Status: Unknown if ever smoked Substance Use Type: None - Medications Home Medications: Home Medications Medication Instructions Recorded Confirmed Last Taken Type Acetaminophen [Acetaminophen TAB] 325 mg PO Q4H PRN #30 tablet 11/19/17 02/07/20 Unknown Rx Aspirin [Aspirin EC] 81 mg PO DAILY #30 11/19/17 02/07/20 1 Day Ago Rx ~11/20/17 AtorvaSTATin [Lipitor] 80 mg PO QHS #30 day 11/19/17 02/07/20 1 Day Ago Rx ~11/20/17 Brimonidine/Timolol 0.2-0.5% 1 drops OU Q12HR #1 bottle 11/19/17 02/07/20 1 Day Ago Rx [Combigan 0.2-0.5%] ~11/20/17 Citalopram [celeXA] 10 mg PO QDAY #30 11/19/17 02/07/20 1 Day Ago Rx ~11/20/17 Clopidogrel [Plavix] 75 mg PO QDAY #30 11/19/17 02/07/20 1 Day Ago Rx ~11/20/17 Cyclobenzaprine [Flexeril 10 MG 10 mg PO TID PRN #30 day 11/19/17 02/07/20 Unknown Rx TAB] Lipase/Protease/Amylase [Pancreaze 1 each FEEDTUBE PRN PRN #30 capsule 11/19/17 02/07/20 Unknown Rx 10,500 Unit] Magnesium Hydroxide [Milk of 30 ml PO Q4H PRN #30 oral.liqd 11/19/17 02/07/20 Unknown Rx Magnesia] Petrolatum,White [Vaseline Lip 1 applic TP DIRECT PRN #30 tube 11/19/17 02/07/20 Unknown Rx Therapy] Simple Syrup 15 ml FEEDTUBE PRN PRN #30 11/19/17 02/07/20 Unknown Rx oral.liqd Sodium Bicarbonate 325 mg FEEDTUBE PRN PRN #30 tablet 11/19/17 02/07/20 Unknown Rx bisacodyL [Dulcolax suppos] 10 mg [place] QDAY PRN #7 supp.rect 11/19/17 02/07/20 Unknown Rx Detemir (Nf) [Levemir (Nf)] 10 units SUB-Q QHS units 11/28/17 02/07/20 Unknown Rx Furosemide [Lasix TAB] 40 mg PO QDAY #30 tablet 10/07/19 02/07/20 Unknown Rx Valsartan [Diovan] 160 mg PO BID #60 tablet 10/07/19 02/07/20 Unknown Rx hydrALAZINE [Apresoline TAB] 100 mg PO TID #90 tab 10/07/19 02/07/20 Unknown Rx labetaloL [Labetalol 100mg TAB] 100 mg PO Q8HR #90 tablet 10/07/19 02/07/20 Unknown Rx amLODIPine 10 mg PO DAILY #30 tablet 02/07/20 Unknown Rx levoFLOXacin [Levaquin] 250 mg PO QDAY #3 tablet 02/07/20 Unknown Rx ED Review of Systems ROS: Stated complaint: CARDIAC ARREST Other details as noted in HPI Comment: Unobtainable due to pts medical conditions Physical Exam - Physical Exam Physical Exam: GENERAL: Patient is ill-appearing and unresponsive. HENT: Normocephalic. Atraumatic. Ty airway in place. EYES: Pupils are fixed and dilated. NECK: Supple. Trachea appears midline. CHEST/LUNGS: There are no spontaneous respirations. HEART/CARDIOVASCULAR: There are no spontaneous heart sounds. ABDOMEN: Abdomen is soft. There is no abdominal distention. SKIN: Skin is cool but dry. NEURO: Unresponsive. Does not withdraw to painful stimuli. Does not follow any commands. MUSCULOSKELETAL: There is no obvious deformity. There is no evidence of acute injury. No palpable femoral or radial pulses. ED Medical Decision Making - Medical Decision Making Patient presents in cardiac arrest with a Ty airway in place into bilateral lower extremity intraosseous lines. She had already received 5 rounds of ACLS protocol with bag valve ventilation, 5 rounds of epinephrine, D50, Narcan, chest compressions and the patient remained in asystole. She arrives still pulseless and in asystole and was moved to the [facility] in room 21 where we continued chest compressions and ACLS protocol. The patient had another 3 rounds of ACLS with epinephrine, sodium bicarbonate and another round of D50, as well as the bag valve ventilations and chest compressions. Each time the patient was pulseless and in asystole. Pupils are fixed and dilated. There are no spontaneous heart or breath sounds. At this point time of was called at [id number]. The patient sister was notified of the patient's expiration. Critical Care Time: Yes Critical care time in (mins) excluding proc time.: 20 Critical care attestation.: If time is entered above; I have spent that time in minutes in the direct care of this critically ill patient, excluding procedure time. Critical care time was spent on this patient in doing her initial evaluation, supervision of ACLS protocol and discussion of expiration with the patient's family. Critical Care Time: 20 minutes ED Disposition Clinical Impression: Cardiac arrest Acute respiratory failure Qualifiers: Respiratory failure complication: unspecified whether with hypoxia or hypercapnia Qualified Code(s): J96.00 - Acute respiratory failure, unspecified whether with hypoxia or hypercapnia Disposition: DC-20 Is pt being admited?: No Time of Disposition: 19:42
== END 2020-07-04 21:48 ==
LOC: ED 18:22
DX: I46.9 Cardiac arrest, cause unspecified (principal)
CPT/HCPCS: 92950